=== PATIENT | male | born 1960 | race Caucasian/White ===

== ENCOUNTER 2017-04-08 14:26 | Observation (INO) | payer OTHER ==
[2017-04-08] MEDS ORDERED: SODIUM CHLORIDE 0.9% 1,000 ML IV ONE (15:44)
[2017-04-08 16:03] LABS: Basophils % (A) 0 %; Eosinophils # (A) 0.1 k/uL (0-0.7); Eosinophils % (A) 2 %; HGB 13.7 gm/dL (13.0-17.5); Lymphocytes # (A) 1.1 k/uL (1.0-4.8); Lymphocytes % (A) 14 %; MCH 29.5 pg (25.0-35.0); MCHC 32.8 g/dL (31.0-37.0); MCV 90.2 fL (80.0-100.0); Mean Platelet Volume 8.6; Monocytes # (A) 0.5 k/uL (0-1.0); Monocytes % (A) 6 %; Neutrophils # (A) 5.9 k/uL (1.3-7.7); Neutrophils % (A) 76 %; Platelet Count 228 k/uL (150-450); RBC 4.65 m/uL (4.30-5.90); RDW 12.4 % (11.5-15.5); WBC 7.8 k/uL (3.8-10.6)
--- NOTE | 2017-04-08 16:10 | XR ---
EXAMINATION TYPE: XR chest 2V DATE OF EXAM: 04/08/2017 COMPARISON: NONE HISTORY: Weakness TECHNIQUE: Frontal and lateral views of the chest are obtained. FINDINGS: There is no focal air space opacity, pleural effusion, or pneumothorax seen. The cardiac silhouette size is within normal limits. The osseous structures are intact. Moderate multilevel deg enerative changes of the thoracic spine are noted. IMPRESSION: No acute cardiopulmonary process.
[2017-04-08 16:12] LABS: INR 1.1 (<1.2); Partial Thromboplastin Time 28.5 sec (22.0-30.0); Prothrombin Time 10.4 sec (9.0-12.0)
[2017-04-08 16:16] LABS: ALT 18 U/L (21-72); AST 19 U/L (17-59); Albumin 4.3 g/dL (3.5-5.0); Alkaline Phosphatase 125 U/L (38-126); Anion Gap 13 mmol/L; Blood Urea Nitrogen 14 mg/dL (9-20); Calcium 9.5 mg/dL (8.4-10.2); Carbon Dioxide 25 mmol/L (22-30); Chloride 103 mmol/L (98-107); Glucose 97 mg/dL (74-99); Magnesium 2.5 mg/dL (1.6-2.3); Sodium 141 mmol/L (137-145); Total Bilirubin 0.6 mg/dL (0.2-1.3); Total Protein 7.7 g/dL (6.3-8.2)
--- NOTE | 2017-04-08 16:20 | ED ---
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 Family states that he has been worked up as an outpatient for heart problems. He had a pharmacological stress test about 4 days ago. He was fine after this however then yesterday became generally weak and was unable to ambulate on his own. They stated that they've have had to pick him up and he just drags his feet when he walks. There is no new focal weakness she states that he just feels generally fatigued. He states he has had lack of appetite and has not been eating or drinking as much over the last couple of days. No fevers or chills. No cough or shortness of breath. No abdominal pain. No nausea, vomiting, or diarrhea. He was supposed to see a neurologist, Dr. Galeana however due to his weakness was brought emergency department. The patient states that his weakness from his stroke is unchanged and he does not feel he is new focal neurologic deficits. No other acute complaints at this time. - Related Data Home Medications Medication Instructions Recorded Confirmed Apixaban [Eliquis] 5 mg PO BID 04/08/17 04/08/17 Aspirin [Adult Low Dose Aspirin EC] 81 mg PO DAILY 04/08/17 04/08/17 Atorvastatin [Lipitor] 20 mg PO HS 04/08/17 04/08/17 Carvedilol [Coreg] 3.125 mg PO BID 04/08/17 04/08/17 Hydrocortisone Cream 1 applic TOPICAL BID 04/08/17 04/08/17 [Hydrocortisone 2.5% Cream] Lisinopril [Prinivil] 5 mg PO DAILY 04/08/17 04/08/17 Allergies Allergy/AdvReac Type Severity Reaction Status Date / Time No Known Allergies Allergy Verified 04/08/17 15:47 Review of Systems ROS Statement: Those systems with pertinent positive or pertinent negative responses have been documented in the HPI. ROS Other: All systems not noted in ROS Statement are negative. Past Medical History Past Medical History: Atrial Fibrillation, CVA/TIA History of Any Multi-Drug Resistant Organisms: None Reported Additional Past Surgical History / Comment(s): left achilles tendon repair Past Psychological History: No Psychological Hx Reported Smoking Status: Former smoker Past Alcohol Use History: None Reported Past Drug Use History: None Reported General Exam - General Exam Comments Initial Comments: Constitutional: Awake alert Appears comfortable Head: Normocephalic atraumatic Eyes: no conjunctival injection No scleral icterus EOMI Neck: No JVD Supple Heart: Regular rate rhythm normal S1-S2 no murmurs Lungs: Clear to auscultation bilaterally No wheezing No rales Abdomen: Soft nondistended nontender Extremities: Non edematous DP pulses intact Radial pulses intact Neuro: A&Ox3, cranial nerves II through XII are grossly intact, speech is fluent , patient has slightly decreased strength in left upper and left lower extremity when compared to the right however both are able to be held up against gravity. No ataxia in the extremities Psych: Appropriate mood and affect Limitations: no limitations Course Vital Signs 04/08/17 04/08/17 04/08/17 14:31 15:52 17:00 Temperature 97.7 F Pulse Rate 81 80 71 Respiratory 18 18 16 Rate Blood Pressure 129/67 153/79 177/80 O2 Sat by Pulse 100 100 100 Oximetry EKG Findings - EKG Comments: EKG Findings:: EKG showing normal sinus rhythm with rate of 71. No abnormal ST segment changes or T-wave inversions. QTC is 491. Other intervals normal. No ectopy. Medical Decision Making - Medical Decision Making This is a 56-year-old male who presents emergency department for generalized fatigue and difficulty with ambulation. The patient had an extensive workup performed that was mostly unremarkable. Patient did appear clinically dehydrated and was given a liter of fluids. Urinalysis was negative. Chest x- ray and CT of the head were unchanged from previous. I did attempt to get the patient up and walk at bedside and he had significant weakness. He was able to stand up however was unable to ambulate on his own. This is way off of his baseline. Typically he is able to ambulate on his own and lives in assisted living and is able to go up and down stairs to his meals. This time I do not feel that the patient is safe to go back to his assisted living and may possibly sustained malnutrition if unable to get to the cafeteria to eat. He needs to stay for physical therapy and likely placement into a long-term facility for getting his strength back. Dr. Guzman accepts the admission. Patient and family were updated at bedside. All questions were answered. - Lab Data Result diagrams: 04/08/17 15:39 04/08/17 15:39 Lab Results 04/08/17 04/08/17 04/08/17 Range/Units 15:39 15:39 15:39 WBC 7.8 (3.8-10.6) k/uL RBC 4.65 (4.30-5.90) m/uL Hgb 13.7 (13.0-17.5) gm/dL Hct 42.0 (39.0-53.0) % MCV 90.2 (80.0-100.0) fL MCH 29.5 (25.0-35.0) pg MCHC 32.8 (31.0-37.0) g/dL RDW 12.4 (11.5-15.5) % Plt Count 228 (150-450) k/uL Neutrophils % 76 % Lymphocytes % 14 % Monocytes % 6 % Eosinophils % 2 % Basophils % 0 % Neutrophils # 5.9 (1.3-7.7) k/uL Lymphocytes # 1.1 (1.0-4.8) k/uL Monocytes # 0.5 (0-1.0) k/uL Eosinophils # 0.1 (0-0.7) k/uL Basophils # 0.0 (0-0.2) k/uL PT (9.0-12.0) sec INR (<1.2) APTT (22.0-30.0) sec Sodium 141 (137-145) mmol/L Potassium 5.0 (3.5-5.1) mmol/L Chloride 103 (98-107) mmol/L Carbon Dioxide 25 (22-30) mmol/L Anion Gap 13 mmol/L BUN 14 (9-20) mg/dL Creatinine 1.10 (0.66-1.25) mg/dL Est GFR (MDRD) Af Amer >60 (>60 ml/min/1.73 sqM) Est GFR (MDRD) Non-Af >60 (>60 ml/min/1.73 sqM) Glucose 97 (74-99) mg/dL Calcium 9.5 (8.4-10.2) mg/dL Magnesium 2.5 H (1.6-2.3) mg/dL Total Bilirubin 0.6 (0.2-1.3) mg/dL AST 19 (17-59) U/L ALT 18 L (21-72) U/L Alkaline Phosphatase 125 (38-126) U/L CK-MB (CK-2) 0.5 (0.0-2.4) ng/mL Troponin I <0.012 (0.000-0.034) ng/mL NT-Pro-B Natriuret Pep pg/mL Total Protein 7.7 (6.3-8.2) g/dL Albumin 4.3 (3.5-5.0) g/dL Urine Color Urine Appearance (Clear) Urine pH (5.0-8.0) Ur Specific [place] (1.001-1.035) Urine Protein (Negative) Urine Glucose (UA) (Negative) Urine Ketones (Negative) Urine Blood (Negative) Urine Nitrite (Negative) Urine Bilirubin (Negative) Urine Urobilinogen (<2.0) mg/dL Ur Leukocyte Esterase (Negative) 04/08/17 04/08/17 04/08/17 Range/Units 15:39 15:39 17:32 WBC (3.8-10.6) k/uL RBC (4.30-5.90) m/uL Hgb (13.0-17.5) gm/dL Hct (39.0-53.0) % MCV (80.0-100.0) fL MCH (25.0-35.0) pg MCHC (31.0-37.0) g/dL RDW (11.5-15.5) % Plt Count (150-450) k/uL Neutrophils % % Lymphocytes % % Monocytes % % Eosinophils % % Basophils % % Neutrophils # (1.3-7.7) k/uL Lymphocytes # (1.0-4.8) k/uL Monocytes # (0-1.0) k/uL Eosinophils # (0-0.7) k/uL Basophils # (0-0.2) k/uL PT 10.4 (9.0-12.0) sec INR 1.1 (<1.2) APTT 28.5 (22.0-30.0) sec Sodium (137-145) mmol/L Potassium (3.5-5.1) mmol/L Chloride (98-107) mmol/L Carbon Dioxide (22-30) mmol/L Anion Gap mmol/L BUN (9-20) mg/dL Creatinine (0.66-1.25) mg/dL Est GFR (MDRD) Af Amer (>60 ml/min/1.73 sqM) Est GFR (MDRD) Non-Af (>60 ml/min/1.73 sqM) Glucose (74-99) mg/dL Calcium (8.4-10.2) mg/dL Magnesium (1.6-2.3) mg/dL Total Bilirubin (0.2-1.3) mg/dL AST (17-59) U/L ALT (21-72) U/L Alkaline Phosphatase (38-126) U/L CK-MB (CK-2) (0.0-2.4) ng/mL Troponin I (0.000-0.034) ng/mL NT-Pro-B Natriuret Pep 186 pg/mL Total Protein (6.3-8.2) g/dL Albumin (3.5-5.0) g/dL Urine Color Yellow Urine Appearance Clear (Clear) Urine pH 5.0 (5.0-8.0) Ur Specific [place] 1.020 (1.001-1.035) Urine Protein Trace H (Negative) Urine Glucose (UA) Negative (Negative) Urine Ketones 1+ H (Negative) Urine Blood Negative (Negative) Urine Nitrite Negative (Negative) Urine Bilirubin Negative (Negative) Urine Urobilinogen <2.0 (<2.0) mg/dL Ur Leukocyte Esterase Negative (Negative) Disposition Clinical Impression: Ambulatory dysfunction, Dehydration Disposition: ADMITTED IP TO THIS HOSP Condition: Stable
[2017-04-08 16:42] LABS: Creatine Kinase MB 0.5 ng/mL (0.0-2.4); Troponin I <0.012 ng/mL (0.000-0.034)
--- NOTE | 2017-04-08 16:58 | CT ---
EXAMINATION TYPE: CT brain wo con DATE OF EXAM: 04/08/2017 COMPARISON: NONE HISTORY: Lethargic. Altered mental status. CT DLP: 1052.7 mGycm. Automated Exposure Control for Dose Reduction was Utilized. TECHNIQUE: CT scan of the head is performed without contrast FINDINGS: There is no acute intracranial hemorrhage or midline shift identified. There is diffuse v entricular and sulcal prominence consistent with diffuse age-related cerebral atrophy. There is low- attenuation in the periventricular white matter consistent with chronic small vessel ischemic change. The globes are intact. Near complete opacification of the left maxillary sinus, moderate mucosal th ickening of the ethmoid sinuses, and moderate mucosal thickening in the visualized portion of the rig ht maxillary sinus with scant mucosal thickening of the sphenoid sinuses are seen. Frontal sinuses an d mastoid air cells are well aerated. Old lacunar injury of the right caudate head and subcortical pe riventricular white matter of the right frontal lobe are noted. IMPRESSION: 1. No acute intracranial hemorrhage or midline shift. 2. Moderate paranasal sinus disease with near complete opacification of the left maxillary sinus. 3. Old right frontal/caudate head lacunar injuries and diffuse age-related cerebral atrophy and chron ic small vessel ischemic change.
[2017-04-08 17:36] LABS: Appearance,Urine Clear (Clear); Bilirubin,Urine Negative (Negative); Blood,Urine Negative (Negative); Color,Urine Yellow; Glucose,Urine (UA) Negative (Negative); Ketones,Urine 1+ (Negative); Leukocyte Esterase,Urine Negative (Negative); Nitrite,Urine Negative (Negative); Protein,Urine Trace (Negative); Urobilinogen,Urine <2.0 mg/dL (<2.0)
[2017-04-08] MEDS ORDERED: ACETAMINOPHEN TAB 325 MG TAB PO PRN (17:41)
[2017-04-08] MEDS ORDERED: NALOXONE 0.4 MG/ML 1 ML VIAL IV PRN (17:41)
[2017-04-08] MEDS: CARVEDILOL 3.125 MG TAB PO SCH (18:50)
[2017-04-08 19:47] VITALS: BMI 22.0
[2017-04-08] MEDS ORDERED: HYDROcodone/APAP 5-325MG 1 EACH TAB PO PRN (20:21)
[2017-04-08] MEDS ORDERED: ALPRAZolam 0.25 MG TAB PO PRN (20:21)
[2017-04-08] MEDS: ATORVASTATIN 20 MG TAB PO SCH (21:22)
[2017-04-08] MEDS: HYDROCORTISONE 1% CREAM 30 GM TUBE TOPICAL SCH (21:22)
[2017-04-08] MEDS: SODIUM CHLORIDE 0.9% 1,000 ML IV SCH (21:22)
[2017-04-08] MEDS: APIXABAN 5 MG TAB PO SCH (21:22)
--- NOTE | 2017-04-08 21:53 | HP ---
HISTORY AND PHYSICAL DATE OF SERVICE: 04/08/2017 CHIEF COMPLAINTS: Weakness and lethargy. HISTORY OF PRESENT ILLNESS: This 56-year-old gentleman with a past medical history of multiple medical problems, including atrial fibrillation, CVA, TIA, multiple episodes, being followed by Dr. Lucero and Dr. Nur in the outpatient setting, was previously admitted with multiple episodes of strokes, apparently. Currently the patient is complaining of weakness and tiredness. Patient was found to be dehydrated and the patient was admitted for further evaluation and treatment. The patient apparently is living in a home where he has to walk down the stairs to get meals, which the patient has apparently not been doing for the last couple of days. After coming to the hospital, the patient was given IV fluids and the patient is improving significantly. There is no history of headache, loss of consciousness, seizures. PAST MEDICAL HISTORY: 1. History of atrial fibrillation. 2. Multiple CVIs. MEDICATIONS PRIOR TO ADMISSION: 1. Prinivil 5 mg p.o. daily. 2. Hydrocortisone cream. 3. Coreg 3.125 mg p.o. b.i.d. 4. Lipitor 10 mg at bedtime. 5. Ecotrin 81 mg p.o. daily. 6. Eliquis 5 mg p.o. b.i.d. ALLERGIES: NONE. FAMILY HISTORY: History of CHF in the family and cirrhosis of the liver. SOCIAL HISTORY: Previous history of smoking. No current smoking or alcohol intake. REVIEW OF SYSTEMS: ENT: No diminished hearing. No diminished vision. CARDIOVASCULAR SYSTEM: No angina, palpitations. RESPIRATORY SYSTEM: No cough, hemoptysis. GI: As mentioned earlier. : No dysuria or retention. NERVOUS SYSTEM: No numbness, weakness. ALLERGY/IMMUNOLOGY: No asthma, hayfever. MUSCULOSKELETAL: As mentioned earlier. HEMATOLOGY/ONCOLOGY: No history of anemia. ENDOCRINE: No history of diabetes, hypothyroidism. CONSTITUTIONAL: As mentioned earlier. DERMATOLOGY: Negative. RHEUMATOLOGY: Negative. PSYCHIATRY: As mentioned earlier. PHYSICAL EXAMINATION: Patient is alert and oriented x3. Pulse 71, blood pressure 177/80, respiration 16, temperature 98.1, pulse ox 100% on 2 L. HEENT: Conjunctivae normal. Oral mucosa moist. NECK: No jugular venous distention. No carotid bruit. No lymph node enlargement. CARDIOVASCULAR SYSTEM: S1, S2 muffled. No S3. No S4. RESPIRATORY SYSTEM: Breath sounds diminished at the bases. Scattered rhonchi and crackles. ABDOMEN: Soft, nontender. No mass palpable. LEGS: No edema. No swelling. NERVOUS SYSTEM: Higher functions as mentioned earlier. Moves all 4 limbs. weakness on the left side. coordination, more on the left than the right. SKIN: No ulcer, rash, bleeding. LYMPHATICS: No lymph node palpable in neck, axillae or groin. LABS: CBC within normal limits. Magnesium 2.5. UA noted. ASSESSMENT: 1. Weakness and lethargy with dehydration with diminished oral intake. 2. Rule out transient ischemic attack. 3. History of previous multiple strokes. 4. History of atrial fibrillation. 5. On Xarelto. 6. History of cerebrovascular accident, transient ischemic attack. 7. History of left Achilles tendon repair. 8. Remote history of nicotine dependence. 9. FULL CODE. RECOMMENDATIONS AND DISCUSSION: In this 56-year-old gentleman who presented with multiple complex medical issues , we will monitor the patient closely, continue the current medications, continue symptomatic treatment. Otherwise, I recommend continuing with antiplatelet agents and Lipitor. I would also recommend DVT prophylaxis. Continue with IV fluids. Otherwise I would also recommend p.r.n. medication for hypertension and neurology and cardiology consultations. Guarded prognosis. Further recommendations to follow. Discussed at length with the family at the bedside, who understands and agrees. Prognosis guarded because of above-mentioned multiple complex medical issues. Neuro checks have also been instituted. Further recommendations to follow. MMODL / IJN: [id number] / [email or web address]
[2017-04-09] MEDS: SODIUM CHLORIDE 0.9% 1,000 ML IV SCH (10:34)
[2017-04-09] MEDS: APIXABAN 5 MG TAB PO SCH ×2 (11:35→20:45)
[2017-04-09] MEDS: PANTOPRAZOLE 40 MG TABLET PO SCH (11:35)
[2017-04-09] MEDS: LISINOPRIL 5 MG TAB PO SCH (11:35)
[2017-04-09] MEDS: ASPIRIN 81 MG PO SCH (11:35)
[2017-04-09] MEDS: HYDROCORTISONE 1% CREAM 30 GM TUBE TOPICAL SCH ×2 (11:36→20:44)
[2017-04-09] MEDS: CARVEDILOL 3.125 MG TAB PO SCH ×2 (11:36→17:57)
--- NOTE | 2017-04-09 13:00 | P.CRDCN ---
History of Present Illness Consult date: 04/09/17 History of present illness: Mr. Hamilton is a pleasant 56-year-old male past medical history significant for hypertension, atrial fibrillation on extermination inspector anti-coagulation with Eliquis, cardiomyopathy and history of previous TIAs in the past. He follows with Dr. Nur in the office. Apparently he was recently admitted to [facility] where he was diagnosed with a-fib and cardiomyopathy of unknown origin. Dr. Nur did a Lexiscan stress test that revealed ischemic cardiomyopathy secondary to extensive inferolateral wall OH with severed LV dysfunction. Per the patient he has never had a cardiac event in the past and denies history of coronary artery disease. He presented to the hospital yesterday with complaints of generalized weakness over the past few weeks. He lives in a half-way and his bedroom is upstairs. He noticed that he can barely make it up and down the stairs to meals without getting extremely fatigued and weak. He denies any symptoms of chest pain, sob, dizziness, palpitations, nausea, vomiting or diaphoresis. At the time of my exam he is sitting in bed in no acute distress. He still feels overall fatigue and weakness with no other symptoms. EKG on arrival reveals sinus mechanism with mild ST depression in inferior leads. Chest xray is negative for an acute cardiopulmonary process. Laboratory data reviewed, hemoglobin 13.7, platelets 228, potassium 5.0, magnesium 2.5, creatinine 1.1, cardiac enzymes negative 1 and proBNP 186. Current cardiac medications include lisinopril 5 mg daily, Coreg 3.125 mg twice a day, atorvastatin 20 mg daily, aspirin 81 mg daily and eliquis 5 mg twice a day. Telemetry tracings reveal no evidence of atrial fibrillation with bradycardia while sleeping. Echocardiogram performed in [facility] 01/2017 reveals decreased LV systolic function with EF 35-40%, mild aortic regurgitation and diastolic dysfunction. Review of Systems At the time of my exam: CONSTITUTIONAL: Denies fever. Denies chills. EYES: Denies blurred vision. Denies vision changes. Denies eye pain. EARS, NOSE, MOUTH & THROAT: Denies headache. Denies sore throat. Denies ear pain. CARDIOVASCULAR: Denies chest pain. Denies shortness of breath. Denies orthopnea. Denies PND. Denies palpitations. RESPIRATORY: Denies cough. GASTROINTESTINAL: Denies abdominal pain. Denies diarrhea. Denies constipation. Denies nausea. Denies vomiting. MUSCULOSKELETAL: Denies myalgias. INTEGUMENTARY: Denies pruitis. Denies rash. NEUROLOGIC: Denies numbness. Denies tingling. Complains of generalized weakness. PSYCHIATRIC: Denies anxiety. Denies depression. ENDOCRINE: Complains of overall fatigue. Denies weight change. Denies polydipsia. Denies polyurina. GENITOURINARY: Denies burning, hematuria or urgency with micturation. HEMATOLOGIC: Denies history of anemia. Denies bleeding. Past Medical History Past Medical History: Atrial Fibrillation, CVA/TIA History of Any Multi-Drug Resistant Organisms: None Reported Additional Past Surgical History / Comment(s): left achilles tendon repair Past Anesthesia/Blood Transfusion Reactions: No Reported Reaction Smoking Status: Former smoker - Past Family History Mother Family Medical History: Congestive Heart Failure (CHF) Father Additional Family Medical History / Comment(s): of sclorosis of the liver Medications and Allergies Home Medications Medication Instructions Recorded Confirmed Type Apixaban [Eliquis] 5 mg PO BID 04/08/17 04/08/17 History Aspirin [Adult Low Dose Aspirin EC] 81 mg PO DAILY 04/08/17 04/08/17 History Atorvastatin [Lipitor] 20 mg PO HS 04/08/17 04/08/17 History Carvedilol [Coreg] 3.125 mg PO BID 04/08/17 04/08/17 History Hydrocortisone Cream 1 applic TOPICAL BID 04/08/17 04/08/17 History [Hydrocortisone 2.5% Cream] Lisinopril [Prinivil] 5 mg PO DAILY 04/08/17 04/08/17 History Allergies Allergy/AdvReac Type Severity Reaction Status Date / Time No Known Allergies Allergy Verified 04/08/17 19:39 Physical Exam Vitals: Vital Signs Temp Pulse Pulse Resp BP BP Pulse Ox 04/09/17 07:57 98.0 F 69 18 152/69 98 04/09/17 04:00 98.0 F 72 16 138/65 99 04/08/17 23:57 16 04/08/17 23:35 99.1 F 72 16 157/65 96 04/08/17 20:00 98.0 F 80 16 180/81 99 04/08/17 18:43 98.1 F 74 16 165/77 100 04/08/17 17:00 71 16 177/80 100 04/08/17 15:52 80 18 153/79 100 04/08/17 14:31 97.7 F 81 18 129/67 100 Intake and Output 04/08/17 04/09/17 04/09/17 22:59 06:59 14:59 Other: # Voids 1 Weight 65.7 kg Blood pressure 152/69 heart rate 69 afebrile GENERAL: This is a 56-year-old female in no apparent distress at the time of my examination. HEENT: Head is atraumatic, normocephalic. Pupils are equal, round. Sclerae anicteric. Conjunctivae are clear. Mucous membranes of the mouth are moist. Neck is supple. There is no jugular venous distention. No carotid bruit is heard. LUNGS: Clear to auscultation no wheezes, rales or rhonchi. No chest wall tenderness is noted on palpation or with deep breathing. HEART: Regular rate and rhythm without murmurs, rubs or gallops. S1 and S2 heard. ABDOMEN: Soft, nontender. Bowel sounds are heard. No organomegaly noted. EXTREMITIES: No evidence of peripheral edema and no calf tenderness noted. VASCULAR: Radial and dorsalis pedis pulses palpated, no evidence of clubbing. NEUROLOGIC: Patient is awake, alert and oriented x3. Results 04/08/17 15:39 04/08/17 15:39 Cardiac Enzymes 04/08/17 04/08/17 Range/Units 15:39 15:39 AST 19 (17-59) U/L CK-MB (CK-2) 0.5 (0.0-2.4) ng/mL Troponin I <0.012 (0.000-0.034) ng/mL Coagulation 04/08/17 Range/Units 15:39 PT 10.4 (9.0-12.0) sec APTT 28.5 (22.0-30.0) sec CBC 04/08/17 Range/Units 15:39 WBC 7.8 (3.8-10.6) k/uL RBC 4.65 (4.30-5.90) m/uL Hgb 13.7 (13.0-17.5) gm/dL Hct 42.0 (39.0-53.0) % Plt Count 228 (150-450) k/uL Comprehensive Metabolic Panel 04/08/17 Range/Units 15:39 Sodium 141 (137-145) mmol/L Potassium 5.0 (3.5-5.1) mmol/L Chloride 103 (98-107) mmol/L Carbon Dioxide 25 (22-30) mmol/L BUN 14 (9-20) mg/dL Creatinine 1.10 (0.66-1.25) mg/dL Glucose 97 (74-99) mg/dL Calcium 9.5 (8.4-10.2) mg/dL AST 19 (17-59) U/L ALT 18 L (21-72) U/L Alkaline Phosphatase 125 (38-126) U/L Total Protein 7.7 (6.3-8.2) g/dL Albumin 4.3 (3.5-5.0) g/dL Current Medications Generic Name Dose Route Start Last Admin Trade Name Freq PRN Reason Stop Dose Admin Acetaminophen 650 mg 04/08/17 17:41 Tylenol Tab PO Q6HR PRN Mild Pain or Fever > 100.5 Hydrocodone Bitart/Acetaminophen 1 each 04/08/17 20:21 [place] 5-325 PO Q6HR PRN Pain Alprazolam 0.25 mg 04/08/17 20:21 Xanax PO TID PRN Anxiety Apixaban 5 mg 04/08/17 21:00 04/08/17 21:22 Eliquis PO 5 mg BID EMMA Administration Aspirin 81 mg 04/09/17 09:00 Aspirin PO DAILY [facility] Atorvastatin Calcium 20 mg 04/08/17 21:00 04/08/17 21:22 Lipitor PO 20 mg HS EMMA Administration Carvedilol 3.125 mg 04/08/17 18:00 04/08/17 18:50 Coreg PO 3.125 mg BID-W/MEALS EMMA Administration Hydrocortisone 1 applic 04/08/17 21:00 04/08/17 21:22 Hydrocortisone 1% Cream TOPICAL 1 applic BID [facility] Administration Sodium Chloride 1,000 mls @ 75 mls/hr 04/08/17 20:30 04/08/17 21:22 Saline 0.9% IV 75 mls/hr .[id number] EMMA Administration Lisinopril 5 mg 04/09/17 09:00 Zestril PO DAILY [facility] Naloxone HCl 0.2 mg 04/08/17 17:41 Narcan IV Q2M PRN Opioid Reversal Pantoprazole Sodium 40 mg 04/09/17 07:30 Protonix PO [id number] [facility]MA Intake and Output 04/08/17 04/09/17 04/09/17 22:59 06:59 14:59 Other: # Voids 1 Weight 65.7 kg 04/08/17 15:39 04/08/17 15:39 Assessment and Plan Assessment: ASSESSMENT 1. Generalized weakness and fatigue 2. Paroxysmal atrial fibrillation on extermination inspector anti-coagulation with Eliquis, currently maintaining sinus mechanism 3. Ischemic cardiomyopathy, no clinical manifestations of heart failure currently 4. Hypertension 5. Dyslipidemia PLAN Continue with carvedilol, lisinopril, atorvastatin, aspirin and eliquis as previously ordered. Echocardiogram reviewed from January as well as recent stress test. Continue with neurology work-up. He has a scheduled appointment with Dr. Nur 04/22 to discuss further cardiac evaluation. No acute intervention required during this admission. Thank you kindly for this consultation. Nurse Practitioner note has been reviewed, I agree with a documented findings and plan of care. Patient was seen and examined.
--- NOTE | 2017-04-09 14:03 | ECHOF ---
Referral Reason:fatigue MEASUREMENTS -------- HEIGHT: 172.7 cm WEIGHT: 65.3 kg BP: 152/69 RVIDd: 2.3 cm (< 3.3) IVSd: 1.1 cm (0.6 - 1.1) LVIDd: 4.8 cm (3.9 - 5.3) LVPWd: 0.9 cm (0.6 - 1.1) IVSs: 1.4 cm LVIDs: 3.9 cm LVPWs: 1.5 cm LA Diam: 3.8 cm (2.7 - 3.8) LAESV Index (A-L): 26.73 ml/m Ao Diam: 3.1 cm (2.0 - 3.7) AV Cusp: 2.2 cm (1.5 - 2.6) MV EXCURSION: 19.740 mm (> 18.000) MV EF SLOPE: 91 mm/s (70 - 150) EPSS: 1.2 cm MV E Paul: 0.87 m/s MV DecT: 172 ms MV A Paul: 0.73 m/s MV E/A Ratio: 1.20 AR PHT: 647 ms FINDINGS -------- Sinus rhythm. This was a technically good study. The left ventricular size is normal. Left ventricular wall thickness is normal. Overall left vent ricular systolic function is moderately impaired with, an EF between 35 - 40 %. Basal posterior LV wall motion is akinetic. Basal inferior LV wall motion is akinetic. Mid posterior LV wall motio n is hypokinetic. Mid inferior LV wall motion is hypokinetic. Apical inferior LV wall motion is hypokinetic. Apical septum LV wall motion is hypokinetic. The right ventricle is normal in size. Normal LA size by volume 22+/-6 ml/m2. The right atrium is normal in size. There is mild aortic valve sclerosis. There is mild aortic regurgitation. The mitral valve is normal. The tricuspid valve appears structurally normal. The pulmonic valve was not well visualized. There is no pulmonic regurgitation present. The aortic root size is normal. Normal inferior vena cava with normal inspiratory collapse consistent with estimated right atrial pre ssure of 5 mmHg. There is no pericardial effusion. CONCLUSIONS -------- 1. Sinus rhythm. 2. This was a technically good study. 3. The left ventricular size is normal. 4. Left ventricular wall thickness is normal. 5. Overall left ventricular systolic function is moderately impaired with, an EF between 35 - 40 %. 6. Basal posterior LV wall motion is akinetic. 7. Basal inferior LV wall motion is akinetic. 8. Mid posterior LV wall motion is hypokinetic. 9. Mid inferior LV wall motion is hypokinetic. 10. Apical inferior LV wall motion is hypokinetic. 11. Apical septum LV wall motion is hypokinetic. 12. Normal LA size by volume 22+/-6 ml/m2. 13. There is mild aortic valve sclerosis. 14. There is mild aortic regurgitation. 15. The mitral valve is normal. 16. The tricuspid valve appears structurally normal. 17. The pulmonic valve was not well visualized. 18. There is no pulmonic regurgitation present. 19. The aortic root size is normal. 20. Normal inferior vena cava with normal inspiratory collapse consistent with estimated right atrial pressure of 5 mmHg. 21. There is no pericardial effusion. FIELD RETURN REPAIRER: Danay Arellano RDCS
--- NOTE | 2017-04-09 17:04 | PN ---
PROGRESS NOTE DATE OF SERVICE: 04/09/2017 This 56-year-old gentleman admitted with weakness, lethargy and dehydration, also had cardiomyopathy with ejection fraction 35 to 40% with diffuse wall motion abnormalities on the new 2D echo. Cardiology is following the patient. Neurology evaluation pending. The patient is complaining of significant weakness and wobbly feeling. The patient also had history of paroxysmal atrial fibrillation. PT and OT also evaluating the patient. PAST MEDICAL HISTORY: Reviewed. REVIEW OF SYSTEMS: CARDIOVASCULAR: As mentioned. RESPIRATORY: As mentioned. GI: No nausea. : No dysuria. NERVOUS SYSTEM: No numbness or weakness. Current medications are reviewed. PHYSICAL EXAMINATION: Patient is alert, oriented x3. Pulse 71, blood pressure 130/64, respiration 18, temperature 97.4, pulse ox 98% on room air. HEENT: Conjunctivae normal. NECK: No jugular venous distention. CARDIOVASCULAR: S1, S2 muffled. RESPIRATORY: Breath sounds diminished in the bases. A few scattered rhonchi. No crackles. ABDOMEN: Soft, nontender. No mass palpable. LEGS: No edema, no swelling. NERVOUS SYSTEM: Higher functions as mentioned earlier, moves all 4 limbs, no focal motor deficits. LYMPHATICS: No lymphadenopathy in the neck, axillae, groin. SKIN: No ulcer, rash or bleeding. LABS: CBC within normal limits. CMP noted. UA noted. ASSESSMENT: 1. Generalized weakness and lethargy secondary to dehydration and diminished p.o. intake. 2. Possible transient ischemic attack. 3. Gait dysfunction. 4. Ischemic cardiomyopathy with congestive heart failure with chronic systolic dysfunction, ejection fraction 35-40% with multiple wall motion abnormalities. 5. History of paroxysmal atrial fibrillation. 6. History of multiple previous strokes. 7. On Xarelto. 8. History of cerebrovascular accident and transient ischemic attack. 9. History of left Achilles tendon repair. 10.Remote history of nicotine dependence. 11.FULL CODE. RECOMMENDATION AND DISCUSSION: In this 56-year-old gentleman who presented with multiple complex medical issues, will continue monitor the patient closely. Continue the current management and symptomatic treatment. Continue with current medications including antiplatelet agents and apixaban. Will also check orthostatic vitals. We will stop with IV fluids with concerns of congestive heart failure. Guarded prognosis. Further recommendations to follow. Discussed with staff at length. PT and OT evaluation, possible ECF rehab. The patient will require more than 2 nights of evaluation and treatment to elucidate the above-mentioned complex medical issues. We will continue to monitor and follow the patient closely with Neurology and Cardiology. Recommended for inpatient hospitalization. GLORIA / ABHISHEKN: [id number] /
--- NOTE | 2017-04-09 17:34 | P.CNNES ---
History of Present Illness Consult date: 04/09/17 History of Present Illness: The patient is a 56-year-old man with history of stroke which she suffered in June 2016.'s left him with some left hemiparesis. Also he has had some speech disturbance. He reports that the place where he stays currently at [place] [facility] he has a bedroom upstairs where he has to climb a flight of stairs and it was difficult for him in the last few days to come down [place] to or drink. He has been having some general weakness and difficulty walking. Is no new focal weakness. There is no vertigo or dizziness. Nu[place] any headache. He has a history of left hemiparesis and usually does not depend on a walker or a cane to walk but since Friday he's been having difficulty walking due to general weakness. Emergency room with these complaints and he was found to have dehydration. His complaints the emergency room was that he felt shaky. There is no history of seizures. Chest x-ray showed bilateral lower lobe infiltrates he was admitted to the hospital with pneumonia. Neurology requested to evaluate. Review of Systems Constitutional: Denies chills, Denies fever Cardiovascular: Reports as per HPI Respiratory: Denies cough Gastrointestinal: Denies abdominal pain, Denies diarrhea, Denies nausea, Denies vomiting Musculoskeletal: Reports as per HPI Integumentary: Denies pruritus, Denies rash Neurological: Reports as per HPI Psychiatric: Denies anxiety, Denies depression Past Medical History Past Medical History: Atrial Fibrillation, CVA/TIA History of Any Multi-Drug Resistant Organisms: None Reported Additional Past Surgical History / Comment(s): left achilles tendon repair Past Anesthesia/Blood Transfusion Reactions: No Reported Reaction Smoking Status: Former smoker - Past Family History Mother Family Medical History: Congestive Heart Failure (CHF) Father Additional Family Medical History / Comment(s): of sclorosis of the liver Medications and Allergies Home Medications Medication Instructions Recorded Confirmed Type Apixaban [Eliquis] 5 mg PO BID 04/08/17 04/08/17 History Aspirin [Adult Low Dose Aspirin EC] 81 mg PO DAILY 04/08/17 04/08/17 History Atorvastatin [Lipitor] 20 mg PO HS 04/08/17 04/08/17 History Carvedilol [Coreg] 3.125 mg PO BID 04/08/17 04/08/17 History Hydrocortisone Cream 1 applic TOPICAL BID 04/08/17 04/08/17 History [Hydrocortisone 2.5% Cream] Lisinopril [Prinivil] 5 mg PO DAILY 04/08/17 04/08/17 History Allergies Allergy/AdvReac Type Severity Reaction Status Date / Time No Known Allergies Allergy Verified 04/08/17 19:39 Physical Examination - Vital Signs Vital Signs: Vital Signs Temp Pulse Pulse Resp BP BP Pulse Ox 04/09/17 16:00 98.1 F 70 18 151/73 99 04/09/17 11:35 97.5 F L 71 18 135/64 98 04/09/17 07:57 98.0 F 69 18 152/69 98 04/09/17 04:00 98.0 F 72 16 138/65 99 04/08/17 23:57 16 04/08/17 23:35 99.1 F 72 16 157/65 96 04/08/17 20:00 98.0 F 80 16 180/81 99 04/08/17 18:43 98.1 F 74 16 165/77 100 Intake and Output 04/09/17 04/09/17 04/09/17 06:59 14:59 22:59 Intake Total 460 Balance 460 Intake: Oral 460 Other: Voiding Method Diaper Diaper Incontinent Incontinent # Voids 1 1 1 # Bowel Movements 1 1 - EENT EENT: PERRL, hearing intact, vision intact - Respiratory Respiratory: lungs clear - Cardiovascular Cardiovascular: regular rate, normal S1 - Integumentary Integumentary: normal - Neurologic Ental status he was awake alert and oriented he answered questions appropriately there is no a aphasia or dysarthria Cranial nerve examination: PERRL, EOMI, ptosis, face symmetric, tongue midline Speech examination: intact Detailed motor examination: other (Left hemiparesis) - Psychiatric Psychiatric: mood/affect appropriate Results - Laboratory Findings CBC and BMP: 04/08/17 15:39 04/08/17 15:39 Abnormal Lab Findings: Abnormal Labs 04/08/17 04/08/17 15:39 17:32 Magnesium 2.5 H ALT 18 L Urine Protein Trace H Urine Ketones 1+ H Assessment and Plan (1) Ambulatory dysfunction Current Visit: Yes Status: Acute SNOMED Code(s): 492682855 (2) Dehydration Current Visit: Yes Status: Acute Code(s): E86.0 - DEHYDRATION SNOMED Code( s): 69986650 Plan: The patient is a 56-year-old man with history of stroke and left hemiparesis. He has been having difficulty more recently over the last several days of feeling weak and not eating or drinking properly. He is also had a cough. He is admitted to the hospital with pneumonia. His neurologic examination reveals a left hemiparesis which is old. He had a CAT scan of the brain which showed an old infarct in the right frontal lobe. Recommend PT and OT. General disability is likely gotten worse due to dehydration and pneumonia
[2017-04-09] MEDS: ATORVASTATIN 20 MG TAB PO SCH (20:46)
[2017-04-10] MEDS: APIXABAN 5 MG TAB PO SCH ×2 (08:37→20:09)
[2017-04-10] MEDS: CARVEDILOL 3.125 MG TAB PO SCH ×2 (08:37→17:30)
[2017-04-10] MEDS: HYDROCORTISONE 1% CREAM 30 GM TUBE TOPICAL SCH ×2 (08:37→20:09)
[2017-04-10] MEDS: LISINOPRIL 5 MG TAB PO SCH (08:37)
[2017-04-10] MEDS: PANTOPRAZOLE 40 MG TABLET PO SCH (08:37)
[2017-04-10] MEDS: ASPIRIN 81 MG PO SCH (08:37)
[2017-04-10] MEDS ORDERED: LISINOPRIL 5 MG TAB PO ONE (09:00)
--- NOTE | 2017-04-10 10:22 | P.PN ---
Subjective Progress Note Date: 04/10/17 Mr. Hamilton is seen and examined today resting comfortably in bed. He denies any symptoms of chest pain, shortness of breath, dizziness, palpitations, nausea or vomiting. He continues to c/o generalized weakness, neurology has seen and evaluated him and determined his symptoms were secondary to dehydration and pneumonia. He is currently awaiting placement for inpatient rehab. Blood pressures have been elevated 150-180's systolic. Objective - Vital Signs Vital signs: Vital Signs Temp 98.3 F 04/10/17 07:30 Pulse 71 04/10/17 07:30 Resp 16 04/10/17 07:30 BP 142/75 04/10/17 07:30 Pulse Ox 99 04/10/17 07:30 Intake & Output 04/09/17 04/10/17 04/10/17 18:59 06:59 18:59 Intake Total 800 200 Balance 800 200 Weight 64.6 kg Intake: Oral 700 200 Other 100 Other: Voiding Method Diaper Diaper Incontinent Incontinent # Voids 1 1 # Bowel Movements 1 1 - Exam Blood pressure 142/75 heart rate 71 afebrile GENERAL: Well-appearing, well-nourished and in no acute distress. NECK: Supple without JVD or thyromegaly. LUNGS: Breath sounds clear to auscultation bilaterally. Respiration equal and unlabored. No wheezes, rales or rhonchi. HEART: Regular rate and rhythm without murmurs, rubs or gallops. S1 and S2 heard. EXTREMITIES: Normal range of motion, no edema. No clubbing or cyanosis. Peripheral pulses intact and strong. - Labs CBC & Chem 7: 04/08/17 15:39 04/08/17 15:39 Labs: Microbiology - Last 24 Hours (Table) 04/08/17 17:32 Urine Culture - Final Urine,Voided Assessment and Plan Assessment: ASSESSMENT 1. Generalized weakness and fatigue 2. Paroxysmal atrial fibrillation on snf anti-coagulation with Eliquis, currently maintaining sinus mechanism 3. Ischemic cardiomyopathy, no clinical manifestations of heart failure currently 4. Hypertension 5. Dyslipidemia PLAN Increase lisinopril to 10 mg daily. Continue with carvedilol, atorvastatin, aspirin and eliquis as previously ordered. Stable for transfer to inpatient rehab from cardiac perspective. Follow up with Dr. Nur. Nurse Practitioner note has been reviewed, I agree with a documented findings and plan of care. Patient was seen and examined.
--- NOTE | 2017-04-10 16:24 | PN ---
PROGRESS NOTE DATE OF SERVICE: 04/10/2017. INTERVAL HISTORY: This 56-year-old gentleman who was admitted with generalized weakness and lethargy secondary to dehydration also had a possible transient ischemic attack. The patient complaining of generalized weakness and the patient is closely monitored at this time. A recent 2D echo done by Cardiology showed ejection fraction about 35-40%. No chest pain. No palpitations. No fever. EXAM: Alert and oriented x3. Pulse 72, blood pressure 127/68, respiration 18, temperature 97.9, pulse ox 98% on room air. HEENT: Conjunctivae normal. NECK: No jugular venous distention. CARDIOVASCULAR: S1, S2. RESPIRATORY: Breath sounds diminished in the bases. Scattered rhonchi, no crackles. ABDOMEN: Soft, nontender. LEGS: No edema. NERVOUS SYSTEM: Diffusely weak. LABS: Magnesium 2.5. Other labs are noted. ASSESSMENT: 1. Generalized weakness and lethargy secondary to dehydration and diminished p.o. intake, present on admission. 2. Possible acute transient ischemic attack involving the right hemisphere causing left-sided weakness. 3. Gait dysfunction. 4. Ischemic cardiomyopathy with congestive heart failure with chronic systolic dysfunction, ejection fraction 35 to 40% with multiple wall motion abnormalities. 5. History of paroxysmal atrial fibrillation. 6. History of multiple previous strokes. 7. On Xarelto. 8. History of cerebrovascular accident, transient ischemic attack. 9. History of gait dysfunction. 10.History of left Achilles' tendon repair. 11.Remote history of nicotine dependence. 12.FULL CODE. RECOMMENDATIONS AND DISCUSSION: I recommend to continue current management and continue with antiplatelet agents, otherwise continue to monitor. PT, OT evaluation, possible ECF rehab. Guarded prognosis because of multiple complex medical issues. Closely follow with Cardiology. Further recommendations to follow. MMODL / IJN: [id number] /
[2017-04-10] MEDS: ATORVASTATIN 20 MG TAB PO SCH (20:09)
[2017-04-11 07:34] VITALS: RESP 16
[2017-04-11] MEDS: APIXABAN 5 MG TAB PO SCH (08:48)
[2017-04-11] MEDS: ASPIRIN 81 MG PO SCH (08:48)
[2017-04-11] MEDS: CARVEDILOL 3.125 MG TAB PO SCH (08:49)
[2017-04-11] MEDS: HYDROCORTISONE 1% CREAM 30 GM TUBE TOPICAL SCH (08:49)
[2017-04-11] MEDS: PANTOPRAZOLE 40 MG TABLET PO SCH (08:49)
[2017-04-11] MEDS ORDERED: LISINOPRIL 10 MG TAB PO SCH (09:00)
--- NOTE | 2017-04-11 10:27 | US ---
EXAMINATION TYPE: US carotid duplex BILAT DATE OF EXAM: 04/11/2017 COMPARISON: NONE CLINICAL HISTORY: LOC change, hx of CVAs. EXAM MEASUREMENTS: RIGHT: Peak Systolic Velocity (PSV) cm/sec ----- Right CCA: 65.5 ----- Right ICA: 79.1 ----- Right ECA: 108.2 ICA/CCA ratio: 1.2 RIGHT: End Diastole cm/sec ----- Right CCA: 18.2 ----- Right ICA: 24.3 ----- Right ECA: 15.6 LEFT: Peak Systolic Velocity (PSV) cm/sec ----- Left CCA: 53.1 ----- Left ICA: 117.9 ----- Left ECA: 83.6 ICA/CCA ratio: 2.2 LEFT: End Diastole cm/sec ----- Left CCA: 14.0 ----- Left ICA: 37.0 ----- Left ECA: 11.5 VERTEBRALS (direction of flow): Right Vertebral: Antegrade Left Vertebral: Antegrade Rhythm: Normal Mild to moderate atherosclerotic changes with no significant velocities on right, slight velocity babar vations on left. IMPRESSION: Mild to moderate atherosclerotic changes with findings suggestive of a 50-69% stenosis i nvolving the proximal right ICA. Correlation with CTA could BE obtained as clinically warranted. Criteria for Assigning % of Stenosis / Diameter reduction (Estimation based on the indirect measurements of the internal carotid artery velocities (ICA PSV). 1. Normal (no stenosis)=ICA PSV < 125 cm/s: ratio < 2.0: ICA EDV<40 cm/s. 2. Less than 50% stenosis=ICA PSV < 125 cm/s: ratio < 2.0: ICA EDV<40 cm/s. 3. 50 to 69% stenosis=ICA PSV of 125 to 230 cm/s: ration 2.0 ? 4.0: ICA EDV 40-100 cm/s. 4. Greater than 70% stenosis to near occlusion= ICA PSV > 230 cm/s: ratio > 4.0: ICA EDV > 100 cm/s. 5. Near occlusion= ICA PSV velocities may be low or undetectable: variable ratio and ICA EDV. 6. Total occlusion=unable to detect flow.
[2017-04-11 11:56] VITALS: BP 150/72; PULSE 78; TEMP 97.9
--- NOTE | 2017-04-11 15:01 | P.DS ---
Providers Date of admission: 04/10/17 11:00 Attending physician: Lucrecia Guzman Consults: 04/08/17 20:22 Consult Physician Routine Consulting Provider: Corinne Bond Consult Reason/Comments: afib Do you want consulting provider notified?: Yes Consult Physician Routine Consulting Provider: Prateek Galeana Consult Reason/Comments: tia? Do you want consulting provider notified?: Yes 04/11/17 11:10 Consult Physician Routine Consulting Provider: Luís Corado Consult Reason/Comments: carotid stenosis Do you want consulting provider notified?: Yes Primary care physician: [facility] Course: This 56-year-old gentleman with a past medical history multiple medical problems was admitted with generalized weakness and dehydration. Patient also had a features of acute TIA involving the right hemisphere causing left-sided weakness. Patient was treated symptomatically. Patient improved significantly. The weakness persisted. PTOT evaluate the patient. Patient also had a ischemic cardiomyopathy. F rehab is incised. Patient be discharged transferred to [facility] in a stable condition with guarded prognosis. Patient be going to [facility]. Currently on exam vitals stable. Cardio S1 and S2 normal. Respirator system. Prostration. No system diffusely weak left more than right. Total time taken 35 minutes. Final diagnosis 1. Generalized weakness and lethargy secondary to dehydration and diminished by mouth intake present on admission. 2. Possible acute TIA involving the right hemisphere causing left-sided weakness. 3. Gait dysfunction. 4. Ischemic cardio myopathy with a CHF with chronic systolic dysfunction ejection 35-40% with multiple wall motion abnormalities. 5. History of paroxysmal atrial fibrillation. 6. History multiple previous strokes. 7. On several 2. 8. History of CVA TIA. 9. History of gait dysfunction. Patient Condition at Discharge: Stable Plan - Discharge Summary Discharge Rx Participant: No New Discharge Prescriptions: New Acetaminophen Tab [Tylenol] 650 mg PO Q6HR PRN tab PRN Reason: Mild Pain Or Fever > 100.5 Continue Hydrocortisone Cream [Hydrocortisone 2.5% Cream] 1 applic TOPICAL BID Atorvastatin [Lipitor] 20 mg PO HS Lisinopril [Prinivil] 5 mg PO DAILY Carvedilol [Coreg] 3.125 mg PO BID Aspirin [Adult Low Dose Aspirin EC] 81 mg PO DAILY Apixaban [Eliquis] 5 mg PO BID Discharge Medication List Apixaban [Eliquis] 5 mg PO BID 04/08/17 [History] Aspirin [Adult Low Dose Aspirin EC] 81 mg PO DAILY 04/08/17 [History] Atorvastatin [Lipitor] 20 mg PO HS 04/08/17 [History] Carvedilol [Coreg] 3.125 mg PO BID 04/08/17 [History] Hydrocortisone Cream [Hydrocortisone 2.5% Cream] 1 applic TOPICAL BID 04/08/17 [ History] Lisinopril [Prinivil] 5 mg PO DAILY 04/08/17 [History] Acetaminophen Tab [Tylenol] 650 mg PO Q6HR PRN tab 04/11/17 [Rx] Follow up Appointment(s)/Referral(s): Luís Corado MD [STAFF PHYSICIAN] - As Needed (Please call to arrange appointment once patient is able to vist the physican's office.) Kameron Nur MD [STAFF PHYSICIAN] - 04/22/17 (Patient has an existeing appointment)
== END 2017-04-11 18:40 ==
LOC: EC 14:26 → 3OBS 17:41 → OBSVTOIN 04-10 11:00 → INTOOBSV 04-10 11:00 → UNDODISIN 04-11 18:40
PROVIDERS: ADMIT Hospitalist; ATTEND Hospitalist
DX: E86.0 Dehydration (principal); I11.0 Hypertensive heart disease with heart failure; I50.22 Chronic systolic (congestive) heart failure; I48.0 Paroxysmal atrial fibrillation; I35.1 Nonrheumatic aortic (valve) insufficiency; E78.5 Hyperlipidemia, unspecified; I69.354 Hemiplegia and hemiparesis following cerebral infarction affecting left non-dominant side; R26.2 Difficulty in walking, not elsewhere classified; I25.5 Ischemic cardiomyopathy; I25.2 Old myocardial infarction; R32 Unspecified urinary incontinence; Z79.01 Long term (current) use of anticoagulants; Z79.82 Long term (current) use of aspirin; Z79.899 Other long term (current) drug therapy; Z87.891 Personal history of nicotine dependence; Z82.49 Family history of ischemic heart disease and other diseases of the circulatory system; Z98.890 Other specified postprocedural states
CPT/HCPCS: 93005 ×2; 96361; 96360; 99285; 36415; 93306; 97530; 97162; 97166; 83880; 80053; 82553; 83735; 84484; 85025; 85610; 85730; 81003; 87086; 71046; 93880; 70450; G0378 ×4

== ENCOUNTER 2018-03-25 09:59 | Inpatient (IN) | payer OTHER ==
[2018-03-25] MEDS ORDERED: PIPERACILLIN-TAZOBACTAM 3.375 GM in SODIUM CHLORIDE 0.9% 100 ML IVPB STA (10:20)
[2018-03-25] MEDS ORDERED: VANCOMYCIN IV PER PHARMACY 1 EACH MISC MISCELLANE PRN (10:20)
--- NOTE | 2018-03-25 10:27 | ED ---
General Adult HPI - General Chief complaint: Skin/Abscess/Foreign Body Stated complaint: Abscess, Abd Pain Time Seen by Provider: 03/25/18 10:08 Source: patient, RN notes reviewed Mode of arrival: EMS Limitations: no limitations - History of Present Illness Initial comments: Patient is a pleasant 57-year-old male presenting to the emergency department with concern for abdominal abscess. Patient has had infection for approximately one week. Patient has been Bactrim as an outpatient. Patient complains of discomfort that increases with touch. No fevers. No history of similar symptoms previously. No other areas of concern. - Related Data Home Medications Medication Instructions Recorded Confirmed Aspirin [Adult Low Dose Aspirin EC] 81 mg PO DAILY@0900 04/08/17 03/25/18 Atorvastatin [Lipitor] 20 mg PO HS@209904/08/17 03/25/18 Carvedilol [Coreg] 3.125 mg PO BID@0900,2100 04/08/17 03/25/18 Lisinopril [Prinivil] 5 mg PO DAILY@0900 04/08/17 03/25/18 Enema 1 applic RECTAL HS 03/25/18 03/25/18 Ferrous Sulfate [Feosol] 325 mg PO DAILY@0900 03/25/18 03/25/18 Mirtazapine 7.5 mg PO HS@209903/25/18 03/25/18 Sennosides [Senna] 8.6 mg PO DAILY PRN 03/25/18 03/25/18 Sulfamethox-Tmp 800-160Mg [Bactrim 1 tab PO Q12HR 03/25/18 03/25/18 DS 800-160 mg] Tamsulosin [Flomax] 0.4 mg PO DAILY@0900 03/25/18 03/25/18 Previous Rx's Medication Instructions Recorded Acetaminophen Tab [Tylenol] 650 mg PO Q6HR PRN tab 04/11/17 Allergies Allergy/AdvReac Type Severity Reaction Status Date / Time No Known Allergies Allergy Verified 03/25/18 10:28 Review of Systems ROS Statement: Those systems with pertinent positive or pertinent negative responses have been documented in the HPI. ROS Other: All systems not noted in ROS Statement are negative. Constitutional: Denies: fever Eyes: Denies: eye pain ENT: Denies: ear pain Respiratory: Denies: cough Cardiovascular: Denies: chest pain Endocrine: Denies: fatigue Gastrointestinal: Denies: abdominal pain Genitourinary: Denies: dysuria Musculoskeletal: Denies: back pain Skin: Reports: as per HPI, rash Neurological: Denies: headache Past Medical History Past Medical History: Atrial Fibrillation, CVA/TIA History of Any Multi-Drug Resistant Organisms: None Reported Additional Past Surgical History / Comment(s): left achilles tendon repair Past Anesthesia/Blood Transfusion Reactions: No Reported Reaction Past Psychological History: No Psychological Hx Reported Smoking Status: Former smoker - Past Family History Mother Family Medical History: Congestive Heart Failure (CHF) Father Additional Family Medical History / Comment(s): of sclorosis of the liver General Exam Limitations: no limitations General appearance: alert, in no apparent distress Head exam: Present: atraumatic Eye exam: Present: normal appearance ENT exam: Present: normal oropharynx Respiratory exam: Present: normal lung sounds bilaterally Cardiovascular Exam: Present: regular rate, normal rhythm GI/Abdominal exam: Present: normal bowel sounds, other (Lower abdominal area of cellulitis with tenderness. Right lateral portion with some fluctuance that could represent abscess.). Absent: distended Neurological exam: Present: alert Psychiatric exam: Present: normal affect, normal mood Skin exam: Present: rash Course Vital Signs 03/25/18 03/25/18 10:01 11:39 Temperature 97.9 F Pulse Rate 93 92 Respiratory 18 18 Rate Blood Pressure 109/69 114/64 O2 Sat by Pulse 95 96 Oximetry - Reevaluation(s) Reevaluation #1: 03/25/18 12:01 Patient does meet sepsis criteria diagnosed at 1201. Blood culture and lactic acid and IV antibiotics have been ordered. EKG Findings - EKG Comments: EKG Findings:: Sinus rhythm and 91. PVC is present. AK 164. QRS 94. QT 398. QTC 489. Normal axis. Normal QRS. No acute ST change. Medical Decision Making - Medical Decision Making Patient reevaluated. Patient updated. Dr. Suarez has been paged for admission for Dr. Arellano. - Lab Data Result diagrams: 03/25/18 10:30 03/25/18 10:30 Lab Results 03/25/18 03/25/18 03/25/18 Range/Units 10:30 10:30 10:30 WBC 11.4 H (3.8-10.6) k/uL RBC 4.00 L (4.30-5.90) m/uL Hgb 9.5 L (13.0-17.5) gm/dL Hct 30.5 L (39.0-53.0) % MCV 76.3 L (80.0-100.0) fL MCH 23.8 L (25.0-35.0) pg MCHC 31.2 (31.0-37.0) g/dL RDW 15.1 (11.5-15.5) % Plt Count 424 (150-450) k/uL Neutrophils % 88 % Lymphocytes % 4 % Monocytes % 6 % Eosinophils % 1 % Basophils % 0 % Neutrophils # 10.0 H (1.3-7.7) k/uL Lymphocytes # 0.5 L (1.0-4.8) k/uL Monocytes # 0.6 (0-1.0) k/uL Eosinophils # 0.1 (0-0.7) k/uL Basophils # 0.0 (0-0.2) k/uL Hypochromasia Slight Microcytosis Slight PT (9.0-12.0) sec INR (<1.2) APTT (22.0-30.0) sec Sodium 133 L (137-145) mmol/L Potassium 5.5 H (3.5-5.1) mmol/L Chloride 104 (98-107) mmol/L Carbon Dioxide 17 L (22-30) mmol/L Anion Gap 12 mmol/L BUN 26 H (9-20) mg/dL Creatinine 1.32 H (0.66-1.25) mg/dL Est GFR (CKD-EPI)AfAm 68 (>60 ml/min/1.73 sqM) Est GFR (CKD-EPI)NonAf 59 (>60 ml/min/1.73 sqM) Glucose 121 H (74-99) mg/dL Plasma Lactic Acid Kb 1.4 (0.7-2.0) mmol/L Calcium 8.0 L (8.4-10.2) mg/dL Total Bilirubin 0.6 (0.2-1.3) mg/dL AST 33 (17-59) U/L ALT 42 (21-72) U/L Alkaline Phosphatase 126 (38-126) U/L Total Protein 6.7 (6.3-8.2) g/dL Albumin 3.1 L (3.5-5.0) g/dL 03/25/18 Range/Units 10:30 WBC (3.8-10.6) k/uL RBC (4.30-5.90) m/uL Hgb (13.0-17.5) gm/dL Hct (39.0-53.0) % MCV (80.0-100.0) fL MCH (25.0-35.0) pg MCHC (31.0-37.0) g/dL RDW (11.5-15.5) % Plt Count (150-450) k/uL Neutrophils % % Lymphocytes % % Monocytes % % Eosinophils % % Basophils % % Neutrophils # (1.3-7.7) k/uL Lymphocytes # (1.0-4.8) k/uL Monocytes # (0-1.0) k/uL Eosinophils # (0-0.7) k/uL Basophils # (0-0.2) k/uL Hypochromasia Microcytosis PT 23.5 H (9.0-12.0) sec INR 2.4 H (<1.2) APTT 39.2 H (22.0-30.0) sec Sodium (137-145) mmol/L Potassium (3.5-5.1) mmol/L Chloride (98-107) mmol/L Carbon Dioxide (22-30) mmol/L Anion Gap mmol/L BUN (9-20) mg/dL Creatinine (0.66-1.25) mg/dL Est GFR (CKD-EPI)AfAm (>60 ml/min/1.73 sqM) Est GFR (CKD-EPI)NonAf (>60 ml/min/1.73 sqM) Glucose (74-99) mg/dL Plasma Lactic Acid Kb (0.7-2.0) mmol/L Calcium (8.4-10.2) mg/dL Total Bilirubin (0.2-1.3) mg/dL AST (17-59) U/L ALT (21-72) U/L Alkaline Phosphatase (38-126) U/L Total Protein (6.3-8.2) g/dL Albumin (3.5-5.0) g/dL - Radiology Data Radiology results: report reviewed (Ultrasound of the abdomen does show area of abscess, upto 8 centimeter.), image reviewed (Abdominal x-ray shows ileus, cannot rule out obstruction) Critical Care Time Critical Care Time: Yes Total Critical Care Time: 31 Disposition Clinical Impression: Abdominal wall abscess Disposition: ADMITTED IP TO THIS HOSP Is patient prescribed a controlled substance at d/c from ED?: No Referrals: Skip Arellano MD [Primary Care Provider] - 1-2 days Decision Time: 12:02
[2018-03-25] MEDS ORDERED: SODIUM CHLORIDE 0.9% 500 ML 500 ML IV SCH (10:30)
[2018-03-25 10:46] LABS: Basophils % (A) 0 %; Eosinophils # (A) 0.1 k/uL (0-0.7); Eosinophils % (A) 1 %; HCT 30.5 % (39.0-53.0); HGB 9.5 gm/dL (13.0-17.5); Hypochromasia Slight; Lymphocytes # (A) 0.5 k/uL (1.0-4.8); Lymphocytes % (A) 4 %; MCH 23.8 pg (25.0-35.0); MCHC 31.2 g/dL (31.0-37.0); MCV 76.3 fL (80.0-100.0); Mean Platelet Volume 7.7; Microcytosis Slight; Monocytes # (A) 0.6 k/uL (0-1.0); Monocytes % (A) 6 %; Neutrophils % (A) 88 %; Platelet Count 424 k/uL (150-450); RDW 15.1 % (11.5-15.5); WBC 11.4 k/uL (3.8-10.6)
[2018-03-25 10:58] LABS: Albumin 3.1 g/dL (3.5-5.0); Total Bilirubin 0.6 mg/dL (0.2-1.3); Total Protein 6.7 g/dL (6.3-8.2)
[2018-03-25] MEDS ORDERED: VANCOMYCIN 1,500 MG in SODIUM CHLORIDE 0.9% 250 ML IVPB ONE (11:00)
[2018-03-25 11:11] LABS: INR 2.4 (<1.2)
[2018-03-25 11:12] LABS: Partial Thromboplastin Time 39.2 sec (22.0-30.0); Prothrombin Time 23.5 sec (9.0-12.0)
[2018-03-25 11:13] LABS: Potassium 5.5 mmol/L (3.5-5.1)
--- NOTE | 2018-03-25 11:36 | US ---
EXAMINATION TYPE: US abdomen limited DATE OF EXAM: 03/25/2018 COMPARISON: NONE CLINICAL HISTORY: infection, eval for abscess. Red, palpable lump in the RLQ. Patient diagnosed with an abscess, on antibiotics, not getting better In the area of the patient's palpable red lump, there is a heterogeneous area visualized measuring 8. 0 x 3.0 x 8.0 cm. There is no vascularity visualized within. Grayscale, color Doppler imaging performed. Exam is limited to the area of patient's symptomatology IMPRESSION: Findings compatible with abscess in the right lower quadrant at the site of patient's sy mptomatology
--- NOTE | 2018-03-25 11:43 | XR ---
Abdomen HISTORY: Right lower quadrant abscess Frontal view of the abdomen on 2 images No comparisons Bone mineralization is within normal limits. Lung bases are clear. No pneumoperitoneum. Gas-filled lo ops of small and large bowel are present throughout the abdomen. Vascular calcifications noted within the pelvis. IMPRESSION: Findings may represent ileus, correlate to exclude obstruction. Follow-up as indicated.
[2018-03-25] MEDS ORDERED: MORPHINE SULFATE 4 MG/ML SYRINGE IV PRN (12:02)
[2018-03-25] MEDS ORDERED: NALOXONE 0.4 MG/ML 1 ML VIAL IV PRN (12:02)
[2018-03-25] MEDS ORDERED: ACETAMINOPHEN TAB 325 MG TAB PO PRN (13:22)
[2018-03-25] MEDS ORDERED: SENNOSIDES 8.6 MG TAB PO PRN (13:22)
[2018-03-25] MEDS ORDERED: LISINOPRIL 5 MG TAB PO SCH (13:22)
[2018-03-25] MEDS: SODIUM CHLORIDE 0.9% 1,000 ML IV SCH (13:59)
[2018-03-25] MEDS: TAMSULOSIN 0.4 MG CAP.ER.24H PO SCH (14:15)
[2018-03-25] MEDS: CARVEDILOL 3.125 MG TAB PO SCH ×2 (14:15→18:27)
[2018-03-25] MEDS ORDERED: PHYTONADIONE 10 MG in SODIUM CHLORIDE 0.9% 50 ML IVPB STA (15:13)
--- NOTE | 2018-03-25 15:26 | P.GSCN ---
History of Present Illness Consult date: 03/25/18 Reason for Consult: Abdominal wall abscess History of present illness: The patient is a 57-year-old man who's had an infection on his abdominal wall for about a week. He was started on Bactrim but the areas getting progressively worse. Denies fevers. Denies previous abscesses. Denies any exposure to MRSA Review of Systems All systems: negative Past Medical History Past Medical History: Atrial Fibrillation, Heart Failure, CVA/TIA, Hyperlipidemia, Hypertension, Myocardial Infarction ([place]) Additional Past Medical History / Comment(s): CVAs, TIA, ischemic cardiomyopathy , gait dysfunction/wheelchair bound, incontinent of urine/stool, Last Myocardial Infarction Date:: 2016 History of Any Multi-Drug Resistant Organisms: None Reported Additional Past Surgical History / Comment(s): left achilles tendon repair, colonoscopy Past Anesthesia/Blood Transfusion Reactions: No Reported Reaction Smoking Status: Former smoker - Past Family History Mother Family Medical History: Congestive Heart Failure (CHF) Father Additional Family Medical History / Comment(s): Cirrhosis of the liver. Medications and Allergies Home Medications Medication Instructions Recorded Confirmed Type Aspirin [Adult Low Dose Aspirin EC] 81 mg PO DAILY@0900 04/08/17 03/25/18 History Atorvastatin [Lipitor] 20 mg PO HS@209904/08/17 03/25/18 History Carvedilol [Coreg] 3.125 mg PO BID@0900,209904/08/17 03/25/18 History Lisinopril [Prinivil] 5 mg PO DAILY@0900 04/08/17 03/25/18 History Acetaminophen Tab [Tylenol] 650 mg PO Q6HR PRN tab 04/11/17 03/25/18 Rx Enema 1 applic RECTAL HS 03/25/18 03/25/18 History Ferrous Sulfate [Feosol] 325 mg PO DAILY@0900 03/25/18 03/25/18 History Mirtazapine 7.5 mg PO HS@209903/25/18 03/25/18 History Sennosides [Senna] 8.6 mg PO DAILY PRN 03/25/18 03/25/18 History Sulfamethox-Tmp 800-160Mg [Bactrim 1 tab PO Q12HR 03/25/18 03/25/18 History DS 800-160 mg] Tamsulosin [Flomax] 0.4 mg PO DAILY@0900 03/25/18 03/25/18 History Warfarin Sodium [Coumadin] 2 mg PO SUSA 03/25/18 03/25/18 History Warfarin Sodium [Coumadin] 3 mg PO MOTUWETHFR 03/25/18 03/25/18 History Allergies Allergy/AdvReac Type Severity Reaction Status Date / Time No Known Allergies Allergy Verified 03/25/18 10:28 Surgical - Exam Osteopathic Statement: *. No significant issues noted on an osteopathic structural exam other than those noted in the History and Physical/Consult. Vital Signs Temp Pulse Resp BP Pulse Ox 97.9 F 93 18 109/69 95 03/25/18 10:01 03/25/18 10:01 03/25/18 10:01 03/25/18 10:01 03/25/18 10:01 - General well developed, well nourished, no distress - Eyes normal ocular movement - Respiratory normal respiratory effort - Abdomen Abdomen: soft, tender (Right lower quadrant with an area at least 15 x 25 cm of air edema, fluctuance, tenderness, induration. It does extend to the right groin) Results - Labs 03/25/18 10:30 03/25/18 10:30 Abnormal Lab Results - Last 24 Hours (Table) 03/25/18 03/25/18 03/25/18 Range/Units 10:30 10:30 10:30 WBC 11.4 H (3.8-10.6) k/uL RBC 4.00 L (4.30-5.90) m/uL Hgb 9.5 L (13.0-17.5) gm/dL Hct 30.5 L (39.0-53.0) % MCV 76.3 L (80.0-100.0) fL MCH 23.8 L (25.0-35.0) pg Neutrophils # 10.0 H (1.3-7.7) k/uL Lymphocytes # 0.5 L (1.0-4.8) k/uL PT 23.5 H (9.0-12.0) sec INR 2.4 H (<1.2) APTT 39.2 H (22.0-30.0) sec Sodium 133 L (137-145) mmol/L Potassium 5.5 H (3.5-5.1) mmol/L Carbon Dioxide 17 L (22-30) mmol/L BUN 26 H (9-20) mg/dL Creatinine 1.32 H (0.66-1.25) mg/dL Glucose 121 H (74-99) mg/dL Calcium 8.0 L (8.4-10.2) mg/dL Albumin 3.1 L (3.5-5.0) g/dL Diabetes panel 03/25/18 Range/Units 10:30 Sodium 133 L (137-145) mmol/L Potassium 5.5 H (3.5-5.1) mmol/L Chloride 104 (98-107) mmol/L Carbon Dioxide 17 L (22-30) mmol/L BUN 26 H (9-20) mg/dL Creatinine 1.32 H (0.66-1.25) mg/dL Glucose 121 H (74-99) mg/dL Calcium 8.0 L (8.4-10.2) mg/dL AST 33 (17-59) U/L ALT 42 (21-72) U/L Alkaline Phosphatase 126 (38-126) U/L Total Protein 6.7 (6.3-8.2) g/dL Albumin 3.1 L (3.5-5.0) g/dL Calcium panel 03/25/18 Range/Units 10:30 Calcium 8.0 L (8.4-10.2) mg/dL Albumin 3.1 L (3.5-5.0) g/dL Pituitary panel 03/25/18 Range/Units 10:30 Sodium 133 L (137-145) mmol/L Potassium 5.5 H (3.5-5.1) mmol/L Chloride 104 (98-107) mmol/L Carbon Dioxide 17 L (22-30) mmol/L BUN 26 H (9-20) mg/dL Creatinine 1.32 H (0.66-1.25) mg/dL Glucose 121 H (74-99) mg/dL Calcium 8.0 L (8.4-10.2) mg/dL Adrenal panel 03/25/18 Range/Units 10:30 Sodium 133 L (137-145) mmol/L Potassium 5.5 H (3.5-5.1) mmol/L Chloride 104 (98-107) mmol/L Carbon Dioxide 17 L (22-30) mmol/L BUN 26 H (9-20) mg/dL Creatinine 1.32 H (0.66-1.25) mg/dL Glucose 121 H (74-99) mg/dL Calcium 8.0 L (8.4-10.2) mg/dL Total Bilirubin 0.6 (0.2-1.3) mg/dL AST 33 (17-59) U/L ALT 42 (21-72) U/L Alkaline Phosphatase 126 (38-126) U/L Total Protein 6.7 (6.3-8.2) g/dL Albumin 3.1 L (3.5-5.0) g/dL - Imaging US - abdomen: report reviewed Assessment and Plan (1) Atrial fibrillation Current Visit: Yes Status: Acute Code(s): I48.91 - UNSPECIFIED ATRIAL FIBRILLATION SNOMED Code(s): 62232605 (2) History of CVA (cerebrovascular accident) Current Visit: Yes Status: Acute Code(s): Z86.73 - PRSNL HX OF TIA (TIA), AND CEREB INFRC W/O RESID DEFICITS SNOMED Code(s): 059052563 (3) Elevated INR Current Visit: Yes Status: Acute Code(s): R79.1 - ABNORMAL COAGULATION PROFILE SNOMED Code(s): 531695054 (4) Abdominal wall abscess Current Visit: Yes Status: Acute Code(s): L02.211 - CUTANEOUS ABSCESS OF ABDOMINAL WALL SNOMED Code(s): 92641561 Plan: This appears to be fairly significant abscess. We'll give him some vitamin K and then take him to the OR for incision and drainage. The procedures and complications were discussed. I will do This for him as soon as possible. Obtain deep cultures. Further recommendations to follow
[2018-03-25 15:39] LABS: Amorphous Sediment,Urine Rare /hpf; Appearance,Urine Clear (Clear); Bacteria,Urine Rare /hpf; Bilirubin,Urine Negative (Negative); Blood,Urine Small (Negative); Color,Urine Yellow; Glucose,Urine (UA) Negative (Negative); Ketones,Urine Negative (Negative); Leukocyte Esterase,Urine Trace (Negative); Mucus,Urine Occasional /hpf; Nitrite,Urine Negative (Negative); PH, Urine 5.5 (5.0-8.0); Protein,Urine 1+ (Negative); RBC,Urine 1 /hpf (0-5); Specific Gravity,Urine 1.022 (1.001-1.035); Squamous Epithelial Cell,Urine <1 /hpf (0-4); Urobilinogen,Urine <2.0 mg/dL (<2.0); WBC,Urine 2 /hpf (0-5)
[2018-03-25] MEDS ORDERED: IV FLUID CONTINUATION 1,000 ML IV ONE (16:10)
[2018-03-25] MEDS ORDERED: fentaNYL (PF) 50 MCG/ML 2 ML AMP ONE (16:50)
[2018-03-25] MEDS ORDERED: ROCURONIUM BROMIDE 10 MG/ML 10 ML VIAL IV ONE (16:50)
[2018-03-25] MEDS ORDERED: PROPOFOL 10 MG/ML 20 ML VIAL IV ONE (16:50)
[2018-03-25] MEDS ORDERED: NEOSTIGMINE 1 MG/ML 10 ML VIAL ONE (16:50)
[2018-03-25] MEDS ORDERED: MIDAZOLAM 2 MG/2 ML VIAL ONE (16:50)
[2018-03-25] MEDS ORDERED: LIDOCAINE 1% INJ 10MG/ML (20 ML MDV) ONE (16:50)
[2018-03-25] MEDS ORDERED: GLYCOPYRROLATE 0.2 MG/ML 2 ML VIAL ONE (16:50)
[2018-03-25] MEDS ORDERED: ePHEDrine SULFATE/0.9% NACL/PF 50 MG/5 ML SYRINGE IV ONE (16:50)
--- NOTE | 2018-03-25 16:54 | P.PN ---
Progress Note - Text Progress Note Date: 03/25/18 I spoke with patient and family in preop area. The procedure, risks and complications were discussed. Questions were encouraged and answered. NO CODE status will be suspended until postoperatively
[2018-03-25] MEDS ORDERED: BUPIVACAIN-EPI 0.25%-1:200,000 30 ML VIAL SQ ONE (17:26)
[2018-03-25] MEDS ORDERED: LACTATED RINGERS 1,000 ML IV ONE (17:33)
--- NOTE | 2018-03-25 17:37 | P.OP ---
Date of Procedure: 03/25/18 Preoperative Diagnosis: Abdominal wall abscess Postoperative Diagnosis: Abdominal wall abscess Procedure(s) Performed: Incision and drainage of abdominal wall abscess Anesthesia: CHANDANA Surgeon: Mellisa Herman Estimated Blood Loss (ml): 50 Pathology: other (Cultures) Condition: stable Disposition: PACU Indications for Procedure: The patient presented with an abdominal wall abscess Operative Findings: The patient's taken the OR where he is prepped and draped in the usual sterile manner. An incision was made over the abscess cavity with drainage of about 300 mL's of foul smelling purulent material. Cultures were obtained. The wound was then copiously irrigated and packed with 1 inch iodoform gauze. There was oozing but no active bleeding. He'll be monitored for bleeding and received fresh frozen plasma there is significant bruising. Dressing was applied. He tolerated the procedure without difficulty and was taken recovery room in satisfactory condition.
[2018-03-25] MEDS: PIPERACILLIN-TAZOBACTAM 3.375 GM in SODIUM CHLORIDE 0.9% 100 ML IVPB SCH (18:45)
[2018-03-25] MEDS: HYDROcodone/APAP 5-325MG 1 EACH TAB PO PRN (20:16)
[2018-03-25] MEDS: metroNIDAZOLE-NS PMX 500 MG in SALINE 1 100ML.BAG IVPB SCH (20:17)
[2018-03-25] MEDS: ATORVASTATIN 20 MG TAB PO SCH (21:35)
[2018-03-25] MEDS: MIRTAZAPINE 15 MG TAB PO SCH (21:35)
[2018-03-26] MEDS: PIPERACILLIN-TAZOBACTAM 3.375 GM in SODIUM CHLORIDE 0.9% 100 ML IVPB SCH ×3 (00:04→15:55)
[2018-03-26] MEDS: SODIUM CHLORIDE 0.9% 1,000 ML IV SCH ×4 (00:04→22:17)
--- NOTE | 2018-03-26 00:59 | HP ---
HISTORY AND PHYSICAL DATE OF ADMISSION: 03/25/2018 DATE OF SERVICE: 03/25/2018. PRESENTING COMPLAINT: Abdominal wall abscess. HISTORY OF PRESENTING COMPLAINT: This is a pleasant 57-year-old patient who follows with Dr. Arellano. The patient's chronic stable medical conditions include atrial fibrillation, stroke, hyperlipidemia, hypertension, ischemic cardiomyopathy, incontinent of stool and urine and cognitive impairment. The patient is able to stand and pivot to the wheelchair. Lives at [facility]. Patient's sister Mary is a durable power of contracts attorney. The patient presents through the ER with abdominal wall abscess that was has been worsening. Dr. Anna had been consulted and this has been going on for about a week, getting worse. It is rather tender. There has been no obvious fever and general surgery was consulted earlier today for the same. The patient is able to feed himself. He is able to answer simple questions. The patient also started on Bactrim and has not responded to the same. REVIEW OF SYSTEMS: CONSTITUTIONAL: None. HEENT: None. RESPIRATORY: None. CARDIOVASCULAR: None. GENITOURINARY none. GENITOURINARY: Incontinence. MUSCULOSKELETAL none. DERMATOLOGICAL: As above. LYMPHATICS: None. PSYCHIATRY: Slightly slow. NEUROLOGICAL: The patient needs help and needs pivots to the wheelchair. PAST MEDICAL HISTORY: Of atrial fibrillation, heart failure, stroke, hyperlipidemia, hypertension, myocardial infarction, ischemic cardiomyopathy, gait dysfunction, wheelchair bound, incontinent of urine and stool. PAST SURGICAL HISTORY: Left Achilles tendon repair and colonoscopy. PSYCH HISTORY: Depression. SOCIAL HISTORY: Lives at [facility]. Stands and pivots to the wheelchair. Sister Mary is the DPOA. The patient was a smoker until 2014. FAMILY HISTORY: Of cirrhosis with congestive heart failure. HOME MEDICATIONS: 1. Coumadin 3 mg on Friday, Friday, Friday, , Friday, 2 mg on Friday and Friday. 2. Flomax 0.4 mg p.o. daily. 3. Bactrim DS one tablet p.o. q.12. 4. Senna mirtazapine 7.5 p.o. at bedtime. 5. Prinivil 5 mg p.o. daily. 6. Iron 325 p.o. daily. 7. Enema 1 application rectal q.h.s. 8. Coreg 3.125 p.o. b.i.d. 9. Lipitor 20 mg q.h.s. 10.Aspirin 81 mg p.o. daily. 11.Tylenol 650 mg q.6h p.r.n. ALLERGIES: None. PHYSICAL EXAMINATION: VITAL SIGNS: Vital signs on presentation: temperature 97.9, pulse 93, respiratory 18, blood pressure 109/69, pulse ox 95% on room air. GENERAL APPEARANCE: Average build, lying in bed, comfortable. EYES: Pupils equal. Conjunctivae normal. HEENT: External appearance of nose and ears normal. Oral cavity normal. NECK: JVD not raised. Mass not palpable. RESPIRATORY: Effort normal. LUNGS are clear: CARDIOVASCULAR: 1st and 2nd sounds no edema. ABDOMEN: There is a large area of redness in the right lower quadrant, rather tender with the skin marking present across. Very tender. Liver and spleen not palpable. No guarding or rigidity. LYMPHATICS: No lymph nodes palpable in the neck and axilla. PSYCHIATRY: Patient is able to answer simple questions. NEUROLOGICAL: Pupils equal. No facial asymmetry. Moving all 4 limbs. INVESTIGATIONS: White count 11.4, hemoglobin 9.5, INR 2.4, potassium 5.5, BUN 26, creatinine 1.32. I do not have any baseline labs. The EKG personally reviewed by me shows normal sinus rhythm with PVC and abdominal wall ultrasound confirms an abscess. ASSESSMENT: 1. Acute right abdominal wall abscess etiology unclear, could have started out as a folliculitis. Needs I and D for which surgery is consulted. 2. Paroxysmal atrial fibrillation chronically on Coumadin. 3. Congestive heart failure, EF not known. 4. Hyperlipidemia. 5. Essential hypertension. 6. Chronic incontinent of urine and stool. 7. The patient has a DPOA who is sister Mary. 8. Microcytic anemia, cause unknown. 9. Hyperkalemia. 10.Renal failure at this point, unknown if it is acute or chronic. PLAN: Patient is started on IV Zosyn and vancomycin in the ER. Given the renal failure, we will change the vancomycin to daptomycin. ID was pending. Other home medications will be resumed. We will hold off patient's Prinivil for right now. Give patient IV fluids. Repeat renal function in the morning. Await cultures to come back and determine antibiotics from there. Follow with surgery. Copy to Dr. Arellano. GLORIA / ABHISHEKN: [id number] /
[2018-03-26] MEDS: metroNIDAZOLE-NS PMX 500 MG in SALINE 1 100ML.BAG IVPB SCH ×3 (03:47→21:24)
[2018-03-26] MEDS ORDERED: VANCOMYCIN 1,250 MG in SODIUM CHLORIDE 0.9% 250 ML IVPB SCH (04:00)
[2018-03-26] MEDS: ASPIRIN 81 MG PO SCH (08:21)
[2018-03-26] MEDS: TAMSULOSIN 0.4 MG CAP.ER.24H PO SCH (08:21)
[2018-03-26] MEDS: CARVEDILOL 3.125 MG TAB PO SCH ×2 (08:22→15:42)
[2018-03-26] MEDS: HYDROcodone/APAP 5-325MG 1 EACH TAB PO PRN ×2 (08:39→21:00)
[2018-03-26 09:38] LABS: Basophils % (A) 0 %; Eosinophils # (A) 0.1 k/uL (0-0.7); Eosinophils % (A) 2 %; HCT 23.6 % (39.0-53.0); Hypochromasia Marked; Lymphocytes # (A) 0.6 k/uL (1.0-4.8); Lymphocytes % (A) 12 %; MCH 24.2 pg (25.0-35.0); MCHC 30.9 g/dL (31.0-37.0); MCV 78.4 fL (80.0-100.0); Mean Platelet Volume 6.7; Monocytes # (A) 0.2 k/uL (0-1.0); Monocytes % (A) 5 %; Neutrophils % (A) 80 %; Platelet Count 286 k/uL (150-450); RBC 3.01 m/uL (4.30-5.90); RDW 15.2 % (11.5-15.5)
[2018-03-26 10:02] LABS: HGB 7.3 gm/dL (13.0-17.5)
[2018-03-26 10:08] LABS: Anion Gap 6 mmol/L; Blood Urea Nitrogen 11 mg/dL (9-20); Calcium 7.7 mg/dL (8.4-10.2); Carbon Dioxide 21 mmol/L (22-30); Chloride 107 mmol/L (98-107); Glucose 98 mg/dL (74-99); Potassium 4.6 mmol/L (3.5-5.1); Sodium 134 mmol/L (137-145)
[2018-03-26] MEDS: ATORVASTATIN 20 MG TAB PO SCH (22:03)
[2018-03-26] MEDS: MIRTAZAPINE 15 MG TAB PO SCH (22:03)
--- NOTE | 2018-03-26 23:03 | PN ---
PROGRESS NOTE DATE OF SERVICE: March 26, 2018. PRESENTING COMPLAINT: Abdominal abscess. INTERVAL HISTORY: This pleasant gentleman status post abdominal abscess, status post I and D. Some pain is present. Tolerating some diet. Lying in bed, comfortable. REVIEW OF SYSTEMS: Done for constitutional, cardiovascular, GI, pulmonary, dermatologic; relevant findings as above. CURRENT MEDICATIONS: Reviewed that include IV Zosyn. PHYSICAL EXAMINATION: VITAL SIGNS: Temperature 98.5, pulse 86, respiration 14, blood pressure 98/61, pulse ox 100 percent on room air. GENERAL APPEARANCE: Lying in bed, comfortable. EYES: Pupils equal. Conjunctivae normal. NECK: JVD not raised. Mass not palpable. RESPIRATORY: Effort normal. LUNGS are clear. CARDIOVASCULAR: 1st and 2nd sounds normal. No edema. ABDOMEN: Soft. Some tenderness over the dressing site. PSYCH: Awake, answering simple questions. INVESTIGATIONS: White count 5, hemoglobin 7.3, potassium 4.6, BUN 11, creatinine 0.97. Wound cultures growing gram-negative bacilli. ASSESSMENT: 1. Right abdominal wall abscess growing gram-negative bacilli, status post I and D. 2. Paroxysmal atrial fibrillation for which patient is chronically on Coumadin. 3. Chronic congestive heart failure, ejection fraction not known. 4. Hyperlipidemia. 5. Essential hypertension. 6. Chronic incontinence of urine and stool. 7. Patient has a DPA, sister Mary. 8. Microcytic anemia cause unknown. 9. Acute renal failure likely from acute tubular necrosis/from sepsis, now much improved. PLAN: The patient is growing gram-negative bacilli in 2 g stains. Await finalization of the same. They will define the antibiotic. Also follow with General surgery. Follow up with them. MMODL / IJN: [id number] /
[2018-03-27] MEDS: PIPERACILLIN-TAZOBACTAM 3.375 GM in SODIUM CHLORIDE 0.9% 100 ML IVPB SCH ×3 (00:40→16:03)
[2018-03-27] MEDS: SODIUM CHLORIDE 0.9% 1,000 ML IV SCH ×3 (04:22→23:46)
[2018-03-27] MEDS: metroNIDAZOLE-NS PMX 500 MG in SALINE 1 100ML.BAG IVPB SCH ×2 (04:22→11:42)
[2018-03-27] MEDS: HYDROcodone/APAP 5-325MG 1 EACH TAB PO PRN ×2 (06:11→19:49)
[2018-03-27] MEDS: CARVEDILOL 3.125 MG TAB PO SCH ×2 (07:41→16:03)
[2018-03-27] MEDS: ASPIRIN 81 MG PO SCH (08:24)
[2018-03-27] MEDS: TAMSULOSIN 0.4 MG CAP.ER.24H PO SCH (08:24)
[2018-03-27 08:57] LABS: Anion Gap 5 mmol/L; Blood Urea Nitrogen 6 mg/dL (9-20); Calcium 7.7 mg/dL (8.4-10.2); Carbon Dioxide 21 mmol/L (22-30); Chloride 109 mmol/L (98-107); Glucose 86 mg/dL (74-99); Potassium 4.1 mmol/L (3.5-5.1); Sodium 135 mmol/L (137-145)
[2018-03-27] MEDS ORDERED: MORPHINE ORAL SOLN 10 MG/5 ML CUP PO PRN (11:55)
--- NOTE | 2018-03-27 15:24 | P.PN ---
Subjective Progress Note Date: 03/27/18 Principal diagnosis: Status post incision and drainage of abscess The patient's postop day 2 incision and drainage of a foul-smelling abscess on the left thigh. He has no specific complaints. Objective - Vital Signs Vital signs: Vital Signs Temp 98.6 F 03/27/18 14:43 Pulse 89 03/27/18 14:43 Resp 20 03/27/18 14:43 BP 124/72 03/27/18 14:43 Pulse Ox 97 03/27/18 14:43 Intake & Output 03/26/18 03/27/18 03/27/18 18:59 06:59 18:59 Intake Total 800 920 Balance 800 920 Intake: IV 700 600 Piperacillin-Tazobactam 3 100 .375 gm In Sodium Chloride 0.9% 100 ml @ 25 mls/hr IVPB ONCE STA Rx# :[id number] Sodium Chloride 0.9% 1, 600 600 000 ml @ 125 mls/hr IV . Q8H [facility] Rx#:[id number] Intake, IV Titration 100 200 Amount Piperacillin-Tazobactam 3 100 .375 gm In Sodium Chloride 0.9% 100 ml @ 25 mls/hr IVPB Q8HR [facility]MA Rx# :[id number] metroNIDAZOLE-NS PMX 500 100 100 mg In Saline 1 100ml.bag @ 100 mls/hr IVPB Q8H [facility]MA Rx#:[id number] Oral 120 Other: Voiding Method Urinal Diaper Incontinent # Voids 1 2 - Constitutional General appearance: Present: cooperative, no acute distress - Integumentary Integumentary Comment(s): The dressing is taken off. The packing was removed. There is healthy- appearing tissue in the base. No purulent drainage is seen on the dressing. It appears to be mainly serous. Nursing is going to irrigate and repack the wound. - Labs CBC & Chem 7: 03/26/18 08:44 03/27/18 07:58 Labs: Abnormal Lab Results - Last 24 Hours (Table) 03/27/18 Range/Units 07:58 Sodium 135 L (137-145) mmol/L Chloride 109 H (98-107) mmol/L Carbon Dioxide 21 L (22-30) mmol/L BUN 6 L (9-20) mg/dL Calcium 7.7 L (8.4-10.2) mg/dL Microbiology - Last 24 Hours (Table) 03/25/18 10:30 Blood Culture - Preliminary Blood No Growth after 48 hours 03/25/18 15:30 Urine Culture - Final Urine,Voided 03/25/18 17:35 Gram Stain - Preliminary Abdomen Wound Culture - Preliminary Gram Neg Bacilli 03/25/18 17:35 Gram Stain - Preliminary Abdomen Wound Culture - Preliminary Gram Neg Bacilli Assessment and Plan (1) Atrial fibrillation Current Visit: Yes Status: Acute Code(s): I48.91 - UNSPECIFIED ATRIAL FIBRILLATION SNOMED Code(s): 51866958 (2) History of CVA (cerebrovascular accident) Current Visit: Yes Status: Acute Code(s): Z86.73 - PRSNL HX OF TIA (TIA), AND CEREB INFRC W/O RESID DEFICITS SNOMED Code(s): 323891398 (3) Elevated INR Current Visit: Yes Status: Acute Code(s): R79.1 - ABNORMAL COAGULATION PROFILE SNOMED Code(s): 310350235 (4) Abdominal wall abscess Current Visit: Yes Status: Acute Code(s): L02.211 - CUTANEOUS ABSCESS OF ABDOMINAL WALL SNOMED Code(s): 54417320 Plan: The wound looks good at this point. Await cultures. This is likely polymicrobial with anaerobes presumed present due to the odor intraoperatively. Wound is currently nonsurgical.
[2018-03-27] MEDS: metroNIDAZOLE 500 MG TAB PO SCH (20:02)
[2018-03-27] MEDS: MIRTAZAPINE 15 MG TAB PO SCH (20:02)
[2018-03-27] MEDS: ATORVASTATIN 20 MG TAB PO SCH (20:02)
--- NOTE | 2018-03-27 23:01 | PN ---
PROGRESS NOTE DATE OF SERVICE: 03/27/2018. PRESENTING COMPLAINT: Abdominal wall abscess. INTERVAL HISTORY: This patient presented with abdominal abscess status post I and D, doing better, minimal drainage, pain is controlled. Tolerating a diet. The patient's sister at the bedside with her . Cultures are pending. REVIEW OF SYSTEMS: Done for constitutional, cardiovascular, GI, pulmonary; relevant findings as above. CURRENT MEDICATIONS: Reviewed that include IV Zosyn and p.o. Flagyl. EXAMINATION: Afebrile, pulse 76, respirations 20, blood pressure 105/67, pulse ox 95% on room air. GENERAL APPEARANCE: Lying in bed, awake comfortable. EYES: Pupils equal. Conjunctivae normal. NECK: JVD not raised. Mass not palpable. Respiratory effort normal. LUNGS: Clear. CARDIOVASCULAR: 1st and 2nd heart sounds. No edema. ABDOMEN: Soft, nontender. Liver and spleen not palpable. Dressing at the I and D site. PSYCH: Answering simple questions. INVESTIGATIONS: Potassium 4.1. ASSESSMENT: 1. Right abdominal wall abscess growing gram-negative bacilli, status post incision and drainage. Per Dr. Herman, the wound is healing really well. 2. Paroxysmal atrial fibrillation for which patient is chronically on Coumadin. 3. Chronic congestive heart failure, EF not known. 4. Hyperlipidemia. 5. Essential hypertension. 6. Chronic incontinence of urine and stool. 7. Patient has a DPOA, sister Mary. 8. Microcytic anemia cause undetermined. 9. Acute renal failure likely from acute tubular necrosis from sepsis, now much improved. PLAN: The patient's bacteria is not finalized. Will continue with current medication and treatment plan. Will follow. MMODL / IJN: [id number] /
[2018-03-28] MEDS: PIPERACILLIN-TAZOBACTAM 3.375 GM in SODIUM CHLORIDE 0.9% 100 ML IVPB SCH ×2 (00:36→08:18)
[2018-03-28] MEDS: ONDANSETRON 4 MG/2 ML VIAL IVP PRN ×3 (01:12→22:22)
[2018-03-28] MEDS: metroNIDAZOLE 500 MG TAB PO SCH ×3 (04:51→22:12)
[2018-03-28] MEDS: SODIUM CHLORIDE 0.9% 1,000 ML IV SCH ×3 (04:52→22:22)
[2018-03-28] MEDS: ASPIRIN 81 MG PO SCH (08:18)
[2018-03-28] MEDS: TAMSULOSIN 0.4 MG CAP.ER.24H PO SCH (08:18)
[2018-03-28] MEDS: CARVEDILOL 3.125 MG TAB PO SCH ×2 (08:18→22:04)
--- NOTE | 2018-03-28 20:35 | PN ---
PROGRESS NOTE DATE OF SERVICE: March 28, 2018. PRESENTING COMPLAINT: Abdominal wall abscess. INTERVAL HISTORY: This patient presented with abdominal wall abscess status post I and D. Cultures are coming back. Pain is controlled. Dressing changes per Dr. Herman. Tolerating a diet. Otherwise feeling comfortable. REVIEW OF SYSTEMS: Done for constitutional, cardiovascular, GI, pulmonary and relevant findings as above. CURRENT MEDICATIONS: Reviewed that include IV Zosyn and p.o. Flagyl. PHYSICAL EXAMINATION: VITAL SIGNS: Temperature 97.9 pulse, respiration 18, blood pressure 120/76, pulse ox 98% on room air. GENERAL APPEARANCE: Lying in bed, comfortable. Awake. EYES: Pupils equal. Conjunctivae normal. NECK: JVD not raised. Mass not palpable. RESPIRATORY: Respiratory effort normal. LUNGS are clear. CARDIOVASCULAR: First and second sounds normal. No edema. ABDOMEN: Soft, nontender. Liver and spleen not palpable. PSYCHIATRY: Awake, answering simple questions. INVESTIGATIONS: Potassium 4.1, BUN 6, creatinine 0.76. Cultures are growing Proteus mirabilis and E coli. ASSESSMENT: 1. Abdominal wall abscess growing Proteus mirabilis and Escherichia coli, status post I and D with clinical improvement. Tissues healing well per Dr. Herman. 2. Paroxysmal atrial fibrillation for which patient is chronically on Coumadin. 3. Chronic congestive heart failure EF not known. 4. Hyperlipidemia. 5. Essential hypertension. 6. Chronic incontinence of urine and stool. 7. Patient has a DPOA, sister Mary. 8. Microcytic anemia cause unknown. 9. Acute renal failure likely from acute tubular necrosis from sepsis, now resolved. PLAN: The patient is doing better. We will change the patient over to IV Ancef. Other medication and treatment plan is to continue. Looking at the patient getting back to the ECF shortly. MMODL / IJN: [id number] /
[2018-03-28] MEDS: ATORVASTATIN 20 MG TAB PO SCH (22:12)
[2018-03-28] MEDS: MIRTAZAPINE 15 MG TAB PO SCH (22:12)
[2018-03-28] MEDS: WARFARIN 2 MG TAB PO SCH (22:21)
[2018-03-29] MEDS: PIPERACILLIN-TAZOBACTAM 3.375 GM in SODIUM CHLORIDE 0.9% 100 ML IVPB SCH (00:06)
[2018-03-29] MEDS: ceFAZolin IN SWFI 2 GM/20 ML SYRINGE IVP SCH ×3 (00:55→16:51)
[2018-03-29 02:04] LABS: Basophils % (A) 0 %; Eosinophils # (A) 0.1 k/uL (0-0.7); Eosinophils % (A) 1 %; HCT 34.4 % (39.0-53.0); HGB 10.1 gm/dL (13.0-17.5); Hypochromasia Marked; Lymphocytes # (A) 0.6 k/uL (1.0-4.8); Lymphocytes % (A) 6 %; MCH 23.5 pg (25.0-35.0); MCHC 29.4 g/dL (31.0-37.0); Mean Platelet Volume 6.9; Monocytes # (A) 0.4 k/uL (0-1.0); Monocytes % (A) 4 %; Neutrophils # (A) 8.5 k/uL (1.3-7.7); Neutrophils % (A) 88 %; RDW 14.8 % (11.5-15.5); WBC 9.7 k/uL (3.8-10.6)
[2018-03-29 02:15] LABS: Platelet Count 618 k/uL (150-450)
[2018-03-29] MEDS: metroNIDAZOLE 500 MG TAB PO SCH ×3 (05:14→21:09)
[2018-03-29] MEDS: SODIUM CHLORIDE 0.9% 1,000 ML IV SCH ×3 (05:14→21:08)
[2018-03-29] MEDS: TAMSULOSIN 0.4 MG CAP.ER.24H PO SCH (08:03)
[2018-03-29] MEDS: CARVEDILOL 3.125 MG TAB PO SCH ×2 (08:03→17:25)
[2018-03-29] MEDS: ASPIRIN 81 MG PO SCH (08:03)
[2018-03-29 08:15] LABS: Anion Gap 10 mmol/L; Blood Urea Nitrogen 9 mg/dL (9-20); Calcium 8.3 mg/dL (8.4-10.2); Carbon Dioxide 19 mmol/L (22-30); Chloride 109 mmol/L (98-107); Glucose 101 mg/dL (74-99); Potassium 4.8 mmol/L (3.5-5.1); Sodium 138 mmol/L (137-145)
[2018-03-29 08:44] LABS: Anion Gap 4 mmol/L; Blood Urea Nitrogen 6 mg/dL (9-20); Calcium 7.7 mg/dL (8.4-10.2); Carbon Dioxide 22 mmol/L (22-30); Chloride 114 mmol/L (98-107); Glucose 105 mg/dL (74-99); Sodium 140 mmol/L (137-145)
[2018-03-29 08:50] LABS: INR 1.9 (<1.2); Prothrombin Time 18.3 sec (9.0-12.0)
--- NOTE | 2018-03-29 12:27 | P.PN ---
Subjective Progress Note Date: 03/29/18 Principal diagnosis: Status post incision and drainage of abdominal wall abscess The patient is status post incision and drainage of abdominal wall abscess. Multiple organisms are growing. He is getting local wound care. Nurses called because he was distended and didn't take much breakfast today. He admits to some abdominal pain. He admits to being all over the abdomen. Objective - Vital Signs Vital signs: Vital Signs Temp 98.6 F 03/29/18 05:40 Pulse 91 03/29/18 05:40 Resp 20 03/29/18 08:00 BP 144/69 03/29/18 05:40 Pulse Ox 95 03/29/18 05:40 Intake & Output 03/28/18 03/29/18 03/29/18 18:59 06:59 18:59 Intake Total 620 Balance 620 Weight 70 kg Intake: Oral 620 Other: Voiding Method Diaper Diaper Diaper Incontinent Incontinent Incontinent # Voids 0 # Bowel Movements 1 - Constitutional General appearance: Present: cooperative, no acute distress (Flat affect) - Gastrointestinal General gastrointestinal: Present: distended, normal bowel sounds, tenderness ( Mild tenderness without rebound. No tenderness to percussion) Localized gastrointestinal: tender: RLQ (Incision and drainage site is open. The swelling and erythema), LLQ, surgical scar: RLQ - Labs CBC & Chem 7: 03/28/18 11:38 03/29/18 08:05 Labs: Abnormal Lab Results - Last 24 Hours (Table) 03/28/18 03/28/18 03/29/18 Range/Units 11:38 11:38 08:05 Hgb 10.1 L (13.0-17.5) gm/dL Hct 34.4 L (39.0-53.0) % MCH 23.5 L (25.0-35.0) pg MCHC 29.4 L (31.0-37.0) g/dL Plt Count 618 H D (150-450) k/uL Neutrophils # 8.5 H (1.3-7.7) k/uL Lymphocytes # 0.6 L (1.0-4.8) k/uL PT (9.0-12.0) sec INR (<1.2) Chloride 109 H 114 H (98-107) mmol/L Carbon Dioxide 19 L (22-30) mmol/L BUN 6 L (9-20) mg/dL Glucose 101 H 105 H (74-99) mg/dL Calcium 8.3 L 7.7 L (8.4-10.2) mg/dL 03/29/18 Range/Units 08:05 Hgb (13.0-17.5) gm/dL Hct (39.0-53.0) % MCH (25.0-35.0) pg MCHC (31.0-37.0) g/dL Plt Count (150-450) k/uL Neutrophils # (1.3-7.7) k/uL Lymphocytes # (1.0-4.8) k/uL PT 18.3 H (9.0-12.0) sec INR 1.9 H (<1.2) Chloride (98-107) mmol/L Carbon Dioxide (22-30) mmol/L BUN (9-20) mg/dL Glucose (74-99) mg/dL Calcium (8.4-10.2) mg/dL Microbiology - Last 24 Hours (Table) 03/25/18 17:35 Gram Stain - Final Abdomen Wound Culture - Final Proteus mirabilis Escherichia coli 03/25/18 10:30 Blood Culture - Preliminary Blood No Growth after 72 hours Assessment and Plan (1) Atrial fibrillation Current Visit: Yes Status: Acute Code(s): I48.91 - UNSPECIFIED ATRIAL FIBRILLATION SNOMED Code(s): 81185192 (2) History of CVA (cerebrovascular accident) Current Visit: Yes Status: Acute Code(s): Z86.73 - PRSNL HX OF TIA (TIA), AND CEREB INFRC W/O RESID DEFICITS SNOMED Code(s): 585553468 (3) Elevated INR Current Visit: Yes Status: Acute Code(s): R79.1 - ABNORMAL COAGULATION PROFILE SNOMED Code(s): 700763345 (4) Abdominal wall abscess Current Visit: Yes Status: Acute Code(s): L02.211 - CUTANEOUS ABSCESS OF ABDOMINAL WALL SNOMED Code(s): 08233297 Plan: Incision and drainage site is healing well. He does have a distended abdomen. We'll get an abdominal series on him. He's had multiple soft bowel movements, they're not watery at this point. If they were to become watery we would get a stool for C. diff.
--- NOTE | 2018-03-29 16:38 | XR ---
2 view abdomen HISTORY: Abdominal distention 2 views of the abdomen on 3 images correlated to prior abdomen 03/25/2018 Heart appears enlarged although this may be technical, there is patchy basilar density noted at the l angel bases. Air-filled loops of small and large bowel are present. No evident pneumoperitoneum. There is overlying artifact. IMPRESSION: There may be underlying ileus or enteritis. Follow-up as indicated. Possible cardiomegaly , basilar atelectasis.
[2018-03-29] MEDS: WARFARIN 2 MG TAB PO SCH (17:25)
[2018-03-29 20:36] LABS: Glucose,Whole Blood 143 mg/dL (75-99)
[2018-03-29] MEDS: MIRTAZAPINE 15 MG TAB PO SCH (21:09)
[2018-03-29] MEDS: LACTOBACILLUS ACIDOPH & BULGAR 1 EACH PACKET PO SCH (21:09)
[2018-03-29] MEDS: ATORVASTATIN 20 MG TAB PO SCH (21:09)
--- NOTE | 2018-03-29 23:43 | PN ---
PROGRESS NOTE DATE OF SERVICE: 03/29/2018 PRESENTING COMPLAINT: Abdominal distention. INTERVAL HISTORY: This patient presented with abdominal wall abscess, status post I and D, doing well, but today's abdomen was distended in the morning. Abdominal x-ray was ordered showing air-fluid levels both small and large bowel. The patient feels a bit tired. REVIEW OF SYSTEMS: Done for constitutional, cardiovascular, GI, pulmonary; relevant findings as above. CURRENT MEDICATIONS: Reviewed that include IV cefazolin, Flagyl. PHYSICAL EXAMINATION: VITAL SIGNS: Temperature 98, pulse 85, respirations 16, blood pressure 106/63, pulse ox 95% on room air. GENERAL APPEARANCE: Lying in bed, awake. EYES: Pupils are equal. Conjunctivae normal. NECK: JVD not raised. Mass not palpable. RESPIRATORY: Effort normal. LUNGS are clear. CARDIOVASCULAR: First and second sounds normal. No edema. ABDOMEN distended. Bowel sounds are hyperactive. Mild tenderness. Liver and spleen not palpable. PSYCHIATRY: Awake, answering simple questions. INVESTIGATIONS: Potassium BUN 6, creatinine 0.78. Abdominal x-ray reviewed by me shows distended both small and large bowel with some air-fluid levels. ASSESSMENT: 1. Acute ileus. 2. Abdominal abscesses growing Proteus mirabilis and Escherichia coli, status post I and D. 3. Paroxysmal atrial fibrillation for which patient is chronically on Coumadin. 4. Chronic congestive heart failure EF not known. 5. Hyperlipidemia. 6. Essential hypertension. 7. Chronic incontinence of urine and stool. 8. Patient has a DPOA, sister Mary. 9. Microcytic anemia cause unknown. 10.Acute renal failure likely from acute tubular necrosis from sepsis, now resolved. PLAN: Spoke to the nurse. She will speak to Dr. Herman to see when NG tube can be placed. The patient remains on IV Ancef. We will also DC patient's Flagyl. Follow. MMODL / IJN: [id number] /
[2018-03-30] MEDS: ceFAZolin IN SWFI 2 GM/20 ML SYRINGE IVP SCH ×3 (00:05→16:15)
[2018-03-30] MEDS: SODIUM CHLORIDE 0.9% 1,000 ML IV SCH ×2 (06:49→13:15)
[2018-03-30] MEDS: CARVEDILOL 3.125 MG TAB PO SCH ×2 (07:26→17:01)
[2018-03-30] MEDS: LACTOBACILLUS ACIDOPH & BULGAR 1 EACH PACKET PO SCH (07:26)
[2018-03-30] MEDS: TAMSULOSIN 0.4 MG CAP.ER.24H PO SCH (07:26)
[2018-03-30] MEDS: ASPIRIN 81 MG PO SCH (07:26)
[2018-03-30 09:27] LABS: INR 2.8 (<1.2)
[2018-03-30 09:28] LABS: Prothrombin Time 26.8 sec (9.0-12.0)
--- NOTE | 2018-03-30 10:35 | P.PN ---
Subjective Progress Note Date: 03/30/18 Principal diagnosis: Abdominal wall abscess, abdominal distention The patient had had quite a bit of abdominal distention yesterday and didn't eat well. He ate 50% of breakfast without complaints. Denies any pain. He was sleeping but awakened easily Objective - Vital Signs Vital signs: Vital Signs Temp 98.8 F 03/30/18 06:11 Pulse 86 03/30/18 06:11 Resp 18 03/30/18 08:15 BP 114/61 03/30/18 06:11 Pulse Ox 94 L 03/30/18 06:11 Intake & Output 03/29/18 03/30/18 03/30/18 18:59 06:59 18:59 Other: Voiding Method Diaper Diaper Incontinent Incontinent Incontinent # Voids 1 1 # Bowel Movements 1 - Constitutional General appearance: Present: cooperative, no acute distress - Gastrointestinal Gastrointestinal Comment(s): The abscess site in the right lower quadrant is much improved. No swelling. Good granulation tissue in the base. No erythema. General gastrointestinal: Present: distended (Softly distended, less distended than yesterday), normal bowel sounds - Labs CBC & Chem 7: 03/28/18 11:38 03/29/18 08:05 Labs: Abnormal Lab Results - Last 24 Hours (Table) 03/29/18 03/30/18 Range/Units 20:27 07:57 PT 26.8 H (9.0-12.0) sec INR 2.8 H (<1.2) POC Glucose (mg/dL) 143 H (75-99) mg/dL Microbiology - Last 24 Hours (Table) 03/25/18 10:30 Blood Culture - Preliminary Blood No Growth after 96 hours - Imaging and Cardiology Abdominal x-ray: report reviewed Assessment and Plan (1) Atrial fibrillation Current Visit: Yes Status: Acute Code(s): I48.91 - UNSPECIFIED ATRIAL FIBRILLATION SNOMED Code(s): 76927891 (2) History of CVA (cerebrovascular accident) Current Visit: Yes Status: Acute Code(s): Z86.73 - PRSNL HX OF TIA (TIA), AND CEREB INFRC W/O RESID DEFICITS SNOMED Code(s): 996507791 (3) Elevated INR Current Visit: Yes Status: Acute Code(s): R79.1 - ABNORMAL COAGULATION PROFILE SNOMED Code(s): 216282842 (4) Abdominal wall abscess Current Visit: Yes Status: Acute Code(s): L02.211 - CUTANEOUS ABSCESS OF ABDOMINAL WALL SNOMED Code(s): 35524046 (5) Ileus Current Visit: Yes Status: Acute Code(s): K56.7 - ILEUS, UNSPECIFIED SNOMED Code(s): 361834491 Plan: Continue local wound care. We'll give him some milk of magnesia to stimulate the bowels. I don't think there is anything acute going on in his abdomen. If he were to develop a fever greater than 100 or elevated white count consider a computed tomography scan of the abdomen. Currently nonsurgical.
[2018-03-30] MEDS ORDERED: MAGNESIUM HYDROXIDE 2,400 MG/10 ML CUP PO ONE (13:20)
[2018-03-30 14:15] VITALS: BP 127/69; PULSE 80; RESP 16; TEMP 98
--- NOTE | 2018-03-30 15:02 | DS ---
DISCHARGE SUMMARY DATE OF ADMISSION: March 25, 2018. DATE OF DISCHARGE: March 30, 2018. FINAL DIAGNOSES: 1. Acute abdominal wall abscess status post I and D, cultures growing Proteus mirabilis and E coli. 2. Paroxysmal atrial fibrillation for which patient is chronically on Coumadin. 3. Acute ileus, resolved. 4. Chronic congestive heart failure, ejection fraction not known. 5. Hyperlipidemia. 6. Essential hypertension. 7. Chronic incontinence of urine and stool. 8. Patient has a DPOA, sister Mary. 9. Acute renal failure, likely from acute tubular necrosis from sepsis, now resolved. 10.Acute abdominal abscess causing sepsis, POA. HOSPITAL COURSE: This patient presented with abdominal wall abscess with sepsis on presentation. I and D was carried out by Dr. Herman. Cultures are positive as above. The patient doing much better by the time of discharge. The patient had developed an ileus yesterday, received some laxative. Had good bowel movements 3 of them last night. This morning, patient's abdomen soft, nontender. Patient did tolerate some diet, looking well. Seen by Dr. Herman. EXAMINATION: Temp 98.8, pulse 82, respiratory 18, blood pressure 114/61, pulse ox 94 percent on room air. ABDOMEN: Soft, nontender. Bowel sounds are present. Dressing over the wound site. INVESTIGATIONS: White count 9.7. Potassium 4, INR 2.8. HOME GO MEDICATIONS: 1. Aspirin 81 mg daily. 2. Lipitor 20 mg q.h.s. 3. Coreg 3.125 p.o. b.i.d. 4. Prinivil 5 mg p.o. daily. 5. Tylenol 650 mg q.6h p.r.n. 6. Ferrous sulfate 325 mg p.o. daily p.r.n. 7. Senna 8.6 p.o. daily p.r.n. 8. Flomax 0.4 mg p.o. daily. 9. Keflex 100 mg p.o. q.6 40 tablets. 10.Mirtazapine 7.5 mg q.h.s. 11.Coumadin 2.5 mg p.o. daily. LABS: CBC, BMP, INR in 3 days. DISPOSITION: [facility]. Wound care to continue per Dr. Herman. FOLLOWUP: [facility] Follow up with Dr. Herman in [address] Arellano. MMODL / IJN: [id number] /
[2018-03-30] MEDS ORDERED: WARFARIN 3 MG TAB PO SCH (18:00)
[2018-03-30] MEDS ORDERED: WARFARIN 0.5 MG TAB PO ONE (18:00)
== END 2018-03-30 21:10 | DRG 853 ==
LOC: EC 09:59 → 4MS4W 12:02
PROVIDERS: ADMIT Hospitalist; ATTEND Hospitalist
PROC: 0W9F0ZX Drainage of Abdominal Wall, Open Approach, Diagnostic (ICD-10-PCS; principal; 2018-03-25 11:30)
DX: A41.51 Sepsis due to Escherichia coli [E. coli] (principal); N17.0 Acute kidney failure with tubular necrosis; L02.211 Cutaneous abscess of abdominal wall; K56.7 Ileus, unspecified; B96.4 Proteus (mirabilis) (morganii) as the cause of diseases classified elsewhere; D50.9 Iron deficiency anemia, unspecified; E78.5 Hyperlipidemia, unspecified; E87.5 Hyperkalemia; I11.0 Hypertensive heart disease with heart failure; I25.2 Old myocardial infarction; I25.5 Ischemic cardiomyopathy; I48.0 Paroxysmal atrial fibrillation; I50.9 Heart failure, unspecified; Z86.73 Personal history of transient ischemic attack (TIA), and cerebral infarction without residual deficits; R32 Unspecified urinary incontinence; R65.20 Severe sepsis without septic shock; R79.1 Abnormal coagulation profile; Z79.01 Long term (current) use of anticoagulants; Z79.82 Long term (current) use of aspirin; Z79.899 Other long term (current) drug therapy; Z82.49 Family history of ischemic heart disease and other diseases of the circulatory system; Z87.891 Personal history of nicotine dependence; Z99.3 Dependence on wheelchair; Z83.79 Family history of other diseases of the digestive system; R26.9 Unspecified abnormalities of gait and mobility; F32.9 Major depressive disorder, single episode, unspecified
CPT/HCPCS: 36415; 74018; 74019; 76705; 80048; 80053; 81001; 83605; 85025; 85610; 85730; 87040; 87070; 87075; 87077; 87086; 87186; 87205; 93005; 96365; 96366; 99291

== ENCOUNTER 2018-04-04 02:54 | Inpatient (IN) | payer OTHER ==
[2018-04-04] MEDS ORDERED: PANTOPRAZOLE 40 MG/10 ML VIAL IVP STA (03:19)
[2018-04-04 03:34] LABS: Anisocytosis Slight; Basophils # (A) 0.1 k/uL (0-0.2); Basophils % (A) 0 %; Eosinophils # (A) 0.1 k/uL (0-0.7); Eosinophils % (A) 0 %; HCT 42.2 % (39.0-53.0); HGB 12.5 gm/dL (13.0-17.5); Hypochromasia Marked; Lymphocytes # (A) 0.6 k/uL (1.0-4.8); Lymphocytes % (A) 3 %; MCH 23.9 pg (25.0-35.0); MCHC 29.7 g/dL (31.0-37.0); MCV 80.3 fL (80.0-100.0); Mean Platelet Volume 6.2; Monocytes # (A) 0.6 k/uL (0-1.0); Monocytes % (A) 3 %; Neutrophils # (A) 20.2 k/uL (1.3-7.7); Neutrophils % (A) 94 %; Platelet Count 692 k/uL (150-450); RBC 5.25 m/uL (4.30-5.90); RDW 18.3 % (11.5-15.5); WBC 21.6 k/uL (3.8-10.6)
[2018-04-04 03:46] LABS: Albumin 4.2 g/dL (3.5-5.0); Calcium 9.5 mg/dL (8.4-10.2); Total Bilirubin 0.6 mg/dL (0.2-1.3); Total Protein 8.4 g/dL (6.3-8.2)
[2018-04-04 03:49] LABS: Prothrombin Time 28.8 sec (9.0-12.0)
[2018-04-04 04:00] LABS: Creatine Kinase 38 U/L (55-170)
[2018-04-04 04:13] LABS: Creatine Kinase MB 1.5 ng/mL (0.0-2.4); Troponin I <0.012 ng/mL (0.000-0.034)
--- NOTE | 2018-04-04 04:46 | CT ---
EXAMINATION TYPE: CT abdomen pelvis wo con DATE OF EXAM: 04/04/2018 COMPARISON: None HISTORY: abd pain, vomitting CT DLP: 568.7 mGycm Automated exposure control for dose reduction was used. TECHNIQUE: Helical acquisition of images was performed from the lung bases through the pelvis. FINDINGS: There are bilateral pleural effusions. There is basilar pulmonary atelectasis. There is no pericardia l effusion. There is pericardial calcification on the posterior aspect of the heart. Stomach is large and mostly filled with fluid. Liver shows no focal defect. Gallbladder appears darlene l. Bile ducts are not dilated. Spleen appears normal. There is no pancreatic mass. There are multiple dilated loops of fluid and air-filled small bowel throughout the abdomen. Large diaz wel is mostly empty. The bladder distends smoothly. There is no free fluid in the pelvis. There is so me retained fecal material in the rectum. Small bowel is dilated up to 5 cm. There is no sign of free air. There are a few loops of distal ileum that are not dilated. I do not see a transition point. I see no mesenteric edema. The lumbar spine is intact. There is no compression fracture. Bony pelvis is intact. There is no ingu inal hernia. The kidneys have normal size and contour. There is no adrenal mass. There is no hydronephrosis. Urete rs are not dilated. IMPRESSION: THERE IS DILATION OF ALMOST ALL OF THE SMALL BOWEL CONSISTENT WITH A DISTAL SMALL BOWEL MECHANICAL OB STRUCTION. SMALL PLEURAL EFFUSIONS AND BASILAR ATELECTASIS.
[2018-04-04] MEDS ORDERED: SODIUM CHLORIDE 0.9% 2,000 ML IV ONE (05:06)
[2018-04-04] MEDS ORDERED: PIPERACILLIN-TAZOBACTAM 3.375 GM in SODIUM CHLORIDE 0.9% 100 ML IVPB STA (06:08)
[2018-04-04] MEDS ORDERED: NALOXONE 0.4 MG/ML 1 ML VIAL IV PRN (06:16)
[2018-04-04] MEDS ORDERED: ONDANSETRON 4 MG/2 ML VIAL IVP PRN (06:16)
[2018-04-04] MEDS ORDERED: ACETAMINOPHEN TAB 325 MG TAB PO PRN ×2 (06:16→11:52)
--- NOTE | 2018-04-04 06:46 | XR ---
EXAMINATION TYPE: XR chest 2V DATE OF EXAM: 04/04/2018 COMPARISON: Chest and abdominal pain with vomiting and dark stool. HISTORY: Chest x-ray April 08, 2017. TECHNIQUE: Frontal and lateral views of the chest are obtained. FINDINGS: There is diminished inspiration on current study with patchy medial basilar opacities. Th e cardiac silhouette size is enlarged on current study. No pleural effusion or pneumothorax is evid ent. The osseous structures are intact. IMPRESSION: Diminished inspiration with mild cardiomegaly now identified and patchy medial bibasilar acute infiltrates and/or atelectasis noted.
--- NOTE | 2018-04-04 07:23 | ED ---
General Adult HPI - General Chief complaint: GI Bleed Stated complaint: GI Bleed Time Seen by Provider: 04/04/18 03:10 Source: EMS Mode of arrival: EMS Limitations: no limitations - History of Present Illness Initial comments: This patient is a 57-year-old man who is transferred here from the [facility] the [facility]. The patient is sent here to be evaluated for multiple rounds of vomiting, as well as vomiting with they thought was coffee-ground emesis. This had developed over the course of last night. The patient also reportedly was having some abdominal distention. When I see the patient, he is complaining of vomiting. He denies abdominal pain. He does state that his abdomen is bloated. The patient's recent history is notable for having had incision and drainage of an abscess to the right lower abdominal wall performed on March [address] Hreman. The patient has not noted fever or chills. He has not noted any change in bowel movements. Patient denies chest pain, dyspnea and coughing. Onset/Timin -: days(s) Location: abdomen Quality: other (Loading) Consistency: constant Improves with: none Worsens with: none Associated Symptoms: nausea/vomiting Treatments Prior to Arrival: none - Related Data Home Medications Medication Instructions Recorded Confirmed Aspirin [Adult Low Dose Aspirin EC] 81 mg PO DAILY@89904/08/17 04/04/18 Atorvastatin [Lipitor] 20 mg PO HS@209904/08/17 04/04/18 Carvedilol [Coreg] 3.125 mg PO BID@09,209904/08/17 04/04/18 Lisinopril [Prinivil] 5 mg PO DAILY@89904/08/17 04/04/18 Enema 1 applic RECTAL HS@209903/25/18 04/04/18 Ferrous Sulfate [Iron (65 MG 325 mg PO DAILY@89903/25/18 04/04/18 Elemental)] Sennosides [Senna] 8.6 mg PO DAILY PRN 03/25/18 04/04/18 Tamsulosin [Flomax] 0.4 mg PO DAILY@89903/25/18 04/04/18 Warfarin [Coumadin] 2.5 mg PO DIRECTED 04/04/18 04/04/18 Previous Rx's Medication Instructions Recorded Acetaminophen Tab [Tylenol] 650 mg PO Q6HR PRN tab 04/11/17 Cephalexin [Keflex] 500 mg PO Q6HR #40 cap 03/30/18 Mirtazapine 7.5 mg PO HS@2100 #3 tablet 03/30/18 Allergies Allergy/AdvReac Type Severity Reaction Status Date / Time No Known Allergies Allergy Verified 04/04/18 08:06 Review of Systems ROS Statement: Those systems with pertinent positive or pertinent negative responses have been documented in the HPI. ROS Other: All systems not noted in ROS Statement are negative. Constitutional: Denies: fever, chills Respiratory: Denies: cough, dyspnea Cardiovascular: Denies: chest pain, palpitations, syncope Gastrointestinal: Reports: as per HPI, nausea, vomiting, hematemesis. Denies: abdominal pain, diarrhea, melena, hematochezia Genitourinary: Denies: dysuria, testicular pain Musculoskeletal: Denies: back pain Skin: Denies: rash Neurological: Denies: headache Past Medical History Past Medical History: Atrial Fibrillation, Heart Failure, CVA/TIA, Hyperlipidemia, Hypertension, Myocardial Infarction (DC) Additional Past Medical History / Comment(s): CVAs, TIA, ischemic cardiomyopathy , gait dysfunction/wheelchair bound, incontinent of urine/stool, Last Myocardial Infarction Date:: 2016 History of Any Multi-Drug Resistant Organisms: None Reported Additional Past Surgical History / Comment(s): left achilles tendon repair, colonoscopy Past Anesthesia/Blood Transfusion Reactions: No Reported Reaction Past Psychological History: Depression Smoking Status: Former smoker - Past Family History Mother Family Medical History: Congestive Heart Failure (CHF) Father Additional Family Medical History / Comment(s): Cirrhosis of the liver. General Exam Limitations: no limitations General appearance: alert, in no apparent distress Head exam: Present: atraumatic, normocephalic Eye exam: Present: normal appearance. Absent: scleral icterus, conjunctival injection ENT exam: Present: mucous membranes dry Neck exam: Present: normal inspection Respiratory exam: Present: normal lung sounds bilaterally. Absent: respiratory distress, wheezes, rales, rhonchi, stridor Cardiovascular Exam: Present: normal rhythm, tachycardia (Mild tachycardia, rate approximately 112 my exam), normal heart sounds. Absent: systolic murmur, diastolic murmur, rubs, gallop GI/Abdominal exam: Present: distended, other (The patient's recently drained abscess contains wet-to-dry packing. There is no drooling discharge. There is no surrounding erythema.). Absent: tenderness, guarding, rebound, rigid, mass, pulsatile mass, hernia Extremities exam: Present: normal inspection, normal capillary refill. Absent: pedal edema, calf tenderness Back exam: Present: normal inspection Neurological exam: Present: alert Skin exam: Present: warm, dry, intact, normal color. Absent: rash Course Vital Signs 04/04/18 04/04/18 04/04/18 02:55 04:51 06:35 Temperature 97.6 F Pulse Rate 110 H 105 H 98 Respiratory 16 16 Rate Blood Pressure 117/88 123/76 135/77 O2 Sat by Pulse 96 98 99 Oximetry 04/04/18 07:24 Temperature Pulse Rate 102 H Respiratory 16 Rate Blood Pressure 145/83 O2 Sat by Pulse 96 Oximetry Medical Decision Making - Medical Decision Making This patient's 57-year-old man presenting for vomiting. His workup does reveal what appears to be small bowel obstruction. Patient be admitted to the hospitalist group, and I did discuss the case with both the admitting physician and with the surgical training specialist. NG tube is placed. I patient is given fluid bolus and the lactic acid being rechecked. - Lab Data Result diagrams: 04/04/18 03:26 04/04/18 03:26 Lab Results 04/04/18 04/04/18 04/04/18 Range/Units 03:26 03:26 03:26 WBC 21.6 H (3.8-10.6) k/uL RBC 5.25 (4.30-5.90) m/uL Hgb 12.5 L (13.0-17.5) gm/dL Hct 42.2 (39.0-53.0) % MCV 80.3 (80.0-100.0) fL MCH 23.9 L (25.0-35.0) pg MCHC 29.7 L (31.0-37.0) g/dL RDW 18.3 H (11.5-15.5) % Plt Count 692 H (150-450) k/uL Neutrophils % 94 % Lymphocytes % 3 % Monocytes % 3 % Eosinophils % 0 % Basophils % 0 % Neutrophils # 20.2 H (1.3-7.7) k/uL Lymphocytes # 0.6 L (1.0-4.8) k/uL Monocytes # 0.6 (0-1.0) k/uL Eosinophils # 0.1 (0-0.7) k/uL Basophils # 0.1 (0-0.2) k/uL Hypochromasia Marked Anisocytosis Slight PT (9.0-12.0) sec INR (<1.2) APTT (22.0-30.0) sec Sodium 145 (137-145) mmol/L Potassium 5.0 (3.5-5.1) mmol/L Chloride 101 (98-107) mmol/L Carbon Dioxide 29 (22-30) mmol/L Anion Gap 15 mmol/L BUN 12 (9-20) mg/dL Creatinine 1.69 H (0.66-1.25) mg/dL Est GFR (CKD-EPI)AfAm 51 (>60 ml/min/1.73 sqM) Est GFR (CKD-EPI)NonAf 44 (>60 ml/min/1.73 sqM) Glucose 196 H (74-99) mg/dL Lactic Ac Sepsis Rflx Plasma Lactic Acid Kb (0.7-2.0) mmol/L Calcium 9.5 (8.4-10.2) mg/dL Total Bilirubin 0.6 (0.2-1.3) mg/dL AST 21 (17-59) U/L ALT 20 L (21-72) U/L Alkaline Phosphatase 121 (38-126) U/L Total Creatine Kinase 38 L (55-170) U/L CK-MB (CK-2) 1.5 (0.0-2.4) ng/mL CK-MB (CK-2) Rel Index 3.9 Troponin I <0.012 (0.000-0.034) ng/mL Total Protein 8.4 H (6.3-8.2) g/dL Albumin 4.2 (3.5-5.0) g/dL Blood Type Blood Type Confirm Blood Type Recheck Antibody Screen Spec Expiration Date 04/04/18 04/04/18 04/04/18 Range/Units 03:26 03:26 03:30 WBC (3.8-10.6) k/uL RBC (4.30-5.90) m/uL Hgb (13.0-17.5) gm/dL Hct (39.0-53.0) % MCV (80.0-100.0) fL MCH (25.0-35.0) pg MCHC (31.0-37.0) g/dL RDW (11.5-15.5) % Plt Count (150-450) k/uL Neutrophils % % Lymphocytes % % Monocytes % % Eosinophils % % Basophils % % Neutrophils # (1.3-7.7) k/uL Lymphocytes # (1.0-4.8) k/uL Monocytes # (0-1.0) k/uL Eosinophils # (0-0.7) k/uL Basophils # (0-0.2) k/uL Hypochromasia Anisocytosis PT 28.8 H (9.0-12.0) sec INR 3.0 H (<1.2) APTT 31.0 H (22.0-30.0) sec Sodium (137-145) mmol/L Potassium (3.5-5.1) mmol/L Chloride (98-107) mmol/L Carbon Dioxide (22-30) mmol/L Anion Gap mmol/L BUN (9-20) mg/dL Creatinine (0.66-1.25) mg/dL Est GFR (CKD-EPI)AfAm (>60 ml/min/1.73 sqM) Est GFR (CKD-EPI)NonAf (>60 ml/min/1.73 sqM) Glucose (74-99) mg/dL Lactic Ac Sepsis Rflx Plasma Lactic Acid Kb 4.7 H* (0.7-2.0) mmol/L Calcium (8.4-10.2) mg/dL Total Bilirubin (0.2-1.3) mg/dL AST (17-59) U/L ALT (21-72) U/L Alkaline Phosphatase (38-126) U/L Total Creatine Kinase (55-170) U/L CK-MB (CK-2) (0.0-2.4) ng/mL CK-MB (CK-2) Rel Index Troponin I (0.000-0.034) ng/mL Total Protein (6.3-8.2) g/dL Albumin (3.5-5.0) g/dL Blood Type O Negative Blood Type Confirm Blood Type Recheck CABO Indicated Antibody Screen NEGATIVE Spec Expiration Date 04/07/2018232504/04/18 04/04/18 Range/Units 04:00 04:23 WBC (3.8-10.6) k/uL RBC (4.30-5.90) m/uL Hgb (13.0-17.5) gm/dL Hct (39.0-53.0) % MCV (80.0-100.0) fL MCH (25.0-35.0) pg MCHC (31.0-37.0) g/dL RDW (11.5-15.5) % Plt Count (150-450) k/uL Neutrophils % % Lymphocytes % % Monocytes % % Eosinophils % % Basophils % % Neutrophils # (1.3-7.7) k/uL Lymphocytes # (1.0-4.8) k/uL Monocytes # (0-1.0) k/uL Eosinophils # (0-0.7) k/uL Basophils # (0-0.2) k/uL Hypochromasia Anisocytosis PT (9.0-12.0) sec INR (<1.2) APTT (22.0-30.0) sec Sodium (137-145) mmol/L Potassium (3.5-5.1) mmol/L Chloride (98-107) mmol/L Carbon Dioxide (22-30) mmol/L Anion Gap mmol/L BUN (9-20) mg/dL Creatinine (0.66-1.25) mg/dL Est GFR (CKD-EPI)AfAm (>60 ml/min/1.73 sqM) Est GFR (CKD-EPI)NonAf (>60 ml/min/1.73 sqM) Glucose (74-99) mg/dL Lactic Ac Sepsis Rflx Y Plasma Lactic Acid Kb (0.7-2.0) mmol/L Calcium (8.4-10.2) mg/dL Total Bilirubin (0.2-1.3) mg/dL AST (17-59) U/L ALT (21-72) U/L Alkaline Phosphatase (38-126) U/L Total Creatine Kinase (55-170) U/L CK-MB (CK-2) (0.0-2.4) ng/mL CK-MB (CK-2) Rel Index Troponin I (0.000-0.034) ng/mL Total Protein (6.3-8.2) g/dL Albumin (3.5-5.0) g/dL Blood Type Blood Type Confirm O Negative Blood Type Recheck Antibody Screen Spec Expiration Date Disposition Clinical Impression: Small bowel obstruction, Lactic acidosis Disposition: ADMITTED IP TO THIS HOSP Condition: Poor Is patient prescribed a controlled substance at d/c from ED?: No
--- NOTE | 2018-04-04 07:24 | XR ---
EXAMINATION TYPE: XR chest 1V portable DATE OF EXAM: 04/04/2018 COMPARISON: Chest x-ray earlier today. HISTORY: NG tube placement. TECHNIQUE: Single AP portable frontal upright view of the chest is obtained. FINDINGS: There is new nasogastric tube coursing below diaphragm. Low lung volumes are redemonstrated . Background chronic parenchymal change with left greater than right bibasilar medial opacities remai n present. No pleural effusion or pneumothorax is seen. The cardiac silhouette size is stable and en larged. The osseous structures are intact. IMPRESSION: New nasogastric tube satisfactory in position. Stable cardiomegaly and chronic parenchyma l change with left greater than right bibasilar medial acute atelectasis and/or infiltrates noted.
[2018-04-04] MEDS ORDERED: SENNOSIDES 8.6 MG TAB PO PRN (11:52)
[2018-04-04] MEDS ORDERED: CEPHALEXIN 500 MG CAP PO SCH (12:00)
--- NOTE | 2018-04-04 13:37 | P.GSCN ---
History of Present Illness Consult date: 04/04/18 History of present illness: Is a 57-year-old male lives in a detention secondary to multiple CVAs and multiple medical comorbidities. He was recently hospitalized for an abdominal wound and abscess which was drained. He had been sent back to the detention. He was brought back to the emergency room secondary to abdominal distention and nausea. He was found to have signs and symptoms consistent with ileus or small bowel obstruction on computed tomography scan. NG tube was placed and copious amounts of bilious green drainage was noted. Majority of this HPI was obtained secondary to chart review secondary to patient being essentially nonverbal. He can respond minimal commands. It is unknown when he had his last bowel movement he has not had one since being in the hospital. Past Medical History Past Medical History: Atrial Fibrillation, Heart Failure, CVA/TIA, Hyperlipidemia, Hypertension, Myocardial Infarction (VT) Additional Past Medical History / Comment(s): CVAs, TIA, ischemic cardiomyopathy , gait dysfunction/wheelchair bound, incontinent of urine/stool, Last Myocardial Infarction Date:: 2016 History of Any Multi-Drug Resistant Organisms: None Reported Additional Past Surgical History / Comment(s): left achilles tendon repair, colonoscopy Past Anesthesia/Blood Transfusion Reactions: No Reported Reaction Past Psychological History: Depression Smoking Status: Former smoker - Past Family History Mother Family Medical History: Congestive Heart Failure (CHF) Father Additional Family Medical History / Comment(s): Cirrhosis of the liver. Medications and Allergies Home Medications Medication Instructions Recorded Confirmed Type Aspirin [Adult Low Dose Aspirin EC] 81 mg PO DAILY@0900 04/08/17 04/04/18 History Atorvastatin [Lipitor] 20 mg PO HS@209904/08/17 04/04/18 History Carvedilol [Coreg] 3.125 mg PO BID@09,209904/08/17 04/04/18 History Lisinopril [Prinivil] 5 mg PO DAILY@89904/08/17 04/04/18 History Acetaminophen Tab [Tylenol] 650 mg PO Q6HR PRN tab 04/11/17 04/04/18 Rx Enema 1 applic RECTAL HS@209903/25/18 04/04/18 History Ferrous Sulfate [Iron (65 MG 325 mg PO DAILY@0900 03/25/18 04/04/18 History Elemental)] Sennosides [Senna] 8.6 mg PO DAILY PRN 03/25/18 04/04/18 History Tamsulosin [Flomax] 0.4 mg PO DAILY@0900 03/25/18 04/04/18 History Cephalexin [Keflex] 500 mg PO Q6HR #40 cap 03/30/18 04/04/18 Rx Mirtazapine 7.5 mg PO HS@2100 #3 tablet 03/30/18 04/04/18 Rx Warfarin [Coumadin] 2.5 mg PO DIRECTED 04/04/18 04/04/18 History Allergies Allergy/AdvReac Type Severity Reaction Status Date / Time No Known Allergies Allergy Verified 04/04/18 08:06 Surgical - Exam Osteopathic Statement: *. No significant issues noted on an osteopathic structural exam other than those noted in the History and Physical/Consult. Vital Signs Temp Pulse Resp BP Pulse Ox 97.6 F 110 H 16 117/88 96 04/04/18 02:55 04/04/18 02:55 04/04/18 02:55 04/04/18 02:55 04/04/18 02:55 - General no distress - Eyes PERRL - Neck trachea midline - Respiratory normal expansion, normal respiratory effort - Cardiovascular Rhythm: regular - Abdomen Soft distended minimal tenderness palpation right lower quadrant incision without erythema or purulent drainage packing in place Abdomen: soft - Psychiatric Impaired speech secondary to CVA Results - Labs 04/04/18 03:26 04/04/18 03:26 Abnormal Lab Results - Last 24 Hours (Table) 04/04/18 04/04/18 04/04/18 Range/Units 03:26 03:26 03:26 WBC 21.6 H (3.8-10.6) k/uL Hgb 12.5 L (13.0-17.5) gm/dL MCH 23.9 L (25.0-35.0) pg MCHC 29.7 L (31.0-37.0) g/dL RDW 18.3 H (11.5-15.5) % Plt Count 692 H (150-450) k/uL Neutrophils # 20.2 H (1.3-7.7) k/uL Lymphocytes # 0.6 L (1.0-4.8) k/uL PT (9.0-12.0) sec INR (<1.2) APTT (22.0-30.0) sec Creatinine 1.69 H (0.66-1.25) mg/dL Glucose 196 H (74-99) mg/dL Plasma Lactic Acid Kb (0.7-2.0) mmol/L ALT 20 L (21-72) U/L Total Creatine Kinase 38 L (55-170) U/L Total Protein 8.4 H (6.3-8.2) g/dL 04/04/18 04/04/18 Range/Units 03:26 03:30 WBC (3.8-10.6) k/uL Hgb (13.0-17.5) gm/dL MCH (25.0-35.0) pg MCHC (31.0-37.0) g/dL RDW (11.5-15.5) % Plt Count (150-450) k/uL Neutrophils # (1.3-7.7) k/uL Lymphocytes # (1.0-4.8) k/uL PT 28.8 H (9.0-12.0) sec INR 3.0 H (<1.2) APTT 31.0 H (22.0-30.0) sec Creatinine (0.66-1.25) mg/dL Glucose (74-99) mg/dL Plasma Lactic Acid Kb 4.7 H* (0.7-2.0) mmol/L ALT (21-72) U/L Total Creatine Kinase (55-170) U/L Total Protein (6.3-8.2) g/dL Diabetes panel 04/04/18 Range/Units 03:26 Sodium 145 (137-145) mmol/L Potassium 5.0 (3.5-5.1) mmol/L Chloride 101 (98-107) mmol/L Carbon Dioxide 29 (22-30) mmol/L BUN 12 (9-20) mg/dL Creatinine 1.69 H (0.66-1.25) mg/dL Glucose 196 H (74-99) mg/dL Calcium 9.5 (8.4-10.2) mg/dL AST 21 (17-59) U/L ALT 20 L (21-72) U/L Alkaline Phosphatase 121 (38-126) U/L Total Protein 8.4 H (6.3-8.2) g/dL Albumin 4.2 (3.5-5.0) g/dL Calcium panel 04/04/18 Range/Units 03:26 Calcium 9.5 (8.4-10.2) mg/dL Albumin 4.2 (3.5-5.0) g/dL Pituitary panel 04/04/18 Range/Units 03:26 Sodium 145 (137-145) mmol/L Potassium 5.0 (3.5-5.1) mmol/L Chloride 101 (98-107) mmol/L Carbon Dioxide 29 (22-30) mmol/L BUN 12 (9-20) mg/dL Creatinine 1.69 H (0.66-1.25) mg/dL Glucose 196 H (74-99) mg/dL Calcium 9.5 (8.4-10.2) mg/dL Adrenal panel 04/04/18 Range/Units 03:26 Sodium 145 (137-145) mmol/L Potassium 5.0 (3.5-5.1) mmol/L Chloride 101 (98-107) mmol/L Carbon Dioxide 29 (22-30) mmol/L BUN 12 (9-20) mg/dL Creatinine 1.69 H (0.66-1.25) mg/dL Glucose 196 H (74-99) mg/dL Calcium 9.5 (8.4-10.2) mg/dL Total Bilirubin 0.6 (0.2-1.3) mg/dL AST 21 (17-59) U/L ALT 20 L (21-72) U/L Alkaline Phosphatase 121 (38-126) U/L Total Protein 8.4 H (6.3-8.2) g/dL Albumin 4.2 (3.5-5.0) g/dL Assessment and Plan Assessment: Small bowel obstruction Plan: Patient did clear his lactic acid. He seems to improve since NG tube placement. I discussed with the family that surgical intervention was attempted to be avoided with conservative therapy NG tube decompression. Patient has a higher risk for surgery secondary to multiple medical comorbidities. We will continue to closely follow.
--- NOTE | 2018-04-04 14:52 | P.HPIM ---
History of Present Illness 57-year-old gentleman was sent in from residential because of nausea vomiting and possible coffee-ground emesis. Patient had a recent hospitalization where he had the abdominal wall abscess which was drained at that time the abscess cultures are positive for E. coli and another gram-negative bacilli for which patient was discharged on a cephalosporin. Patient doesn't have any increased drainage from the diet although patient is found to have symptoms consistent with ileus or partial small bowel obstruction and patient had a CAT scan which did show that because of which an NG tube was placed patient is significantly distended lower lobes significant drainage from the NG tube around the 300 mL in 2 hours. Patient will request fluids patient is tachycardic presently sinus tachycardia. Does have history of atrial fibrillation on anticoagulation with Coumadin, patient is high risk for stroke from atrial fibrillation patient already had 2 strokes bed bound and extremely poor functionality from his previous strokes. Include dopamine of cardiology whether patient need to be initiated and heparin as patient cannot receive anything by mouth. Although we will try and give oral Coreg. Patient was started on 1 25 mL of normal saline with close monitoring for pulmonary edema is patient's ejection fraction is 35- 40%. He shouldn't that he is presently on Zosyn which will continue but patient can go back on the cephalosporin which he was on and complete the course of antibiotic there is no increased drainage in the abdominal wall surgical site area. Patient does have significant speech abnormality and does some chronic generalized weakness no focal weakness. Review of Systems REVIEW OF SYSTEMS: CONSTITUTIONAL: No fever, no malaise, no fatigue. HEENT: No recent visual problems or hearing problems. Denied any sore throat. CARDIOVASCULAR: No chest pain, orthopnea, PND, no palpitations, no syncope. PULMONARY: No shortness of breath, no cough, no hemoptysis. GASTROINTESTINAL: Mentioned in HPI NEUROLOGICAL: No headaches, no weakness, no numbness. HEMATOLOGICAL: Denies any bleeding or petechiae. GENITOURINARY: Denies any burning micturition, frequency, or urgency. MUSCULOSKELETAL/RHEUMATOLOGICAL: Denies any joint pain, swelling, or any muscle pain. ENDOCRINE: Denies any polyuria or polydipsia. The rest of the 14-point review of systems is negative. Past Medical History Past Medical History: Atrial Fibrillation, Heart Failure, CVA/TIA, Hyperlipidemia, Hypertension, Myocardial Infarction ([place]) Additional Past Medical History / Comment(s): CVAs, TIA, ischemic cardiomyopathy , gait dysfunction/wheelchair bound, incontinent of urine/stool, Last Myocardial Infarction Date:: 2016 History of Any Multi-Drug Resistant Organisms: None Reported Additional Past Surgical History / Comment(s): left achilles tendon repair, colonoscopy Past Anesthesia/Blood Transfusion Reactions: No Reported Reaction Past Psychological History: Depression Smoking Status: Former smoker - Past Family History Mother Family Medical History: Congestive Heart Failure (CHF) Father Additional Family Medical History / Comment(s): Cirrhosis of the liver. Medications and Allergies Home Medications Medication Instructions Recorded Confirmed Type Aspirin [Adult Low Dose Aspirin EC] 81 mg PO DAILY@0900 04/08/17 04/04/18 History Atorvastatin [Lipitor] 20 mg PO HS@209904/08/17 04/04/18 History Carvedilol [Coreg] 3.125 mg PO BID@0900,209904/08/17 04/04/18 History Lisinopril [Prinivil] 5 mg PO DAILY@0900 04/08/17 04/04/18 History Acetaminophen Tab [Tylenol] 650 mg PO Q6HR PRN tab 04/11/17 04/04/18 Rx Enema 1 applic RECTAL HS@209903/25/18 04/04/18 History Ferrous Sulfate [Iron (65 MG 325 mg PO DAILY@0900 03/25/18 04/04/18 History Elemental)] Sennosides [Senna] 8.6 mg PO DAILY PRN 03/25/18 04/04/18 History Tamsulosin [Flomax] 0.4 mg PO DAILY@0900 03/25/18 04/04/18 History Cephalexin [Keflex] 500 mg PO Q6HR #40 cap 03/30/18 04/04/18 Rx Mirtazapine 7.5 mg PO HS@2100 #3 tablet 03/30/18 04/04/18 Rx Warfarin [Coumadin] 2.5 mg PO DIRECTED 04/04/18 04/04/18 History Allergies Allergy/AdvReac Type Severity Reaction Status Date / Time No Known Allergies Allergy Verified 04/04/18 08:06 Physical Exam Vitals: Vital Signs Temp Pulse Pulse Resp BP BP Pulse Ox 04/04/18 09:30 98.3 F 101 H 16 128/81 95 04/04/18 09:10 97.6 F 103 H 18 146/83 96 04/04/18 09:02 103 H 18 146/83 96 04/04/18 08:24 16 04/04/18 07:24 102 H 16 145/83 96 04/04/18 06:35 98 135/77 99 04/04/18 04:51 105 H 16 123/76 98 04/04/18 02:55 97.6 F 110 H 16 117/88 96 Intake and Output 04/03/18 04/04/18 04/04/18 22:59 06:59 14:59 Intake Total 2200 Balance 2200 Intake: Amount of Fluid Infused ( 2200 ml) Other: Voiding Method Diaper Weight 68.039 kg PHYSICAL EXAMINATION: GENERAL: The patient is alert and does have significant speech abnormality dysphagia chronic from his previous strokes, not in any acute distress. Well developed, well nourished. HEENT: Pupils are round and equally reacting to light. EOMI. No scleral icterus. No conjunctival pallor. Normocephalic, atraumatic. No pharyngeal erythema. No thyromegaly. CARDIOVASCULAR: S1 and S2 present. No murmurs, rubs, or gallops. PULMONARY: Chest is clear to auscultation, no wheezing or crackles. ABDOMEN: Soft, nontender, nondistended, normoactive bowel sounds. No palpable organomegaly. NG tube in place significant NG tube drainage bilious MUSCULOSKELETAL: No joint swelling or deformity. EXTREMITIES: No cyanosis, clubbing, or pedal edema. NEUROLOGICAL: Generalized weakness bed bound with some muscle atrophy SKIN: Patient does have some excoriations of the skin and does have significant psoriatic patches in the back Results CBC & Chem 7: 04/04/18 03:26 04/04/18 03:26 Labs: Abnormal Lab Results - Last 24 Hours (Table) 04/04/18 04/04/18 04/04/18 Range/Units 03:26 03:26 03:26 WBC 21.6 H (3.8-10.6) k/uL Hgb 12.5 L (13.0-17.5) gm/dL MCH 23.9 L (25.0-35.0) pg MCHC 29.7 L (31.0-37.0) g/dL RDW 18.3 H (11.5-15.5) % Plt Count 692 H (150-450) k/uL Neutrophils # 20.2 H (1.3-7.7) k/uL Lymphocytes # 0.6 L (1.0-4.8) k/uL PT (9.0-12.0) sec INR (<1.2) APTT (22.0-30.0) sec Creatinine 1.69 H (0.66-1.25) mg/dL Glucose 196 H (74-99) mg/dL Plasma Lactic Acid Kb (0.7-2.0) mmol/L ALT 20 L (21-72) U/L Total Creatine Kinase 38 L (55-170) U/L Total Protein 8.4 H (6.3-8.2) g/dL 04/04/18 04/04/18 Range/Units 03:26 03:30 WBC (3.8-10.6) k/uL Hgb (13.0-17.5) gm/dL MCH (25.0-35.0) pg MCHC (31.0-37.0) g/dL RDW (11.5-15.5) % Plt Count (150-450) k/uL Neutrophils # (1.3-7.7) k/uL Lymphocytes # (1.0-4.8) k/uL PT 28.8 H (9.0-12.0) sec INR 3.0 H (<1.2) APTT 31.0 H (22.0-30.0) sec Creatinine (0.66-1.25) mg/dL Glucose (74-99) mg/dL Plasma Lactic Acid Kb 4.7 H* (0.7-2.0) mmol/L ALT (21-72) U/L Total Creatine Kinase (55-170) U/L Total Protein (6.3-8.2) g/dL Thrombosis Risk Factor Assmnt - Choose All That Apply Any of the Below Risk Factors Present?: Yes Each Factor Represents 1 point: Age 41-60 years, Medical pt on bed rest, Sepsis (< 1month) Other Risk Factors: Yes Each Risk Factor Represents 2 Points: Patient confined to bed Each Risk Factor Represents 3 Points: History of DVT/PE Other congenital or acquired thrombophilia - If yes, enter type in comment: Yes Thrombosis Risk Factor Assessment Total Risk Factor Score: 8 Thrombosis Risk Factor Assessment Level: High Risk Assessment and Plan Plan: -Partial small bowel obstruction: Patient will remain an NG tube to avoid intravascular volume depletion patient was started on IV fluids at 1 25 mL/h but the need to closely watch for heart failure exacerbation. As patient's urine was only 35-40% -Atrial fibrillation with previous strokes patient heart rate is bit higher now although sinus rhythm will GERD and give him Coreg by mouth after clamping the NG tube for about half not to 45 minutes. We'll consult cardiology regarding recommendations for anticoagulation may need heparin IV C already had couple stroked with significant debility. Since present INR is 3 although he cannot receive Coumadin at this time. Congestive heart failure chronic systolic dysfunction without any acute exacerbation patient in fact is hypovolemic from NG tube drainage and patient was started on IV fluids hold off on diuretic therapy at this time -Leukocytosis reactive rather than secondary to infection -History of CVA couple times with residual weakness -Hyperlipidemia -Hypertension -Recent abdominal wall abscess drainage patient will be continued on Zosyn local wound care.
[2018-04-04] MEDS: SODIUM CHLORIDE 0.9% 1,000 ML IV SCH ×3 (16:30→23:13)
[2018-04-04] MEDS: ACETAMINOPHEN IV (For NPO) 1,000 MG in EMPTY BAG 1 BAG IVPB SCH ×3 (16:31→23:10)
[2018-04-04] MEDS: CARVEDILOL 6.25 MG TAB PO SCH (17:14)
--- NOTE | 2018-04-04 19:10 | CONS ---
CONSULTATION Mr. Hamilton is a 57-year-old male who was admitted to the hospital with nausea and vomiting and was diagnosed with a small-bowel obstruction. He recently had a hospitalization with abdominal wall abscess that was drained and had a positive blood culture. The patient has a known history of chronic persistent atrial fibrillation, has been anticoagulated. Had a prior history of stroke. The patient is not active. He is bed-bound. He has been followed by Dr. Nur in the past and has a known history of cardiomyopathy. He had an echocardiogram performed in April of 2017 and at that time showed ejection fraction 35% to 40% with segmental wall motion abnormality. According to the patient, he has no change in his breathing. He denies any chest pain. He denies any dizziness or palpitation. The cardiomyopathy has been documented in the past. The patient denies any peripheral edema. His coronary risk factors are positive for hypertension, hyperlipidemia. He is a nonsmoker. MEDICATION: Include Coumadin, Flomax, Prinivil 5 mg daily, Coreg 3.125 mg twice a day, Lipitor 20 mg daily, aspirin. REVIEW OF SYSTEMS: RESPIRATORY system: Has no recent wheezing or cough. No history of documented obstructive lung disease. He has nausea and vomiting and the abdominal wall abscess. system: No dysuria or hematuria. Nervous system has a prior history of stroke. PHYSICAL EXAMINATION: 57-year-old male, alert, appears older than stated age. NG tube in place. Blood pressure 133/80 with a heart rate in the 90s to low 100s. LUNGS: Clear. Heart irregularly irregular, S1, S2. No S3 with systolic murmur heard at the base. No diastolic murmur. No rub. ABDOMEN: Soft, dressing in place. Nontender. EXTREMITIES: No edema. LAB DATA: Lab data revealed white blood cell of 21.6, hemoglobin of 12.5. INR of 3.0. Creatinine 1.69. Lactic acid 4.7. Troponin less than 0.012. EKG revealed atrial fibrillation with nonspecific ST-T wave changes. Chest x-ray shows no clear evidence of infiltrate. He had an abdominal CT scan that revealed evidence of dilatation of the small bowel with distal small bowel mechanical obstruction. IMPRESSION: 1. Small-bowel obstruction. The patient has been evaluated by Dr. Thorne. Workup in progress. 2. Atrial fibrillation, persistent and chronic. The patient has been anticoagulated in the past. 3. Status post recent abdominal wall abscess drainage. 4. Prior cerebrovascular accident. 5. History of ischemic cardiomyopathy with no overt ischemic event at this time or symptoms of congestive heart failure. RECOMMENDATION: From the cardiac standpoint, the patient is off his anticoagulation at this time because he has an NG tube. If he continues to have small-bowel obstruction, his INR is below 2 then I would recommend to initiate treatment with Lovenox until he is able to take oral intake. In the meantime, I will increase the dose of his Coreg. His KWABENA inhibitor is on hold because of his renal function. We will follow his renal function closely and depending on that, further recommendation will be made. Thank you for this consult. We will follow with you. GLORIA / IJN: [id number] /
[2018-04-04] MEDS: ATORVASTATIN 20 MG TAB PO SCH (19:42)
[2018-04-04] MEDS ORDERED: FAMOTIDINE 20 MG/2 ML VIAL IV SCH (21:00)
[2018-04-04] MEDS ORDERED: CARVEDILOL 3.125 MG TAB PO SCH (21:00)
[2018-04-04] MEDS ORDERED: [UNRECOGNIZED DRUG - OTHER] RECTAL SCH (21:00)
[2018-04-05] MEDS: SODIUM CHLORIDE 0.9% 1,000 ML IV SCH ×3 (04:54→23:52)
[2018-04-05] MEDS: ACETAMINOPHEN IV (For NPO) 1,000 MG in EMPTY BAG 1 BAG IVPB SCH (04:55)
[2018-04-05 08:16] LABS: Calcium 8.2 mg/dL (8.4-10.2); Potassium 4.1 mmol/L (3.5-5.1)
[2018-04-05 08:18] LABS: Anisocytosis Slight; HCT 30.1 % (39.0-53.0); Hypochromasia Marked; MCH 24.7 pg (25.0-35.0); MCHC 30.6 g/dL (31.0-37.0); MCV 80.8 fL (80.0-100.0); Mean Platelet Volume 6.9; Platelet Count 403 k/uL (150-450); RBC 3.72 m/uL (4.30-5.90); RDW 18.5 % (11.5-15.5); WBC 15.4 k/uL (3.8-10.6)
[2018-04-05 08:19] LABS: HGB 9.2 gm/dL (13.0-17.5)
[2018-04-05] MEDS: TAMSULOSIN 0.4 MG CAP.ER.24H PO SCH (09:00)
[2018-04-05] MEDS: CARVEDILOL 6.25 MG TAB PO SCH ×2 (09:00→20:33)
[2018-04-05] MEDS: FAMOTIDINE 20 MG/2 ML VIAL IV SCH (09:00)
--- NOTE | 2018-04-05 11:24 | P.PN ---
Subjective 57-year-old admitted for spottiness bowel obstruction, patient had a bowel movement today does have good bowel sounds patient pulled his NG tube out he may not require it again. Patient can be started on clear liquid diet patient will be resumed on Coumadin. Repeat INR tomorrow. Leukocytosis improving. Cut on IV fluids to 75 mL per hour. Patient has a bibasilar crackles rhonchus breath sounds patient year is only 35%, pending chest x-ray to make sure patient does not have any pulmonary edema as I'm continuing IV fluids for 1 more day basis baseline creatinine is around 0.7 it was 1.6 yesterday now came down to 1.3. Constitutional: Denied any fatigue denied any fever. Cardio vascular: denied any chest pain, palpitations Gastrointestinal denied any nausea vomiting Pulmonary: Denied any shortness of breath cough Neurologic denied any new focal deficits All inpatient medications were reviewed and appropriate changes in these medications as dictated in the interval history and assessment and plan. Objective - Vital Signs Vital signs: Vital Signs Temp 98.9 F 04/05/18 07:14 Pulse 87 04/05/18 07:14 Resp 16 04/05/18 07:14 BP 133/76 04/05/18 07:14 Pulse Ox 95 04/05/18 07:14 Intake & Output 04/04/18 04/05/18 04/05/18 18:59 06:59 18:59 Intake Total 2650 1187.5 Output Total 850 580 Balance 1800 607.5 Intake: Amount of Fluid Infused ( 2200 ml) Intake, IV Titration 450 1187.5 Amount Sodium Chloride 0.9% 1, 450 1187.5 000 ml @ 125 mls/hr IV . Q8H [facility] Rx#:[id number] Output: Gastric Drainage 850 580 Other: Voiding Method Diaper Diaper Diaper # Voids 1 3 - Exam PHYSICAL EXAMINATION: GENERAL: The patient is alert and does have significant speech abnormality dysphagia chronic from his previous strokes, not in any acute distress. Well developed, well nourished. HEENT: Pupils are round and equally reacting to light. EOMI. No scleral icterus. No conjunctival pallor. Normocephalic, atraumatic. No pharyngeal erythema. No thyromegaly. CARDIOVASCULAR: S1 and S2 present. No murmurs, rubs, or gallops. PULMONARY: Chest is clear to auscultation, no wheezing or crackles. ABDOMEN: Soft, nontender, nondistended, normoactive bowel sounds. No palpable organomegaly. MUSCULOSKELETAL: No joint swelling or deformity. EXTREMITIES: No cyanosis, clubbing, or pedal edema. NEUROLOGICAL: Generalized weakness bed bound with some muscle atrophy SKIN: Patient does have some excoriations of the skin and does have significant psoriatic patches in the back - Labs CBC & Chem 7: 04/05/18 07:28 04/05/18 07:28 Labs: Abnormal Lab Results - Last 24 Hours (Table) 04/05/18 04/05/18 Range/Units 07:28 07:28 WBC 15.4 H (3.8-10.6) k/uL RBC 3.72 L (4.30-5.90) m/uL Hgb 9.2 L D (13.0-17.5) gm/dL Hct 30.1 L (39.0-53.0) % MCH 24.7 L (25.0-35.0) pg MCHC 30.6 L (31.0-37.0) g/dL RDW 18.5 H (11.5-15.5) % Chloride 110 H (98-107) mmol/L BUN 24 H (9-20) mg/dL Calcium 8.2 L (8.4-10.2) mg/dL Assessment and Plan Plan: -Partial small bowel obstruction: improved did have bowel movements IV fluids as mentioned above -Atrial fibrillation with previous strokes patient , patient is presently rate controlled, patient will be resumed on Coumadin repeat INR tomorrow Congestive heart failure chronic systolic dysfunction without any acute exacerbation patient in fact is hypovolemic from NG tube drainagepatient will be continued on IV fluids for 1 more day with a chest x-ray today -Bibasilar atelectasis -Leukocytosis reactive rather than secondary to infection -History of CVA couple times with residual weakness -Hyperlipidemia -Hypertension -Recent abdominal wall abscess drainage patient will be continued on Zosyn local wound care.patient can be resumed on cephalosporins on dischargethere is no evidence of worsening infection or recurrent abscess at this time
--- NOTE | 2018-04-05 13:13 | XR ---
EXAMINATION TYPE: XR abdomen 1V DATE OF EXAM: 04/05/2018 COMPARISON: 03/29/2018 HISTORY: Pain TECHNIQUE: Single supine KUB image of the abdomen is obtained FINDINGS: Multiple dilated loops of small bowel measuring up to 4.7 cm. Paucity of air within the colon. Suspec t distal small bowel obstruction. Follow-up advised. No convincing evidence for pneumoperitoneum. No unusual calcifications. The lung bases are clear. The osseous structures are intact. IMPRESSION: 1. Suspect distal small bowel obstruction. Correlate clinically.
--- NOTE | 2018-04-05 13:38 | PN ---
PROGRESS NOTE Mr. Hamilton is a 57-year-old male with a history of atrial fibrillation, who presented with small-bowel obstruction and had an NG tube. The NG tube has been removed. He is feeling well today. He has no further nausea and vomiting. His breathing has been stable. He has chronic persistent atrial fibrillation, prior history of stroke and history of cardiomyopathy. He continued on carvedilol 6.25 mg twice a day, Lipitor 20 mg daily, Protonix and Coumadin was reinitiated. PHYSICAL EXAMINATION: Blood pressure 133/70 with a heart rate in the 80s. LUNGS: Clear heart irregular regular S1, S2. No S3. No rub. ABDOMEN: Soft. No tenderness, no rebound. Positive bowel sounds. EXTREMITIES: No edema. LAB DATA: Revealed BUN and creatinine 24 and 1.23. Hemoglobin of 9.2. His lactic acid is 1.2. IMPRESSION: 1. Small-bowel obstruction, improved. 2. Atrial fibrillation persistent chronic. 3. History of stroke. 4. History of cardiomyopathy. RECOMMENDATION: From the cardiac standpoint, we will continue on the Coumadin. Continue the present therapy. We will see him on as needed basis. Please feel free to call us for any questions. MMODL / IJN: [id number] /
[2018-04-05] MEDS ORDERED: WARFARIN 2.5 MG TAB PO SCH (17:00)
[2018-04-05] MEDS: ATORVASTATIN 20 MG TAB PO SCH (20:41)
--- NOTE | 2018-04-05 21:00 | P.PN ---
Subjective Progress Note Date: 04/05/18 Patient pulled his NGT 6 times. No bowel function. Pain improved. No NV Objective - Vital Signs Vital signs: Vital Signs Temp 98.8 F 04/05/18 19:38 Pulse 99 04/05/18 19:38 Resp 18 04/05/18 19:38 BP 166/79 04/05/18 19:38 Pulse Ox 93 L 04/05/18 19:38 Intake & Output 04/05/18 04/05/18 04/06/18 06:59 18:59 06:59 Intake Total 1187.5 Output Total 580 Balance 607.5 Intake: Intake, IV Titration 1187.5 Amount Sodium Chloride 0.9% 1, 1187.5 000 ml @ 125 mls/hr IV . Q8H [facility] Rx#:[id number] Output: Gastric Drainage 580 Other: Voiding Method Diaper Diaper Diaper # Voids 3 2 - Constitutional General appearance: Present: cooperative - Respiratory Details: nonlabored - Gastrointestinal Gastrointestinal Comment(s): Soft, mild distention, nontender - Psychiatric Psychiatric: Present: A&O x's 3 - Labs CBC & Chem 7: 04/05/18 07:28 04/05/18 07:28 Labs: Abnormal Lab Results - Last 24 Hours (Table) 04/05/18 04/05/18 Range/Units 07:28 07:28 WBC 15.4 H (3.8-10.6) k/uL RBC 3.72 L (4.30-5.90) m/uL Hgb 9.2 L D (13.0-17.5) gm/dL Hct 30.1 L (39.0-53.0) % MCH 24.7 L (25.0-35.0) pg MCHC 30.6 L (31.0-37.0) g/dL RDW 18.5 H (11.5-15.5) % Chloride 110 H (98-107) mmol/L BUN 24 H (9-20) mg/dL Calcium 8.2 L (8.4-10.2) mg/dL Assessment and Plan Assessment: Small bowel obstruction Plan: Cont NGT for now, patient still has no bowel function and distended loops on xray. I discussed this with the patient. He stated he understood.
[2018-04-06 06:52] LABS: Anisocytosis Slight; Basophils % (A) 0 %; Eosinophils # (A) 0.1 k/uL (0-0.7); Eosinophils % (A) 1 %; HGB 8.7 gm/dL (13.0-17.5); Hypochromasia Marked; Lymphocytes # (A) 0.8 k/uL (1.0-4.8); Lymphocytes % (A) 7 %; MCH 24.6 pg (25.0-35.0); MCHC 29.9 g/dL (31.0-37.0); MCV 82.2 fL (80.0-100.0); Mean Platelet Volume 7.2; Monocytes # (A) 0.4 k/uL (0-1.0); Monocytes % (A) 4 %; Neutrophils # (A) 9.5 k/uL (1.3-7.7); Neutrophils % (A) 87 %; Platelet Count 353 k/uL (150-450); RBC 3.53 m/uL (4.30-5.90); RDW 18.1 % (11.5-15.5)
[2018-04-06 06:54] LABS: INR 3.3 (<1.2); Prothrombin Time 31.7 sec (9.0-12.0)
[2018-04-06] MEDS: TAMSULOSIN 0.4 MG CAP.ER.24H PO SCH (06:59)
[2018-04-06] MEDS: CARVEDILOL 6.25 MG TAB PO SCH ×2 (06:59→17:20)
[2018-04-06] MEDS: FAMOTIDINE 20 MG/2 ML VIAL IV SCH (07:00)
[2018-04-06 07:01] LABS: Chloride 114 mmol/L (98-107)
[2018-04-06] MEDS: SODIUM CHLORIDE 0.9% 1,000 ML IV SCH ×2 (07:02→17:23)
[2018-04-06 07:03] LABS: Anion Gap 7 mmol/L; Blood Urea Nitrogen 17 mg/dL (9-20); Calcium 8.2 mg/dL (8.4-10.2); Carbon Dioxide 23 mmol/L (22-30); Glucose 83 mg/dL (74-99); Magnesium 2.4 mg/dL (1.6-2.3); Potassium 4.3 mmol/L (3.5-5.1); Sodium 144 mmol/L (137-145)
[2018-04-06] MEDS ORDERED: HEPARIN SODIUM,PORCINE 5,000 UNIT/ML 1 ML VIAL IV PRN (13:52)
[2018-04-06] MEDS ORDERED: HEPARIN SOD,PORK IN 0.45% NACL 25,000 UNIT in 0.45% NACL 1 250ML.BAG IV SCH (14:00)
[2018-04-06 14:31] LABS: Appearance,Urine Clear (Clear); Bilirubin,Urine Negative (Negative); Blood,Urine Trace (Negative); Color,Urine Yellow; Glucose,Urine (UA) Negative (Negative); Ketones,Urine 1+ (Negative); Leukocyte Esterase,Urine Negative (Negative); Mucus,Urine Rare /hpf; Nitrite,Urine Negative (Negative); Protein,Urine 1+ (Negative); RBC,Urine 1 /hpf (0-5); Specific Gravity,Urine 1.021 (1.001-1.035); Urobilinogen,Urine <2.0 mg/dL (<2.0); WBC,Urine 1 /hpf (0-5)
[2018-04-06 14:41] LABS: Anisocytosis Slight; Basophils % (A) 0 %; Eosinophils # (A) 0.2 k/uL (0-0.7); Eosinophils % (A) 2 %; HCT 28.8 % (39.0-53.0); HGB 8.3 gm/dL (13.0-17.5); Hypochromasia Marked; Lymphocytes # (A) 0.7 k/uL (1.0-4.8); Lymphocytes % (A) 8 %; MCH 23.7 pg (25.0-35.0); MCHC 28.8 g/dL (31.0-37.0); MCV 82.3 fL (80.0-100.0); Mean Platelet Volume 7.7; Monocytes # (A) 0.4 k/uL (0-1.0); Monocytes % (A) 5 %; Neutrophils # (A) 6.9 k/uL (1.3-7.7); Neutrophils % (A) 83 %; Platelet Count 302 k/uL (150-450); RDW 18.4 % (11.5-15.5); WBC 8.4 k/uL (3.8-10.6)
[2018-04-06 14:59] LABS: INR 3.2 (<1.2); Partial Thromboplastin Time 42.7 sec (22.0-30.0); Prothrombin Time 31.2 sec (9.0-12.0)
--- NOTE | 2018-04-06 16:35 | P.PN ---
Subjective Progress Note Date: 04/06/18 Patient pulled his NGT again. He has been refusing for it to go back in. No significant bowel function. Objective - Vital Signs Vital signs: Vital Signs Temp 97.9 F 04/06/18 14:40 Pulse 74 04/06/18 14:40 Resp 16 04/06/18 07:00 BP 161/81 04/06/18 14:40 Pulse Ox 96 04/06/18 14:40 Intake & Output 04/05/18 04/06/18 04/06/18 18:59 06:59 18:59 Intake Total 1187.5 Output Total 150 Balance 1037.5 Weight 68.039 kg Intake: Intake, IV Titration 1187.5 Amount Sodium Chloride 0.9% 1, 1187.5 000 ml @ 125 mls/hr IV . Q8H [facility] Rx#:[id number] Output: Gastric Drainage 150 Other: Voiding Method Diaper Diaper Diaper # Voids 2 3 - Constitutional General appearance: Present: cooperative - Gastrointestinal Gastrointestinal Comment(s): Soft, Distended, nontender - Labs CBC & Chem 7: 04/06/18 14:29 04/06/18 06:10 Labs: Abnormal Lab Results - Last 24 Hours (Table) 04/06/18 04/06/18 04/06/18 Range/Units 06:10 06:10 06:10 WBC 11.0 H (3.8-10.6) k/uL RBC 3.53 L (4.30-5.90) m/uL Hgb 8.7 L (13.0-17.5) gm/dL Hct 29.0 L (39.0-53.0) % MCH 24.6 L (25.0-35.0) pg MCHC 29.9 L (31.0-37.0) g/dL RDW 18.1 H (11.5-15.5) % Neutrophils # 9.5 H (1.3-7.7) k/uL Lymphocytes # 0.8 L (1.0-4.8) k/uL PT 31.7 H (9.0-12.0) sec INR 3.3 H (<1.2) APTT (22.0-30.0) sec Chloride 114 H (98-107) mmol/L Calcium 8.2 L (8.4-10.2) mg/dL Magnesium 2.4 H (1.6-2.3) mg/dL Urine Protein (Negative) Urine Ketones (Negative) Urine Blood (Negative) Urine Mucus (None) /hpf 04/06/18 04/06/18 04/06/18 Range/Units 13:50 14:29 14:29 WBC (3.8-10.6) k/uL RBC 3.50 L (4.30-5.90) m/uL Hgb 8.3 L (13.0-17.5) gm/dL Hct 28.8 L (39.0-53.0) % MCH 23.7 L (25.0-35.0) pg MCHC 28.8 L (31.0-37.0) g/dL RDW 18.4 H (11.5-15.5) % Neutrophils # (1.3-7.7) k/uL Lymphocytes # 0.7 L (1.0-4.8) k/uL PT 31.2 H (9.0-12.0) sec INR 3.2 H (<1.2) APTT 42.7 H (22.0-30.0) sec Chloride (98-107) mmol/L Calcium (8.4-10.2) mg/dL Magnesium (1.6-2.3) mg/dL Urine Protein 1+ H (Negative) Urine Ketones 1+ H (Negative) Urine Blood Trace H (Negative) Urine Mucus Rare H (None) /hpf Assessment and Plan Assessment: Small bowel obstruction Plan: I had a long discussion with the patient and the patients family who were in the room. The patient is being non compliant. NGT is required and I expressed how important this is to attempt to avoid surgery in this patient since he is high risk due to his medical co-morbidities. The patient tells me that he will try NGT again and he will not pull it out.
[2018-04-06] MEDS ORDERED: WARFARIN 0.5 MG TAB PO ONE (18:00)
[2018-04-06] MEDS: ATORVASTATIN 20 MG TAB PO SCH (20:45)
[2018-04-06] MEDS ORDERED: LORazepam 2 MG/ML INJ IV STA (22:47)
--- NOTE | 2018-04-07 02:14 | XR ---
EXAM: XR Chest, 1 View CLINICAL HISTORY: ITS.REASON XR Reason: NG tube placement TECHNIQUE: Frontal view of the chest. COMPARISON: 04/04/18 chest x-ray IMPRESSION: NG tube side port terminates near the GE junction. Recommend advancing 5- 10 more centimeters.
[2018-04-07] MEDS: SODIUM CHLORIDE 0.9% 1,000 ML IV SCH ×3 (03:17→17:14)
--- NOTE | 2018-04-07 07:01 | PN ---
PROGRESS NOTE DATE OF SERVICE: 04/06/2018 PRESENTING COMPLAINT: Small bowel obstruction. INTERVAL HISTORY: This patient was recently in the hospital for abdominal wall abscess, status post I and D, admitted with small-bowel obstruction. The patient has pulled out his NG tube a few times. Tube was put in earlier today. I spoke to the nurse explaining to him how to tie up the tube with her support around the head to hopefully try to secure it more. The patient otherwise appears to be sitting up comfortable. REVIEW OF SYSTEMS: Done for constitutional, cardiovascular, GI, pulmonary; relevant findings as above. CURRENT MEDICATIONS: Current medications are reviewed that include IV fluids. PHYSICAL EXAMINATION: On examination, temperature 97.9, pulse 74, respirations 14, blood pressure 161/81, pulse ox 96% on room. GENERAL APPEARANCE: Sitting up, awake. EYES: Pupils equal. Conjunctivae normal. HENT: NG tube in place. RESPIRATORY: Effort normal. Lungs are clear. CARDIOVASCULAR: First and second sounds normal. No edema. ABDOMEN: Distended. Bowel sounds hyperactive. Minimal tenderness. Liver and spleen not palpable. PSYCHIATRY: The patient is able to answer simple questions. INVESTIGATIONS: White count 8.4, hemoglobin 8.3. INR 3.2. Abdominal x-ray film personally reviewed by me shows small bowel to be dilated. ASSESSMENT: 1. Acute small-bowel obstruction. The patient has pulled out the NG tube a few times. 2. Status post abdominal abscess growing Proteus mirabilis and Escherichia coli from last admission, status post I and D. 3. Paroxysmal atrial fibrillation for which patient is chronically on Coumadin. 4. Chronic congestive heart failure, ejection fraction not known. 5. Hyperlipidemia. 6. Essential hypertension. 7. Chronically incontinent of urine and stool. 8. Patient has a DPO, a sister, Mary. 9. Acute small-bowel obstruction, slow to respond. PLAN: Spoke to Dr. Thorne over the phone. Did instruct the nurse how to support the NG tube better. Keep a close eye on patient's pro time. Follow labs closely. Really want to avoid a surgical process if possible. Did have Dr. Thorne see if he needs to go for surgery then have to speak to patient's sister about the same. Clinically slow to respond. MMODL / IJN: [id number] /
[2018-04-07 07:55] LABS: INR 3.2 (<1.2); Prothrombin Time 30.3 sec (9.0-12.0)
[2018-04-07] MEDS: FAMOTIDINE 20 MG/2 ML VIAL IV SCH (08:18)
[2018-04-07] MEDS: CARVEDILOL 6.25 MG TAB PO SCH ×2 (08:18→17:16)
[2018-04-07] MEDS: TAMSULOSIN 0.4 MG CAP.ER.24H PO SCH (08:18)
[2018-04-07 08:19] LABS: Anisocytosis Slight; Basophils % (A) 1 %; Eosinophils # (A) 0.2 k/uL (0-0.7); Eosinophils % (A) 3 %; HCT 27.8 % (39.0-53.0); HGB 8.1 gm/dL (13.0-17.5); Hypochromasia Marked; Lymphocytes # (A) 0.7 k/uL (1.0-4.8); Lymphocytes % (A) 9 %; MCH 24.2 pg (25.0-35.0); MCHC 29.2 g/dL (31.0-37.0); Mean Platelet Volume 8.4; Monocytes # (A) 0.6 k/uL (0-1.0); Monocytes % (A) 7 %; Neutrophils # (A) 6.6 k/uL (1.3-7.7); Neutrophils % (A) 79 %; Platelet Count 306 k/uL (150-450); RBC 3.35 m/uL (4.30-5.90); RDW 17.6 % (11.5-15.5); WBC 8.3 k/uL (3.8-10.6)
[2018-04-07 08:54] LABS: Poikilocytosis (M) Present
--- NOTE | 2018-04-07 14:23 | P.PN ---
Subjective Progress Note Date: 04/07/18 Patient pulled his NGT again last night. No significant bowel function. NGT was replaced Objective - Vital Signs Vital signs: Vital Signs Temp 98.4 F 04/07/18 07:00 Pulse 81 04/07/18 07:00 Resp 17 04/07/18 08:10 BP 163/73 04/07/18 07:00 Pulse Ox 95 04/07/18 07:00 Intake & Output 04/06/18 04/07/18 04/07/18 18:59 06:59 18:59 Intake Total 1250 Balance 1250 Weight 68.039 kg Intake: Intake, IV Titration 1250 Amount Sodium Chloride 0.9% 1, 1250 000 ml @ 125 mls/hr IV . Q8H [facility] Rx#:[id number] Other: Voiding Method Diaper Diaper Diaper Incontinent Incontinent # Voids 2 - Constitutional General appearance: Present: cooperative - Cardiovascular Rhythm: regular - Gastrointestinal Gastrointestinal Comment(s): Soft, distended, nontender - Psychiatric Psychiatric: Present: A&O x's 3 - Labs CBC & Chem 7: 04/07/18 06:35 04/06/18 06:10 Labs: Abnormal Lab Results - Last 24 Hours (Table) 04/06/18 04/06/18 04/06/18 Range/Units 13:50 14:29 14:29 RBC 3.50 L (4.30-5.90) m/uL Hgb 8.3 L (13.0-17.5) gm/dL Hct 28.8 L (39.0-53.0) % MCH 23.7 L (25.0-35.0) pg MCHC 28.8 L (31.0-37.0) g/dL RDW 18.4 H (11.5-15.5) % Lymphocytes # 0.7 L (1.0-4.8) k/uL PT 31.2 H (9.0-12.0) sec INR 3.2 H (<1.2) APTT 42.7 H (22.0-30.0) sec Urine Protein 1+ H (Negative) Urine Ketones 1+ H (Negative) Urine Blood Trace H (Negative) Urine Mucus Rare H (None) /hpf 02/04/19 02/05/19 02/05/19 Range/Units 20:11 06:35 07:00 RBC 3.35 L (4.30-5.90) m/uL Hgb 8.1 L (13.0-17.5) gm/dL Hct 27.8 L (39.0-53.0) % MCH 24.2 L (25.0-35.0) pg MCHC 29.2 L (31.0-37.0) g/dL RDW 17.6 H (11.5-15.5) % Lymphocytes # 0.7 L (1.0-4.8) k/uL PT 30.3 H (9.0-12.0) sec INR 3.2 H (<1.2) APTT 44.7 H (22.0-30.0) sec Urine Protein (Negative) Urine Ketones (Negative) Urine Blood (Negative) Urine Mucus (None) /hpf Assessment and Plan Assessment: Small bowel obstruction Plan: Plan is to attempt NGT decompression to avoid surgery. This plan was discussed with Dr. Suarez who is agreeable and we discussed patient might benefit from sitter or restraints as he gets confused and pulls out his tube. Will continue to follow closely
[2018-04-07] MEDS: ATORVASTATIN 20 MG TAB PO SCH (20:18)
[2018-04-07] MEDS: FAMOTIDINE 20 MG TAB PO SCH (20:18)
[2018-04-07] MEDS ORDERED: cloNIDine 0.1 MG/24HR PATCH TRANSDERM SCH (21:45)
--- NOTE | 2018-04-07 23:04 | PN ---
PROGRESS NOTE DATE OF SERVICE: 04/07/2018 PRESENTING COMPLAINT: Distended abdomen. INTERVAL HISTORY: This patient yet again pulled his NG tube out yesterday. It was replaced. This morning, the patient's sister at the bedside. I did explain to her I spoke to the nurse, Hemal, did educate him yet again how to tie the tube back to help some prevention of tube being pulled out. I also spoke to Dr. Thorne this morning hoping that if the obstruction does not get better in 24-48 hours, may have to send the patient to surgery. We will also get a sitter in place to see the patient's tube is not pulled out. The patient's sister understands the same. REVIEW OF SYSTEMS: Was attempted for constitutional, cardiovascular, GI, pulmonary. No nausea, vomiting. CURRENT MEDICATIONS: Reviewed that include IV fluids. PHYSICAL EXAMINATION: VITAL SIGNS: Temperature 98.7, pulse 58, respiratory rate 16, blood pressure 137/73, pulse ox 97% on room air. GENERAL APPEARANCE: Sitting up, awake. EYES: Pupils equal. Conjunctivae normal. HEENT: NG tube in place. RESPIRATORY: Effort normal. LUNGS are clear. CARDIOVASCULAR: First and second sounds, no edema. ABDOMEN: Distended, soft. Bowel sounds are hyperactive. Liver and spleen not palpable. PSYCHIATRY: The patient is answering simple questions. INVESTIGATIONS: White count 8.3, hemoglobin 8.1, INR 3.2. ASSESSMENT: 1. Acute small-bowel obstruction. NG tube in place, slow to respond. 2. Status post recent abdominal wall abscess with Proteus mirabilis and Escherichia coli, status post I and D. 3. Paroxysmal atrial fibrillation patient chronically on Coumadin. 4. Chronic congestive heart failure EF not known. 5. Hyperlipidemia. 6. Essential hypertension. 7. Chronically incontinent of urine and stool. 8. The patient's sister Mary is the DPOA. PLAN: Total time spent today was about 50 minutes with over 35 minutes of discussion. Blood pressure is tending to run on the high side. We will start a Catapres patch. Follow closely. Repeat abdominal x-ray in the morning. MMODL / IJN: [id number] /
[2018-04-08] MEDS: SODIUM CHLORIDE 0.9% 1,000 ML IV SCH ×4 (01:06→17:10)
[2018-04-08 06:51] LABS: Anisocytosis Slight; Basophils % (A) 0 %; Eosinophils # (A) 0.2 k/uL (0-0.7); Eosinophils % (A) 3 %; HCT 29.7 % (39.0-53.0); HGB 8.8 gm/dL (13.0-17.5); Hypochromasia Marked; Lymphocytes # (A) 0.7 k/uL (1.0-4.8); Lymphocytes % (A) 11 %; MCH 24.2 pg (25.0-35.0); MCHC 29.6 g/dL (31.0-37.0); Mean Platelet Volume 7.4; Monocytes # (A) 0.3 k/uL (0-1.0); Monocytes % (A) 5 %; Neutrophils # (A) 4.9 k/uL (1.3-7.7); Neutrophils % (A) 78 %; Platelet Count 320 k/uL (150-450); RBC 3.62 m/uL (4.30-5.90); RDW 17.5 % (11.5-15.5); WBC 6.3 k/uL (3.8-10.6)
[2018-04-08] MEDS: FAMOTIDINE 20 MG TAB PO SCH ×2 (09:01→21:34)
[2018-04-08] MEDS: TAMSULOSIN 0.4 MG CAP.ER.24H PO SCH (09:01)
--- NOTE | 2018-04-08 11:36 | XR ---
Abdomen HISTORY: Small bowel obstruction Frontal view of the abdomen on 2 images Correlated to prior exam 04/05/[address] 04/04/2017 There is been placement of an NG tube the distal tip overlying the stomach. Patchy basilar density is present at the lung bases. Dilated gas-filled loops of bowel are again present. No evident pneumoper itoneum. IMPRESSION: Interval gastric tube placement. Correlate to exclude basilar pneumonia, there is small b owel obstruction.
[2018-04-08 11:54] LABS: Prothrombin Time 38.7 sec (9.0-12.0)
--- NOTE | 2018-04-08 12:32 | P.PN ---
Subjective Progress Note Date: 04/08/[address], no bowel function. Patient is still distended not comlpaining of any pain Objective - Vital Signs Vital signs: Vital Signs Temp 98.2 F 04/08/18 07:30 Pulse 92 04/08/18 07:30 Resp 16 04/08/18 07:30 BP 173/83 04/08/18 07:30 Pulse Ox 98 04/08/18 07:30 Intake & Output 04/07/18 04/08/18 04/08/18 18:59 06:59 18:59 Intake Total 1500 Output Total 300 Balance 1200 Weight 68.039 kg Intake: Intake, IV Titration 1500 Amount Sodium Chloride 0.9% 1, 1500 000 ml @ 125 mls/hr IV . Q8H [facility] Rx#:[id number] Output: Gastric Drainage 300 Other: Voiding Method Diaper Diaper Diaper Incontinent Incontinent Incontinent # Voids 1 3 - Constitutional General appearance: Present: cooperative - Respiratory Details: nonlabored - Cardiovascular Rhythm: regular - Gastrointestinal Gastrointestinal Comment(s): S/NT/distended - Psychiatric Psychiatric: Present: A&O x's 3 - Labs CBC & Chem 7: 04/08/18 06:27 04/06/18 06:10 Labs: Abnormal Lab Results - Last 24 Hours (Table) 04/08/18 04/08/18 Range/Units 06:27 11:01 RBC 3.62 L (4.30-5.90) m/uL Hgb 8.8 L (13.0-17.5) gm/dL Hct 29.7 L (39.0-53.0) % MCH 24.2 L (25.0-35.0) pg MCHC 29.6 L (31.0-37.0) g/dL RDW 17.5 H (11.5-15.5) % Lymphocytes # 0.7 L (1.0-4.8) k/uL PT 38.7 H (9.0-12.0) sec INR 4.0 H (<1.2) Assessment and Plan Assessment: Small bowel obstruction Plan: Conservative therapy has been attempted, I recommend NGT for 24 more hours, if patient does not open up by tomorrow I will plan on exploratory laparotomy with lysis of sdhesions with possible bowel resection. This will be discussed with DPOA.
[2018-04-08] MEDS ORDERED: PHYTONADIONE 5 MG in SODIUM CHLORIDE 0.9% 50 ML IVPB STA (18:48)
--- NOTE | 2018-04-08 21:26 | PN ---
PROGRESS NOTE DATE OF SERVICE: 04/08/2018. PRESENTING COMPLAINT: Distended abdomen. INTERVAL HISTORY: This is a patient admitted with small bowel obstruction, had pulled out NG tube a few times, is now well-secured. Not putting much out of through the NG tube. Abdomen is still distended. The patient remains n.p.o. REVIEW OF SYSTEMS: Attempted for constitutional, cardiovascular, GI, pulmonary. No nausea, vomiting. CURRENT MEDICATIONS: Reviewed that include IV fluids and a Catapres patch. PHYSICAL EXAMINATION: VITAL SIGNS: Temperature 96.7, pulse 92, respiratory 20, blood pressure 160/80, pulse ox 96% on room air. GENERAL APPEARANCE: Lying in bed, awake. EYES: Pupils are equal. Conjunctivae normal. HEENT: NG tube in place. RESPIRATORY: Effort normal. LUNGS: Clear. CARDIOVASCULAR: First and second sounds normal. No edema. ABDOMEN: Distended. Bowel sounds hyperactive. Liver and spleen not palpable. PSYCHIATRY: Patient does answer simple questions. NEUROLOGICAL: Moving all 4 limbs. INVESTIGATIONS: White count 6.3, hemoglobin 8.8, INR 4. Abdominal x-ray personally reviewed by me shows distended small bowel. ASSESSMENT: 1. Acute small-bowel obstruction. NG tube in place with no improvement with some worsening. 2. Status post recent abdominal wall abscess with Proteus mirabilis and Escherichia coli, status post I and D. 3. Paroxysmal atrial fibrillation chronically on Coumadin. 4. Chronic congestive heart failure, EF not known. 5. Hyperlipidemia. 6. Essential hypertension. 7. Chronic incontinent of urine and stool. 8. Patient's sister Mary is DPOA. PLAN: Discussed with Dr. Thorne this morning. If we agree that if the patient does not improve in the next 24 hours then the patient should go to the OR. The patient's INR is 4. I have ordered this evening vitamin K 5 mg IV piggyback with telemetry monitoring. The patient was started on a Catapres patch last night. The patient's family is not present. Unfortunately, given the patient's poor progress, the patient will probably end up going to surgery tomorrow. MMODL / IJN: [id number] /
[2018-04-08] MEDS: ATORVASTATIN 20 MG TAB PO SCH (21:34)
[2018-04-09] MEDS: SODIUM CHLORIDE 0.9% 1,000 ML IV SCH ×2 (08:11→22:45)
[2018-04-09] MEDS: TAMSULOSIN 0.4 MG CAP.ER.24H PO SCH (08:23)
[2018-04-09] MEDS: FAMOTIDINE 20 MG TAB PO SCH ×2 (08:23→22:46)
[2018-04-09 08:32] LABS: INR 1.1 (<1.2); Prothrombin Time 11.7 sec (9.0-12.0)
[2018-04-09 08:35] LABS: Anisocytosis Slight; Basophils % (A) 0 %; Eosinophils # (A) 0.2 k/uL (0-0.7); Eosinophils % (A) 2 %; HCT 32.7 % (39.0-53.0); HGB 9.5 gm/dL (13.0-17.5); Hypochromasia Marked; Lymphocytes # (A) 0.7 k/uL (1.0-4.8); Lymphocytes % (A) 7 %; MCH 24.1 pg (25.0-35.0); MCHC 28.9 g/dL (31.0-37.0); MCV 83.4 fL (80.0-100.0); Mean Platelet Volume 8.6; Monocytes # (A) 0.5 k/uL (0-1.0); Monocytes % (A) 5 %; Neutrophils # (A) 7.4 k/uL (1.3-7.7); Neutrophils % (A) 83 %; Platelet Count 346 k/uL (150-450); RBC 3.92 m/uL (4.30-5.90); RDW 17.6 % (11.5-15.5); WBC 8.9 k/uL (3.8-10.6)
[2018-04-09] MEDS ORDERED: IV FLUID CONTINUATION 1,000 ML IV ONE (12:42)
[2018-04-09] MEDS ORDERED: metroNIDAZOLE-NS PMX 500 MG in SALINE 1 100ML.BAG IVPB STA (14:29)
[2018-04-09] MEDS ORDERED: HEPARIN SODIUM,PORCINE 5,000 UNIT/ML 1 ML VIAL SQ ONE (14:31)
[2018-04-09] MEDS ORDERED: fentaNYL (PF) 50 MCG/ML 2 ML AMP ONE (15:58)
[2018-04-09] MEDS ORDERED: PHENYLEPHRINE-0.9% NACL SYG 1 MG/10 ML SYRINGE ONE (15:58)
[2018-04-09] MEDS ORDERED: GLYCOPYRROLATE 0.2 MG/ML 2 ML VIAL ONE (15:58)
[2018-04-09] MEDS ORDERED: NEOSTIGMINE 1 MG/ML 10 ML VIAL ONE (15:58)
[2018-04-09] MEDS ORDERED: HYDROmorphone (PF) 1 MG/ML ONE (15:58)
[2018-04-09] MEDS ORDERED: PROPOFOL 10 MG/ML 20 ML VIAL IV ONE (15:58)
[2018-04-09] MEDS ORDERED: ROCURONIUM BROMIDE 10 MG/ML 10 ML VIAL IV ONE (15:58)
[2018-04-09] MEDS ORDERED: LIDOCAINE 1% INJ 10MG/ML (20 ML MDV) ONE (15:58)
[2018-04-09] MEDS ORDERED: LACTATED RINGERS 1,000 ML IV ONE ×4 (16:02→20:07)
[2018-04-09] MEDS ORDERED: SODIUM CHLORIDE 0.9% 50 ML with ceFAZolin 2,000 MG IV ONE ×2 (16:16)
[2018-04-09 19:55] LABS: Glucose,Whole Blood 80 mg/dL (75-99)
--- NOTE | 2018-04-09 19:58 | P.OP ---
Date of Procedure: 04/09/18 Preoperative Diagnosis: Small bowel obstruction Postoperative Diagnosis: 1. Appendiceal sigmoid fistula 2. Ileocecal perforation 3. Intra-abdominal abscess Anesthesia: CHANDANA Surgeon: Shemar Thorne Estimated Blood Loss (ml): 75 IV fluids (ml): 2,500 Urine output (ml): 150 Condition: stable Disposition: floor Indications for Procedure: This 57-year-old male who presented 2 weeks after having abdominal pain and a small bowel obstruction right lower quadrant abdominal wall abscess which was draining. He returned to the hospital with symptoms of small bowel obstruction. Conservative therapy was attempted with NG tube decompression. He did not progress and he began having worsening distention and abdominal pain. He was consented for expiratory laparotomy lysis of adhesions and possible bowel resection. The risks benefits and alternatives and clearance of bleeding infection damage surrounding tissue need for further operation need for ostomy and need for bowel resection were all discussed the patient he stated he understood agreed and consented his family and the peel-away agreed and consented Description of Procedure: Patient was brought into the operative suite remained in the supine position on general endotracheal anesthesia per Department of anesthesia prepped and draped in usual sterile fashion timeout performed correct patient correct procedure correct site was verified. A lower midline incision was made and carried down to the fascia which was incised and opened in the usual fashion. Upon entering the abdomen there was over 1 L of ascites suctioned. This was straw-colored. There was markedly distended small bowel noted and the terminal ileum was noted to be densely adhesed to the right lower quadrant there was also noted a perforation in the ileocecal area. Along the terminal ileum. Approximately 1 foot from this there was a loop of terminal ileum that was stuck to the cecum and fistulized. It was also noted that there was a loop of redundant sigmoid colon which apparently had fistulized to what appeared to be the remnant of the appendix. All of this was taken down the adhesions were all taken down. There was noted to be a opening in the sigmoid colon where the fistula between the sigmoid and the appendix was. There was also an enterotomy at the ileocecal site of adhesion. Decision was made to perform ileocecectomy with end ileostomy. A 60 mm CLARA stapler was used to staple across the terminal ileum just proximal to the site of the fistula. A LigaSure device was used to take down the mesentery and a 60 mm CLARA stapler was then used to staple across the descending colon approximately 6 cm from the cecum. After the white line of Toldt was dissected free and the specimen was removed. Following this Attention was turned to the sigmoid colon. There was a nonviable segment of sigmoid colon noted. Decision was made to resect sigmoid colon and bring up mucus fistula. The healthy proximal portion of the colon was stapled across with a 60 mm Endo CLARA stapler the white line was taken down and the sigmoid colon was freed up down to the rectum. Using a LigaSure device the mesentery was taken at that base of the sigmoid colon. This was taken down distally past the nonviable colon and an Endo CLARA 60 mm purple load stapler multiple firings was used to staple across the rectosigmoid junction and the specimen was removed. Following this a area superior to the right lower quadrant wound and lateral to the umbilicus was selected and a circular incision was made carried down through the fascia which was incised and 2 fingerbreadths were passed through. The terminal ileum was brought through this for the future ileostomy. A similar incision was made on the left side for the mucous fistula. The small bowel was run in its entirety and the colon was inspected no other abnormalities were noted the abdomen was copiously irrigated and suctioned the fascia was closed with 1 looped PDS sutures meeting in the middle. Followed by skin marion. Dressing was applied and following this the wound was protected and the ileostomy is matured with 3-0 Vicryl brooking stitches followed by 3-0 Vicryl simple interrupted stitches. The mucous fistula was then matured using 3 -0 Vicryl sutures. Ostomy appliances were placed patient artery procedure well no apparent complications
[2018-04-09] MEDS: ATORVASTATIN 20 MG TAB PO SCH (22:46)
[2018-04-10] MEDS: metroNIDAZOLE-NS PMX 500 MG in SALINE 1 100ML.BAG IVPB SCH ×3 (00:13→19:06)
[2018-04-10] MEDS: LACTATED RINGERS 1,000 ML IV SCH ×4 (00:18→20:27)
[2018-04-10] MEDS: SODIUM CHLORIDE 0.9% 1,000 ML IV SCH ×3 (05:53→20:23)
[2018-04-10] MEDS: MORPHINE SULFATE 4 MG/ML SYRINGE IV PRN (05:55)
[2018-04-10] MEDS: TAMSULOSIN 0.4 MG CAP.ER.24H PO SCH (06:50)
[2018-04-10] MEDS: FAMOTIDINE 20 MG TAB PO SCH ×2 (06:50→20:23)
[2018-04-10 07:31] LABS: Anisocytosis Slight; Basophils % (A) 0 %; Eosinophils % (A) 0 %; HCT 30.7 % (39.0-53.0); HGB 8.7 gm/dL (13.0-17.5); Hypochromasia Marked; Lymphocytes # (A) 0.4 k/uL (1.0-4.8); Lymphocytes % (A) 4 %; MCH 23.7 pg (25.0-35.0); MCHC 28.5 g/dL (31.0-37.0); MCV 83.1 fL (80.0-100.0); Mean Platelet Volume 8.6; Monocytes # (A) 0.7 k/uL (0-1.0); Monocytes % (A) 6 %; Neutrophils # (A) 9.8 k/uL (1.3-7.7); Neutrophils % (A) 89 %; Platelet Count 366 k/uL (150-450); RBC 3.69 m/uL (4.30-5.90); RDW 18.1 % (11.5-15.5); WBC 11.1 k/uL (3.8-10.6)
[2018-04-10 12:05] LABS: Ionized Calcium 4.9 mg/dL (4.5-5.3)
[2018-04-10 12:15] LABS: ALT 18 U/L (21-72); AST 16 U/L (17-59); Alkaline Phosphatase 50 U/L (38-126); Anion Gap 10 mmol/L; Blood Urea Nitrogen 8 mg/dL (9-20); Calcium 7.9 mg/dL (8.4-10.2); Carbon Dioxide 16 mmol/L (22-30); Chloride 110 mmol/L (98-107); Glucose 88 mg/dL (74-99); Magnesium 1.6 mg/dL (1.6-2.3); Potassium 4.4 mmol/L (3.5-5.1); Sodium 136 mmol/L (137-145); Total Bilirubin 0.5 mg/dL (0.2-1.3); Total Protein 4.4 g/dL (6.3-8.2); Triglycerides 45 mg/dL (<150)
[2018-04-10] MEDS ORDERED: MVI, ADULT NO.4 WITH VIT K 10 ML, TRACE (CONC-1ML/DOSE) 1 ML in AMINO ACID 4.25%-D10W+L... IV SCH ×3 (14:00)
--- NOTE | 2018-04-10 15:04 | P.PN ---
Subjective Progress Note Date: 04/10/18 Patient is doing well, no complaints post op. He is feeling better he says. He is not having significant output from ostomy yet. Objective - Vital Signs Vital signs: Vital Signs Temp 98.2 F 04/10/18 14:51 Pulse 102 H 04/10/18 14:51 Resp 16 04/10/18 14:51 BP 125/74 04/10/18 14:51 Pulse Ox 98 04/10/18 14:51 Intake & Output 04/09/18 04/10/18 04/10/18 18:59 06:59 18:59 Intake Total 2250 750 Output Total 225 220 Balance 2024 530 Weight 68.039 kg Intake: IV 2250 750 Output: Urine 150 220 Estimated Blood Loss 75 Other: Voiding Method Diaper Indwelling Catheter Indwelling Catheter Incontinent # Voids 1 - Constitutional General appearance: Present: cooperative - Respiratory Details: nonlabored - Cardiovascular Rhythm: regular - Gastrointestinal Gastrointestinal Comment(s): Soft/mild distention/Expected TTP no RRG. ileostomy pink and patent with sweat in bag. Mucus fistula patent - Psychiatric Psychiatric: Present: A&O x's 3 - Labs CBC & Chem 7: 04/10/18 06:54 04/10/18 06:54 Labs: Abnormal Lab Results - Last 24 Hours (Table) 04/10/18 04/10/18 Range/Units 06:54 06:54 WBC 11.1 H (3.8-10.6) k/uL RBC 3.69 L (4.30-5.90) m/uL Hgb 8.7 L (13.0-17.5) gm/dL Hct 30.7 L (39.0-53.0) % MCH 23.7 L (25.0-35.0) pg MCHC 28.5 L (31.0-37.0) g/dL RDW 18.1 H (11.5-15.5) % Neutrophils # 9.8 H (1.3-7.7) k/uL Lymphocytes # 0.4 L (1.0-4.8) k/uL Sodium 136 L (137-145) mmol/L Chloride 110 H (98-107) mmol/L Carbon Dioxide 16 L (22-30) mmol/L BUN 8 L (9-20) mg/dL Calcium 7.9 L (8.4-10.2) mg/dL AST 16 L (17-59) U/L ALT 18 L (21-72) U/L Total Protein 4.4 L (6.3-8.2) g/dL Albumin 2.0 L (3.5-5.0) g/dL Assessment and Plan Assessment: POD#1 Ex Lap with ileocectomy, segmental sigmoid colon resection, end ileostomy creation and mucus fistula creation. Plan: Cont NGT NPO until we see significant output from ileostomy. Agree with TPN. WCON to see patient. Mucus fistula with dressing and paper tape, do not cover with airtight tape/tagaderm. If more output comes from mucus fistula, ostomy appliance can be placed. ABX per ID. Ok to start anticoagulation from surgical standpoint. RLQ wound packing to be changed daily per nursing/wound care
[2018-04-10] MEDS ORDERED: LACTATED RINGERS 1,000 ML IV SCH (15:15)
[2018-04-10] MEDS: FAT EMULSION 20% 250 ML in EMPTY BAG 1 BAG IV SCH (15:33)
[2018-04-10] MEDS: AMPICILLIN-SULBACTAM 3 GM in SODIUM CHLORIDE 0.9% 100 ML IVPB SCH ×2 (18:58→20:26)
[2018-04-10] MEDS: INSULIN ASPART (NovoLOG) 100 UNIT/ML VIAL SQ SCH (20:18)
[2018-04-10] MEDS: ATORVASTATIN 20 MG TAB PO SCH (20:23)
[2018-04-10 21:18] LABS: Hemoglobin A1C 5.3 % (4.0-6.0)
--- NOTE | 2018-04-10 21:28 | XR ---
EXAMINATION: XR chest 1V portable DATE AND TIME: 04/10/2018 9:12 PM CLINICAL INDICATION: PHH; coarse lung sounds TECHNIQUE: Departmental protocol COMPARISON: 04/07/2018 FINDINGS: NG tube present, port superimposed over the gastric cardia. There is moderate silhouetting of the pulmonary vasculature by a fine reticular pattern of increased density consistent with a interstitial phase pulmonary edema, presumably cardiogenic etiology due to the mild/moderate enlargement of the cardiac silhouette. The overall lung inflation pattern similar t o the prior study, with the exception of mildly increased airlessness in the retrocardiac left lower lobe. The pleural spaces are negative. The skeletal structures and soft tissues are negative for acute findings. IMPRESSION: 1. No definite interval change when compared the prior study. 2. Interstitial phase cardiogenic pulmonary edema pattern.
[2018-04-10] MEDS: MAGNESIUM SULFATE-D5W PMX 1 GM in DEXTROSE/WATER 1 100ML.BAG IVPB SCH ×4 (22:06→23:51)
[2018-04-10] MEDS ORDERED: FUROSEMIDE 10 MG/ML 4 ML VIAL IV STA (22:29)
--- NOTE | 2018-04-10 23:31 | PN ---
PROGRESS NOTE DATE OF SERVICE: 04/10/2018 PRESENTING COMPLAINT: Abdominal surgery. INTERVAL HISTORY: Patient admitted with small-bowel obstruction. Taken to the OR yesterday. The patient was found to have a appendicular sigmoid fistula, intraabdominal abscess. The ileostomy was done. NG tube is in place. TPN and lipids were started earlier. The family at the bedside. REVIEW OF SYSTEMS: Attempted for constitutional, cardiovascular, GI, pulmonary; relevant findings as above. CURRENT MEDICATIONS: Reviewed that include IV Unasyn, lactated Ringer's, IV Flagyl and TPN. PHYSICAL EXAMINATION: VITAL SIGNS: Temperature 98.2, pulse 102, respirations 16, blood pressure 120/74, pulse ox 98% on 2 L. GENERAL APPEARANCE: Lying in bed, awake. EYES: Pupils equal. Conjunctivae normal. HEENT: External appearance of nose and ears normal. Oral cavity dry with NG tube in place. RESPIRATORY: Effort normal. LUNGS: Slightly decreased breath sounds. CARDIOVASCULAR: First and second sounds normal. ABDOMEN: Tender. Ileostomy bag in place. Bowel sounds are sluggish. Liver and spleen not palpable. PSYCHIATRY: Awake, answering simple questions. INVESTIGATIONS: White count 11.1, hemoglobin 8.7, potassium 4.4, albumin 2. ASSESSMENT: 1. Acute abdomen with appendicular sigmoid fistula, intraabdominal abscess with resulting ileostomy. 2. Paroxysmal atrial fibrillation, chronically on Coumadin. 3. Chronic congestive heart failure, ejection fraction not known. 4. Hyperlipidemia. 5. Essential hypertension. 6. Chronic incontinence of urine and stool. 7. Patient's sister Mary is DPOA. 8. Intraabdominal abscess. 9. Metabolic acidosis. 10.Hypoalbuminemia as an acute phase reactant. PLAN: Care was discussed earlier with Dr. Thorne and also Dr. Núñez. Continue current treatment plan. Care was discussed with the family at the bedside. Follow. MMODL / IJN: [id number] /
[2018-04-11 00:02] LABS: Glucose,Whole Blood 194 mg/dL (75-99)
[2018-04-11] MEDS: MORPHINE SULFATE 4 MG/ML SYRINGE IV PRN ×3 (00:05→16:20)
[2018-04-11] MEDS: INSULIN ASPART (NovoLOG) 100 UNIT/ML VIAL SQ SCH ×5 (00:06→23:27)
[2018-04-11] MEDS: metroNIDAZOLE-NS PMX 500 MG in SALINE 1 100ML.BAG IVPB SCH ×4 (01:11→23:27)
[2018-04-11] MEDS: AMPICILLIN-SULBACTAM 3 GM in SODIUM CHLORIDE 0.9% 100 ML IVPB SCH ×4 (03:37→20:49)
[2018-04-11] MEDS: 1: MVI, ADULT NO.4 WITH VIT K 10 ML, TRACE (CONC-1ML/DOSE) 1 ML in AMINO ACID 4.25%-D10W IV SCH ×6 (04:52→04:59)
[2018-04-11 05:47] LABS: Glucose,Whole Blood 160 mg/dL (75-99)
[2018-04-11] MEDS: SODIUM CHLORIDE 0.9% 1,000 ML IV SCH ×3 (05:52→20:50)
[2018-04-11] MEDS: FAMOTIDINE 20 MG TAB PO SCH ×2 (08:01→20:49)
[2018-04-11] MEDS: TAMSULOSIN 0.4 MG CAP.ER.24H PO SCH (08:02)
[2018-04-11 08:42] LABS: Anion Gap 3 mmol/L; Blood Urea Nitrogen 11 mg/dL (9-20); Calcium 7.2 mg/dL (8.4-10.2); Carbon Dioxide 30 mmol/L (22-30); Chloride 104 mmol/L (98-107); Glucose 135 mg/dL (74-99); Magnesium 2.1 mg/dL (1.6-2.3); Phosphorus 2.4 mg/dL (2.5-4.5); Potassium 3.2 mmol/L (3.5-5.1); Sodium 137 mmol/L (137-145)
[2018-04-11 08:46] LABS: Anisocytosis Slight; Basophils % (A) 0 %; Eosinophils # (A) 0.2 k/uL (0-0.7); Eosinophils % (A) 3 %; HCT 22.2 % (39.0-53.0); Hypochromasia Moderate; Lymphocytes # (A) 0.5 k/uL (1.0-4.8); Lymphocytes % (A) 8 %; MCH 24.5 pg (25.0-35.0); MCHC 30.9 g/dL (31.0-37.0); MCV 79.3 fL (80.0-100.0); Mean Platelet Volume 7.3; Microcytosis Slight; Monocytes # (A) 0.2 k/uL (0-1.0); Monocytes % (A) 3 %; Neutrophils # (A) 5.6 k/uL (1.3-7.7); Neutrophils % (A) 85 %; Platelet Count 256 k/uL (150-450); RDW 18.3 % (11.5-15.5); WBC 6.6 k/uL (3.8-10.6)
[2018-04-11 08:50] LABS: HGB 6.9 gm/dL (13.0-17.5)
--- NOTE | 2018-04-11 09:20 | CONS ---
CONSULTATION DATE OF SERVICE: 04/10/2018. REASON FOR CONSULTATION: Abdominal infection. HISTORY OF PRESENT ILLNESS: The patient is a 57-year-old male with past medical history of multiple CVAs and comorbidities. Patient recently admitted at this facility from March 25 to March 30 with the patient did have acute abdominal wall abscess status post drainage by Dr. Herman. Cultures positive for Proteus mirabilis and E coli. Patient subsequently stabilized and was discharged back to the group home on Keflex. Patient has been brought back to the [facility] ER within 4 days with concern for abdominal pain. Some nausea but no vomiting. The patient has been evaluated by the ER physician. On admission, the patient did have a CT abdomen and pelvis which was suggestive of small bowel obstruction with small bowel mechanical obstruction. Small bilateral pleural effusion. The patient was initially treated medically. Subsequently has been taken to the OR yesterday where the patient was noticed to have intraabdominal abscess from perforation and the sigmoid fistula. The patient is status post drainage of the abscess. Unfortunately, no cultures were done. The patient is status post drainage of the abscess. Unfortunately, no cultures were done. The patient is status post ileocecectomy and ileostomy. Post surgery, the patient has been on a surgical floor getting rehabilitation. The patient has been treated with Rocephin and Flagyl. Infectious Disease was consulted for further recommendation of antibiotic therapy. Most of the information has been obtained from thorough review of the chart and talking to the family as the patient is not a very good historian. REVIEW OF SYSTEMS: Could not be reliably obtained. The positive points have been mentioned in the HPI. PAST MEDICAL HISTORY: Atrial fibrillation, heart failure, CVA, TIA, hypertension, hyperlipidemia, PR, and abdominal abscess. PAST SURGICAL HISTORY: Drainage of abdominal abscess and left Achilles tendon repair, colonoscopy. SOCIAL HISTORY: Remote history of smoking. No drinking or drug use. FAMILY HISTORY: Mother with history of congestive heart failure. Father history of cirrhosis of the liver. ALLERGIES: No known drug allergies. MEDICATIONS: Medications include the patient is currently on Rocephin 1 g daily, Flagyl, Lipitor, Catapres, Pepcid, TPN, Flagyl, Narcan, Zofran, Flomax. PHYSICAL EXAMINATION: Blood pressure is 141/79 with a pulse of 111, temperature 98.6. He is 96% on room air. General description is a middle-aged male lying in bed in no distress. No tachypnea or accessory muscles for respiration use. HEENT: Shows pallor. No scleral icterus. Oral mucosa membranes are dry. No pharyngeal erythema or thrush. Neck: Trachea central. No thyromegaly. Lungs unlabored breathing. Clear to auscultation anteriorly. No wheeze or crackles. Heart S1, S2. Regular rate and rhythm. ABDOMEN: Soft, mildly distended. No guarding. No rigidity. Extremities: No edema of the feet. Skin examination: No rash or mass palpable. Neurological: The patient is awake, alert, oriented x2. Mood and affect normal. LABS: Hemoglobin 8.7, white count 11.1. BUN of 8, creatinine 0.73. The patient on admission no culture has been done. Last visit culture positive for Proteus mirabilis and E coli. Those were sensitive pathogen. DIAGNOSTIC IMPRESSION AND PLAN: Patient with secondary peritonitis from the acute appendicitis and sigmoid fistula formation status post ileocecectomy and an ileostomy. The patient did have recent abdominal wall abscess and those cultures positive for could be the same pathogen. Unfortunately no culture done on this admission, which should have been obtained. PLAN: 1. We will discontinue the Rocephin. 2. Start the patient on Unasyn 3 g every 6 hours. 3. We will monitor his clinical course closely and adjust antibiotic further if needed. 4. Family was present at bedside. Their questions were answered. MMEAGLEL / ABHISHEKN: [id number] /
[2018-04-11] MEDS ORDERED: POTASSIUM CHLORIDE 40 MEQ in WATER FOR INJECTION 1 100ML.BAG IVPB STA (09:55)
--- NOTE | 2018-04-11 10:04 | P.PN ---
Subjective Progress Note Date: 04/11/18 Patient seen and examined at bedside. Resting comfortably. Nasogastric tube in place. Hastings catheter in place. Objective - Vital Signs Vital signs: Vital Signs Temp 98.3 F 04/11/18 07:00 Pulse 93 04/11/18 07:00 Resp 16 04/11/18 07:00 BP 133/74 04/11/18 07:00 Pulse Ox 97 04/11/18 07:00 Intake & Output 04/10/18 04/11/18 04/11/18 18:59 06:59 18:59 Intake Total 1706.5 Output Total 50 2675 Balance -50 -968.5 Weight 68.039 kg Intake: Intake, IV Titration 1706.5 Amount Ampicillin-Sulbactam 3 gm 100 In Sodium Chloride 0.9% 100 ml @ 200 mls/hr IVPB Q6H [facility] Rx#:[id number] Fat Emulsion 20% 250 ml 246 In Empty Bag 1 bag @ 21 mls/hr IV DAILY@1800 [facility] Rx#:[id number] Lactated Ringers 1,000 ml 527.5 @ 125 mls/hr IV .Q8H [facility] Rx#:[id number] Mvi, Adult No.4 with Vit 650 K 10 ml Trace (Conc-1Ml/ Dose) 1 ml In Amino Acid 4.25%-D10w+Lytes*E* 1,000 ml @ 50 mls/hr IV . [id number] [facility] Rx#:[id number] Mvi, Adult No.4 with Vit 83 K 10 ml Trace (Conc-1Ml/ Dose) 1 ml In Amino Acid 4.25%-D10w+Lytes*E* 1,000 ml @ 83 mls/hr IV .BY DURATION [facility] Rx#: [id number] metroNIDAZOLE-NS PMX 500 100 mg In Saline 1 100ml.bag @ 100 mls/hr IVPB Q8HR [facility] Rx#:[id number] Output: Gastric Drainage 500 Urine 50 2075 Stool 0 Oral Regurgitation 100 Other: Voiding Method Indwelling Catheter Indwelling Catheter Indwelling Catheter - EENT EENT Comment(s): Nasogastric tube in place. - Respiratory Details: No difficulty with respiration - Gastrointestinal Gastrointestinal Comment(s): Soft, appropriate tenderness, mild distention, no rebound, no guarding, ileostomy pink and patent, incision site is clean, dry and intact - Labs CBC & Chem 7: 04/11/18 07:29 04/11/18 07:29 Labs: Abnormal Lab Results - Last 24 Hours (Table) 04/10/18 04/10/18 04/11/18 Range/Units 06:54 23:56 05:45 RBC (4.30-5.90) m/uL Hgb (13.0-17.5) gm/dL Hct (39.0-53.0) % MCV (80.0-100.0) fL MCH (25.0-35.0) pg MCHC (31.0-37.0) g/dL RDW (11.5-15.5) % Lymphocytes # (1.0-4.8) k/uL Sodium 136 L (137-145) mmol/L Potassium (3.5-5.1) mmol/L Chloride 110 H (98-107) mmol/L Carbon Dioxide 16 L (22-30) mmol/L BUN 8 L (9-20) mg/dL Glucose (74-99) mg/dL POC Glucose (mg/dL) 194 H 160 H (75-99) mg/dL Calcium 7.9 L (8.4-10.2) mg/dL Phosphorus (2.5-4.5) mg/dL AST 16 L (17-59) U/L ALT 18 L (21-72) U/L Total Protein 4.4 L (6.3-8.2) g/dL Albumin 2.0 L (3.5-5.0) g/dL 04/11/18 04/11/18 Range/Units 07:29 07:29 RBC 2.80 L (4.30-5.90) m/uL Hgb 6.9 L* D (13.0-17.5) gm/dL Hct 22.2 L (39.0-53.0) % MCV 79.3 L (80.0-100.0) fL MCH 24.5 L (25.0-35.0) pg MCHC 30.9 L (31.0-37.0) g/dL RDW 18.3 H (11.5-15.5) % Lymphocytes # 0.5 L (1.0-4.8) k/uL Sodium (137-145) mmol/L Potassium 3.2 L (3.5-5.1) mmol/L Chloride (98-107) mmol/L Carbon Dioxide (22-30) mmol/L BUN (9-20) mg/dL Glucose 135 H (74-99) mg/dL POC Glucose (mg/dL) (75-99) mg/dL Calcium 7.2 L (8.4-10.2) mg/dL Phosphorus 2.4 L (2.5-4.5) mg/dL AST (17-59) U/L ALT (21-72) U/L Total Protein (6.3-8.2) g/dL Albumin (3.5-5.0) g/dL Assessment and Plan Plan: Postoperative day #2 Ex Lap with ileocectomy, segmental sigmoid colon resection , end ileostomy creation and mucus fistula creation. - Hemoglobin noted to be at 6.9 this morning. The patient did receive PPN, IV fluids and bolus yesterday. We will recheck hemoglobin and 6 hours prior to decision on transfusion. - Potassium noted to be a 3.2, we'll replace - Continue PPN - Appreciate infectious disease recommendations - Hold anticoagulation with the fact that the patient has had a drop in hemoglobin this morning - Nasogastric tube with continued bilious output, continue tube - Continue to monitor electrolytes and laboratory values
[2018-04-11 11:45] LABS: Glucose,Whole Blood 145 mg/dL (75-99)
[2018-04-11] MEDS: POTASSIUM CHLORIDE 20 MEQ in WATER FOR INJECTION 1 100ML.BAG IVPB SCH ×2 (12:25→14:59)
[2018-04-11 15:09] LABS: Anisocytosis Slight; HCT 23.2 % (39.0-53.0); HGB 7.3 gm/dL (13.0-17.5); Hypochromasia Moderate; MCHC 31.5 g/dL (31.0-37.0); MCV 79.4 fL (80.0-100.0); Mean Platelet Volume 7.5; Microcytosis Slight; Platelet Count 287 k/uL (150-450); RBC 2.92 m/uL (4.30-5.90); RDW 18.1 % (11.5-15.5); WBC 8.6 k/uL (3.8-10.6)
[2018-04-11] MEDS: HEPARIN SODIUM,PORCINE 5,000 UNIT/ML 1 ML VIAL SQ SCH ×2 (16:23→23:27)
[2018-04-11] MEDS: 1: MVI, ADULT NO.4 WITH VIT K 10 ML, TRACE (CONC-1ML/DOSE) 1 ML, POTASSIUM CHLORIDE 20 M IV SCH ×4 (17:31)
[2018-04-11 17:48] LABS: Glucose,Whole Blood 113 mg/dL (75-99)
[2018-04-11] MEDS: FAT EMULSION 20% 250 ML in EMPTY BAG 1 BAG IV SCH (18:00)
[2018-04-11] MEDS: ATORVASTATIN 20 MG TAB PO SCH (20:49)
[2018-04-11 23:02] LABS: Glucose,Whole Blood 144 mg/dL (75-99)
--- NOTE | 2018-04-11 23:02 | PN ---
PROGRESS NOTE DATE OF SERVICE: 04/11/2018. PRESENTING COMPLAINT: Abdominal surgery. INTERVAL HISTORY: Patient is status post small bowel obstruction surgery. NG tube has got bilious output. Has ileostomy bag with some serous drainage. NG tube remains in place. Also getting TPN and lipids. The patient's niece and are at the bedside. REVIEW OF SYSTEMS: Patient is able to answer some simple questions. CURRENT MEDICATIONS: Reviewed, that include TPN, lipids, IV Unasyn, IV Flagyl. PHYSICAL EXAMINATION: Temperature 98.7, pulse 103, respirations 18, blood pressure 120/74, pulse ox 98% on room air. GENERAL APPEARANCE: Propped up in bed awake. EYES: Pupils equal. Conjunctivae normal. External appearance of nose is normal. Oral cavity dry with NG tube in place. Respiratory effort normal. LUNGS: Decreased breath sounds. CARDIOVASCULAR: 1st and 2nd heart sounds. No edema. ABDOMEN: Tender. Bowel sounds are sluggish. Ileostomy bag in place. PSYCHIATRY: Awake, answering simple questions. INVESTIGATIONS: White count 8.6, hemoglobin 6.9. ASSESSMENT: 1. Acute abdomen with appendicular midpoint fistula, intraabdominal abscess, removal of the cecum resulting in ileostomy. 2. Paroxysmal atrial fibrillation chronically on Coumadin. 3. Chronic congestive heart failure, EF not known. 4. Hyperlipidemia. 5. Essential hypertension. 6. Chronic incontinence of urine and stool. 7. The patient's sister, Mary, is DPOA. 8. Intraabdominal abscess. 9. Metabolic acidosis. 10.Hypoalbuminemia as an acute phase reactant. PLAN: Patient is slow to respond. Continue with IV antibiotics including Unasyn, Flagyl, TPN, lipids. IV fluids were cut back as patient did get a bit of fluid overload yesterday. Also given 1 dose of Lasix. Also given a unit of blood today as he did drop his hemoglobin. Will follow. MMODL / IJN: [id number] /
--- NOTE | 2018-04-11 23:38 | PN ---
PROGRESS NOTE DATE OF SERVICE: 04/11/2018. REASON FOR FOLLOWUP: Secondary peritonitis. INTERVAL HISTORY: The patient is currently afebrile. He has been breathing comfortably. Denies any chest pain or cough. Abdominal pain has improved. Still has the NG in. No output in his ileostomy. PHYSICAL EXAMINATION: Blood pressure is 120/74 with a pulse of 103. Temperature 98.7. He is 98% on room air. General description is a middle-aged male lying in bed in no distress. Respiratory system: Unlabored breathing. Clear to auscultation anteriorly. Heart S1, S2. Regular rate and rhythm. ABDOMEN: Soft. The right lower abdominal wound currently with no slough tissue, surrounding redness. EXTREMITIES: No edema of the feet. LABS: Hemoglobin 7.3, white count 8.6. DIAGNOSTIC IMPRESSION AND PLAN: Patient with secondary peritonitis in this patient who is status post exploratory laparotomy with ileocecectomy, sigmoid colon resection, ileostomy and mucous fistula . The patient at this time to continue with Unasyn and Flagyl. The patient with right lower abdominal wound with recent drainage of an abscess that will be treated with Aquacel dressing. Family present at bedside. Questions answered. MMODL / IJN: [id number] /
[2018-04-12] MEDS: AMPICILLIN-SULBACTAM 3 GM in SODIUM CHLORIDE 0.9% 100 ML IVPB SCH ×4 (02:29→20:50)
[2018-04-12] MEDS: 1: MVI, ADULT NO.4 WITH VIT K 10 ML, TRACE (CONC-1ML/DOSE) 1 ML, POTASSIUM CHLORIDE 20 M IV SCH ×8 (03:02→15:31)
[2018-04-12 05:40] LABS: Glucose,Whole Blood 145 mg/dL (75-99)
[2018-04-12] MEDS: INSULIN ASPART (NovoLOG) 100 UNIT/ML VIAL SQ SCH ×4 (05:44→23:44)
[2018-04-12 07:17] LABS: Anisocytosis Slight; Basophils % (A) 0 %; Eosinophils # (A) 0.3 k/uL (0-0.7); Eosinophils % (A) 4 %; HCT 24.3 % (39.0-53.0); HGB 7.4 gm/dL (13.0-17.5); Hypochromasia Marked; Lymphocytes # (A) 0.6 k/uL (1.0-4.8); Lymphocytes % (A) 7 %; MCH 24.4 pg (25.0-35.0); MCHC 30.3 g/dL (31.0-37.0); MCV 80.6 fL (80.0-100.0); Monocytes # (A) 0.2 k/uL (0-1.0); Monocytes % (A) 3 %; Neutrophils # (A) 6.7 k/uL (1.3-7.7); Neutrophils % (A) 85 %; Platelet Count 293 k/uL (150-450); RBC 3.01 m/uL (4.30-5.90); RDW 18.1 % (11.5-15.5); WBC 7.8 k/uL (3.8-10.6)
[2018-04-12 07:36] LABS: Anion Gap 5 mmol/L; Blood Urea Nitrogen 12 mg/dL (9-20); Calcium 7.5 mg/dL (8.4-10.2); Carbon Dioxide 26 mmol/L (22-30); Chloride 105 mmol/L (98-107); Glucose 131 mg/dL (74-99); Magnesium 2.1 mg/dL (1.6-2.3); Phosphorus 2.8 mg/dL (2.5-4.5); Sodium 136 mmol/L (137-145)
[2018-04-12] MEDS: SODIUM CHLORIDE 0.9% 1,000 ML IV SCH ×2 (07:36→15:16)
[2018-04-12] MEDS: HEPARIN SODIUM,PORCINE 5,000 UNIT/ML 1 ML VIAL SQ SCH ×2 (08:37→17:43)
--- NOTE | 2018-04-12 09:17 | P.PN ---
Subjective Progress Note Date: 04/12/18 Patient seen and examined at bedside. He is currently sitting in a chair. He states he is not having any abdominal pain. Ostomy is having some minimal output at this time. NG tube in place with continued output. Urinary catheter in place. Objective - Vital Signs Vital signs: Vital Signs Temp 98.7 F 04/12/18 08:42 Pulse 107 H 04/12/18 08:42 Resp 18 04/12/18 08:42 BP 136/83 04/12/18 08:42 Pulse Ox 96 04/12/18 08:42 Intake & Output 04/11/18 04/12/18 04/12/18 18:59 06:59 18:59 Intake Total 944 1575.5 Output Total 640 1450 Balance 304 125.5 Intake: Intake, IV Titration 944 1575.5 Amount Amino Acid 4.25%-D10w+ 664 Lytes*E* 1,000 ml @ 83 mls/hr IV .BY DURATION [facility] Rx#:[id number] Ampicillin-Sulbactam 3 gm 100 200 In Sodium Chloride 0.9% 100 ml @ 200 mls/hr IVPB Q6H [facility] Rx#:[id number] Fat Emulsion 20% 250 ml 84 In Empty Bag 1 bag @ 21 mls/hr IV DAILY@1800 [facility] Rx#:[id number] Lactated Ringers 1,000 ml 80 120 @ 125 mls/hr IV .Q8H [facility] Rx#:[id number] Mvi, Adult No.4 with Vit 871.5 K 10 ml Trace (Conc-1Ml/ Dose) 1 ml Potassium Chloride 20 meq In Amino Acid 4.25%-D10w+Lytes*E* 1,000 ml @ 83 mls/hr IV . BY DURATION [facility] Rx#: [id number] Potassium Chloride 20 meq 200 In Water For Injection 1 100ml.bag @ 50 mls/hr IVPB Q2H [facility] Rx#: [id number] metroNIDAZOLE-NS PMX 500 100 100 mg In Saline 1 100ml.bag @ 100 mls/hr IVPB Q8HR [facility] Rx#:[id number] Output: Gastric Drainage 200 300 Urine 400 1150 Uretheral (Hastings) 400 Stool 40 Other: Voiding Method Indwelling Catheter Indwelling Catheter - Constitutional General appearance: Present: no acute distress - Respiratory Details: No difficulty with respiration - Gastrointestinal Gastrointestinal Comment(s): Soft, mild distention, nontender, no rebound, no guarding, ileostomy pink and patent with mild output, midline incision clean dry and intact with marion in place, mucous fistula in place - Musculoskeletal Musculoskeletal: Present: generalized weakness - Labs CBC & Chem 7: 04/12/18 06:18 04/12/18 06:18 Labs: Abnormal Lab Results - Last 24 Hours (Table) 04/11/18 04/11/18 04/11/18 Range/Units 11:43 14:50 17:46 RBC 2.92 L (4.30-5.90) m/uL Hgb 7.3 L (13.0-17.5) gm/dL Hct 23.2 L (39.0-53.0) % MCV 79.4 L (80.0-100.0) fL MCH (25.0-35.0) pg MCHC (31.0-37.0) g/dL RDW 18.1 H (11.5-15.5) % Lymphocytes # (1.0-4.8) k/uL Sodium (137-145) mmol/L Creatinine (0.66-1.25) mg/dL Glucose (74-99) mg/dL POC Glucose (mg/dL) 145 H 113 H (75-99) mg/dL Calcium (8.4-10.2) mg/dL 04/11/18 04/12/18 04/12/18 Range/Units 23:00 05:37 06:18 RBC 3.01 L (4.30-5.90) m/uL Hgb 7.4 L (13.0-17.5) gm/dL Hct 24.3 L (39.0-53.0) % MCV (80.0-100.0) fL MCH 24.4 L (25.0-35.0) pg MCHC 30.3 L (31.0-37.0) g/dL RDW 18.1 H (11.5-15.5) % Lymphocytes # 0.6 L (1.0-4.8) k/uL Sodium (137-145) mmol/L Creatinine (0.66-1.25) mg/dL Glucose (74-99) mg/dL POC Glucose (mg/dL) 144 H 145 H (75-99) mg/dL Calcium (8.4-10.2) mg/dL 04/12/18 Range/Units 06:18 RBC (4.30-5.90) m/uL Hgb (13.0-17.5) gm/dL Hct (39.0-53.0) % MCV (80.0-100.0) fL MCH (25.0-35.0) pg MCHC (31.0-37.0) g/dL RDW (11.5-15.5) % Lymphocytes # (1.0-4.8) k/uL Sodium 136 L (137-145) mmol/L Creatinine 0.54 L (0.66-1.25) mg/dL Glucose 131 H (74-99) mg/dL POC Glucose (mg/dL) (75-99) mg/dL Calcium 7.5 L (8.4-10.2) mg/dL Assessment and Plan Plan: Postoperative day #3 Ex Lap with ileocectomy, segmental sigmoid colon resection , end ileostomy creation and mucus fistula creation. - Hemoglobin in the mid sevens and stable since last draw. Continue to follow hemoglobin - Electrolytes improved today - Continue PPN, there is some minimal ileostomy output however there still continues to be a moderate amount of nasogastric tube drainage. We will continue the patient nothing by mouth with nasogastric tube in place with PPN for nutrition - Appreciate infectious disease recommendations - Okay to restart anticoagulation
[2018-04-12] MEDS: metroNIDAZOLE-NS PMX 500 MG in SALINE 1 100ML.BAG IVPB SCH ×3 (10:50→23:45)
[2018-04-12] MEDS: FAMOTIDINE 20 MG TAB PO SCH ×2 (10:50→20:08)
[2018-04-12] MEDS: TAMSULOSIN 0.4 MG CAP.ER.24H PO SCH (10:51)
[2018-04-12 12:52] LABS: Glucose,Whole Blood 137 mg/dL (75-99)
[2018-04-12 17:39] LABS: Glucose,Whole Blood 124 mg/dL (75-99)
[2018-04-12] MEDS: FAT EMULSION 20% 250 ML in EMPTY BAG 1 BAG IV SCH (17:43)
[2018-04-12] MEDS: ATORVASTATIN 20 MG TAB PO SCH (20:08)
[2018-04-12] MEDS: ENOXAPARIN 100 MG/ML SYRINGE SQ SCH (20:50)
--- NOTE | 2018-04-12 21:33 | PN ---
PROGRESS NOTE DATE OF SERVICE: April 12, 2018. PRESENTING COMPLAINT: Abdominal surgery. INTERVAL HISTORY: Patient is status post small bowel obstruction followed by surgery. NG tube was putting out good amount of bilious output this morning. Later this afternoon, patient had a good output from the ileostomy bag. Some pain is present. Also getting TPN lipids. The patient has a sitter at the bedside. REVIEW OF SYSTEMS: Patient is able answer simple questions. Current medications are reviewed and include IV Unasyn, IV Flagyl, TPN and lipids. PHYSICAL EXAMINATION: VITAL SIGNS: Temperature 98, pulse 97, respiratory rate 17, blood pressure 134/74, pulse ox 100 percent on room air. GENERAL APPEARANCE: Sitting on bed, awake. EYES: Pupils equal. Conjunctivae normal. HEENT: External appearance of nose and ears normal. Oral cavity dry. NG tube in place. RESPIRATORY: Effort normal. LUNGS: Decreased breath sounds. CARDIOVASCULAR: 1st and 2nd sounds no edema. ABDOMEN: Mild tenderness. Ileostomy black with dark stool. Bowel sounds are present. PSYCHIATRY: Awake, answering questions. INVESTIGATIONS: White count 7.8, hemoglobin 7.4, potassium 4, BUN 12, creatinine 0.54. ASSESSMENT: 1. Acute abdomen with small-bowel obstruction followed by appendiceal sigmoid fistula, ileocecal perforation, intraabdominal abscess, followed by sigmoid colon removal, terminal ileum and cecum removed and ileostomy created. 2. Paroxysmal atrial fibrillation chronically on Coumadin. 3. Chronic congestive heart failure EF not known. 4. Hyperlipidemia. 5. Essential hypertension. 6. Chronic incontinence of urine and stool. 7. Patient's sister Mary is DPOA. 8. Intraabdominal abscess. 9. Metabolic acidosis. 10.Hypoalbuminemia as an acute phase reactant. PLAN: Continue current medication and treatment plan including IV antibiotics, Flagyl. Hopefully patient's NG tube can be clamped tomorrow. Surgery has given okay to proceed with starting Coumadin. At this point, we will start the patient on Lovenox 100 mg subcu daily and when the patient's NG-tube is discontinued, we will then start the patient on Coumadin. MMODL / IJN: [id number] /
[2018-04-12 23:33] LABS: Glucose,Whole Blood 137 mg/dL (75-99)
--- NOTE | 2018-04-13 01:00 | PN ---
PROGRESS NOTE DATE OF SERVICE: 04/12/2018. REASON FOR FOLLOW UP: Secondary peritonitis. INTERVAL HISTORY: The patient is currently afebrile. He has been breathing comfortably. The patient denies any chest pain or cough. Abdominal pain currently improved. No nausea, vomiting and no output in his colostomy bag. PHYSICAL EXAMINATION: Blood pressure is 134/74 with a pulse of 75, temp of 97, temperature of. He is 100% on room air. General description is a middle-aged male lying in bed in no distress. Respiratory system: Unlabored breathing clear to auscultation anteriorly. Heart S1, S2. Regular. Abdomen subtended extremities: No edema of the feet. LABS: Hemoglobin 7.4, white count 7.3, BUN of 12, creatinine 0.54. DIAGNOSTIC IMPRESSION AND PLAN: Patient with extensive abdominal surgery in this patient who did have panniculit abscess with . The patient is status post ileopost. The patient is currently covered with Unasyn. Continue followup waiting for resumption of his ordered for transition to oral. His white count is normal. Right lower abdominal wound. Local wound care with Aquacel Silver packing. Continue supportive care. MMODL / IJN: [id number] /
[2018-04-13] MEDS: 1: MVI, ADULT NO.4 WITH VIT K 10 ML, TRACE (CONC-1ML/DOSE) 1 ML, POTASSIUM CHLORIDE 20 M IV SCH ×8 (01:37→12:41)
[2018-04-13] MEDS: AMPICILLIN-SULBACTAM 3 GM in SODIUM CHLORIDE 0.9% 100 ML IVPB SCH ×4 (04:14→21:08)
[2018-04-13 05:42] LABS: Glucose,Whole Blood 137 mg/dL (75-99)
[2018-04-13] MEDS: INSULIN ASPART (NovoLOG) 100 UNIT/ML VIAL SQ SCH ×3 (05:52→19:14)
[2018-04-13 07:23] LABS: Anion Gap 3 mmol/L; Blood Urea Nitrogen 12 mg/dL (9-20); Calcium 7.5 mg/dL (8.4-10.2); Carbon Dioxide 27 mmol/L (22-30); Chloride 105 mmol/L (98-107); Glucose 119 mg/dL (74-99); Magnesium 2.1 mg/dL (1.6-2.3); Phosphorus 3.2 mg/dL (2.5-4.5); Potassium 4.3 mmol/L (3.5-5.1); Sodium 135 mmol/L (137-145)
[2018-04-13] MEDS: TAMSULOSIN 0.4 MG CAP.ER.24H PO SCH (08:15)
[2018-04-13] MEDS: metroNIDAZOLE-NS PMX 500 MG in SALINE 1 100ML.BAG IVPB SCH ×2 (08:39→18:31)
[2018-04-13] MEDS: FAMOTIDINE 20 MG/2 ML VIAL IV SCH ×2 (08:42→21:08)
[2018-04-13 11:30] VITALS: BMI 23.8
[2018-04-13 12:00] LABS: Glucose,Whole Blood 118 mg/dL (75-99)
[2018-04-13] MEDS: ENOXAPARIN 100 MG/ML SYRINGE SQ SCH (15:50)
--- NOTE | 2018-04-13 16:46 | IR ---
EXAMINATION TYPE: IR cvc insert >=5 years DATE OF EXAM: 04/13/2018 COMPARISON: NONE CLINICAL HISTORY: Infection Needs long-term intravenous access for antibiotics. PROCEDURE: After informed consent, the skin overlying the right basilic vein was localized with ultrasound and n oted to be compressible and patent. An ultrasound image was obtained and submitted on the patient's chart. The overlying skin was prepped and draped and Lidocaine was used for local anesthesia. A ski n gregorio was made with a scalpel. Access was gained to the vein under ultrasound guidance with a 21 ga uge needle and a 0.018 inch wire was advanced. Access site was dilated with Peel-Away sheath and cat heter tailored to the appropriate length and advanced such that the distal tip is at the cavoatrial j unction. Spot image was obtained verifying placement. Catheter was fixed to the skin with suture an d a sterile dressing was placed following hemostasis. Catheter was aspirated and flushed with saline . Patient was discharged in stable condition without complication. Maximal barrier technique is util ized. Ultrasound image is documented on the chart. Ultrasound used with sterile technique. Fluoro time and fluoroscopic images submitted to document procedure: 0.6 minutes fluoroscopy time, 22 intraoperative C-arm images document the procedure IMPRESSION: STATUS POST ULTRASOUND AND FLUOROSCOPIC GUIDED PICC LINE PLACEMENT, READY FOR USE. THIS PROCEDURE WAS PERFORMED BY THE UNDERSIGNED.
--- NOTE | 2018-04-13 16:55 | PN ---
PROGRESS NOTE DATE OF SERVICE: April 13, 2018. PRESENTING COMPLAINT: Abdominal surgery. INTERVAL HISTORY: Patient is status post small bowel obstruction followed by extensive bowel surgery. NG tube is putting out what appears to be bilious coffee-ground output. Also there is output ileostomy bag of the same nature. NG tube remains in place. Patient getting TPN lipids. The patient had a short run of arrhythmia. Otherwise, patient is sitting up comfortable. Family at the bedside. REVIEW OF SYSTEMS: Review of systems was attempted for constitutional, cardiovascular, GI, pulmonary; relevant findings as above. CURRENT MEDICATIONS: Reviewed that include IV Unasyn, Catapres patch, TPN, lipids, IV Flagyl. PHYSICAL EXAMINATION: VITAL SIGNS: Temperature 98.5, pulse 100, respiratory 18, blood pressure 122/76, pulse ox 98% on room air. GENERAL APPEARANCE: Sitting up tired-appearing, awake. EYES: Pupils are equal. Conjunctivae normal. HEENT: External appearance of nose and ears normal. Oral cavity dry. NG tube in place. RESPIRATORY: Effort normal. LUNGS: Decreased breath sounds. CARDIOVASCULAR: First and second sounds normal. No edema. ABDOMEN: Mild tenderness. Ileostomy bag with dark stools. Bowel sounds are present. PSYCHIATRY: Awake, answering simple questions. INVESTIGATIONS: Potassium 4.3, BUN 12, creatinine 0.55, magnesium 2.1. ASSESSMENT: 1. Acute abdomen with small-bowel obstruction followed by sigmoid colon removal, terminal ileum and cecal removal and ileostomy was created. The patient had underlying appendiceal, sigmoid fistula, ileocecal perforation, intraabdominal abscess. 2. Paroxysmal atrial fibrillation chronically on Coumadin. 3. Chronic congestive heart failure, EF not known. 4. Hyperlipidemia. 5. Essential hypertension. 6. Chronic incontinence of urine and stool. 7. Patient sister Mary is DPOA. 8. Intraabdominal abscess. 9. Metabolic acidosis. 10.Hypoalbuminemia as an acute phase reactant. 11.Arrhythmia, we will need to look at the strips. PLAN: Continue current medication and treatment plan. Care was discussed with the sister. The patient is on Lovenox as Coumadin has been held for right now. Cardiology is being consulted. Follow. MMODL / IJN: [id number] /
--- NOTE | 2018-04-13 17:14 | P.PN ---
Subjective Progress Note Date: 04/13/18 Patient is doing well, no complaints He is having gas and stool in ileostomy Objective - Vital Signs Vital signs: Vital Signs Temp 98.5 F 04/13/18 07:55 Pulse 100 04/13/18 07:55 Resp 18 04/13/18 07:55 BP 122/76 04/13/18 07:55 Pulse Ox 98 04/13/18 07:55 Intake & Output 04/12/18 04/13/18 04/13/18 18:59 06:59 18:59 Intake Total 1885 1410 Output Total 1820 2450 2800 Balance 65 -1040 -2800 Weight 69 kg Intake: Intake, IV Titration 188 1410 Amount Ampicillin-Sulbactam 3 gm 100 400 In Sodium Chloride 0.9% 100 ml @ 200 mls/hr IVPB Q6H [facility] Rx#:[id number] Mvi, Adult No.4 with Vit 1685 K 10 ml Trace (Conc-1Ml/ Dose) 1 ml Potassium Chloride 20 meq In Amino Acid 4.25%-D10w+Lytes*E* 1,000 ml @ 83 mls/hr IV . BY DURATION [facility] Rx#: [id number] Potassium Chloride 20 meq 1010 In Amino Acid 4.25%-D10w +Lytes*E* 1,000 ml @ 83 mls/hr IV .BY DURATION [facility] Rx#:[id number] metroNIDAZOLE-NS PMX 500 100 mg In Saline 1 100ml.bag @ 100 mls/hr IVPB Q8HR [facility] Rx#:[id number] Output: Gastric Drainage 120 500 700 Urine 605 849 0371 Uretheral (Hastings) 1700 Stool 1000 600 400 Other 700 Other: Voiding Method Indwelling Catheter - Respiratory Details: nonlabored - Gastrointestinal Gastrointestinal Comment(s): S/NT/ND, incisions CDI, ileostomy pink and patent with gas and stool in bag, mucus fistula patent - Labs CBC & Chem 7: 04/12/18 06:18 04/13/18 06:20 Labs: Abnormal Lab Results - Last 24 Hours (Table) 04/12/18 04/12/18 04/13/18 Range/Units 17:38 23:22 05:41 Sodium (137-145) mmol/L Creatinine (0.66-1.25) mg/dL Glucose (74-99) mg/dL POC Glucose (mg/dL) 124 H 137 H 137 H (75-99) mg/dL Calcium (8.4-10.2) mg/dL 04/13/18 04/13/18 Range/Units 06:20 11:59 Sodium 135 L (137-145) mmol/L Creatinine 0.55 L (0.66-1.25) mg/dL Glucose 119 H (74-99) mg/dL POC Glucose (mg/dL) 118 H (75-99) mg/dL Calcium 7.5 L (8.4-10.2) mg/dL Assessment and Plan Assessment: POD#4 Ex Lap with ileocectomy, segmental sigmoid colon resection, end ileostomy creation and mucus fistula creation. Plan: NGT DCed, patient may have sips of clears and ice chips. Continue TPN until tolerating more.ABX per ID
[2018-04-13] MEDS: FAT EMULSION 20% 250 ML in EMPTY BAG 1 BAG IV SCH (18:33)
[2018-04-13 19:05] LABS: Glucose,Whole Blood 122 mg/dL (75-99)
[2018-04-13] MEDS: ATORVASTATIN 20 MG TAB PO SCH (21:08)
[2018-04-13 23:51] LABS: Glucose,Whole Blood 107 mg/dL (75-99)
[2018-04-14] MEDS: INSULIN ASPART (NovoLOG) 100 UNIT/ML VIAL SQ SCH ×4 (00:12→17:14)
[2018-04-14] MEDS: metroNIDAZOLE-NS PMX 500 MG in SALINE 1 100ML.BAG IVPB SCH ×3 (00:16→17:46)
[2018-04-14] MEDS: 1: MVI, ADULT NO.4 WITH VIT K 10 ML, TRACE (CONC-1ML/DOSE) 1 ML, POTASSIUM CHLORIDE 20 M IV SCH ×4 (01:17)
[2018-04-14] MEDS: AMPICILLIN-SULBACTAM 3 GM in SODIUM CHLORIDE 0.9% 100 ML IVPB SCH ×4 (03:55→20:06)
[2018-04-14 05:51] LABS: Glucose,Whole Blood 128 mg/dL (75-99)
--- NOTE | 2018-04-14 07:06 | PN ---
PROGRESS NOTE DATE OF SERVICE: 04/13/2018 REASON FOR FOLLOWUP: Secondary peritonitis. INTERVAL HISTORY: The patient is currently afebrile. He has been breathing comfortably. Continue to have the NG and suctioning; however, denies having any abdominal pain. PHYSICAL EXAMINATION: Blood pressure is 112/77 with a pulse of 80, temperature 98.7, he is 98% on room air. General description is a middle-aged male, lying in bed in no distress. RESPIRATORY SYSTEM: Unlabored breathing, clear to auscultation anteriorly. HEART: S1, S2. Regular rate and rhythm. ABDOMEN: Soft, no tenderness. LABS: Hemoglobin is 12 with a white count of 0.55. DIAGNOSTIC IMPRESSION AND PLAN: Patient with secondary peritonitis in this patient who did have extensive surgery requiring ileocecectomy and ileostomy. Patient is covered with the Unasyn to continue for now, waiting for his condition to stabilize. Family present at bedside. Their questions were answered. MMODL / ABHISHEKN: [id number] /
[2018-04-14 08:24] LABS: Anisocytosis Slight; Basophils % (A) 0 %; Eosinophils # (A) 0.3 k/uL (0-0.7); Eosinophils % (A) 4 %; HCT 22.1 % (39.0-53.0); Hypochromasia Marked; Lymphocytes # (A) 0.8 k/uL (1.0-4.8); Lymphocytes % (A) 10 %; MCH 24.6 pg (25.0-35.0); MCHC 30.5 g/dL (31.0-37.0); MCV 80.5 fL (80.0-100.0); Mean Platelet Volume 8.2; Monocytes # (A) 0.5 k/uL (0-1.0); Monocytes % (A) 7 %; Neutrophils # (A) 6.2 k/uL (1.3-7.7); Neutrophils % (A) 78 %; Platelet Count 316 k/uL (150-450); RBC 2.75 m/uL (4.30-5.90); RDW 17.8 % (11.5-15.5); WBC 7.9 k/uL (3.8-10.6)
[2018-04-14 08:26] LABS: Anion Gap 6 mmol/L; Blood Urea Nitrogen 12 mg/dL (9-20); Calcium 7.7 mg/dL (8.4-10.2); Carbon Dioxide 23 mmol/L (22-30); Chloride 107 mmol/L (98-107); Glucose 112 mg/dL (74-99); Magnesium 2.1 mg/dL (1.6-2.3); Phosphorus 3.6 mg/dL (2.5-4.5); Potassium 4.7 mmol/L (3.5-5.1); Sodium 136 mmol/L (137-145)
[2018-04-14 08:33] LABS: HGB 6.8 gm/dL (13.0-17.5)
[2018-04-14] MEDS: ENOXAPARIN 100 MG/ML SYRINGE SQ SCH (08:43)
[2018-04-14] MEDS: TAMSULOSIN 0.4 MG CAP.ER.24H PO SCH (08:43)
[2018-04-14] MEDS: FAMOTIDINE 20 MG/2 ML VIAL IV SCH ×2 (08:43→20:06)
--- NOTE | 2018-04-14 09:30 | P.PN ---
Subjective Progress Note Date: 04/14/18 Patient is doing well, no complaints He is having gas and stool in ileostomy, tolerating NGT being out Objective - Vital Signs Vital signs: Vital Signs Temp 99.1 F 04/14/18 07:00 Pulse 97 04/14/18 07:00 Resp 16 04/14/18 07:00 BP 114/68 04/14/18 07:00 Pulse Ox 100 04/14/18 07:00 Intake & Output 04/13/18 04/14/18 04/14/18 18:59 06:59 18:59 Intake Total 1021 1768 Output Total 2800 2450 Balance -1779 Weight 69 kg Intake: Intake, IV Titration 1021 1768 Amount Amino Acid 4.25%-D10w+ 664 Lytes*E* 1,000 ml @ 83 mls/hr IV .BY DURATION [facility] Rx#:[id number] Ampicillin-Sulbactam 3 gm 100 In Sodium Chloride 0.9% 100 ml @ 200 mls/hr IVPB Q6H [facility] Rx#:[id number] Fat Emulsion 20% 250 ml 240 In Empty Bag 1 bag @ 21 mls/hr IV DAILY@1800 [facility] Rx#:[id number] Mvi, Adult No.4 with Vit 1021 664 K 10 ml Trace (Conc-1Ml/ Dose) 1 ml Potassium Chloride 20 meq In Amino Acid 4.25%-D10w+Lytes*E* 1,000 ml @ 83 mls/hr IV . BY DURATION [facility] Rx#: [id number] metroNIDAZOLE-NS PMX 500 100 mg In Saline 1 100ml.bag @ 100 mls/hr IVPB Q8HR [facility] Rx#:[id number] Output: Gastric Drainage 700 Urine 1700 2100 Uretheral ([place]) 1700 Stool 400 350 Other: Voiding Method Indwelling Catheter Indwelling Catheter - Constitutional General appearance: Present: cooperative - Respiratory Details: nonlabored - Gastrointestinal Gastrointestinal Comment(s): S/NT/ND ileostomy pink and patent with stool in bag, mucus fistula patent. Incision CDI - Psychiatric Psychiatric: Present: A&O x's 3 - Labs CBC & Chem 7: 04/14/18 06:31 04/14/18 06:31 Labs: Abnormal Lab Results - Last 24 Hours (Table) 04/13/18 04/13/18 04/13/18 Range/Units 11:59 19:03 23:49 RBC (4.30-5.90) m/uL Hgb (13.0-17.5) gm/dL Hct (39.0-53.0) % MCH (25.0-35.0) pg MCHC (31.0-37.0) g/dL RDW (11.5-15.5) % Lymphocytes # (1.0-4.8) k/uL Sodium (137-145) mmol/L Creatinine (0.66-1.25) mg/dL Glucose (74-99) mg/dL POC Glucose (mg/dL) 118 H 122 H 107 H (75-99) mg/dL Calcium (8.4-10.2) mg/dL 04/14/18 04/14/18 04/14/18 Range/Units 05:50 06:31 06:31 RBC 2.75 L (4.30-5.90) m/uL Hgb 6.8 L* (13.0-17.5) gm/dL Hct 22.1 L (39.0-53.0) % MCH 24.6 L (25.0-35.0) pg MCHC 30.5 L (31.0-37.0) g/dL RDW 17.8 H (11.5-15.5) % Lymphocytes # 0.8 L (1.0-4.8) k/uL Sodium 136 L (137-145) mmol/L Creatinine 0.60 L (0.66-1.25) mg/dL Glucose 112 H (74-99) mg/dL POC Glucose (mg/dL) 128 H (75-99) mg/dL Calcium 7.7 L (8.4-10.2) mg/dL Assessment and Plan Assessment: POD#5 Ex Lap with ileocectomy, segmental sigmoid colon resection, end ileostomy creation and mucus fistula creation. Plan: patient may have clears. Continue TPN until tolerating more.ABX per ID. HGB 6.8 this AM. Patient is asymptomatic at this time. No signs of active bleeding. Continue to monitor HgB. Transfuse PRN
[2018-04-14] MEDS: 1: MVI, ADULT NO.4 WITH VIT K 10 ML, TRACE (CONC-1ML/DOSE) 1 ML, POTASSIUM CHLORIDE 10 M IV SCH ×8 (11:44→23:04)
[2018-04-14 12:11] LABS: Glucose,Whole Blood 202 mg/dL (75-99)
--- NOTE | 2018-04-14 13:58 | P.PN ---
Subjective This is a pleasant 57-year-old male past medical history significant for chronic persistent atrial fibrillation, CVA, ischemic cardiomyopathy in the past with EF 35-40%, hyperetnsion, dyslipidemia and is wheelchair/bed bound since his CVA. He follows in the office with Dr. Nur. He is admitted to the hospital with small bowel obstruction 04/04/2018 and has since undergone colectomy with colostomy creation per Dr. Thorne. He has been seen in consultation by Dr. Cottrell earlier in the admission due to NG tube in place and inability to be on coumadin. He was initiated on SQ lovenox since admission and continues to be maintained on that at this time. He is being attempted on clear liquids today. We have been asked to see him again during this admission for an episode of SVT. Telemetry tracings reviewed and reveals he has converted to sinus mechanism. There was a short burst of atrial tachycardia noted at 0948 that lasted for less than 6 seconds. As well as a run of non-sustained ventricular tachycardia 12 beats last inght at 2048. He denies any feeling of palpitations. He also denies chest pain, shortness of breath, dizziness, syncope or diaphoresis. Blood pressure 114/68 heart rate 97 afebrile maintaining oxygen saturation on room air. Laboratory data reviewed, WBC 7.9, hemoglobin 6.8, platelets 316, sodium 136, potassium 4.7, magnesium 2.1 and creatinine 0.6. Currently maintained on clonidine 0.1 mg transdermal every 7 days. GENERAL: Well-appearing, well-nourished and in no acute distress. NECK: Supple without JVD or thyromegaly. LUNGS: Breath sounds clear to auscultation bilaterally. Respiration equal and unlabored. No wheezes, rales or rhonchi. HEART: Regular rate and rhythm with systolic ejection murmur at the base, no rubs or gallops. S1 and S2 heard. EXTREMITIES: Normal range of motion, no edema. No clubbing or cyanosis. Peripheral pulses intact. ASSESSMENT Small bowel obstruction s/p ileocectomy, sigmoid resection and ileostomy creation. Started on clear liquid diet today Anemia, hgb 6.8 today down from 12.5 on admission. Paroxysmal atrial fibrillation, currently maintaining sinus mechanism with an episode of atrial tachycardia Non-sustained ventricular tachycardia History of ischemic cardiomyopathy with abnormal lexiscan stress test on maximum medical therapy. Currently euvolemic Hypertension Dyslipidemia PLAN Obtain 2D echocardiogram and doppler study to assess cardiac structure and function. Check TSH. If ok with surgery resume his carvedilol 3.125 mg BID and discontinue catapres patch. Will resume his lisinopril tomorrow. Further recommendations to follow. Nurse Practitioner note has been reviewed, I agree with a documented findings and plan of care. Patient was seen and examined. Objective - Vital Signs Vital signs: Vital Signs Temp 99.1 F 04/14/18 07:00 Pulse 97 04/14/18 08:00 Resp 16 04/14/18 08:00 BP 114/68 04/14/18 07:00 Pulse Ox 100 04/14/18 07:00 Intake & Output 04/13/18 04/14/18 04/14/18 18:59 06:59 18:59 Intake Total 1021 1768 Output Total 2800 2450 Balance -1779 -682 Weight 69 kg Intake: Intake, IV Titration 1021 1768 Amount Amino Acid 4.25%-D10w+ 664 Lytes*E* 1,000 ml @ 83 mls/hr IV .BY DURATION EMMA Rx#:[id number] Ampicillin-Sulbactam 3 gm 100 In Sodium Chloride 0.9% 100 ml @ 200 mls/hr IVPB Q6H EMMA Rx#:[id number] Fat Emulsion 20% 250 ml 240 In Empty Bag 1 bag @ 21 mls/hr IV DAILY@1800 EMMA Rx#:[id number] Mvi, Adult No.4 with Vit 1021 664 K 10 ml Trace (Conc-1Ml/ Dose) 1 ml Potassium Chloride 20 meq In Amino Acid 4.25%-D10w+Lytes*E* 1,000 ml @ 83 mls/hr IV . BY DURATION EMMA Rx#: [id number] metroNIDAZOLE-NS PMX 500 100 mg In Saline 1 100ml.bag @ 100 mls/hr IVPB Q8HR EMMA Rx#:[id number] Output: Gastric Drainage 700 Urine 1700 2100 Uretheral ([place]) 1700 Stool 400 350 Other: Voiding Method Indwelling Catheter Indwelling Catheter Indwelling Catheter - Labs CBC & Chem 7: 04/14/18 06:31 04/14/18 06:31 Labs: Abnormal Lab Results - Last 24 Hours (Table) 04/13/18 04/13/18 04/14/18 Range/Units 19:03 23:49 05:50 RBC (4.30-5.90) m/uL Hgb (13.0-17.5) gm/dL Hct (39.0-53.0) % MCH (25.0-35.0) pg MCHC (31.0-37.0) g/dL RDW (11.5-15.5) % Lymphocytes # (1.0-4.8) k/uL Sodium (137-145) mmol/L Creatinine (0.66-1.25) mg/dL Glucose (74-99) mg/dL POC Glucose (mg/dL) 122 H 107 H 128 H (75-99) mg/dL Calcium (8.4-10.2) mg/dL Crossmatch 04/14/18 04/14/18 04/14/18 Range/Units 06:31 06:31 10:51 RBC 2.75 L (4.30-5.90) m/uL Hgb 6.8 L* (13.0-17.5) gm/dL Hct 22.1 L (39.0-53.0) % MCH 24.6 L (25.0-35.0) pg MCHC 30.5 L (31.0-37.0) g/dL RDW 17.8 H (11.5-15.5) % Lymphocytes # 0.8 L (1.0-4.8) k/uL Sodium 136 L (137-145) mmol/L Creatinine 0.60 L (0.66-1.25) mg/dL Glucose 112 H (74-99) mg/dL POC Glucose (mg/dL) (75-99) mg/dL Calcium 7.7 L (8.4-10.2) mg/dL Crossmatch See Detail 04/14/18 Range/Units 12:10 RBC (4.30-5.90) m/uL Hgb (13.0-17.5) gm/dL Hct (39.0-53.0) % MCH (25.0-35.0) pg MCHC (31.0-37.0) g/dL RDW (11.5-15.5) % Lymphocytes # (1.0-4.8) k/uL Sodium (137-145) mmol/L Creatinine (0.66-1.25) mg/dL Glucose (74-99) mg/dL POC Glucose (mg/dL) 202 H (75-99) mg/dL Calcium (8.4-10.2) mg/dL Crossmatch
[2018-04-14 14:37] LABS: Glucose,Whole Blood 64 mg/dL (75-99)
[2018-04-14 14:58] LABS: Glucose,Whole Blood 61 mg/dL (75-99)
--- NOTE | 2018-04-14 15:12 | XR ---
EXAMINATION TYPE: XR chest 1V portable DATE OF EXAM: 04/14/2018 COMPARISON: Prior chest x-ray 04/10/2017 HISTORY: Cough TECHNIQUE: Single frontal view of the chest is obtained. FINDINGS: Retrocardiac density persists. Right-sided PICC line is in place in the interval and the t ip is at the cavoatrial junction. No evident pneumothorax or pleural effusion. Heart size is stable. IMPRESSION: Correlate for left lower lobe pneumonia. Follow-up recommended.
[2018-04-14 15:29] LABS: Glucose,Whole Blood 71 mg/dL (75-99)
[2018-04-14 16:58] LABS: Glucose,Whole Blood 77 mg/dL (75-99)
--- NOTE | 2018-04-14 17:37 | ECHOF ---
Referral Reason:a-fib, cardiomyopathy VT MEASUREMENTS -------- HEIGHT: 170.2 cm WEIGHT: 71.2 kg BP: IVSd: 1.1 cm (0.6 - 1.1) LVIDd: 4.2 cm (3.9 - 5.3) LVPWd: 1.3 cm (0.6 - 1.1) IVSs: 1.3 cm LVIDs: 3.4 cm LVPWs: 1.1 cm LA Diam: 3.4 cm (2.7 - 3.8) Ao Diam: 2.7 cm (2.0 - 3.7) AV Cusp: 1.4 cm (1.5 - 2.6) LA Diam: 3.5 cm (2.7 - 3.8) MV EXCURSION: 21.171 mm (> 18.000) MV EF SLOPE: 131 mm/s (70 - 150) EPSS: 0.7 cm MV E Paul: 0.69 m/s MV DecT: 248 ms MV A Paul: 0.70 m/s MV E/A Ratio: 0.99 AR PHT: 347 ms RAP: 5.00 mmHg RVSP: 28.32 mmHg FINDINGS -------- Sinus rhythm. This was a technically adequate study. The left ventricular size is normal. There is borderline concentric left ventricular hypertrophy. Overall left ventricular systolic function is mild-moderately impaired with, an EF between 40 - 45 % . Posterior hypokinesis Inferior Hypokinesis The right ventricle is normal in size. The left atrial size is normal. The right atrial size is normal. There is mild aortic regurgitation. Mild mitral annular calcification present. Mild mitral regurgitation is present. Mild tricuspid regurgitation present. There is no evidence of pulmonary hypertension. The right v entricular systolic pressure, as measured by Doppler, is 28.32mmHg. There is no pulmonic regurgitation present. The aortic root size is normal. There is no pericardial effusion. CONCLUSIONS -------- 1. The left ventricular size is normal. 2. There is borderline concentric left ventricular hypertrophy. 3. Overall left ventricular systolic function is mild-moderately impaired with, an EF between 40 - 45 %. 4. Posterior hypokinesis 5. Inferior Hypokinesis 6. The right ventricle is normal in size. 7. The left atrial size is normal. 8. The right atrial size is normal. 9. There is mild aortic regurgitation. 10. Mild mitral annular calcification present. 11. Mild mitral regurgitation is present. 12. Mild tricuspid regurgitation present. 13. There is no evidence of pulmonary hypertension. 14. The right ventricular systolic pressure, as measured by Doppler, is 28.32mmHg. 15. There is no pulmonic regurgitation present. 16. The aortic root size is normal. 17. There is no pericardial effusion. WATCH ENGINE OPERATOR: Soheila Guerrero RDCS
[2018-04-14] MEDS: FAT EMULSION 20% 250 ML in EMPTY BAG 1 BAG IV SCH (17:46)
[2018-04-14] MEDS: CARVEDILOL 3.125 MG TAB PO SCH (17:46)
[2018-04-14] MEDS: ATORVASTATIN 20 MG TAB PO SCH (20:06)
--- NOTE | 2018-04-14 23:47 | P.PN ---
Subjective Progress Note Date: 04/14/18 Principal diagnosis: Small bowel obstruction This is a pleasant 57-year-old male past medical history significant for chronic persistent atrial fibrillation, CVA, ischemic cardiomyopathy in the past with EF 35-40%, hyperetnsion, dyslipidemia and is wheelchair/bed bound since his CVA. He is admitted to the hospital with small bowel obstruction 2018 and has since undergone colectomy with colostomy creation per Dr. Thorne. 04/14/2018 Patient is currently awake and alert and feels very weak. NG tube has been removed. Patient was started on clear liquids. Continued on TPN. Patient was seen by cardiology due to nonsustained V. tach. No fever no chills. Patient does complain of cough without much sputum production. No nausea vomiting. Colostomy back containing stool and is also gas. Currently being continued on antibiotic support Unasyn. No other acute overnight issues. Current medications reviewed. Objective - Vital Signs Vital signs: Vital Signs Temp 98.5 F 04/14/18 13:46 Pulse 91 04/14/18 13:56 Resp 16 04/14/18 13:46 BP 109/68 04/14/18 13:56 Pulse Ox 100 04/14/18 13:56 Intake & Output 04/13/18 04/14/18 04/14/18 18:59 06:59 18:59 Intake Total 1021 1768 0 Output Total 2800 2450 1800 Balance -1779 -2 -1800 Weight 69 kg Intake: Intake, IV Titration 1021 1768 Amount Amino Acid 4.25%-D10w+ 664 Lytes*E* 1,000 ml @ 83 mls/hr IV .BY DURATION EMMA Rx#:[id number] Ampicillin-Sulbactam 3 gm 100 In Sodium Chloride 0.9% 100 ml @ 200 mls/hr IVPB Q6H EMMA Rx#:[id number] Fat Emulsion 20% 250 ml 240 In Empty Bag 1 bag @ 21 mls/hr IV DAILY@1800 EMMA Rx#:[id number] Mvi, Adult No.4 with Vit 1021 664 K 10 ml Trace (Conc-1Ml/ Dose) 1 ml Potassium Chloride 20 meq In Amino Acid 4.25%-D10w+Lytes*E* 1,000 ml @ 83 mls/hr IV . BY DURATION EMMA Rx#: [id number] metroNIDAZOLE-NS PMX 500 100 mg In Saline 1 100ml.bag @ 100 mls/hr IVPB Q8HR EMMA Rx#:[id number] Blood Product 0 Rc Pheresis 2 As3 Unit 0 [id number] Output: Gastric Drainage 700 Urine 1700 2100 1800 Uretheral ([place]) 1700 Stool 400 350 Other: Voiding Method Indwelling Catheter Indwelling Catheter Indwelling Catheter - Exam PHYSICAL EXAMINATION: Patient is lying in the bed comfortably, no acute distress, awake alert and oriented. Patient generally weak.. HEENT: Normocephalic. Neck is supple. Pupils reactive. Nostrils clear. Oral cavity is moist. Ears reveal no drainage. Neck reveals no JVD, carotid bruits, or thyromegaly. CHEST EXAMINATION: Trachea is central. Symmetrical expansion. Lung so clear to auscultation and percussion. CARDIAC: Normal S1, S2 with no gallops. No murmurs ABDOMEN: Soft. Bowel sounds is in. Colostomy bag contains stool and gas with distention.. No organomegaly. No abdominal bruits. Extremities: reveal no edema. No clubbing or cyanosis Neurologically awake, alert, oriented x3 with well-coordinated movements. No focal deficits noted Skin: No rash or skin lesions. Psychiatric: Coperative. Nonsuicidal Musculoskeletal: No joint swelling or deformity. Normal range of motion. - Labs CBC & Chem 7: 04/14/18 06:31 04/14/18 06:31 Labs: Abnormal Lab Results - Last 24 Hours (Table) 04/13/18 04/13/18 04/14/18 Range/Units 19:03 23:49 05:50 RBC (4.30-5.90) m/uL Hgb (13.0-17.5) gm/dL Hct (39.0-53.0) % MCH (25.0-35.0) pg MCHC (31.0-37.0) g/dL RDW (11.5-15.5) % Lymphocytes # (1.0-4.8) k/uL Sodium (137-145) mmol/L Creatinine (0.66-1.25) mg/dL Glucose (74-99) mg/dL POC Glucose (mg/dL) 122 H 107 H 128 H (75-99) mg/dL Calcium (8.4-10.2) mg/dL Crossmatch 04/14/18 04/14/18 04/14/18 Range/Units 06:31 06:31 10:51 RBC 2.75 L (4.30-5.90) m/uL Hgb 6.8 L* (13.0-17.5) gm/dL Hct 22.1 L (39.0-53.0) % MCH 24.6 L (25.0-35.0) pg MCHC 30.5 L (31.0-37.0) g/dL RDW 17.8 H (11.5-15.5) % Lymphocytes # 0.8 L (1.0-4.8) k/uL Sodium 136 L (137-145) mmol/L Creatinine 0.60 L (0.66-1.25) mg/dL Glucose 112 H (74-99) mg/dL POC Glucose (mg/dL) (75-99) mg/dL Calcium 7.7 L (8.4-10.2) mg/dL Crossmatch See Detail 04/14/18 Range/Units 12:10 RBC (4.30-5.90) m/uL Hgb (13.0-17.5) gm/dL Hct (39.0-53.0) % MCH (25.0-35.0) pg MCHC (31.0-37.0) g/dL RDW (11.5-15.5) % Lymphocytes # (1.0-4.8) k/uL Sodium (137-145) mmol/L Creatinine (0.66-1.25) mg/dL Glucose (74-99) mg/dL POC Glucose (mg/dL) 202 H (75-99) mg/dL Calcium (8.4-10.2) mg/dL Crossmatch Assessment and Plan Assessment: Acute abdominal with small bowel obstruction followed by sigmoid colon removal, terminal ileum and cecal removal and ileostomy was created. 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 Paroxysmal atrial fibrillation. On anticoagulation with Coumadin Chronic CHF with systolic dysfunction ejection fraction 35-40% Nonsustained ventricular tachycardia Hypertension Hyperlipidemia Chronic incontinence of urine and stool History of CVA currently wheelchair-bound Metabolic acidosis Hypoalbuminemia Plan: Patient will be continued on antibiotics. Repeat chest x-ray due to cough. Patient is undergoing 1 unit of PRBC transfusion. Hemoglobin 6.8. Cardiology and ID is following. Otherwise we'll continue the current management and further recommendations based on the clinical course. Prognosis is guarded. Time with Patient: Greater than 30
[2018-04-15 00:15] LABS: Glucose,Whole Blood 107 mg/dL (75-99)
[2018-04-15] MEDS: INSULIN ASPART (NovoLOG) 100 UNIT/ML VIAL SQ SCH ×4 (00:18→18:53)
[2018-04-15] MEDS: metroNIDAZOLE-NS PMX 500 MG in SALINE 1 100ML.BAG IVPB SCH ×3 (00:25→16:48)
[2018-04-15] MEDS: AMPICILLIN-SULBACTAM 3 GM in SODIUM CHLORIDE 0.9% 100 ML IVPB SCH ×4 (02:55→21:02)
--- NOTE | 2018-04-15 05:48 | PN ---
PROGRESS NOTE DATE OF SERVICE: 04/14/2018 REASON FOR FOLLOWUP: Secondary peritonitis. INTERVAL HISTORY: The patient is afebrile. The patient's IV has been discontinued. The patient has been breathing comfortably. Denies having any nausea, vomiting, chest pain, shortness of breath or cough. No abdominal pain. PHYSICAL EXAMINATION: On examination, blood pressure 121/73 with a pulse of 103, temperature 98.3. He is 99% on room air. General description is a middle-aged male lying in bed in no distress. HEENT examination shows pallor, no scleral icterus. Oral mucous membrane is dry. LUNGS: Unlabored breathing, clear to auscultation anteriorly. HEART: S1, S2. Regular rate and rhythm. ABDOMEN: Soft, no tenderness. LABS: His white count normal, however, hemoglobin was down to 6.9. DIAGNOSTIC IMPRESSION AND PLAN: Patient who is status post exploratory laparotomy with , ileocecetomy and ileostomy due to formation. Patient is currently on Unasyn to continue. For now white count is normal. Continue with supportive care. MMODL / IJN: [id number] /
[2018-04-15 05:54] LABS: Glucose,Whole Blood 123 mg/dL (75-99)
[2018-04-15 07:05] LABS: Anion Gap 6 mmol/L; Blood Urea Nitrogen 12 mg/dL (9-20); Calcium 7.9 mg/dL (8.4-10.2); Carbon Dioxide 23 mmol/L (22-30); Chloride 106 mmol/L (98-107); Glucose 113 mg/dL (74-99); Magnesium 2.2 mg/dL (1.6-2.3); Phosphorus 4.1 mg/dL (2.5-4.5); Potassium 4.7 mmol/L (3.5-5.1); Sodium 135 mmol/L (137-145)
[2018-04-15] MEDS: CARVEDILOL 3.125 MG TAB PO SCH ×2 (07:38→17:41)
[2018-04-15] MEDS: ENOXAPARIN 100 MG/ML SYRINGE SQ SCH (07:38)
[2018-04-15] MEDS: FAMOTIDINE 20 MG/2 ML VIAL IV SCH ×2 (07:38→21:02)
[2018-04-15] MEDS: TAMSULOSIN 0.4 MG CAP.ER.24H PO SCH (07:38)
[2018-04-15 10:22] LABS: Anisocytosis Slight; Basophils % (A) 0 %; Eosinophils # (A) 0.3 k/uL (0-0.7); Eosinophils % (A) 4 %; HCT 23.9 % (39.0-53.0); HGB 7.2 gm/dL (13.0-17.5); Hypochromasia Marked; Lymphocytes # (A) 0.6 k/uL (1.0-4.8); Lymphocytes % (A) 8 %; MCH 24.7 pg (25.0-35.0); MCHC 30.2 g/dL (31.0-37.0); MCV 81.8 fL (80.0-100.0); Monocytes # (A) 0.5 k/uL (0-1.0); Monocytes % (A) 7 %; Neutrophils # (A) 6.7 k/uL (1.3-7.7); Neutrophils % (A) 81 %; Platelet Count 360 k/uL (150-450); RBC 2.93 m/uL (4.30-5.90); RDW 18.3 % (11.5-15.5); WBC 8.2 k/uL (3.8-10.6)
[2018-04-15 11:21] LABS: Glucose,Whole Blood 122 mg/dL (75-99)
--- NOTE | 2018-04-15 11:30 | P.PN ---
Subjective This is a pleasant 57-year-old male past medical history significant for chronic persistent atrial fibrillation, CVA, ischemic cardiomyopathy in the past with EF 35-40%, hyperetnsion, dyslipidemia and is wheelchair/bed bound since his CVA. He follows in the office with Dr. Nur. He is admitted to the hospital with small bowel obstruction 04/04/2018 and has since undergone colectomy with colostomy creation per Dr. Thorne. He has been seen in consultation by Dr. Cottrell earlier in the admission due to NG tube in place and inability to be on coumadin. We were asked to see him again due to short burst of atrial tachycardia yesterday morning. At that time he was still NPO. He was re-initiated on clear liquids yesterday and we resumed his coreg. He continues to be on clear liquids and seems to be tolerating without incident. He continues to be on SQ lovenox for thromboembolic protection. Blood pressure 144/ 66 heart rate 88. Laboratory data reviewed, WBC 8.2, hemoglobin 7.2, platelets 360, sodium 135, potassium 4.7, creatinine 0.7, TSH 4.58. Echocardiogram obtained reveals moderately impaired left ventricular systolic function with ejection fraction 40-45%, posterior hypokinesia, inferior hypokinesia, mild MR and mild TR noted. No change from previous. Telemetry tracings reviewed and no further tachycardia noted. He denies chest pain, shortness of breath, dizziness or palpitations. GENERAL: Well-appearing, well-nourished and in no acute distress. Flat affect. NECK: Supple without JVD or thyromegaly. LUNGS: Breath sounds clear to auscultation bilaterally. Respiration equal and unlabored. No wheezes, rales or rhonchi. HEART: Regular rate and rhythm with systolic ejection murmur at the base, no rubs or gallops. S1 and S2 heard. EXTREMITIES: Normal range of motion, no edema. No clubbing or cyanosis. Peripheral pulses intact. ASSESSMENT Small bowel obstruction s/p ileocectomy, sigmoid resection and ileostomy creation. Started on clear liquid diet today Anemia, hgb 6.8 today down from 12.5 on admission. Paroxysmal atrial fibrillation, currently maintaining sinus mechanism with an episode of atrial tachycardia Non-sustained ventricular tachycardia History of ischemic cardiomyopathy with abnormal lexiscan stress test on maximum medical therapy. Currently euvolemic Hypertension Dyslipidemia PLAN Resume lisinopril 5 mg daily. Recommend resuming of coumadin and aspirin when appropriate per surgery. We will continue to follow as needed, please feel free to call with further questions or concerns. Follow up upon discharge with Dr. Nur. Nurse Practitioner note has been reviewed, I agree with a documented findings and plan of care. Patient was seen and examined. Objective - Vital Signs Vital signs: Vital Signs Temp 98.6 F 04/15/18 07:00 Pulse 88 04/15/18 07:00 Resp 16 04/15/18 00:00 BP 144/66 04/15/18 07:00 Pulse Ox 100 04/15/18 07:00 Intake & Output 04/14/18 04/15/18 04/15/18 18:59 06:59 18:59 Intake Total 310 1100 Output Total 2150 1850 Balance -1840 -750 Intake: Intake, IV Titration 1100 Amount Amino Acid 4.25%-D10w+ 1000 Lytes*E* 1,000 ml @ 83 mls/hr IV .BY DURATION EMMA Rx#:[id number] metroNIDAZOLE-NS PMX 500 100 mg In Saline 1 100ml.bag @ 100 mls/hr IVPB Q8HR EMMA Rx#:[id number] Blood Product 310 Rc Pheresis 2 As3 Unit 310 [id number] Output: Urine 1800 1850 Stool 350 Other: Voiding Method Indwelling Catheter Indwelling Catheter - Labs CBC & Chem 7: 04/15/18 05:53 04/15/18 05:53 Labs: Abnormal Lab Results - Last 24 Hours (Table) 04/14/18 04/14/18 04/14/18 Range/Units 10:51 12:10 14:36 RBC (4.30-5.90) m/uL Hgb (13.0-17.5) gm/dL Hct (39.0-53.0) % MCH (25.0-35.0) pg MCHC (31.0-37.0) g/dL RDW (11.5-15.5) % Lymphocytes # (1.0-4.8) k/uL Sodium (137-145) mmol/L Glucose (74-99) mg/dL POC Glucose (mg/dL) 202 H 64 L (75-99) mg/dL Calcium (8.4-10.2) mg/dL Crossmatch See Detail 04/14/18 04/14/18 04/15/18 Range/Units 14:57 15:29 00:04 RBC (4.30-5.90) m/uL Hgb (13.0-17.5) gm/dL Hct (39.0-53.0) % MCH (25.0-35.0) pg MCHC (31.0-37.0) g/dL RDW (11.5-15.5) % Lymphocytes # (1.0-4.8) k/uL Sodium (137-145) mmol/L Glucose (74-99) mg/dL POC Glucose (mg/dL) 61 L 71 L 107 H (75-99) mg/dL Calcium (8.4-10.2) mg/dL Crossmatch 04/15/18 04/15/18 04/15/18 Range/Units 05:42 05:53 05:53 RBC 2.93 L (4.30-5.90) m/uL Hgb 7.2 L (13.0-17.5) gm/dL Hct 23.9 L (39.0-53.0) % MCH 24.7 L (25.0-35.0) pg MCHC 30.2 L (31.0-37.0) g/dL RDW 18.3 H (11.5-15.5) % Lymphocytes # 0.6 L (1.0-4.8) k/uL Sodium 135 L (137-145) mmol/L Glucose 113 H (74-99) mg/dL POC Glucose (mg/dL) 123 H (75-99) mg/dL Calcium 7.9 L (8.4-10.2) mg/dL Crossmatch
[2018-04-15] MEDS: 1: MVI, ADULT NO.4 WITH VIT K 10 ML, TRACE (CONC-1ML/DOSE) 1 ML, POTASSIUM CHLORIDE 10 M IV SCH ×4 (12:42)
[2018-04-15 18:19] LABS: Glucose,Whole Blood 137 mg/dL (75-99)
--- NOTE | 2018-04-15 18:22 | P.PN ---
Subjective Progress Note Date: 04/15/18 Patient is doing well, no complaints He is having gas and stool in ileostomy, tolerating clears Objective - Vital Signs Vital signs: Vital Signs Temp 97.9 F 04/15/18 15:00 Pulse 93 04/15/18 15:00 Resp 16 04/15/18 15:00 BP 126/64 04/15/18 15:00 Pulse Ox 100 04/15/18 07:00 Intake & Output 04/14/18 04/15/18 04/15/18 18:59 06:59 18:59 Intake Total 310 1100 824 Output Total 2150 1850 1200 Balance -1840 -750 -376 Intake: IV 764 Amino Acid 4.25%-D10w+ 664 Lytes*E* 1,000 ml @ 83 mls/hr IV .BY DURATION EMMA Rx#:[id number] metroNIDAZOLE-NS PMX 500 100 mg In Saline 1 100ml.bag @ 100 mls/hr IVPB Q8HR EMMA Rx#:[id number] Intake, IV Titration 1100 Amount Amino Acid 4.25%-D10w+ 1000 Lytes*E* 1,000 ml @ 83 mls/hr IV .BY DURATION EMMA Rx#:[id number] metroNIDAZOLE-NS PMX 500 100 mg In Saline 1 100ml.bag @ 100 mls/hr IVPB Q8HR EMMA Rx#:[id number] Oral 60 Blood Product 310 Rc Pheresis 2 As3 Unit 310 [id number] Output: Gastric Drainage 100 Urine 1800 1850 1100 Stool 350 Other: Voiding Method Indwelling Catheter Indwelling Catheter Indwelling Catheter - Respiratory Details: nonlabored - Gastrointestinal Gastrointestinal Comment(s): s/nt/nd incisions CDI ostomy patent with stool in bag, mucus fistula patent - Labs CBC & Chem 7: 04/15/18 05:53 04/15/18 05:53 Labs: Abnormal Lab Results - Last 24 Hours (Table) 04/15/18 04/15/18 04/15/18 Range/Units 00:04 05:42 05:53 RBC (4.30-5.90) m/uL Hgb (13.0-17.5) gm/dL Hct (39.0-53.0) % MCH (25.0-35.0) pg MCHC (31.0-37.0) g/dL RDW (11.5-15.5) % Lymphocytes # (1.0-4.8) k/uL Sodium 135 L (137-145) mmol/L Glucose 113 H (74-99) mg/dL POC Glucose (mg/dL) 107 H 123 H (75-99) mg/dL Calcium 7.9 L (8.4-10.2) mg/dL 04/15/18 04/15/18 04/15/18 Range/Units 05:53 11:20 18:18 RBC 2.93 L (4.30-5.90) m/uL Hgb 7.2 L (13.0-17.5) gm/dL Hct 23.9 L (39.0-53.0) % MCH 24.7 L (25.0-35.0) pg MCHC 30.2 L (31.0-37.0) g/dL RDW 18.3 H (11.5-15.5) % Lymphocytes # 0.6 L (1.0-4.8) k/uL Sodium (137-145) mmol/L Glucose (74-99) mg/dL POC Glucose (mg/dL) 122 H 137 H (75-99) mg/dL Calcium (8.4-10.2) mg/dL Assessment and Plan Assessment: POD#6 Ex Lap with ileocectomy, segmental sigmoid colon resection, end ileostomy creation and mucus fistula creation. Plan: Advance diet to soft, recommend half rate TPN tomorrow, TPN may be contributing to reduced appetite. .ABX per ID. Monitor HGB. Once HGB stable and patient is tolerating diet he will be surgically stable to DC
[2018-04-15] MEDS: FAT EMULSION 20% 250 ML in EMPTY BAG 1 BAG IV SCH (19:51)
[2018-04-15] MEDS: ATORVASTATIN 20 MG TAB PO SCH (21:03)
[2018-04-15] MEDS ORDERED: 1: MVI, ADULT NO.4 WITH VIT K 10 ML, TRACE (CONC-1ML/DOSE) 1 ML, POTASSIUM CHLORIDE 10 M IV SCH ×5 (23:00)
[2018-04-16 00:27] LABS: Glucose,Whole Blood 114 mg/dL (75-99)
[2018-04-16] MEDS: INSULIN ASPART (NovoLOG) 100 UNIT/ML VIAL SQ SCH ×3 (00:28→12:15)
[2018-04-16] MEDS: metroNIDAZOLE-NS PMX 500 MG in SALINE 1 100ML.BAG IVPB SCH ×4 (00:31→22:41)
[2018-04-16] MEDS: AMPICILLIN-SULBACTAM 3 GM in SODIUM CHLORIDE 0.9% 100 ML IVPB SCH ×3 (03:27→14:35)
[2018-04-16 05:27] LABS: Glucose,Whole Blood 107 mg/dL (75-99)
--- NOTE | 2018-04-16 05:58 | PN ---
PROGRESS NOTE DATE OF SERVICE: 04/15/2018 REASON FOR FOLLOWUP: Secondary peritonitis. INTERVAL HISTORY: The patient is afebrile. He has been breathing comfortably. Denies having any chest pain or any cough. No abdominal pain or vomiting. PHYSICAL EXAMINATION: On examination, blood pressure is 126/74 with a pulse of 73, temperature 96.7. General description is a middle-aged male lying in bed in no distress. RESPIRATORY SYSTEM: Unlabored breathing, clear to auscultation anteriorly. HEART: S1, S2. Regular rate and rhythm. ABDOMEN: Soft, no tenderness. LABS: Hemoglobin 7.2, white count 8.2 with a BUN of 12, creatinine 0.70. DIAGNOSTIC IMPRESSION AND PLAN: Patient with secondary peritonitis in this patient who is status post ileocecectomy and diverting ileostomy. The patient's white count is currently normal. Unasyn and Flagyl to continue transition to oral antibiotics on discharge. Continue supportive care. MMODL / IJN: [id number] /
[2018-04-16 08:02] LABS: Anion Gap 8 mmol/L; Blood Urea Nitrogen 9 mg/dL (9-20); Carbon Dioxide 22 mmol/L (22-30); Chloride 107 mmol/L (98-107); Glucose 106 mg/dL (74-99); Magnesium 2.2 mg/dL (1.6-2.3); Phosphorus 3.9 mg/dL (2.5-4.5); Potassium 4.4 mmol/L (3.5-5.1); Sodium 137 mmol/L (137-145)
[2018-04-16] MEDS: CARVEDILOL 3.125 MG TAB PO SCH ×2 (08:59→16:11)
[2018-04-16] MEDS: TAMSULOSIN 0.4 MG CAP.ER.24H PO SCH (08:59)
[2018-04-16] MEDS: LISINOPRIL 5 MG TAB PO SCH (08:59)
[2018-04-16] MEDS: FAMOTIDINE 20 MG/2 ML VIAL IV SCH ×2 (09:00→22:42)
[2018-04-16] MEDS: ENOXAPARIN 100 MG/ML SYRINGE SQ SCH (09:00)
[2018-04-16 10:53] LABS: Anisocytosis Slight; Basophils % (A) 0 %; Eosinophils # (A) 0.2 k/uL (0-0.7); Eosinophils % (A) 4 %; HCT 25.5 % (39.0-53.0); HGB 8.1 gm/dL (13.0-17.5); Hypochromasia Marked; Lymphocytes # (A) 0.6 k/uL (1.0-4.8); Lymphocytes % (A) 10 %; MCH 26.1 pg (25.0-35.0); MCHC 31.6 g/dL (31.0-37.0); MCV 82.4 fL (80.0-100.0); Mean Platelet Volume 8.8; Monocytes # (A) 0.5 k/uL (0-1.0); Monocytes % (A) 8 %; Neutrophils # (A) 4.7 k/uL (1.3-7.7); Neutrophils % (A) 76 %; Platelet Count 361 k/uL (150-450); RBC 3.09 m/uL (4.30-5.90); RDW 18.6 % (11.5-15.5); WBC 6.1 k/uL (3.8-10.6)
--- NOTE | 2018-04-16 14:11 | P.PN ---
Subjective Progress Note Date: 04/16/18 Patient is doing well, no complaints He is having gas and stool in ileostomy, tolerating diet Objective - Vital Signs Vital signs: Vital Signs Temp 98.7 F 04/16/18 06:53 Pulse 81 04/16/18 07:00 Resp 14 04/16/18 06:53 BP 123/75 04/16/18 06:53 Pulse Ox 99 04/16/18 06:53 Intake & Output 04/15/18 04/16/18 04/16/18 18:59 06:59 18:59 Intake Total 1310.933 400 398 Output Total 1200 1675 200 Balance 110.933 -1275 198 Intake: IV 764 100 Amino Acid 4.25%-D10w+ 664 Lytes*E* 1,000 ml @ 83 mls/hr IV .BY DURATION [facility] Rx#:[id number] metroNIDAZOLE-NS PMX 500 100 100 mg In Saline 1 100ml.bag @ 100 mls/hr IVPB Q8HR [facility] Rx#:[id number] Intake, IV Titration 486.933 300 200 Amount Amino Acid 4.25%-D10w+ 486.933 Lytes*E* 1,000 ml @ 83 mls/hr IV .BY DURATION [facility] Rx#:[id number] Ampicillin-Sulbactam 3 gm 300 100 In Sodium Chloride 0.9% 100 ml @ 200 mls/hr IVPB Q6H [facility] Rx#:[id number] metroNIDAZOLE-NS PMX 500 100 mg In Saline 1 100ml.bag @ 100 mls/hr IVPB Q8HR [facility] Rx#:[id number] Oral 60 198 Output: Gastric Drainage 100 Drainage 225 Left Abdomen 225 Urine 1100 1450 Stool 200 Other: Voiding Method Indwelling Catheter Indwelling Catheter Indwelling Catheter # Voids 1 - Constitutional General appearance: Present: cooperative - Respiratory Details: Nonlabored - Gastrointestinal Gastrointestinal Comment(s): S/NT/ND Ileostomy pink patent with stool in bag Mucus fistula patent - Psychiatric Psychiatric: Present: A&O x's 3 - Labs CBC & Chem 7: 04/16/18 06:38 04/16/18 06:38 Labs: Abnormal Lab Results - Last 24 Hours (Table) 04/15/18 04/16/18 04/16/18 Range/Units 18:18 00:26 05:26 RBC (4.30-5.90) m/uL Hgb (13.0-17.5) gm/dL Hct (39.0-53.0) % RDW (11.5-15.5) % Lymphocytes # (1.0-4.8) k/uL Creatinine (0.66-1.25) mg/dL Glucose (74-99) mg/dL POC Glucose (mg/dL) 137 H 114 H 107 H (75-99) mg/dL Calcium (8.4-10.2) mg/dL 04/16/18 04/16/18 Range/Units 06:38 06:38 RBC 3.09 L (4.30-5.90) m/uL Hgb 8.1 L (13.0-17.5) gm/dL Hct 25.5 L (39.0-53.0) % RDW 18.6 H (11.5-15.5) % Lymphocytes # 0.6 L (1.0-4.8) k/uL Creatinine 0.63 L (0.66-1.25) mg/dL Glucose 106 H (74-99) mg/dL POC Glucose (mg/dL) (75-99) mg/dL Calcium 8.0 L (8.4-10.2) mg/dL Assessment and Plan Assessment: S/P Ex Lap with ileocectomy, segmental sigmoid colon resection, end ileostomy creation and mucus fistula creation. Plan: Patient is tolerating diet, eating more. TPN can be discontinued when this bag runs out. Patient is stable from surgical standpoint for discharge back to [facility] with follow up in my clinic in 1-2 weeks. He should have daily dressing and packing changes for RLQ wound. Ostomy care, and non adherent dressing to mucus fistula in LLQ changed PRN and daily.
[2018-04-16 21:02] VITALS: RESP 16
[2018-04-16] MEDS: ATORVASTATIN 20 MG TAB PO SCH (23:04)
[2018-04-17] MEDS: AMPICILLIN-SULBACTAM 3 GM in SODIUM CHLORIDE 0.9% 100 ML IVPB SCH ×4 (00:21→18:13)
--- NOTE | 2018-04-17 01:16 | P.PN ---
Subjective Progress Note Date: 04/15/18 Principal diagnosis: Small bowel obstruction This is a pleasant 57-year-old male past medical history significant for chronic persistent atrial fibrillation, CVA, ischemic cardiomyopathy in the past with EF 35-40%, hyperetnsion, dyslipidemia and is wheelchair/bed bound since his CVA. He is admitted to the hospital with small bowel obstruction 2018 and has since undergone colectomy with colostomy creation per Dr. Thorne. 04/14/2018 Patient is currently awake and alert and feels very weak. NG tube has been removed. Patient was started on clear liquids. Continued on TPN. Patient was seen by cardiology due to nonsustained V. tach. No fever no chills. Patient does complain of cough without much sputum production. No nausea vomiting. Colostomy back containing stool and is also gas. Currently being continued on antibiotic support Unasyn. No other acute overnight issues. 04/15/2018 Patient is more awake and alert and oriented. Started tolerating diet. Otherwise hemoglobin level is 7.2 today. Cardiology and General surgery is following. Heart rate is controlled. PT OT will be consulted and encourage ambulation and incentive spirometry. No other acute overnight issues. Current medications reviewed. Objective - Vital Signs Vital signs: Vital Signs Temp 96.7 F L 04/15/18 19:07 Pulse 73 04/15/18 19:07 Resp 16 04/15/18 19:07 BP 126/74 04/15/18 19:07 Pulse Ox 100 04/15/18 07:00 Intake & Output 04/15/18 04/15/18 04/16/18 06:59 18:59 06:59 Intake Total 1100 1310.933 200 Output Total 1850 1200 725 Balance -750 110.933 -525 Intake: IV 764 Amino Acid 4.25%-D10w+ 664 Lytes*E* 1,000 ml @ 83 mls/hr IV .BY DURATION [facility] Rx#:[id number] metroNIDAZOLE-NS PMX 500 100 mg In Saline 1 100ml.bag @ 100 mls/hr IVPB Q8HR [facility] Rx#:[id number] Intake, IV Titration 1100 486.933 200 Amount Amino Acid 4.25%-D10w+ 1000 486.933 Lytes*E* 1,000 ml @ 83 mls/hr IV .BY DURATION [facility] Rx#:[id number] Ampicillin-Sulbactam 3 gm 200 In Sodium Chloride 0.9% 100 ml @ 200 mls/hr IVPB Q6H [facility] Rx#:[id number] metroNIDAZOLE-NS PMX 500 100 mg In Saline 1 100ml.bag @ 100 mls/hr IVPB Q8HR [facility] Rx#:[id number] Oral 60 Output: Gastric Drainage 100 Drainage 225 Left Abdomen 225 Urine 1850 1100 500 Other: Voiding Method Indwelling Catheter Indwelling Catheter Indwelling Catheter - Exam PHYSICAL EXAMINATION: Patient is lying in the bed comfortably, no acute distress, awake alert and oriented. Patient generally weak.. HEENT: Normocephalic. Neck is supple. Pupils reactive. Nostrils clear. Oral cavity is moist. Ears reveal no drainage. Neck reveals no JVD, carotid bruits, or thyromegaly. CHEST EXAMINATION: Trachea is central. Symmetrical expansion. Lung so clear to auscultation and percussion. CARDIAC: Normal S1, S2 with no gallops. No murmurs ABDOMEN: Soft. Bowel sounds is in. Colostomy bag contains stool and gas with distention.. No organomegaly. No abdominal bruits. Extremities: reveal no edema. No clubbing or cyanosis Neurologically awake, alert, oriented x3 with well-coordinated movements. No focal deficits noted Skin: No rash or skin lesions. Psychiatric: Coperative. Nonsuicidal Musculoskeletal: No joint swelling or deformity. Normal range of motion. - Labs CBC & Chem 7: 04/16/18 06:38 04/16/18 06:38 Labs: Abnormal Lab Results - Last 24 Hours (Table) 04/15/18 04/15/18 04/15/18 Range/Units 00:04 05:42 05:53 RBC (4.30-5.90) m/uL Hgb (13.0-17.5) gm/dL Hct (39.0-53.0) % MCH (25.0-35.0) pg MCHC (31.0-37.0) g/dL RDW (11.5-15.5) % Lymphocytes # (1.0-4.8) k/uL Sodium 135 L (137-145) mmol/L Glucose 113 H (74-99) mg/dL POC Glucose (mg/dL) 107 H 123 H (75-99) mg/dL Calcium 7.9 L (8.4-10.2) mg/dL 04/15/18 04/15/18 04/15/18 Range/Units 05:53 11:20 18:18 RBC 2.93 L (4.30-5.90) m/uL Hgb 7.2 L (13.0-17.5) gm/dL Hct 23.9 L (39.0-53.0) % MCH 24.7 L (25.0-35.0) pg MCHC 30.2 L (31.0-37.0) g/dL RDW 18.3 H (11.5-15.5) % Lymphocytes # 0.6 L (1.0-4.8) k/uL Sodium (137-145) mmol/L Glucose (74-99) mg/dL POC Glucose (mg/dL) 122 H 137 H (75-99) mg/dL Calcium (8.4-10.2) mg/dL Assessment and Plan Assessment: Acute abdominal with small bowel obstruction followed by sigmoid colon removal, terminal ileum and cecal removal and ileostomy was created. 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 Paroxysmal atrial fibrillation. On anticoagulation with Lovenox subcu Chronic CHF with systolic dysfunction ejection fraction 35-40% Nonsustained ventricular tachycardia and atrial tachycardia Acute blood loss anemia likely from surgery. Hemoglobin is stable now. Possible pneumonia Hypertension Hyperlipidemia Chronic incontinence of urine and stool History of CVA currently wheelchair-bound Metabolic acidosis Hypoalbuminemia Plan: Patient will be continued on antibiotics. Hemoglobin 7.2 today. Encourage oral intake and PTOT. Incentive spirometry.. Cardiology and ID is following. Otherwise we'll continue the current management and further recommendations based on the clinical course. Prognosis is guarded. Time with Patient: Greater than 30
--- NOTE | 2018-04-17 01:19 | P.PN ---
Subjective Progress Note Date: 04/16/18 Principal diagnosis: Small bowel obstruction This is a pleasant 57-year-old male past medical history significant for chronic persistent atrial fibrillation, CVA, ischemic cardiomyopathy in the past with EF 35-40%, hyperetnsion, dyslipidemia and is wheelchair/bed bound since his CVA. He is admitted to the hospital with small bowel obstruction 2018 and has since undergone colectomy with colostomy creation per Dr. Thorne. 04/14/2018 Patient is currently awake and alert and feels very weak. NG tube has been removed. Patient was started on clear liquids. Continued on TPN. Patient was seen by cardiology due to nonsustained V. tach. No fever no chills. Patient does complain of cough without much sputum production. No nausea vomiting. Colostomy back containing stool and is also gas. Currently being continued on antibiotic support Unasyn. No other acute overnight issues. 04/15/2018 Patient is more awake and alert and oriented. Started tolerating diet. Otherwise hemoglobin level is 7.2 today. Cardiology and General surgery is following. Heart rate is controlled. PT OT will be consulted and encourage ambulation and incentive spirometry. No other acute overnight issues. 04/16/2018 Patient is awake and oriented. Tolerating oral diet and stool noted in the colostomy back. Hemoglobin is stable with level VIII.2 today. No nausea vomiting. TPN was discontinued. Patient is being continued on anticoagulation with Lovenox subcu currently. Patient will be restarted on Coumadin once cleared by general surgery. PTOT will be continued and possible transfer to [facility] tomorrow. Current medications reviewed. Objective - Vital Signs Vital signs: Vital Signs Temp 98.6 F 04/16/18 19:46 Pulse 82 04/16/18 19:46 Resp 16 04/16/18 19:46 BP 114/71 04/16/18 19:46 Pulse Ox 99 04/16/18 19:46 Intake & Output 04/16/18 04/16/18 04/17/18 06:59 18:59 06:59 Intake Total 400 535 Output Total 1675 1000 Balance -0992 -760 Intake: IV 100 metroNIDAZOLE-NS PMX 500 100 mg In Saline 1 100ml.bag @ 100 mls/hr IVPB Q8HR [facility] Rx#:[id number] Intake, IV Titration 300 200 Amount Ampicillin-Sulbactam 3 gm 300 100 In Sodium Chloride 0.9% 100 ml @ 200 mls/hr IVPB Q6H [facility] Rx#:[id number] metroNIDAZOLE-NS PMX 500 100 mg In Saline 1 100ml.bag @ 100 mls/hr IVPB Q8HR [facility] Rx#:[id number] Oral 335 Output: Drainage 225 Left Abdomen 225 Urine 1450 600 Stool 400 Other: Voiding Method Indwelling Catheter Indwelling Catheter # Voids 1 - Exam PHYSICAL EXAMINATION: Patient is lying in the bed comfortably, no acute distress, awake alert and oriented. Patient generally weak.. HEENT: Normocephalic. Neck is supple. Pupils reactive. Nostrils clear. Oral cavity is moist. Ears reveal no drainage. Neck reveals no JVD, carotid bruits, or thyromegaly. CHEST EXAMINATION: Trachea is central. Symmetrical expansion. Lung so clear to auscultation and percussion. CARDIAC: Normal S1, S2 with no gallops. No murmurs ABDOMEN: Soft. Bowel sounds is in. Colostomy bag contains stool and gas with distention.. No organomegaly. No abdominal bruits. Extremities: reveal no edema. No clubbing or cyanosis Neurologically awake, alert, oriented x3 with well-coordinated movements. No focal deficits noted Skin: No rash or skin lesions. Psychiatric: Coperative. Nonsuicidal Musculoskeletal: No joint swelling or deformity. Normal range of motion. - Labs CBC & Chem 7: 04/16/18 06:38 04/16/18 06:38 Labs: Abnormal Lab Results - Last 24 Hours (Table) 04/16/18 04/16/18 04/16/18 Range/Units 00:26 05:26 06:38 RBC (4.30-5.90) m/uL Hgb (13.0-17.5) gm/dL Hct (39.0-53.0) % RDW (11.5-15.5) % Lymphocytes # (1.0-4.8) k/uL Creatinine 0.63 L (0.66-1.25) mg/dL Glucose 106 H (74-99) mg/dL POC Glucose (mg/dL) 114 H 107 H (75-99) mg/dL Calcium 8.0 L (8.4-10.2) mg/dL 04/16/18 Range/Units 06:38 RBC 3.09 L (4.30-5.90) m/uL Hgb 8.1 L (13.0-17.5) gm/dL Hct 25.5 L (39.0-53.0) % RDW 18.6 H (11.5-15.5) % Lymphocytes # 0.6 L (1.0-4.8) k/uL Creatinine (0.66-1.25) mg/dL Glucose (74-99) mg/dL POC Glucose (mg/dL) (75-99) mg/dL Calcium (8.4-10.2) mg/dL Assessment and Plan Assessment: Acute abdominal with small bowel obstruction followed by sigmoid colon removal, terminal ileum and cecal removal and ileostomy was created. 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 Paroxysmal atrial fibrillation. On anticoagulation with Lovenox subcu Chronic CHF with systolic dysfunction ejection fraction 35-40% Nonsustained ventricular tachycardia and atrial tachycardia Acute blood loss anemia likely from surgery. Hemoglobin is stable now. Possible pneumonia Hypertension Hyperlipidemia Chronic incontinence of urine and stool History of CVA currently wheelchair-bound Metabolic acidosis Hypoalbuminemia Plan: Patient will be continued on antibiotics. Hemoglobin 7.2 today. Encourage oral intake and PTOT. Incentive spirometry.. Cardiology and ID is following. Otherwise we'll continue the current management and further recommendations based on the clinical course. Prognosis is guarded. Time with Patient: Greater than 30
--- NOTE | 2018-04-17 05:20 | PN ---
PROGRESS NOTE DATE OF SERVICE: 04/16/2018 REASON FOR FOLLOWUP: Secondary peritonitis. INTERVAL HISTORY: The patient is currently afebrile. He is breathing comfortably. Denies having any chest pain or any cough. No worsening abdominal pain. PHYSICAL EXAMINATION: On examination, blood pressure 114/71 with a pulse of 82, temperature 98.6. He is 99% on room air. General description is a middle-aged male lying in bed in no distress. RESPIRATORY SYSTEM: Unlabored breathing, clear to auscultation anteriorly. HEART: S1, S2. Regular rate and rhythm. ABDOMEN: Soft, no tenderness. LABS: Hemoglobin 8.1, white count 6.1 BUN of 9 creatinine 0.63. DIAGNOSTIC IMPRESSION AND PLAN: Patient with secondary peritonitis from perforation status post surgery. The patient currently covered with Unasyn that will be continued and transitioned to oral Augmentin on discharge. Continue supportive care. MMODL / IJN: [id number] /
[2018-04-17 07:57] LABS: Albumin 2.4 g/dL (3.5-5.0); Anion Gap 5 mmol/L; Blood Urea Nitrogen 10 mg/dL (9-20); Carbon Dioxide 25 mmol/L (22-30); Chloride 107 mmol/L (98-107); Glucose 80 mg/dL (74-99); Magnesium 2.2 mg/dL (1.6-2.3); Phosphorus 3.8 mg/dL (2.5-4.5); Potassium 4.8 mmol/L (3.5-5.1); Sodium 137 mmol/L (137-145)
[2018-04-17] MEDS: FAMOTIDINE 20 MG/2 ML VIAL IV SCH (08:46)
[2018-04-17] MEDS: CARVEDILOL 3.125 MG TAB PO SCH ×2 (08:46→18:07)
[2018-04-17] MEDS: TAMSULOSIN 0.4 MG CAP.ER.24H PO SCH (08:46)
[2018-04-17] MEDS: LISINOPRIL 5 MG TAB PO SCH (08:46)
[2018-04-17] MEDS: ENOXAPARIN 100 MG/ML SYRINGE SQ SCH (08:46)
--- NOTE | 2018-04-17 11:43 | P.PN ---
Subjective Progress Note Date: 04/17/18 Patient is doing well, no complaints He is having gas and stool in ileostomy, tolerating diet Objective - Vital Signs Vital signs: Vital Signs Temp 98.1 F 04/17/18 07:39 Pulse 86 04/17/18 07:39 Resp 16 04/17/18 00:00 BP 108/67 04/17/18 07:39 Pulse Ox 100 04/17/18 07:39 Intake & Output 04/16/18 04/17/18 04/17/18 18:59 06:59 18:59 Intake Total 535 Output Total 1000 700 Balance -465 -700 Intake: Intake, IV Titration 200 Amount Ampicillin-Sulbactam 3 gm 100 In Sodium Chloride 0.9% 100 ml @ 200 mls/hr IVPB Q6H [facility] Rx#:[id number] metroNIDAZOLE-NS PMX 500 100 mg In Saline 1 100ml.bag @ 100 mls/hr IVPB Q8HR [facility] Rx#:[id number] Oral 335 Output: Urine 600 500 Stool 400 200 Other: Voiding Method Indwelling Catheter Indwelling Catheter # Voids 1 - Constitutional General appearance: Present: cooperative - Respiratory Details: nonlabored - Gastrointestinal Gastrointestinal Comment(s): S/NT/ND Ileostomy pink and patent with stool and gas in bag Mucus fistula patent - Psychiatric Psychiatric: Present: A&O x's 3 - Labs CBC & Chem 7: 04/16/18 06:38 04/17/18 06:40 Labs: Abnormal Lab Results - Last 24 Hours (Table) 04/17/18 Range/Units 06:40 Calcium 8.0 L (8.4-10.2) mg/dL Albumin 2.4 L (3.5-5.0) g/dL Assessment and Plan Assessment: S/P Ex Lap with ileocectomy, segmental sigmoid colon resection, end ileostomy creation and mucus fistula creation. Plan: Patient is tolerating diet, eating more. TPN can be discontinued when this bag runs out. Patient is stable from surgical standpoint for discharge back to [facility] with follow up in my clinic in 1-2 weeks. He should have daily dressing and packing changes for RLQ wound. Ostomy care, and non adherent dressing to mucus fistula in LLQ changed PRN and daily.
[2018-04-17 15:03] VITALS: BP 107/63; PULSE 85; TEMP 98.6
--- NOTE | 2018-04-17 15:42 | PN ---
PROGRESS NOTE DATE OF SERVICE: 04/17/2018. REASON FOR FOLLOWUP: Secondary peritonitis. INTERVAL HISTORY: The patient is afebrile, has been breathing comfortably. Has been tolerating his diet. No nausea, no vomiting. No abdominal pain. PHYSICAL EXAMINATION: Blood pressure 107/63 with a pulse of 85, temperature 98.6. He is 99% on room air. General description is a middle-aged male lying in bed in no distress. Respiratory system: Unlabored breathing. Clear to auscultation anteriorly. Heart S1, S2. Regular rate and rhythm. ABDOMEN: Soft, no tenderness. LABS: Hemoglobin 8.1, white count 6.1, BUN of 10, creatinine 0.82. DIAGNOSTIC IMPRESSION AND PLAN: Patient with the patient did have a perforated bowel, status post recent and ileostomy. The patient is afebrile. White count normal. Finish therapy with oral Augmentin 875 b.i.d. for about a week with close outpatient followup. Continue supportive care. MMODL / IJN: [id number] /
--- NOTE | 2018-04-17 16:45 | P.DS ---
Providers Date of admission: 04/04/18 06:19 Expected date of discharge: 04/17/18 Attending physician: Eron Suarez Consults: 04/04/18 11:59 Consult Physician Routine Consulting Provider: Michael Gonzalez Consult Reason/Comments: SBO Do you want consulting provider notified?: Yes 04/04/18 12:01 Consult Physician Routine Consulting Provider: Dorothy Cottrell Consult Reason/Comments: anticoagulation Do you want consulting provider notified?: Yes 04/09/18 19:58 Consult Physician Routine Consulting Provider: Justin Núñez Consult Reason/Comments: Antibiotic therapy after surgery Do you want consulting provider notified?: Yes 04/13/18 14:17 Consult Physician Routine Consulting Provider: [facility] Consult Reason/Comments: svt Do you want consulting provider notified?: Yes Primary care physician: Skip Arellano Hospital Course: Discharge diagnosis Acute abdominal with small bowel obstruction followed by sigmoid colon removal, terminal ileum and cecal removal and ileostomy was created. 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 Paroxysmal atrial fibrillation. On anticoagulation with Coumadin. On Lovenox bridge. Chronic CHF with systolic dysfunction ejection fraction 35-40% Nonsustained ventricular tachycardia and atrial tachycardia. Acute blood loss anemia likely from surgery. Hemoglobin is stable now. Possible pneumonia Hypertension Hyperlipidemia Chronic incontinence of urine and stool History of CVA currently wheelchair-bound Metabolic acidosis Hypoalbuminemia Hospital course This is a pleasant 57-year-old male past medical history significant for chronic persistent atrial fibrillation, CVA, ischemic cardiomyopathy in the past with EF 35-40%, hyperetnsion, dyslipidemia and is wheelchair/bed bound since his CVA. He is admitted to the hospital with small bowel obstruction 2018 and has since undergone colectomy with colostomy creation per Dr. Thorne. 04/14/2018 Patient is currently awake and alert and feels very weak. NG tube has been removed. Patient was started on clear liquids. Continued on TPN. Patient was seen by cardiology due to nonsustained V. tach. No fever no chills. Patient does complain of cough without much sputum production. No nausea vomiting. Colostomy back containing stool and is also gas. Currently being continued on antibiotic support Unasyn. No other acute overnight issues. 04/15/2018 Patient is more awake and alert and oriented. Started tolerating diet. Otherwise hemoglobin level is 7.2 today. Cardiology and General surgery is following. Heart rate is controlled. PT OT will be consulted and encourage ambulation and incentive spirometry. No other acute overnight issues. 04/16/2018 Patient is awake and oriented. Tolerating oral diet and stool noted in the colostomy back. Hemoglobin is stable with level VIII.2 today. No nausea vomiting. TPN was discontinued. Patient is being continued on anticoagulation with Lovenox subcu currently. Patient will be restarted on Coumadin once cleared by general surgery. PTOT will be continued and possible transfer to [facility] tomorrow. 04/17/2018 Patient is hemodynamically stable. Colostomy bag is functioning well. Tolerating oral diet. Hemoglobin is fairly stable. Will be started on warfarin with Lovenox bridge for paroxysmal atrial fibrillation. Otherwise patient is being continued on PT OT and transfer back to residential. Patient is status post surgery. continued on antibiotics in the form of Unasyn and Flagyl in the hospital. Changed to Augmentin for weeks as per ID recommendations.. Hemoglobin is fairly stable. Encourage oral intake and PTOT. Incentive spirometry.. Cardiology and ID has seen the patient. Patient is currently tolerating oral diet. Patient did have stool in the colostomy bag. Patient will be continued on PT OT and can be transferred to rehabilitation. PHYSICAL EXAMINATION: Patient is lying in the bed comfortably, no acute distress, awake alert and oriented. Patient generally weak.. HEENT: Normocephalic. Neck is supple. Pupils reactive. Nostrils clear. Oral cavity is moist. Ears reveal no drainage. Neck reveals no JVD, carotid bruits, or thyromegaly. CHEST EXAMINATION: Trachea is central. Symmetrical expansion. Lung so clear to auscultation and percussion. CARDIAC: Normal S1, S2 with no gallops. No murmurs ABDOMEN: Soft. Bowel sounds is in. Colostomy bag contains stool and no distention.. No organomegaly. No abdominal bruits. Extremities: reveal no edema. No clubbing or cyanosis Neurologically awake, alert, oriented x3 with well-coordinated movements. No focal deficits noted Skin: No rash or skin lesions. Psychiatric: Coperative. Nonsuicidal Musculoskeletal: No joint swelling or deformity. Normal range of motion. Vital Signs 04/17/18 14:30 Temperature 98.6 F Pulse Rate [ 85 Pulse Oximetery ] Blood Pressure 107/63 [Left Arm] O2 Sat by Pulse 99 Oximetry Time taken greater than 35 minutes which includes more than 50% for counseling and coordination of care. Patient Condition at Discharge: Poor Plan - Discharge Summary Discharge Rx Participant: No New Discharge Prescriptions: New Amoxicillin/Potassium Clav [Augmentin 875-125 Tablet] 1 tab PO Q12HR 7 Days # 14 tab Enoxaparin [Lovenox] 100 mg SQ DAILY 7 Days #7 syringe Continue Atorvastatin [Lipitor] 20 mg PO HS@2100 Lisinopril [Prinivil] 5 mg PO DAILY@0900 Carvedilol [Coreg] 3.125 mg PO BID@0900,2100 Aspirin [Adult Low Dose Aspirin EC] 81 mg PO DAILY@0900 Acetaminophen Tab [Tylenol] 650 mg PO Q6HR PRN tab PRN Reason: Mild Pain Or Fever > 100.5 Ferrous Sulfate [Iron (65 MG Elemental)] 325 mg PO DAILY@0900 Sennosides [Senna] 8.6 mg PO DAILY PRN PRN Reason: Constipation Tamsulosin [Flomax] 0.4 mg PO DAILY@0900 Mirtazapine 7.5 mg PO HS@2100 #3 tablet Changed Warfarin [Coumadin] 2.5 mg PO DAILY #30 Discontinued Enema 1 applic RECTAL HS@2100 Cephalexin [Keflex] 500 mg PO Q6HR #40 cap Discharge Medication List Aspirin [Adult Low Dose Aspirin EC] 81 mg PO DAILY@0900 04/08/17 [History] Atorvastatin [Lipitor] 20 mg PO HS@2100 04/08/17 [History] Carvedilol [Coreg] 3.125 mg PO BID@0900,2100 04/08/17 [History] Lisinopril [Prinivil] 5 mg PO DAILY@0900 04/08/17 [History] Acetaminophen Tab [Tylenol] 650 mg PO Q6HR PRN tab 04/11/17 [Rx] Ferrous Sulfate [Iron (65 MG Elemental)] 325 mg PO DAILY@0900 03/25/18 [History] Sennosides [Senna] 8.6 mg PO DAILY PRN 03/25/18 [History] Tamsulosin [Flomax] 0.4 mg PO DAILY@0903/25/18 [History] Mirtazapine 7.5 mg PO HS@2100 #3 tablet 03/30/18 [Rx] Amoxicillin/Potassium Clav [Augmentin 875-125 Tablet] 1 tab PO Q12HR 7 Days #14 tab 04/17/18 [Rx] Enoxaparin [Lovenox] 100 mg SQ DAILY 7 Days #7 syringe 04/17/18 [Rx] Warfarin [Coumadin] 2.5 mg PO DAILY #30 04/17/18 [Rx] Follow up Appointment(s)/Referral(s): Shemar Thorne DO [Doctor of Osteopathic Medicine] - 04/27/18 1:30 pm Skip Arellano MD [Primary Care Provider] - 1-2 days Kameron Nur MD [STAFF PHYSICIAN] - 05/01/18 1:45 pm Patient Instructions/Handouts: Ileostomy Care (GEN) Activity/Diet/Wound Care/Special Instructions: [facility] Recommendations for transition to [facility]: Last Appliance Change: 04.16.2018 Mr Hamilton will have the following ileostomy products for ECF care on discharge Convatec flange #[id number] (three form the hospital) Convatec Pouches with filter #[id number] (three from the hospital) No sting prep pads (12) from the hospital Osotmy powder (one) Fistula care to left abdominal quadrant dry, nonadherant dressing and change as needed Change ostomy pouching system every 3-5 days Empty ostomy pouching system when 1/2 to 1/3 full Pack LLQ wound with iodform gauze daily and cover with dry dressing Low fiber diet Tiffany out in office at follow up with Dr Thorne Discharge Disposition: TRANSFER TO SNF/ECF
[2018-04-17 17:17] LABS: Prothrombin Time 10.6 sec (9.0-12.0)
[2018-04-17 18:47] LABS: Prothrombin Time 10.7 sec (9.0-12.0)
[2018-04-17] MEDS ORDERED: FAMOTIDINE 20 MG TAB PO SCH (21:00)
== END 2018-04-17 19:20 | DRG 329 ==
LOC: EC 02:54 → 4SSUR 06:19
PROVIDERS: ADMIT Hospitalist; ATTEND Hospitalist
PROC: 0DTN0ZZ Resection of Sigmoid Colon, Open Approach (ICD-10-PCS; principal; 2018-04-09 12:00)
PROC: 0DBH0ZZ Excision of Cecum, Open Approach (ICD-10-PCS; principal; 2018-04-09 12:00)
PROC: 0DBB0ZZ Excision of Ileum, Open Approach (ICD-10-PCS; principal; 2018-04-09 12:00)
PROC: 0D1B0Z4 Bypass Ileum to Cutaneous, Open Approach (ICD-10-PCS; principal; 2018-04-09 12:00)
PROC: 02HV33Z Insertion of Infusion Device into Superior Vena Cava, Percutaneous Approach (ICD-10-PCS; 2018-04-13)
DX: K56.609 Unspecified intestinal obstruction, unspecified as to partial versus complete obstruction (principal); K63.1 Perforation of intestine (nontraumatic); K65.1 Peritoneal abscess; J18.9 Pneumonia, unspecified organism; K63.2 Fistula of intestine; D62 Acute posthemorrhagic anemia; E87.2 Acidosis; I47.1 Supraventricular tachycardia; I47.2 Ventricular tachycardia; I48.1 Persistent atrial fibrillation; I50.22 Chronic systolic (congestive) heart failure; E78.5 Hyperlipidemia, unspecified; E88.09 Other disorders of plasma-protein metabolism, not elsewhere classified; F32.9 Major depressive disorder, single episode, unspecified; I11.0 Hypertensive heart disease with heart failure; I25.2 Old myocardial infarction; I25.5 Ischemic cardiomyopathy; I48.0 Paroxysmal atrial fibrillation; I48.2 Chronic atrial fibrillation; K21.9 Gastro-esophageal reflux disease without esophagitis; R32 Unspecified urinary incontinence; R15.9 Full incontinence of feces; Z74.01 Bed confinement status; Z79.01 Long term (current) use of anticoagulants; Z79.82 Long term (current) use of aspirin; Z79.899 Other long term (current) drug therapy; Z82.49 Family history of ischemic heart disease and other diseases of the circulatory system; Z86.73 Personal history of transient ischemic attack (TIA), and cerebral infarction without residual deficits; Z87.891 Personal history of nicotine dependence; Z99.3 Dependence on wheelchair; B96.4 Proteus (mirabilis) (morganii) as the cause of diseases classified elsewhere; B96.20 Unspecified Escherichia coli [E. coli] as the cause of diseases classified elsewhere
CPT/HCPCS: 36415; 36573; 71045; 71046; 74018; 74176; 80048; 80053; 81001; 82040; 82330; 82550; 82553; 83036; 83605; 83735; 84100; 84443; 84478; 84484; 85025; 85027; 85610; 85730; 86850; 86900; 86901; 86920; 88307; 93005; 93306; 96361; 96365; 96366; 96374; 96375; 99285

== ENCOUNTER 2018-04-23 13:15 | Inpatient (IN) | payer OTHER ==
[2018-04-23] MEDS ORDERED: SODIUM CHLORIDE 0.9% 500 ML 500 ML IV STA (13:52)
[2018-04-23 14:18] LABS: Albumin 4.2 g/dL (3.5-5.0); Calcium 9.1 mg/dL (8.4-10.2); Magnesium 2.6 mg/dL (1.6-2.3); Total Bilirubin 1.2 mg/dL (0.2-1.3); Total Protein 8.3 g/dL (6.3-8.2)
[2018-04-23 14:19] LABS: INR 1.7 (<1.2); Prothrombin Time 16.7 sec (9.0-12.0)
[2018-04-23 14:20] LABS: Partial Thromboplastin Time 34.9 sec (22.0-30.0)
[2018-04-23 14:21] LABS: Anisocytosis Slight; Basophils # (A) 0.1 k/uL (0-0.2); Basophils % (A) 1 %; Eosinophils # (A) 0.1 k/uL (0-0.7); Eosinophils % (A) 1 %; HCT 35.7 % (39.0-53.0); HGB 10.9 gm/dL (13.0-17.5); Hypochromasia Moderate; Lymphocytes # (A) 0.9 k/uL (1.0-4.8); Lymphocytes % (A) 9 %; MCH 25.7 pg (25.0-35.0); MCHC 30.4 g/dL (31.0-37.0); MCV 84.4 fL (80.0-100.0); Mean Platelet Volume 8.7; Monocytes # (A) 0.6 k/uL (0-1.0); Monocytes % (A) 5 %; Neutrophils # (A) 8.9 k/uL (1.3-7.7); Neutrophils % (A) 83 %; Platelet Count 632 k/uL (150-450); RBC 4.23 m/uL (4.30-5.90); RDW 19.7 % (11.5-15.5); WBC 10.7 k/uL (3.8-10.6)
[2018-04-23 14:22] LABS: Lactic Acid, Venous 2.5 mmol/L (0.7-2.0)
--- NOTE | 2018-04-23 14:29 | XR ---
EXAMINATION TYPE: XR chest 2V DATE OF EXAM: 04/23/2018 COMPARISON: 04/14/2018 HISTORY: 57-year-old male with weakness TECHNIQUE: AP and lateral views FINDINGS: Heart normal size. Aorta and coronary vasculature within normal limits. No consolidation or pleural e ffusion. IMPRESSION: No acute cardiopulmonary process.
[2018-04-23 14:35] LABS: Potassium 6.4 mmol/L (3.5-5.1)
[2018-04-23 14:36] LABS: Phosphorus 10.3 mg/dL (2.5-4.5)
[2018-04-23 14:39] LABS: Ionized Calcium 4.6 mg/dL (4.5-5.3)
--- NOTE | 2018-04-23 14:41 | ED ---
General Adult HPI - General Chief complaint: Weakness Stated complaint: altered Time Seen by Provider: 04/23/18 13:30 Source: patient Mode of arrival: EMS Limitations: no limitations - History of Present Illness Initial comments: Dictation was produced using [employer] dictation software. please excuse any grammatical, word or spelling errors. Chief Complaint: Patient is a 57-year-old male with multiple comorbidities sent in from [facility] for generalized weakness and low blood pressure. History of Present Illness: It is a 57-year-old male transferred via EMS from [facility] for generalized weakness and low blood pressure. Carotid chart review patient recently had ileostomy done. Patient is a poor historian at this time however he does not have any complaints. Patient is a selective code which is established that patient is to hospitalization however no aggressive interventions requested. Coronary EMS patient had low blood pressure. EMS was also called for generalized weakness. The ROS documented in this emergency department record has been reviewed and confirmed by me. Those systems with pertinent positive or negative responses have been documented in the HPI. All other systems are other negative and/or noncontributory. PHYSICAL EXAM: General Impression: Alert and oriented x3, not in acute distress HEENT: Normocephalic atraumatic, extra-ocular movements intact, pupils equal and reactive to light bilaterally, mucous membranes moist. Cardiovascular: Heart regular rate and rhythm, S1&S2 audible, no murmurs, rubs or gallops Chest: Lungs clear to auscultation bilaterally, no rhonchi, no wheeze, no rales Abdomen: Bowel sounds present, abdomen soft, non-tender, non-distended, no organomegaly, ileostomy in place with well-appearing stoma Musculoskeletal: Pulses present and equal in all extremities, no peripheral edema Motor: no focal deficits noted Neurological: CN II-XII grossly intact, no focal motor or sensory deficits noted Skin: Intact with no visualized rashes Psych: Normal affect and mood ED course: 57-year-old male presents from nursing for generalized weakness vital signs upon arrival shows blood pressure 93/55, rest of vital signs within acceptable limits. Patient has no significant complaints at this time however he is not best historian. Family arrived later and reports that patient was sent in for generalized weakness. Laboratory evaluation obtained. A lucid dose to 10.7 likely secondary to stress. Rest of CBC is unremarkable. Coag panel shows some signs of coagulopathy. Potassium 6.4. Creatinine 7.69 BUN of 63. Lactic acidosis of 2.5, glucose 132. Rest of labs grossly unremarkable. Patient has no complaints at this time. Abdomen is soft. No significant tenderness. Patient is no code at this time however family is okay with medications at hospitalization. Patient be admitted to cardiac telemetry for acute kidney injury. Nephrology consultation. Patient given hyperkalemia cocktail. No EKG changes to suggest hyperkalemia at this time. Patient be admitted for serial potassium, intravenous fluids. EKG interpretation: Ventricular rate 107, sinus tachycardia,. 140, care is 84, QTC 475. No NC prolongation, no QTC prolongation, no ST or T-wave changes noted. . Overall, this EKG is unremarkable - Related Data Home Medications Medication Instructions Recorded Confirmed Aspirin [Adult Low Dose Aspirin EC] 81 mg PO DAILY 04/08/17 04/23/18 Atorvastatin [Lipitor] 20 mg PO HS 04/08/17 04/23/18 Carvedilol [Coreg] 3.125 mg PO BID 04/08/17 04/23/18 Lisinopril [Prinivil] 5 mg PO DAILY 04/08/17 04/23/18 Ferrous Sulfate [Iron (65 MG 325 mg PO DAILY 03/25/18 04/23/18 Elemental)] Sennosides [Senna] 8.6 mg PO DAILY PRN 03/25/18 04/23/18 Tamsulosin [Flomax] 0.4 mg PO DAILY 03/25/18 04/23/18 Clotrimazole Cream [Lotrimin Cream] 1 applic TOPICAL TID 04/23/18 04/23/18 Enoxaparin [Lovenox] 100 mg SQ HS 04/23/18 04/23/18 Warfarin [Coumadin] 2 mg PO SUSA 04/23/18 04/23/18 Warfarin [Coumadin] 3 mg PO [id number] 04/23/18 04/23/18 Previous Rx's Medication Instructions Recorded Acetaminophen Tab [Tylenol] 650 mg PO Q6HR PRN tab 04/11/17 Amoxicillin/Potassium Clav 1 tab PO Q12HR 7 Days #14 tab 04/17/18 [Augmentin 875-125 Tablet] Allergies Allergy/AdvReac Type Severity Reaction Status Date / Time No Known Allergies Allergy Verified 04/23/18 14:50 Review of Systems ROS Statement: Those systems with pertinent positive or pertinent negative responses have been documented in the HPI. ROS Other: All systems not noted in ROS Statement are negative. Past Medical History Past Medical History: Atrial Fibrillation, Heart Failure, CVA/TIA, Hyperlipidemia, Hypertension, Myocardial Infarction (NM) Additional Past Medical History / Comment(s): CVAs, TIA, ischemic cardiomyopathy , gait dysfunction/wheelchair bound, incontinent of urine/stool, Last Myocardial Infarction Date:: 2016 History of Any Multi-Drug Resistant Organisms: None Reported Additional Past Surgical History / Comment(s): left achilles tendon repair, colonoscopy Past Anesthesia/Blood Transfusion Reactions: No Reported Reaction Past Psychological History: Depression Smoking Status: Former smoker Past Alcohol Use History: None Reported Past Drug Use History: None Reported - Past Family History Mother Family Medical History: Congestive Heart Failure (CHF) Father Additional Family Medical History / Comment(s): Cirrhosis of the liver. General Exam Limitations: no limitations Course Vital Signs 04/23/18 04/23/18 04/23/18 13:19 13:21 14:00 Temperature 97.9 F Pulse Rate 110 H 100 Respiratory 14 18 Rate Blood Pressure 92/50 88/26 93/55 O2 Sat by Pulse 95 96 Oximetry 04/23/18 04/23/18 04/23/18 15:00 15:34 15:47 Temperature Pulse Rate 97 98 104 H Respiratory 15 Rate Blood Pressure 98/52 O2 Sat by Pulse 96 Oximetry 04/23/18 16:04 Temperature Pulse Rate 111 H Respiratory 24 Rate Blood Pressure 99/48 O2 Sat by Pulse 95 Oximetry Procedures - [place] Protocol (Time Out) Nurse: Gely Pugh Medical Decision Making - Lab Data Result diagrams: 04/23/18 13:48 04/23/18 13:48 Lab Results 04/23/18 04/23/18 04/23/18 Range/Units 13:48 13:48 13:48 WBC 10.7 H (3.8-10.6) k/uL RBC 4.23 L (4.30-5.90) m/uL Hgb 10.9 L (13.0-17.5) gm/dL Hct 35.7 L (39.0-53.0) % MCV 84.4 (80.0-100.0) fL MCH 25.7 (25.0-35.0) pg MCHC 30.4 L (31.0-37.0) g/dL RDW 19.7 H (11.5-15.5) % Plt Count 632 H (150-450) k/uL Neutrophils % 83 % Lymphocytes % 9 % Monocytes % 5 % Eosinophils % 1 % Basophils % 1 % Neutrophils # 8.9 H (1.3-7.7) k/uL Lymphocytes # 0.9 L (1.0-4.8) k/uL Monocytes # 0.6 (0-1.0) k/uL Eosinophils # 0.1 (0-0.7) k/uL Basophils # 0.1 (0-0.2) k/uL Hypochromasia Moderate Anisocytosis Slight PT (9.0-12.0) sec INR (<1.2) APTT (22.0-30.0) sec Sodium 138 (137-145) mmol/L Potassium 6.4 H* (3.5-5.1) mmol/L Chloride 99 (98-107) mmol/L Carbon Dioxide 21 L (22-30) mmol/L Anion Gap 18 mmol/L BUN 63 H (9-20) mg/dL Creatinine 7.69 H* (0.66-1.25) mg/dL Est GFR (CKD-EPI)AfAm 8 (>60 ml/min/1.73 sqM) Est GFR (CKD-EPI)NonAf 7 (>60 ml/min/1.73 sqM) Glucose 132 H (74-99) mg/dL Plasma Lactic Acid Kb (0.7-2.0) mmol/L Calcium 9.1 (8.4-10.2) mg/dL Ionized Calcium Finn 4.6 (4.5-5.3) mg/dL Phosphorus 10.3 H* (2.5-4.5) mg/dL Magnesium 2.6 H (1.6-2.3) mg/dL Total Bilirubin 1.2 (0.2-1.3) mg/dL AST 37 (17-59) U/L ALT 56 (21-72) U/L Alkaline Phosphatase 124 (38-126) U/L Ammonia (<30) umol/L Total Creatine Kinase 43 L (55-170) U/L CK-MB (CK-2) 1.1 (0.0-2.4) ng/mL CK-MB (CK-2) Rel Index 2.6 Troponin I 0.021 (0.000-0.034) ng/mL NT-Pro-B Natriuret Pep pg/mL Total Protein 8.3 H (6.3-8.2) g/dL Albumin 4.2 (3.5-5.0) g/dL TSH 4.940 H (0.465-4.680) mIU/L 04/23/18 04/23/18 04/23/18 Range/Units 13:48 13:48 13:48 WBC (3.8-10.6) k/uL RBC (4.30-5.90) m/uL Hgb (13.0-17.5) gm/dL Hct (39.0-53.0) % MCV (80.0-100.0) fL MCH (25.0-35.0) pg MCHC (31.0-37.0) g/dL RDW (11.5-15.5) % Plt Count (150-450) k/uL Neutrophils % % Lymphocytes % % Monocytes % % Eosinophils % % Basophils % % Neutrophils # (1.3-7.7) k/uL Lymphocytes # (1.0-4.8) k/uL Monocytes # (0-1.0) k/uL Eosinophils # (0-0.7) k/uL Basophils # (0-0.2) k/uL Hypochromasia Anisocytosis PT 16.7 H (9.0-12.0) sec INR 1.7 H (<1.2) APTT 34.9 H (22.0-30.0) sec Sodium (137-145) mmol/L Potassium (3.5-5.1) mmol/L Chloride (98-107) mmol/L Carbon Dioxide (22-30) mmol/L Anion Gap mmol/L BUN (9-20) mg/dL Creatinine (0.66-1.25) mg/dL Est GFR (CKD-EPI)AfAm (>60 ml/min/1.73 sqM) Est GFR (CKD-EPI)NonAf (>60 ml/min/1.73 sqM) Glucose (74-99) mg/dL Plasma Lactic Acid Kb 2.5 H* (0.7-2.0) mmol/L Calcium (8.4-10.2) mg/dL Ionized Calcium Finn (4.5-5.3) mg/dL Phosphorus (2.5-4.5) mg/dL Magnesium (1.6-2.3) mg/dL Total Bilirubin (0.2-1.3) mg/dL AST (17-59) U/L ALT (21-72) U/L Alkaline Phosphatase (38-126) U/L Ammonia 10 (<30) umol/L Total Creatine Kinase (55-170) U/L CK-MB (CK-2) (0.0-2.4) ng/mL CK-MB (CK-2) Rel Index Troponin I (0.000-0.034) ng/mL NT-Pro-B Natriuret Pep 519 pg/mL Total Protein (6.3-8.2) g/dL Albumin (3.5-5.0) g/dL TSH (0.465-4.680) mIU/L Disposition Clinical Impression: Acute renal failure Disposition: ADMITTED IP TO THIS HOSP Condition: Critical Referrals: Skip Arellano MD [Primary Care Provider] - 1-2 days Decision Time: 16:46
[2018-04-23 14:42] LABS: Creatine Kinase MB 1.1 ng/mL (0.0-2.4); Troponin I 0.021 ng/mL (0.000-0.034)
[2018-04-23] MEDS ORDERED: INSULIN REGULAR 100 UNIT/ML VIAL IV ONE (15:17)
[2018-04-23] MEDS ORDERED: ALBUTEROL NEB (CONC) 2.5 MG/0.5 ML INHALATION ONE (15:17)
[2018-04-23] MEDS ORDERED: SODIUM BICARB 8.4% 50 ML SYR (1 MEQ/ML) IV ONE (15:17)
[2018-04-23] MEDS ORDERED: DEXTROSE 5% IN WATER 1,000 ML with SODIUM BICARB (1 MEQ/ML) 150 ML IV ONE (15:17)
[2018-04-23] MEDS ORDERED: DEXTROSE 50%-WATER 50 ML SYRINGE IVP ONE (15:17)
[2018-04-23] MEDS ORDERED: ACETAMINOPHEN TAB 325 MG TAB PO PRN (16:39)
[2018-04-23] MEDS ORDERED: NALOXONE 0.4 MG/ML 1 ML VIAL IV PRN (16:39)
[2018-04-23] MEDS ORDERED: WARFARIN 2 MG TAB PO ONE (21:15)
[2018-04-23] MEDS: SODIUM CHLORIDE 0.9% 1,000 ML IV SCH ×3 (22:15→23:35)
[2018-04-23 22:22] LABS: Amorphous Sediment,Urine Occasional /hpf; Appearance,Urine Turbid (Clear); Bilirubin,Urine Negative (Negative); Blood,Urine Moderate (Negative); Color,Urine Light Red; Glucose,Urine (UA) 1+ (Negative); Hyaline Casts,Urine 4 /lpf (0-2); Ketones,Urine Trace (Negative); Leukocyte Esterase,Urine Trace (Negative); Nitrite,Urine Negative (Negative); PH, Urine 5.5 (5.0-8.0); Protein,Urine 2+ (Negative); RBC,Urine 6 /hpf (0-5); Specific Gravity,Urine 1.022 (1.001-1.035); WBC,Urine 2 /hpf (0-5)
[2018-04-23] MEDS: CARVEDILOL 3.125 MG TAB PO SCH (22:30)
[2018-04-23] MEDS: CLOTRIMAZOLE 1% CREAM 15 GM TUBE TOPICAL SCH (22:42)
[2018-04-23] MEDS: LINEZOLID 600 MG in DEXTROSE/WATER 1 300ML.BAG IVPB SCH (22:42)
--- NOTE | 2018-04-23 23:32 | P.HPIM ---
History of Present Illness this is a pleasant 57 yo M History of CVA currently wheelchair-bound, HTN, HLP, ventricular tachycardia, s/p ileostomy after bowel obstruction, chronic incontinence of urine and stool. sent in from shelter for generalized weakness and low blood pressure. pt is poor historian and could not provide much history , he was can answer with one or two words, he follow commands appropriately but he looks tired and tachypneic and he had difficultly finishing his sentence. pt was pointing to his bladder when asked what he is complaining of , he has ileostomy bag filled with dark green liquid stool . pt looks dehydrated. however he denies pain , however he has excoriated skin on the buttocks, on both sides, on presentation he has acute renal failure with acute renal failure , creatinine 7.6, baseline 0.6 to 0.7 , pt is high risk for infection , horn culture was sent. on presentation he was tachycardic, and hypotensive, he got one liter of fluid in ED, his lactic acide initially 2.5 went up to 4.0. his potassium 6.4 went down to 4.9. EKG: sinus tachycardia, CXR: no acute process as per radiology . Review of Systems N/A Past Medical History Past Medical History: Atrial Fibrillation, Heart Failure, CVA/TIA, Hyperlipidemia, Hypertension, Myocardial Infarction ([place]) Additional Past Medical History / Comment(s): CVAs, TIA, ischemic cardiomyopathy , gait dysfunction/wheelchair bound, incontinent of urine/stool, Last Myocardial Infarction Date:: 2016 History of Any Multi-Drug Resistant Organisms: None Reported Additional Past Surgical History / Comment(s): left achilles tendon repair, colonoscopy Past Anesthesia/Blood Transfusion Reactions: No Reported Reaction Smoking Status: Former smoker - Past Family History Mother Family Medical History: Congestive Heart Failure (CHF) Father Additional Family Medical History / Comment(s): Cirrhosis of the liver. Medications and Allergies Home Medications Medication Instructions Recorded Confirmed Type RX: Aspirin [Adult Low Dose 81 mg PO DAILY 04/08/17 04/23/18 History Aspirin EC] RX: Atorvastatin [Lipitor] 20 mg PO HS 04/08/17 04/23/18 History RX: Carvedilol [Coreg] 3.125 mg PO BID 04/08/17 04/23/18 History RX: Lisinopril [Prinivil] 5 mg PO DAILY 04/08/17 04/23/18 History RX: Acetaminophen Tab [Tylenol] 650 mg PO Q6HR PRN tab 04/11/17 04/23/18 Rx RX: Ferrous Sulfate [Iron (65 MG 325 mg PO DAILY 03/25/18 04/23/18 History Elemental)] RX: Sennosides [Senna] 8.6 mg PO DAILY PRN 03/25/18 04/23/18 History RX: Tamsulosin [Flomax] 0.4 mg PO DAILY 03/25/18 04/23/18 History Amoxicillin/Potassium Clav 1 tab PO Q12HR 7 Days #14 tab 04/17/18 04/23/18 Rx [Augmentin 875-125 Tablet] Clotrimazole Cream [Lotrimin Cream] 1 applic TOPICAL TID 04/23/18 04/23/18 History RX: Enoxaparin [Lovenox] 100 mg SQ HS 04/23/18 04/23/18 History Warfarin [Coumadin] 2 mg PO SUSA 04/23/18 04/23/18 History Warfarin [Coumadin] 3 mg PO MOTUWETHFR 04/23/18 04/23/18 History Allergies Allergy/AdvReac Type Severity Reaction Status Date / Time No Known Allergies Allergy Verified 04/23/18 14:50 Physical Exam Vitals: Vital Signs Temp Pulse Pulse Resp BP BP Pulse Ox 04/23/18 20:00 97 18 04/23/18 17:45 96.8 F L 112 H 18 88/40 91 L 04/23/18 17:00 97.9 F 105 H 20 100/50 95 04/23/18 16:04 111 H 24 99/48 95 04/23/18 16:00 109 H 18 99/48 96 04/23/18 15:47 104 H 04/23/18 15:34 98 04/23/18 15:00 97 15 98/52 96 04/23/18 14:00 100 18 93/55 96 04/23/18 13:21 88/26 04/23/18 13:19 97.9 F 110 H 14 92/50 95 Intake and Output 04/23/18 04/23/18 04/24/18 14:59 22:59 06:59 Intake Total 100 Output Total 180 Balance -80 Intake: Intake, IV Titration 100 Amount Dextrose 5% in Water 1, 100 000 ml @ 100 mls/hr IV . [id number] ONE with Sodium Bicarb (1 Meq/ml) 150 ml Rx#:[id number] Output: Stool 180 Other: Weight 63.503 kg -GENERAL: The patient is weak and lethargic , he is awake and follow command appropriately, dehydrated HEENT: Pupils are round and equally reacting to light. EOMI. No scleral icterus. No conjunctival pallor. Normocephalic, atraumatic. No pharyngeal erythema. No thyromegaly. CARDIOVASCULAR: S1 and S2 present. No murmurs, rubs, or gallops. PULMONARY: Chest is clear to auscultation, no wheezing or crackles. -ABDOMEN: Soft, nontender, nondistended, normoactive bowel sounds. No palpable organomegaly. lower abd ileostomy tube MUSCULOSKELETAL: No joint swelling or deformity. EXTREMITIES: No cyanosis, clubbing, or pedal edema. NEUROLOGICAL: Gross neurological examination did not reveal any focal deficits. SKIN: No rashes. Results CBC & Chem 7: 04/23/18 13:48 04/23/18 17:35 Labs: Abnormal Lab Results - Last 24 Hours (Table) 04/23/18 04/23/18 04/23/18 Range/Units 13:48 13:48 13:48 WBC 10.7 H (3.8-10.6) k/uL RBC 4.23 L (4.30-5.90) m/uL Hgb 10.9 L (13.0-17.5) gm/dL Hct 35.7 L (39.0-53.0) % MCHC 30.4 L (31.0-37.0) g/dL RDW 19.7 H (11.5-15.5) % Plt Count 632 H (150-450) k/uL Neutrophils # 8.9 H (1.3-7.7) k/uL Lymphocytes # 0.9 L (1.0-4.8) k/uL PT (9.0-12.0) sec INR (<1.2) APTT (22.0-30.0) sec Potassium 6.4 H* (3.5-5.1) mmol/L Carbon Dioxide 21 L (22-30) mmol/L BUN 63 H (9-20) mg/dL Creatinine 7.69 H* (0.66-1.25) mg/dL Glucose 132 H (74-99) mg/dL Plasma Lactic Acid Kb (0.7-2.0) mmol/L Phosphorus 10.3 H* (2.5-4.5) mg/dL Magnesium 2.6 H (1.6-2.3) mg/dL Total Creatine Kinase 43 L (55-170) U/L Total Protein 8.3 H (6.3-8.2) g/dL TSH 4.940 H (0.465-4.680) mIU/L Urine Protein (Negative) Urine Glucose (UA) (Negative) Urine Ketones (Negative) Urine Blood (Negative) Ur Leukocyte Esterase (Negative) Urine RBC (0-5) /hpf Amorphous Sediment (None) /hpf Hyaline Casts (0-2) /lpf 04/23/18 04/23/18 04/23/18 Range/Units 13:48 13:48 17:35 WBC (3.8-10.6) k/uL RBC (4.30-5.90) m/uL Hgb (13.0-17.5) gm/dL Hct (39.0-53.0) % MCHC (31.0-37.0) g/dL RDW (11.5-15.5) % Plt Count (150-450) k/uL Neutrophils # (1.3-7.7) k/uL Lymphocytes # (1.0-4.8) k/uL PT 16.7 H (9.0-12.0) sec INR 1.7 H (<1.2) APTT 34.9 H (22.0-30.0) sec Potassium (3.5-5.1) mmol/L Carbon Dioxide (22-30) mmol/L BUN (9-20) mg/dL Creatinine (0.66-1.25) mg/dL Glucose (74-99) mg/dL Plasma Lactic Acid Kb 2.5 H* 4.0 H* (0.7-2.0) mmol/L Phosphorus (2.5-4.5) mg/dL Magnesium (1.6-2.3) mg/dL Total Creatine Kinase (55-170) U/L Total Protein (6.3-8.2) g/dL TSH (0.465-4.680) mIU/L Urine Protein (Negative) Urine Glucose (UA) (Negative) Urine Ketones (Negative) Urine Blood (Negative) Ur Leukocyte Esterase (Negative) Urine RBC (0-5) /hpf Amorphous Sediment (None) /hpf Hyaline Casts (0-2) /lpf 04/23/18 Range/Units 21:56 WBC (3.8-10.6) k/uL RBC (4.30-5.90) m/uL Hgb (13.0-17.5) gm/dL Hct (39.0-53.0) % MCHC (31.0-37.0) g/dL RDW (11.5-15.5) % Plt Count (150-450) k/uL Neutrophils # (1.3-7.7) k/uL Lymphocytes # (1.0-4.8) k/uL PT (9.0-12.0) sec INR (<1.2) APTT (22.0-30.0) sec Potassium (3.5-5.1) mmol/L Carbon Dioxide (22-30) mmol/L BUN (9-20) mg/dL Creatinine (0.66-1.25) mg/dL Glucose (74-99) mg/dL Plasma Lactic Acid Kb (0.7-2.0) mmol/L Phosphorus (2.5-4.5) mg/dL Magnesium (1.6-2.3) mg/dL Total Creatine Kinase (55-170) U/L Total Protein (6.3-8.2) g/dL TSH (0.465-4.680) mIU/L Urine Protein 2+ H (Negative) Urine Glucose (UA) 1+ H (Negative) Urine Ketones Trace H (Negative) Urine Blood Moderate H (Negative) Ur Leukocyte Esterase Trace H (Negative) Urine RBC 6 H (0-5) /hpf Amorphous Sediment Occasional H (None) /hpf Hyaline Casts 4 H (0-2) /lpf Thrombosis Risk Factor Assmnt - Choose All That Apply Any of the Below Risk Factors Present?: Yes Other congenital or acquired thrombophilia - If yes, enter type in comment: Yes Each Risk Factor Represents 5 Points: Major surgery lasting over 3 hours Thrombosis Risk Factor Assessment Total Risk Factor Score: 5 Thrombosis Risk Factor Assessment Level: High Risk Assessment and Plan Assessment: acute renal failure possible infection and sepsis loose stool , rule out c diff infection hypotension , and hypovolemia dehydration excoriation of the skin with possible cellulitis of the buttocks h/o small bowel obstruction followed by sigmoid colon , terminal ileum and cecal removal s/p ileostomy Paroxysmal atrial fibrillation. On anticoagulation with Coumadin. On Lovenox bridge. h/o Chronic CHF with systolic dysfunction ejection fraction 35-40% h/o Nonsustained ventricular tachycardia and atrial tachycardia. Hypertension Hyperlipidemia Chronic incontinence of urine and stool History of CVA currently wheelchair-bound Metabolic acidosis Hypoalbuminemia pt had DNR order. Plan: this is a 57 yo M who presents with sever dehydration , hypotension , renal failure and possible sepsis, pt was started on iv fluid , bolus is provided, horn -culure , start on emperic antibiotic to cover gram negative and gram positive bacteria, we will call ID consult to adjust antibiotic tomorrow. Labs and medication were reviewed.. Continue same treatment. Continue with symptomatic treatment. Resume home medication. Monitor lytes and vitals. DVT and GI prophylaxis. Further recommendations of the clinical course of the patient DVT prophylaxis: on warfarin GI Prophylaxis: Pepcid Prognosis is guarded
[2018-04-24] MEDS ORDERED: PIPERACILLIN-TAZOBACTAM 3.375 GM in SODIUM CHLORIDE 0.9% 100 ML IVPB SCH ×2
[2018-04-24] MEDS: PIPERACILLIN-TAZOBACTAM 3.375 GM in SODIUM CHLORIDE 0.9% 100 ML IVPB SCH ×2 (01:42→16:46)
[2018-04-24] MEDS: SODIUM CHLORIDE 0.9% 1,000 ML IV SCH ×3 (03:38→21:02)
[2018-04-24] MEDS ORDERED: FAMOTIDINE 20 MG/2 ML VIAL IV SCH (09:00)
[2018-04-24 11:03] LABS: INR 2.8 (<1.2); Prothrombin Time 26.9 sec (9.0-12.0)
[2018-04-24 11:12] LABS: Albumin 2.8 g/dL (3.5-5.0); Calcium 8.1 mg/dL (8.4-10.2); Potassium 4.9 mmol/L (3.5-5.1); Total Bilirubin 0.6 mg/dL (0.2-1.3)
[2018-04-24] MEDS: PANTOPRAZOLE 40 MG/10 ML VIAL IV SCH (11:40)
[2018-04-24] MEDS: LINEZOLID 600 MG in DEXTROSE/WATER 1 300ML.BAG IVPB SCH ×2 (11:40→20:56)
[2018-04-24] MEDS: FERROUS SULFATE 325 MG TAB PO SCH (11:40)
[2018-04-24] MEDS: TAMSULOSIN 0.4 MG CAP.ER.24H PO SCH (11:40)
[2018-04-24] MEDS: ASPIRIN 81 MG PO SCH (11:40)
[2018-04-24] MEDS: CARVEDILOL 3.125 MG TAB PO SCH ×2 (11:41→16:47)
[2018-04-24] MEDS: CLOTRIMAZOLE 1% CREAM 15 GM TUBE TOPICAL SCH ×3 (11:58→21:47)
--- NOTE | 2018-04-24 16:40 | P.GSCN ---
History of Present Illness Consult date: 04/24/18 History of present illness: This is a 57-year-old gentleman is very well known to my service recently underwent expiratory laparotomy with ileocecectomy and sigmoid resection with end ileostomy and mucous fistula formation. He was doing well and had been transferred back to [facility] when he was noted to be hypotensive and severely dehydrated. I could not find the exact records of how much output the last had been having daily [facility] however the patient states that they were emptying the bag multiple times during the day. Over the last 24 hours in the hospital is had 1500 mL out that is recorded. Past Medical History Past Medical History: Atrial Fibrillation, Heart Failure, CVA/TIA, Hyperlipidemia, Hypertension, Myocardial Infarction ([place]) Additional Past Medical History / Comment(s): CVAs, TIA, ischemic cardiomyopathy , gait dysfunction/wheelchair bound, incontinent of urine/stool, Last Myocardial Infarction Date:: 2016 History of Any Multi-Drug Resistant Organisms: None Reported Additional Past Surgical History / Comment(s): left achilles tendon repair, colonoscopy Past Anesthesia/Blood Transfusion Reactions: No Reported Reaction Smoking Status: Former smoker - Past Family History Mother Family Medical History: Congestive Heart Failure (CHF) Father Additional Family Medical History / Comment(s): Cirrhosis of the liver. Medications and Allergies Home Medications Medication Instructions Recorded Confirmed Type Aspirin [Adult Low Dose Aspirin EC] 81 mg PO DAILY 04/08/17 04/23/18 History Atorvastatin [Lipitor] 20 mg PO HS 04/08/17 04/23/18 History Carvedilol [Coreg] 3.125 mg PO BID 04/08/17 04/23/18 History Lisinopril [Prinivil] 5 mg PO DAILY 04/08/17 04/23/18 History Acetaminophen Tab [Tylenol] 650 mg PO Q6HR PRN tab 04/11/17 04/23/18 Rx Ferrous Sulfate [Iron (65 MG 325 mg PO DAILY 03/25/18 04/23/18 History Elemental)] Sennosides [Senna] 8.6 mg PO DAILY PRN 03/25/18 04/23/18 History Tamsulosin [Flomax] 0.4 mg PO DAILY 03/25/18 04/23/18 History Amoxicillin/Potassium Clav 1 tab PO Q12HR 7 Days #14 tab 04/17/18 04/23/18 Rx [Augmentin 875-125 Tablet] Clotrimazole Cream [Lotrimin Cream] 1 applic TOPICAL TID 04/23/18 04/23/18 History Enoxaparin [Lovenox] 100 mg SQ HS 04/23/18 04/23/18 History Warfarin [Coumadin] 2 mg PO SUSA 04/23/18 04/23/18 History Warfarin [Coumadin] 3 mg PO MOTUWETHFR 04/23/18 04/23/18 History Allergies Allergy/AdvReac Type Severity Reaction Status Date / Time No Known Allergies Allergy Verified 04/23/18 14:50 Surgical - Exam Osteopathic Statement: *. No significant issues noted on an osteopathic structural exam other than those noted in the History and Physical/Consult. Vital Signs Temp Pulse Resp BP Pulse Ox 97.9 F 110 H 14 92/50 95 04/23/18 13:19 04/23/18 13:19 04/23/18 13:19 04/23/18 13:19 04/23/18 13:19 - General well developed, well nourished, no distress - Eyes PERRL - Respiratory normal expansion, normal respiratory effort - Abdomen Ostomy and mucous fistula both pink and patent there is liquid stool and bile in the ileostomy Abdomen: soft, non tender - Neurologic normal coordination, normal sensation - Psychiatric oriented to time, oriented to person, oriented to place Results - Labs 04/23/18 13:48 04/24/18 10:38 Abnormal Lab Results - Last 24 Hours (Table) 04/23/18 04/23/18 04/24/18 Range/Units 17:35 21:56 10:28 PT 26.9 H (9.0-12.0) sec INR 2.8 H (<1.2) APTT 32.0 H (22.0-30.0) sec BUN (9-20) mg/dL Creatinine (0.66-1.25) mg/dL Plasma Lactic Acid Kb 4.0 H* (0.7-2.0) mmol/L Calcium (8.4-10.2) mg/dL Total Protein (6.3-8.2) g/dL Albumin (3.5-5.0) g/dL Urine Protein 2+ H (Negative) Urine Glucose (UA) 1+ H (Negative) Urine Ketones Trace H (Negative) Urine Blood Moderate H (Negative) Ur Leukocyte Esterase Trace H (Negative) Urine RBC 6 H (0-5) /hpf Amorphous Sediment Occasional H (None) /hpf Hyaline Casts 4 H (0-2) /lpf 04/24/18 Range/Units 10:38 PT (9.0-12.0) sec INR (<1.2) APTT (22.0-30.0) sec BUN 50 H (9-20) mg/dL Creatinine 3.64 H (0.66-1.25) mg/dL Plasma Lactic Acid Kb (0.7-2.0) mmol/L Calcium 8.1 L (8.4-10.2) mg/dL Total Protein 6.0 L (6.3-8.2) g/dL Albumin 2.8 L (3.5-5.0) g/dL Urine Protein (Negative) Urine Glucose (UA) (Negative) Urine Ketones (Negative) Urine Blood (Negative) Ur Leukocyte Esterase (Negative) Urine RBC (0-5) /hpf Amorphous Sediment (None) /hpf Hyaline Casts (0-2) /lpf Microbiology - Last 24 Hours (Table) 04/23/18 13:48 Blood Culture - Preliminary Blood No Growth after 24 hours 04/23/18 21:57 Gram Stain - Preliminary Buttock Wound Culture - Preliminary 04/23/18 21:56 Urine Culture - Preliminary Urine,Catheterized Diabetes panel 04/23/18 04/24/18 Range/Units 17:35 10:38 Sodium 137 (137-145) mmol/L Potassium 4.9 4.9 (3.5-5.1) mmol/L Chloride 104 (98-107) mmol/L Carbon Dioxide 25 (22-30) mmol/L BUN 50 H (9-20) mg/dL Creatinine 3.64 H (0.66-1.25) mg/dL Glucose 83 (74-99) mg/dL Calcium 8.1 L (8.4-10.2) mg/dL AST 27 (17-59) U/L ALT 44 (21-72) U/L Alkaline Phosphatase 84 (38-126) U/L Total Protein 6.0 L (6.3-8.2) g/dL Albumin 2.8 L (3.5-5.0) g/dL Calcium panel 04/24/18 Range/Units 10:38 Calcium 8.1 L (8.4-10.2) mg/dL Albumin 2.8 L (3.5-5.0) g/dL Pituitary panel 04/23/18 04/24/18 Range/Units 17:35 10:38 Sodium 137 (137-145) mmol/L Potassium 4.9 4.9 (3.5-5.1) mmol/L Chloride 104 (98-107) mmol/L Carbon Dioxide 25 (22-30) mmol/L BUN 50 H (9-20) mg/dL Creatinine 3.64 H (0.66-1.25) mg/dL Glucose 83 (74-99) mg/dL Calcium 8.1 L (8.4-10.2) mg/dL Adrenal panel 04/23/18 04/24/18 Range/Units 17:35 10:38 Sodium 137 (137-145) mmol/L Potassium 4.9 4.9 (3.5-5.1) mmol/L Chloride 104 (98-107) mmol/L Carbon Dioxide 25 (22-30) mmol/L BUN 50 H (9-20) mg/dL Creatinine 3.64 H (0.66-1.25) mg/dL Glucose 83 (74-99) mg/dL Calcium 8.1 L (8.4-10.2) mg/dL Total Bilirubin 0.6 (0.2-1.3) mg/dL AST 27 (17-59) U/L ALT 44 (21-72) U/L Alkaline Phosphatase 84 (38-126) U/L Total Protein 6.0 L (6.3-8.2) g/dL Albumin 2.8 L (3.5-5.0) g/dL Assessment and Plan Assessment: High output ileostomy, LYNDON Plan: I suspected the patient was having high output ileostomy at [facility] and this is what caused his dehydration and a LYNDON. Loperamide 4 mg 4 times a day can be started and titrated down. Goal is less than 1500 mL output daily. Continue with strict I's and O's, IV fluids, and supportive care. No plans for acute surgical intervention
--- NOTE | 2018-04-24 17:49 | P.PN ---
Subjective Progress Note Date: 04/24/18 57 yo M History of CVA currently wheelchair-bound, HTN, HLP, ventricular tachycardia, s/p ileostomy after bowel obstruction, chronic incontinence of urine and stool. sent in from [facility] for generalized weakness and low blood pressure. pt is poor historian and could not provide much history , he was can answer with one or two words, he follow commands appropriately but he looks tired and tachypneic and he had difficultly finishing his sentence. pt was pointing to his bladder when asked what he is complaining of , he has ileostomy bag filled with dark green liquid stool . pt looks dehydrated. however he denies pain , however he has excoriated skin on the buttocks, on both sides, on presentation he has acute renal failure with acute renal failure , creatinine 7.6, baseline 0.6 to 0.7 , pt is high risk for infection , horn culture was sent. on presentation he was tachycardic, and hypotensive, he got one liter of fluid in ED, his lactic acide initially 2.5 went up to 4.0. his potassium 6.4 went down to 4.9. EKG: sinus tachycardia, CXR: no acute process as per radiology . Objective - Vital Signs Vital signs: Vital Signs Temp 97.5 F L 04/24/18 08:00 Pulse 80 04/24/18 08:00 Resp 18 04/24/18 08:00 BP 93/54 04/24/18 08:00 Pulse Ox 100 04/24/18 08:00 Intake & Output 04/23/18 04/24/18 04/24/18 18:59 06:59 18:59 Intake Total 100 Output Total 1460 250 Balance 100 -1460 -250 Weight 63.503 kg 63.2 kg Intake: Intake, IV Titration 100 Amount Dextrose 5% in Water 1, 100 000 ml @ 100 mls/hr IV . [id number] ONE with Sodium Bicarb (1 Meq/ml) 150 ml Rx#:[id number] Output: Urine 400 Post Void Residual 200 Stool 860 250 Other: # Voids 1 - Exam The patient is weak and lethargic , he is awake and follow command appropriately , dehydrated HEENT: Pupils are round and equally reacting to light. EOMI. No scleral icterus. No conjunctival pallor. Normocephalic, atraumatic. No pharyngeal erythema. No thyromegaly. CARDIOVASCULAR: S1 and S2 present. No murmurs, rubs, or gallops. PULMONARY: Chest is clear to auscultation, no wheezing or crackles. -ABDOMEN: Soft, nontender, nondistended, normoactive bowel sounds. No palpable organomegaly. lower abd ileostomy tube MUSCULOSKELETAL: No joint swelling or deformity. EXTREMITIES: No cyanosis, clubbing, or pedal edema. NEUROLOGICAL: Gross neurological examination did not reveal any focal deficits. SKIN: No rashes. - Labs CBC & Chem 7: 04/23/18 13:48 04/24/18 10:38 Labs: Abnormal Lab Results - Last 24 Hours (Table) 04/23/18 04/23/18 04/23/18 Range/Units 13:48 13:48 13:48 WBC 10.7 H (3.8-10.6) k/uL RBC 4.23 L (4.30-5.90) m/uL Hgb 10.9 L (13.0-17.5) gm/dL Hct 35.7 L (39.0-53.0) % MCHC 30.4 L (31.0-37.0) g/dL RDW 19.7 H (11.5-15.5) % Plt Count 632 H (150-450) k/uL Neutrophils # 8.9 H (1.3-7.7) k/uL Lymphocytes # 0.9 L (1.0-4.8) k/uL PT (9.0-12.0) sec INR (<1.2) APTT (22.0-30.0) sec Potassium 6.4 H* (3.5-5.1) mmol/L Carbon Dioxide 21 L (22-30) mmol/L BUN 63 H (9-20) mg/dL Creatinine 7.69 H* (0.66-1.25) mg/dL Glucose 132 H (74-99) mg/dL Plasma Lactic Acid Kb (0.7-2.0) mmol/L Calcium (8.4-10.2) mg/dL Phosphorus 10.3 H* (2.5-4.5) mg/dL Magnesium 2.6 H (1.6-2.3) mg/dL Total Creatine Kinase 43 L (55-170) U/L Total Protein 8.3 H (6.3-8.2) g/dL Albumin (3.5-5.0) g/dL TSH 4.940 H (0.465-4.680) mIU/L Urine Protein (Negative) Urine Glucose (UA) (Negative) Urine Ketones (Negative) Urine Blood (Negative) Ur Leukocyte Esterase (Negative) Urine RBC (0-5) /hpf Amorphous Sediment (None) /hpf Hyaline Casts (0-2) /lpf 04/23/18 04/23/18 04/23/18 Range/Units 13:48 13:48 17:35 WBC (3.8-10.6) k/uL RBC (4.30-5.90) m/uL Hgb (13.0-17.5) gm/dL Hct (39.0-53.0) % MCHC (31.0-37.0) g/dL RDW (11.5-15.5) % Plt Count (150-450) k/uL Neutrophils # (1.3-7.7) k/uL Lymphocytes # (1.0-4.8) k/uL PT 16.7 H (9.0-12.0) sec INR 1.7 H (<1.2) APTT 34.9 H (22.0-30.0) sec Potassium (3.5-5.1) mmol/L Carbon Dioxide (22-30) mmol/L BUN (9-20) mg/dL Creatinine (0.66-1.25) mg/dL Glucose (74-99) mg/dL Plasma Lactic Acid Kb 2.5 H* 4.0 H* (0.7-2.0) mmol/L Calcium (8.4-10.2) mg/dL Phosphorus (2.5-4.5) mg/dL Magnesium (1.6-2.3) mg/dL Total Creatine Kinase (55-170) U/L Total Protein (6.3-8.2) g/dL Albumin (3.5-5.0) g/dL TSH (0.465-4.680) mIU/L Urine Protein (Negative) Urine Glucose (UA) (Negative) Urine Ketones (Negative) Urine Blood (Negative) Ur Leukocyte Esterase (Negative) Urine RBC (0-5) /hpf Amorphous Sediment (None) /hpf Hyaline Casts (0-2) /lpf 04/23/18 04/24/18 04/24/18 Range/Units 21:56 10:28 10:38 WBC (3.8-10.6) k/uL RBC (4.30-5.90) m/uL Hgb (13.0-17.5) gm/dL Hct (39.0-53.0) % MCHC (31.0-37.0) g/dL RDW (11.5-15.5) % Plt Count (150-450) k/uL Neutrophils # (1.3-7.7) k/uL Lymphocytes # (1.0-4.8) k/uL PT 26.9 H (9.0-12.0) sec INR 2.8 H (<1.2) APTT 32.0 H (22.0-30.0) sec Potassium (3.5-5.1) mmol/L Carbon Dioxide (22-30) mmol/L BUN 50 H (9-20) mg/dL Creatinine 3.64 H (0.66-1.25) mg/dL Glucose (74-99) mg/dL Plasma Lactic Acid Kb (0.7-2.0) mmol/L Calcium 8.1 L (8.4-10.2) mg/dL Phosphorus (2.5-4.5) mg/dL Magnesium (1.6-2.3) mg/dL Total Creatine Kinase (55-170) U/L Total Protein 6.0 L (6.3-8.2) g/dL Albumin 2.8 L (3.5-5.0) g/dL TSH (0.465-4.680) mIU/L Urine Protein 2+ H (Negative) Urine Glucose (UA) 1+ H (Negative) Urine Ketones Trace H (Negative) Urine Blood Moderate H (Negative) Ur Leukocyte Esterase Trace H (Negative) Urine RBC 6 H (0-5) /hpf Amorphous Sediment Occasional H (None) /hpf Hyaline Casts 4 H (0-2) /lpf Microbiology - Last 24 Hours (Table) 04/23/18 21:57 Gram Stain - Preliminary Buttock Wound Culture - Preliminary 04/23/18 21:56 Urine Culture - Preliminary Urine,Catheterized Assessment and Plan Assessment: 1. Acute renal failure - IV fluids normal saline at 100 mL an hour; monitor strict TARA's, daily weights , renal function and electrolytes - Avoid nephrotoxins and hypotension 2. Sepsis; possibly multifactorial; cellulitis of the buttocks area versus C. diff - Continue antibiotic treatment until culture results are available - ID consult in place and recommendations are pending 3. Cellulitis of the buttocks region; continue with IV Zosyn and Zyvox - Patient has been pancultured and results are pending 4. Dehydration; IV fluid resuscitation 5. Hypertension; currently hypotensive secondary to sepsis - Patient remains on Coreg 3.125 by mouth twice a day 6. Hyperlipidemia; Lipitor 20 mg daily at bedtime 7. Metabolic acidosis; secondary to sepsis versus renal failure; continue with IV fluid resuscitation and continue to monitor renal function and electrolytes 8. DVT prophylaxis; systemic anticoagulation with Coumadin CODE STATUS; DO NOT RESUSCITATE Time with Patient: Greater than 30
[2018-04-24] MEDS: LOPERAMIDE 2 MG CAP PO SCH ×2 (17:52→21:47)
[2018-04-24] MEDS: WARFARIN 3 MG TAB PO SCH (19:12)
[2018-04-24] MEDS: ATORVASTATIN 20 MG TAB PO SCH (20:31)
[2018-04-24] MEDS ORDERED: SODIUM CHLORIDE 0.9% 500 ML 500 ML IV ONE (20:34)
[2018-04-25] MEDS: CARVEDILOL 3.125 MG TAB PO SCH ×2 (06:25→16:10)
--- NOTE | 2018-04-25 07:53 | CONS ---
CONSULTATION DATE OF SERVICE: 04/24/2018. REASON FOR CONSULTATION: Lactic acidosis, sepsis and antibiotic recommendation. HISTORY OF PRESENT ILLNESS: The patient is a 57-year-old male who recently did underwent exploratory laparotomy with the ileocystectomy, sigmoid resection and ileostomy and mucous fistula formation. The patient was treated with IV Unasyn and on discharge to finish a short course of oral Augmentin. The patient now being sent back to the ER with concern for hypertension and weakness. The patient's family present at the bedside and did mention the patient not been eating or drinking anything. On arrival to the ER, the patient was hypertensive with a systolic down to 88/40 and however no fever was recorded or did have slight tachycardia. His white count has been normal. The patient noticed to have significant output but now specifically the patient denies having any abdominal pain or any nausea or vomiting. The patient denies having any chest pain or shortness of breath or cough. The patient has been admitted to the hospital. He was noticed to have significantly elevated BUN and creatinine. White count was normal. The patient was started on Zyvox and Zosyn. Infectious Disease was consulted for further recommendation regarding antibiotic therapy. REVIEW OF SYSTEMS: Positive points have been mentioned in HPI. Rest of the systems have been negative. PAST MEDICAL HISTORY: Atrial fibrillation, heart failure, CVA, TIA, hypertension, hyperlipidemia, AR, abdominal abscess and possible drainage of abdominal abscess, and tendon repair, colonoscopy, recent laparotomy with ileal cecectomy, sigmoid resection, mucous fistula formation and diverting ileostomy. SOCIAL HISTORY: Remote history of smoking. No drinking or drug use. Currently a resident of a shelter. FAMILY HISTORY: Mother with history of congestive heart failure. Father with history of liver cirrhosis. ALLERGIES: No known drug allergies. MEDICATION: The patient is on Coumadin, Flomax, Zosyn, Zyvox, Narcan, Imodium, iron sulfate, Lotrimin lotion, Coreg, Lipitor, aspirin and Tylenol. PHYSICAL EXAMINATION: Blood pressure is 85/47 with a pulse of 82. Temperature 97.9. He is 100% on room air. General description is a middle-aged male lying in bed in no distress. No tachypnea or accessory muscles of respiration use. HEENT: Shows slight pallor. No scleral icterus. Oral mucosal membranes are dry. No pharyngeal erythema or thrush. NECK: Trachea central. No thyromegaly. LUNGS: Unlabored breathing. Clear to auscultation anteriorly. No wheezing or crackles. Heart S1, S2. Regular rate and rhythm. ABDOMEN: Soft, no tenderness. No guarding or rigidity. Extremities: No edema of the feet. Skin examination: No rash or mass palpable. Neurological: Patient is awake and alert, oriented x2. Mood and affect normal. LABS: Hemoglobin is 10, white count 10.1, BUN of 50, creatinine 3.64. Admission creatinine was 7.69, lactic acid was elevated 4, now is down to 1.5. Stool for C difficile is negative. Urine is now positive. Chest x-ray reported no new infiltrate. DIAGNOSTIC IMPRESSION AND PLAN: Patient admitted to the hospital with hypertension, source is likely because of significant dehydration. This patient did have a high output ileostomy and his oral intake remains to be very poor. Clinically doubt any infectious etiology as currently with no clear focus of infection. The patient not running any fever. His white count is normal. Chest x-ray report negative. Urine was negative and his abdomen was soft on clinical examination. PLAN: 1. Discontinue the Zosyn and Zyvox as clinically doubt any evidence of bacterial infection and further antibiotic exposures can lead to worsening of his diarrhea. 2. Aggressive IV fluids and the patient has been started on Imodium with response to the same. 3. We will monitor the patient closely off antibiotic therapy. Thank you for this consultation. We will follow this patient along with you. The family was present at bedside. Their questions were answered. MMODL / IJN: [id number] /
--- NOTE | 2018-04-25 08:44 | P.NPCON ---
History of Present Illness - Reason for Consult Consult date: 04/25/18 acute renal failure - Chief Complaint Acute renal failure - History of Present Illness This is a 57-year-old male seen in consultation because of acute kidney injury. He was recently admitted on 04/04/2018 with small bowel obstruction and on 08/2018 underwent exploratory laparotomy with bowel obstruction, had perforation and underwent expiratory laparotomy with ileocecectomy and sigmoid resection with end ileostomy and mucous fistula formation. He also had an abscess with a appendiceal sigmoid fistula and an intra- abdominal abscess. He was discharged and came back with severe acute kidney injury with a creatinine of 7.69 as of 04/23/2018, 2 days ago. Creatinine is improved 3.64 as of yesterday.. The etiology of this is deemed to be from volume depletion, and low blood pressure, in the 80s systolic. His previous creatinines have been within normal range, last creatinine prior to this admission dated 04/17/2018 and 0.82. Further on admission his potassium was high, 6.4 with a mild degree of gap acidosis bicarb being 21 and gap being 18 lactic acid was 2.5. Phosphorus is high at 10.3. Urinalysis showed 2 + protein, 6 RBCs and 2 WBCs. His creatinine is improved to 3.6, his urine output is 2200 last 24 hours. He is on IV fluids 100 mL per hour of normal saline. He is awake alert but somewhat disoriented. Is known with ASHD, ejection fraction of 35% atrial fibrillation and is a [facility] resident. The cause of his mental status changes unclear Past Medical History Past Medical History: Atrial Fibrillation, Heart Failure, CVA/TIA, Hyperlipidemia, Hypertension, Myocardial Infarction (CO) Additional Past Medical History / Comment(s): CVAs, TIA, ischemic cardiomyopathy , gait dysfunction/wheelchair bound, incontinent of urine/stool, Last Myocardial Infarction Date:: 2016 History of Any Multi-Drug Resistant Organisms: None Reported Additional Past Surgical History / Comment(s): left achilles tendon repair, colonoscopy Past Anesthesia/Blood Transfusion Reactions: No Reported Reaction Smoking Status: Former smoker - Past Family History Mother Family Medical History: Congestive Heart Failure (CHF) Father Additional Family Medical History / Comment(s): Cirrhosis of the liver. Medications and Allergies Home Medications Medication Instructions Recorded Confirmed Type Aspirin [Adult Low Dose Aspirin EC] 81 mg PO DAILY 04/08/17 04/23/18 History Atorvastatin [Lipitor] 20 mg PO HS 04/08/17 04/23/18 History Carvedilol [Coreg] 3.125 mg PO BID 04/08/17 04/23/18 History Lisinopril [Prinivil] 5 mg PO DAILY 04/08/17 04/23/18 History Acetaminophen Tab [Tylenol] 650 mg PO Q6HR PRN tab 04/11/17 04/23/18 Rx Ferrous Sulfate [Iron (65 MG 325 mg PO DAILY 03/25/18 04/23/18 History Elemental)] Sennosides [Senna] 8.6 mg PO DAILY PRN 03/25/18 04/23/18 History Tamsulosin [Flomax] 0.4 mg PO DAILY 03/25/18 04/23/18 History Amoxicillin/Potassium Clav 1 tab PO Q12HR 7 Days #14 tab 04/17/18 04/23/18 Rx [Augmentin 875-125 Tablet] Clotrimazole Cream [Lotrimin Cream] 1 applic TOPICAL TID 04/23/18 04/23/18 History Enoxaparin [Lovenox] 100 mg SQ HS 04/23/18 04/23/18 History Warfarin [Coumadin] 2 mg PO SUSA 04/23/18 04/23/18 History Warfarin [Coumadin] 3 mg PO MOTUWETHFR 04/23/18 04/23/18 History Allergies Allergy/AdvReac Type Severity Reaction Status Date / Time No Known Allergies Allergy Verified 04/23/18 14:50 Physical Exam Vitals: Vital Signs Temp Pulse Resp BP Pulse Ox 04/25/18 04:00 97.5 F L 78 18 102/57 98 04/25/18 00:00 78 18 86/53 100 04/24/18 20:20 100 04/24/18 20:00 97.7 F 78 18 82/48 96 04/24/18 16:00 97.9 F 82 17 85/47 100 04/24/18 12:00 97.8 F 82 18 97/62 98 Intake and Output 04/24/18 04/25/18 04/25/18 22:59 06:59 14:59 Intake Total 500 Output Total 550 200 Balance -50 -200 Intake: Oral 500 Output: Stool 550 200 Other: Voiding Method Diaper Diaper Incontinent Incontinent # Voids 1 Weight 57 kg Examination awake alert but disoriented Cooperative Mode anxious HEENT exam no JVP neck is supple no facial asymmetry Lungs are clear to auscultation fair air entry bilaterally Heart sounds are unremarkable for any murmur rub gallop in atrial fibrillation Abdomen is soft nontender is large amount of drainage in his ileostomy bag which is dark brown Extremity exam was no edema Neurologically awake alert but disoriented moves all his extremities. Results - Lab Results Most recent lab results Calcium 8.1 mg/dL (8.4-10.2) L 04/24/18 10:38 Phosphorus 10.3 mg/dL (2.5-4.5) H* 04/23/18 13:48 Magnesium 2.6 mg/dL (1.6-2.3) H 04/23/18 13:48 04/23/18 13:48 04/24/18 10:38 Assessment and Plan Assessment: Impression 1. Acute kidney injury severe ATN secondary to hypotension from volume depletion and low blood pressure. Improved with IV hydration 2. Hyperkalemia secondary to acute kidney injury resolved. 3. Mild degree of gap acidosis secondary to acute kidney injury and mild lactic acidemia improved 4. Mental status changes probably chronic. Computed tomography scan shows left maxillary sinus opacification and chronic small vessel ischemic changes and old right frontal caudate head lacunar injuries 5. Hyperphosphatemia secondary to acute kidney injury although slightly higher than expected given he has large amount of GI drainage Recommendation 1. Continue IV fluid 100 mL normal saline per hour. 2. Redo phosphorus. 3. Watch labs.
[2018-04-25] MEDS: LOPERAMIDE 2 MG CAP PO SCH ×4 (09:32→20:45)
[2018-04-25] MEDS: PANTOPRAZOLE 40 MG/10 ML VIAL IV SCH (09:32)
[2018-04-25] MEDS: CLOTRIMAZOLE 1% CREAM 15 GM TUBE TOPICAL SCH ×3 (09:33→23:45)
[2018-04-25] MEDS: FERROUS SULFATE 325 MG TAB PO SCH (09:33)
[2018-04-25] MEDS: TAMSULOSIN 0.4 MG CAP.ER.24H PO SCH (09:33)
[2018-04-25] MEDS: ASPIRIN 81 MG PO SCH (09:33)
[2018-04-25 11:27] LABS: Calcium 7.9 mg/dL (8.4-10.2); Potassium 4.8 mmol/L (3.5-5.1)
[2018-04-25 11:37] LABS: Anisocytosis Slight; Basophils % (A) 1 %; Eosinophils # (A) 0.2 k/uL (0-0.7); Eosinophils % (A) 6 %; HCT 26.3 % (39.0-53.0); Hypochromasia Marked; Lymphocytes # (A) 0.7 k/uL (1.0-4.8); Lymphocytes % (A) 18 %; MCHC 30.8 g/dL (31.0-37.0); MCV 87.8 fL (80.0-100.0); Mean Platelet Volume 8.9; Monocytes # (A) 0.2 k/uL (0-1.0); Monocytes % (A) 5 %; Neutrophils # (A) 2.6 k/uL (1.3-7.7); Neutrophils % (A) 69 %; Platelet Count 266 k/uL (150-450); RBC 2.99 m/uL (4.30-5.90); RDW 19.1 % (11.5-15.5); WBC 3.8 k/uL (3.8-10.6)
[2018-04-25 11:43] LABS: HGB 8.1 gm/dL (13.0-17.5)
--- NOTE | 2018-04-25 13:56 | P.PN ---
Progress Note - Text Progress Note Date: 04/25/18 The patient was started on lomotil yesterday. Still having high ileostomy output. Will add metamucil to bulk up the bowel movement. Monitor ileostomy output
[2018-04-25] MEDS: SODIUM CHLORIDE 0.9% 1,000 ML IV SCH ×2 (16:01→20:45)
--- NOTE | 2018-04-25 16:05 | P.PN ---
Subjective Progress Note Date: 04/25/18 57 yo M History of CVA currently wheelchair-bound, HTN, HLP, ventricular tachycardia, s/p ileostomy after bowel obstruction, chronic incontinence of urine and stool. sent in from alf for generalized weakness and low blood pressure. pt is poor historian and could not provide much history , he was can answer with one or two words, he follow commands appropriately but he looks tired and tachypneic and he had difficultly finishing his sentence. pt was pointing to his bladder when asked what he is complaining of , he has ileostomy bag filled with dark green liquid stool . pt looks dehydrated. however he denies pain , however he has excoriated skin on the buttocks, on both sides, on presentation he has acute renal failure with acute renal failure , creatinine 7.6, baseline 0.6 to 0.7 , pt is high risk for infection , horn culture was sent. on presentation he was tachycardic, and hypotensive, he got one liter of fluid in ED, his lactic acide initially 2.5 went up to 4.0. his potassium 6.4 went down to 4.9. EKG: sinus tachycardia, CXR: no acute process as per radiology . 04/25/2018 Patient is seen and evaluated in the room at bedside for follow-up; patient's more awake and alert today Hemodynamically improved IV antibiotics discontinued by ID service; hypotension deemed secondary to dehydration secondary to high output ileostomy; patient is started on Metamucil to decrease output; surgery service is following Objective - Vital Signs Vital signs: Vital Signs Temp 97.5 F L 04/25/18 04:00 Pulse 100 04/25/18 08:00 Resp 16 04/25/18 08:00 BP 147/90 04/25/18 08:00 Pulse Ox 93 L 04/25/18 08:00 Intake & Output 04/24/18 04/25/18 04/25/18 18:59 06:59 18:59 Intake Total 625 Output Total 1650 550 Balance -1025 -550 Weight 63.2 kg 57 kg Intake: Oral 625 Output: Stool 1650 550 Other: Voiding Method Diaper Incontinent # Voids 1 1 - Exam The patient is weak and lethargic , he is awake and follow command appropriately , dehydrated HEENT: Pupils are round and equally reacting to light. EOMI. No scleral icterus. No conjunctival pallor. Normocephalic, atraumatic. No pharyngeal erythema. No thyromegaly. CARDIOVASCULAR: S1 and S2 present. No murmurs, rubs, or gallops. PULMONARY: Chest is clear to auscultation, no wheezing or crackles. -ABDOMEN: Soft, nontender, nondistended, normoactive bowel sounds. No palpable organomegaly. lower abd ileostomy tube MUSCULOSKELETAL: No joint swelling or deformity. EXTREMITIES: No cyanosis, clubbing, or pedal edema. NEUROLOGICAL: Gross neurological examination did not reveal any focal deficits. SKIN: No rashes. - Labs CBC & Chem 7: 04/25/18 10:47 04/25/18 10:47 Labs: Abnormal Lab Results - Last 24 Hours (Table) 04/24/18 04/24/18 Range/Units 10:28 10:38 PT 26.9 H (9.0-12.0) sec INR 2.8 H (<1.2) APTT 32.0 H (22.0-30.0) sec BUN 50 H (9-20) mg/dL Creatinine 3.64 H (0.66-1.25) mg/dL Calcium 8.1 L (8.4-10.2) mg/dL Total Protein 6.0 L (6.3-8.2) g/dL Albumin 2.8 L (3.5-5.0) g/dL Microbiology - Last 24 Hours (Table) 04/23/18 21:56 Urine Culture - Final Urine,Catheterized 04/23/18 13:48 Blood Culture - Preliminary Blood No Growth after 24 hours 04/23/18 21:57 Gram Stain - Preliminary Buttock Wound Culture - Preliminary Assessment and Plan Assessment: 1. Acute renal failure - IV fluids normal saline at 100 mL an hour; monitor strict TARA's, daily weights , renal function and electrolytes - Avoid nephrotoxins and hypotension 2. Sepsis; possibly multifactorial; cellulitis of the buttocks area versus C. diff - Continue antibiotic treatment until culture results are available - ID consult in place and recommendations are pending 3. Cellulitis of the buttocks region; continue with IV Zosyn and Zyvox - Patient has been pancultured and results are pending 4. Dehydration; IV fluid resuscitation 5. Hypertension; currently hypotensive secondary to sepsis - Patient remains on Coreg 3.125 by mouth twice a day 6. Hyperlipidemia; Lipitor 20 mg daily at bedtime 7. Metabolic acidosis; secondary to sepsis versus renal failure; continue with IV fluid resuscitation and continue to monitor renal function and electrolytes 8. DVT prophylaxis; systemic anticoagulation with Coumadin CODE STATUS; DO NOT RESUSCITATE
[2018-04-25] MEDS: PSYLLIUM HUSK 100% 6 GM PACKET PO SCH ×2 (16:09→22:26)
[2018-04-25] MEDS: WARFARIN 2 MG TAB PO SCH (16:10)
[2018-04-25] MEDS: ATORVASTATIN 20 MG TAB PO SCH (20:45)
[2018-04-26] MEDS: SODIUM CHLORIDE 0.9% 1,000 ML IV SCH ×2 (02:56→18:54)
--- NOTE | 2018-04-26 05:23 | PN ---
PROGRESS NOTE DATE OF SERVICE: 04/25/2018. REASON FOR FOLLOW UP: Lactic acidosis and a question of infection. INTERVAL HISTORY: The patient is currently afebrile. The patient is more awake, alert. He is breathing comfortably. Denies any chest pain or any cough. No abdominal pain or any worsening diarrhea. PHYSICAL EXAMINATION: Blood pressure 102/55 with a pulse of 78, temperature 97.5. He is 98% on room air. General description is a middle aged male lying in bed in no distress. Respiratory system: Unlabored breathing. Clear to auscultation anteriorly. Heart S1, S2. Regular rate and rhythm. ABDOMEN: Soft. No tenderness. LABS: Hemoglobin 8.1, white count of 3.8. BUN of 23, creatinine 1.41. Blood culture has been negative. He did have some buttock cultures with gram-negative bacilli. DIAGNOSTIC IMPRESSION AND PLAN: Patient admitted to the hospital with hypertension in this patient who did have evidence of lactic acidosis, more likely due to severe dehydration, ileostomy. Clinical suspicion is low for underlying infection. The patient is currently closely off antibiotic therapy. We will reevaluate his wound from which the cultures obtained from the mucous fistula and more likely representing natalya rather than source of infection. We will monitor the patient closely off antibiotic therapy. Continue supportive care. MMODL / IJN: [id number] /
[2018-04-26 06:33] LABS: Anisocytosis Slight; Basophils % (A) 0 %; Eosinophils # (A) 0.3 k/uL (0-0.7); Eosinophils % (A) 7 %; HCT 26.2 % (39.0-53.0); HGB 8.3 gm/dL (13.0-17.5); Hypochromasia Marked; Lymphocytes % (A) 23 %; MCH 26.5 pg (25.0-35.0); MCHC 31.7 g/dL (31.0-37.0); MCV 83.4 fL (80.0-100.0); Mean Platelet Volume 7.9; Monocytes # (A) 0.3 k/uL (0-1.0); Monocytes % (A) 6 %; Neutrophils # (A) 2.7 k/uL (1.3-7.7); Neutrophils % (A) 62 %; Platelet Count 271 k/uL (150-450); RBC 3.14 m/uL (4.30-5.90); RDW 18.4 % (11.5-15.5); WBC 4.3 k/uL (3.8-10.6)
[2018-04-26] MEDS: CARVEDILOL 3.125 MG TAB PO SCH ×2 (06:37→18:54)
[2018-04-26 06:52] LABS: Anion Gap 5 mmol/L; Blood Urea Nitrogen 13 mg/dL (9-20); Calcium 8.1 mg/dL (8.4-10.2); Carbon Dioxide 21 mmol/L (22-30); Chloride 110 mmol/L (98-107); Glucose 72 mg/dL (74-99); Potassium 4.5 mmol/L (3.5-5.1); Sodium 136 mmol/L (137-145)
[2018-04-26] MEDS: LOPERAMIDE 2 MG CAP PO SCH ×4 (08:06→23:08)
[2018-04-26] MEDS: PANTOPRAZOLE 40 MG/10 ML VIAL IV SCH (08:07)
[2018-04-26] MEDS: ASPIRIN 81 MG PO SCH (08:07)
[2018-04-26] MEDS: PSYLLIUM HUSK 100% 6 GM PACKET PO SCH ×2 (08:07→23:08)
[2018-04-26] MEDS: TAMSULOSIN 0.4 MG CAP.ER.24H PO SCH (08:07)
--- NOTE | 2018-04-26 08:47 | P.PN ---
Subjective Progress Note Date: 04/26/18 Principal diagnosis: This is a 57-year-old male seen in consultation because of acute kidney injury. He was recently admitted on 04/04/2018 with small bowel obstruction and on 08/2018 underwent exploratory laparotomy with bowel obstruction, had perforation , He also had an abscess with a appendiceal sigmoid fistula and an intra- abdominal abscess. and underwent expiratory laparotomy with ileocecectomy and sigmoid resection with end ileostomy and mucous fistula formation. He was discharged and came back with severe acute kidney injury with a creatinine of 7.69 as of 04/23/2018, 2 days ago. Acute kidney is deemed to be from volume depletion from excessive ileostomy and drainage, and low blood pressure, in the 80s systolic. His previous creatinines have been within normal range, last creatinine prior to this admission dated 04/17/2018 and 0.82. Further on admission his potassium was high, 6.4 with a mild degree of gap acidosis bicarb being 21 and gap being 18 lactic acid was 2.5. Phosphorus is high at 10.3. Urinalysis showed 2 + protein, 6 RBCs and 2 WBCs. He is awake alert and states he has no pain in the abdomen. No fever chills no nausea vomiting. He had mental status changes upon admission that has resolved Is known with ASHD, ejection fraction of 35% atrial fibrillation and is a [facility] resident. Objective - Vital Signs Vital signs: Vital Signs Temp 96.5 F L 04/26/18 07:51 Pulse 63 04/26/18 07:51 Resp 18 04/26/18 07:51 BP 136/63 04/26/18 07:51 Pulse Ox 97 04/26/18 07:51 Intake & Output 04/25/18 04/26/18 04/26/18 18:59 06:59 18:59 Intake Total 120 Output Total 551 901 Balance -431 -901 Weight 58.1 kg Intake: Oral 120 Output: Urine 1 1 Stool 550 900 Other: Voiding Method Diaper Diaper Diaper Incontinent Incontinent Incontinent # Voids 2 Exam she is awake alert oriented but looks tired and weak and somewhat. HEENT exam no JVP neck is supple no facial asymmetry Lungs are clear to auscultation good air entry bilaterally. Heart sounds are unremarkable for any murmur rub gallop Abdomen is soft with is midline ileostomy bag. Extremity exam was no edema Neurologically awake alert oriented but generalized profound weakness - Labs CBC & Chem 7: 04/26/18 05:46 04/26/18 05:46 Labs: Abnormal Lab Results - Last 24 Hours (Table) 04/25/18 04/25/18 04/26/18 Range/Units 10:47 10:47 05:46 RBC 2.99 L 3.14 L (4.30-5.90) m/uL Hgb 8.1 L D 8.3 L (13.0-17.5) gm/dL Hct 26.3 L 26.2 L (39.0-53.0) % MCHC 30.8 L (31.0-37.0) g/dL RDW 19.1 H 18.4 H (11.5-15.5) % Lymphocytes # 0.7 L (1.0-4.8) k/uL Sodium (137-145) mmol/L Chloride 110 H (98-107) mmol/L Carbon Dioxide (22-30) mmol/L BUN 23 H (9-20) mg/dL Creatinine 1.41 H (0.66-1.25) mg/dL Glucose (74-99) mg/dL Calcium 7.9 L (8.4-10.2) mg/dL 04/26/18 Range/Units 05:46 RBC (4.30-5.90) m/uL Hgb (13.0-17.5) gm/dL Hct (39.0-53.0) % MCHC (31.0-37.0) g/dL RDW (11.5-15.5) % Lymphocytes # (1.0-4.8) k/uL Sodium 136 L (137-145) mmol/L Chloride 110 H (98-107) mmol/L Carbon Dioxide 21 L (22-30) mmol/L BUN (9-20) mg/dL Creatinine (0.66-1.25) mg/dL Glucose 72 L (74-99) mg/dL Calcium 8.1 L (8.4-10.2) mg/dL Microbiology - Last 24 Hours (Table) 04/23/18 21:57 Gram Stain - Preliminary Buttock Wound Culture - Preliminary Gram Neg Bacilli Gram Neg Bacilli#2 04/23/18 13:48 Blood Culture - Preliminary Blood No Growth after 48 hours Assessment and Plan Assessment: Impression 1. Acute kidney injury severe ATN secondary to hypotension from volume depletion from GI losses from ileostomy and and low blood pressure. Improved with IV hydration. Creatinine is down to 0.91 2. Hyperkalemia secondary to acute kidney injury resolved. 3. Mild degree of gap acidosis secondary to acute kidney injury and mild lactic acidemia improved, currently bicarb is 21 down a bit 4. Mental status changes probably chronic. Computed tomography scan shows left maxillary sinus opacification and chronic small vessel ischemic changes and old right frontal caudate head lacunar injuries. Currently as of this morning on 220 14,019 seems to be awake alert oriented 5. Hyperphosphatemia secondary to acute kidney injury although slightly higher than expected given he has large amount of GI drainage Recommendation 1. Continue IV fluid 100 mL normal saline per hour, untill PO intake is adequate . 2. Redo phosphorus. 3. Watch labs.
[2018-04-26] MEDS: FERROUS SULFATE 325 MG TAB PO SCH (12:26)
[2018-04-26] MEDS: CLOTRIMAZOLE 1% CREAM 15 GM TUBE TOPICAL SCH ×2 (18:53→18:54)
[2018-04-26] MEDS: WARFARIN 2 MG TAB PO SCH (19:03)
[2018-04-26] MEDS: ATORVASTATIN 20 MG TAB PO SCH (23:08)
[2018-04-27] MEDS: SODIUM CHLORIDE 0.9% 1,000 ML IV SCH ×2 (03:48→10:41)
[2018-04-27] MEDS: CLOTRIMAZOLE 1% CREAM 15 GM TUBE TOPICAL SCH ×4 (05:30→20:08)
--- NOTE | 2018-04-27 06:10 | PN ---
PROGRESS NOTE DATE OF SERVICE: 04/26/2018 REASON FOR FOLLOWUP: Lactic acidosis and question of infection. INTERVAL HISTORY: The patient is currently afebrile. The patient is breathing comfortably. Denies having any chest pain or any cough. No abdominal pain. PHYSICAL EXAMINATION: On examination, blood pressure is 118/58 with a pulse of 72, temperature 97.8. He is 96% on room air. General description is a middle-aged male lying in bed in no distress. RESPIRATORY SYSTEM: Unlabored breathing, clear to auscultation anteriorly. HEART: S1, S2. Regular rate and rhythm. ABDOMEN: Soft, no tenderness. EXTREMITIES: No edema of the feet. LABS: Hemoglobin 8.3, white count 4.3, BUN of 13, creatinine 0.91. wound with Proteus and E coli. DIAGNOSTIC IMPRESSION AND PLAN: Patient admitted to the hospital with lactic acidosis more likely secondary to dehydration. Clinically doubt any evidence of infection. The patient did well on IV fluid and currently managed off antibiotic therapy. We will continue to monitor the patient closely. Continue supportive care. MMODL / IJN: [id number] /
[2018-04-27] MEDS: PANTOPRAZOLE 40 MG/10 ML VIAL IV SCH (08:23)
[2018-04-27] MEDS: PSYLLIUM HUSK 100% 6 GM PACKET PO SCH ×2 (08:23→20:08)
[2018-04-27] MEDS: LOPERAMIDE 2 MG CAP PO SCH ×4 (08:23→20:09)
[2018-04-27] MEDS: CARVEDILOL 3.125 MG TAB PO SCH ×2 (08:24→18:03)
[2018-04-27] MEDS: ASPIRIN 81 MG PO SCH (08:24)
[2018-04-27] MEDS: TAMSULOSIN 0.4 MG CAP.ER.24H PO SCH (08:24)
--- NOTE | 2018-04-27 08:35 | P.PN ---
Subjective Patient is seen in follow-up for acute kidney injury which has resolved. He is maintained on normal saline running at 100 mL an hour. Oral intake is fair. Denies vomiting or diarrhea. Vital signs are stable. General: The patient appeared well nourished and normally developed. HEENT: Head exam is unremarkable. Neck is without jugular venous distension. LUNGS: Lungs are clear to auscultation and percussion. Breath sounds decreased. HEART: Rate and Rhythm are regular. First and second heart sounds normal. No murmurs, rubs or gallops. ABDOMEN: Abdominal exam reveals normal bowel sounds. Non-tender and non- distended. No evidence of peritonitis. EXTREMITITES: No clubbing, cyanosis, or edema. Objective - Vital Signs Vital signs: Vital Signs Temp 98.7 F 04/27/18 07:12 Pulse 77 04/27/18 07:12 Resp 16 04/27/18 07:12 BP 124/73 04/27/18 07:12 Pulse Ox 99 04/27/18 07:12 Intake & Output 04/26/18 04/27/18 04/27/18 18:59 06:59 18:59 Intake Total 120 Output Total 250 1 Balance -130 -1 Intake: Oral 120 Output: Urine 1 Stool 250 Other: Voiding Method Diaper Diaper Incontinent Incontinent # Voids 2 1 # Bowel Movements 1 - Labs CBC & Chem 7: 04/26/18 05:46 04/26/18 05:46 Labs: Abnormal Lab Results - Last 24 Hours (Table) 04/26/18 Range/Units 05:46 Phosphorus 2.4 L (2.5-4.5) mg/dL Microbiology - Last 24 Hours (Table) 04/23/18 21:57 Gram Stain - Final Buttock Wound Culture - Final Proteus mirabilis Escherichia coli 04/23/18 13:48 Blood Culture - Preliminary Blood No Growth after 72 hours Assessment and Plan Plan: Assessment: 1. Acute kidney injury mostly prerenal improved with IV hydration. GFR back to baseline. 2. Mild hyperchloremic metabolic acidosis secondary to IV fluids. 3. Small bowel obstruction status post exploratory laparotomy with ileocecectomy and sigmoid resection last month. 4. Anemia. Rule out iron deficiency. 5. Systolic CHF with ejection fraction of 40-45%. Compensated. Plan: Maintain normal saline at 100 mL an hour. Check iron studies. Add oral sodium bicarbonate. Repeat electrolytes in the morning. Recheck phosphorus level.
--- NOTE | 2018-04-27 08:52 | P.PN ---
Subjective Progress Note Date: 04/26/18 Principal diagnosis: Altered mental status Acute renal injury/dehydration 57 yo M History of CVA currently wheelchair-bound, HTN, HLP, ventricular tachycardia, s/p ileostomy after bowel obstruction, chronic incontinence of urine and stool. sent in from halfway for generalized weakness and low blood pressure. pt is poor historian and could not provide much history , he was can answer with one or two words, he follow commands appropriately but he looks tired and tachypneic and he had difficultly finishing his sentence. pt was pointing to his bladder when asked what he is complaining of , he has ileostomy bag filled with dark green liquid stool . pt looks dehydrated. however he denies pain , however he has excoriated skin on the buttocks, on both sides, on presentation he has acute renal failure with acute renal failure , creatinine 7.6, baseline 0.6 to 0.7 , pt is high risk for infection , horn culture was sent. on presentation he was tachycardic, and hypotensive, he got one liter of fluid in ED, his lactic acide initially 2.5 went up to 4.0. his potassium 6.4 went down to 4.9. EKG: sinus tachycardia, CXR: no acute process as per radiology . 04/25/2018 Patient is seen and evaluated in the room at bedside for follow-up; patient's more awake and alert today Hemodynamically improved IV antibiotics discontinued by ID service; hypotension deemed secondary to dehydration secondary to high output ileostomy; patient is started on Metamucil to decrease output; surgery service is following 04/26/2018 Patient is more awake alert this morning; denies any complaint of pain; no complaining of diarrhea Vital signs are stable with a temperature of 97.9 and blood pressure of 101/53 Labs are reviewed and hemoglobin remained stable at 8.3 with improved B UN/ creatinine to normal Patient has been off IV antibiotics per ID recommendations and patient remains afebrile with a normal white blood count Patient's buttock wound culture is positive for moderate Proteus and E. coli; await further ID recommendations regarding antibiotic treatment for wound infection; patient could be discharged in next 24-48 hours if no antibiotics were recommended by ID Objective - Vital Signs Vital signs: Vital Signs Temp 96.5 F L 04/26/18 07:51 Pulse 63 04/26/18 07:51 Resp 18 04/26/18 07:51 BP 136/63 04/26/18 07:51 Pulse Ox 97 04/26/18 07:51 Intake & Output 04/25/18 04/26/18 04/26/18 18:59 06:59 18:59 Intake Total 120 120 Output Total 551 901 Balance -431 -901 120 Weight 58.1 kg Intake: Oral 120 120 Output: Urine 1 1 Stool 550 900 Other: Voiding Method Diaper Diaper Diaper Incontinent Incontinent Incontinent # Voids 2 1 - Exam The patient is weak and lethargic , he is awake and follow command appropriately , dehydrated HEENT: Pupils are round and equally reacting to light. EOMI. No scleral icterus. No conjunctival pallor. Normocephalic, atraumatic. No pharyngeal erythema. No thyromegaly. CARDIOVASCULAR: S1 and S2 present. No murmurs, rubs, or gallops. PULMONARY: Chest is clear to auscultation, no wheezing or crackles. -ABDOMEN: Soft, nontender, nondistended, normoactive bowel sounds. No palpable organomegaly. lower abd ileostomy tube MUSCULOSKELETAL: No joint swelling or deformity. EXTREMITIES: No cyanosis, clubbing, or pedal edema. NEUROLOGICAL: Gross neurological examination did not reveal any focal deficits. SKIN: No rashes. - Labs CBC & Chem 7: 04/26/18 05:46 04/26/18 05:46 Labs: Abnormal Lab Results - Last 24 Hours (Table) 04/25/18 04/25/18 04/26/18 Range/Units 10:47 10:47 05:46 RBC 2.99 L 3.14 L (4.30-5.90) m/uL Hgb 8.1 L D 8.3 L (13.0-17.5) gm/dL Hct 26.3 L 26.2 L (39.0-53.0) % MCHC 30.8 L (31.0-37.0) g/dL RDW 19.1 H 18.4 H (11.5-15.5) % Lymphocytes # 0.7 L (1.0-4.8) k/uL Sodium (137-145) mmol/L Chloride 110 H (98-107) mmol/L Carbon Dioxide (22-30) mmol/L BUN 23 H (9-20) mg/dL Creatinine 1.41 H (0.66-1.25) mg/dL Glucose (74-99) mg/dL Calcium 7.9 L (8.4-10.2) mg/dL Phosphorus (2.5-4.5) mg/dL 04/26/18 04/26/18 Range/Units 05:46 05:46 RBC (4.30-5.90) m/uL Hgb (13.0-17.5) gm/dL Hct (39.0-53.0) % MCHC (31.0-37.0) g/dL RDW (11.5-15.5) % Lymphocytes # (1.0-4.8) k/uL Sodium 136 L (137-145) mmol/L Chloride 110 H (98-107) mmol/L Carbon Dioxide 21 L (22-30) mmol/L BUN (9-20) mg/dL Creatinine (0.66-1.25) mg/dL Glucose 72 L (74-99) mg/dL Calcium 8.1 L (8.4-10.2) mg/dL Phosphorus 2.4 L (2.5-4.5) mg/dL Microbiology - Last 24 Hours (Table) 04/23/18 21:57 Gram Stain - Preliminary Buttock Wound Culture - Preliminary Gram Neg Bacilli Gram Neg Bacilli#2 04/23/18 13:48 Blood Culture - Preliminary Blood No Growth after 48 hours Assessment and Plan Assessment: 1. Acute renal failure - IV fluids normal saline at 100 mL an hour; monitor strict TARA's, daily weights , renal function and electrolytes - Avoid nephrotoxins and hypotension 2. Sepsis; possibly multifactorial; cellulitis of the buttocks area versus C. diff - Continue antibiotic treatment until culture results are available - ID consult in place and recommendations are pending 3. Cellulitis of the buttocks region; continue with IV Zosyn and Zyvox - Patient has been pancultured and results are pending 4. Dehydration; IV fluid resuscitation 5. Hypertension; currently hypotensive secondary to sepsis - Patient remains on Coreg 3.125 by mouth twice a day 6. Hyperlipidemia; Lipitor 20 mg daily at bedtime 7. Metabolic acidosis; secondary to sepsis versus renal failure; continue with IV fluid resuscitation and continue to monitor renal function and electrolytes 8. DVT prophylaxis; systemic anticoagulation with Coumadin CODE STATUS; DO NOT RESUSCITATE
[2018-04-27] MEDS: FERROUS SULFATE 325 MG TAB PO SCH (10:46)
[2018-04-27] MEDS: SODIUM BICARBONATE TAB 650 MG TAB PO SCH ×2 (10:46→20:08)
--- NOTE | 2018-04-27 14:33 | PN ---
PROGRESS NOTE DATE OF SERVICE: 04/27/2018 REASON FOR FOLLOWUP: 1. Lactic acidosis. 2. Positive culture. INTERVAL HISTORY: The patient is currently afebrile. The patient is breathing comfortably. Denies having any chest pain or any cough. No abdominal pain or any diarrhea. PHYSICAL EXAMINATION: Blood pressure 124/73 with a pulse of 77, temperature 98.7, he is 99% on room air. General description is a middle-aged male, lying in bed in no distress. RESPIRATORY SYSTEM: Unlabored breathing, clear to auscultation anteriorly. HEART: S1, S2. Regular rate and rhythm. ABDOMEN: Soft, no tenderness. Examination of sacral area, no wound on either of the gluteal area. LABS: Hemoglobin 8.2 with a white count 4.3, BUN of 13, creatinine 0.91. DIAGNOSTIC IMPRESSION AND PLAN: 1. Patient admitted to the hospital with initial consult for sepsis, lactic acidosis more likely because of dehydration. Clinically doubt infectious etiology. Patient did improve with IV fluids and no antibiotics, continue to hold on antibiotics. 2. Patient with a positive culture consistent from buttock, Proteus mirabilis and E coli currently. There is no wound on the buttock with concern for possible, these culture obtained from his mucous fistula and more likely obtaining a GI natalya. No need for any systemic antibiotic therapy for the same. MMODL / IJN: [id number] /
[2018-04-27] MEDS: WARFARIN 3 MG TAB PO SCH (18:03)
[2018-04-27 18:35] LABS: Iron Saturation 17.86 (15.00-50.00)
[2018-04-27] MEDS: ATORVASTATIN 20 MG TAB PO SCH (20:07)
--- NOTE | 2018-04-28 06:00 | PN ---
PROGRESS NOTE DATE OF SERVICE: April 27, 2018. PRESENTING COMPLAINT: Tired. INTERVAL HISTORY: This patient with some mental retardation and recent extensive bowel surgery, admitted with acute renal failure with high output ileostomy. The patient is tolerating his diet, getting his IV fluids. The patient's family at the bedside. REVIEW OF SYSTEMS: Done for constitutional, cardiovascular, GI, pulmonary and relevant findings as above. Patient tolerating a diet. CURRENT MEDICATIONS: Reviewed. PHYSICAL EXAMINATION: VITAL SIGNS: Temperature 98.5, pulse 66, respirations 16, blood pressure 106/64, pulse ox 99% on room air. GENERAL APPEARANCE: Lying in bed, awake. EYES: Pupils equal, conjunctivae normal. NECK: JVD not raised. Mass not palpable. RESPIRATORY: Effort normal. LUNGS: Fair air entry. CARDIOVASCULAR: 1st and 2nd sounds. No edema. ABDOMEN: Soft, nontender, liver and spleen not palpable. PSYCHIATRY: The patient is able to answer simple questions. ABDOMEN: The patient has an ileostomy bag in place. INVESTIGATIONS: White count 4.3, hemoglobin 8.3, potassium 4.5. BUN and creatinine normal yesterday. ASSESSMENT: 1. Acute renal failure prerenal from high output ileostomy. 2. Recent small-bowel obstruction followed by appendiceal, sigmoid fistula, ileocecal perforation, intraabdominal abscess followed by sigmoid colon removal, terminal ileum, cecum, removed. 3. Paroxysmal atrial fibrillation chronically on Coumadin. 4. Chronic congestive heart failure EF not known. 5. Hyperlipidemia. 6. Essential hypertension. 7. Chronic incontinent of stool and urine. 8. Patient's sister Mary is DPOA. PLAN: Continue current medication and treatment plan. The patient is on medications to thicken stool including Imodium and is also on Metamucil, continue with Coumadin. Care was discussed with sister Mary at the bedside. MMODL / IJN: [id number] /
--- NOTE | 2018-04-28 07:40 | P.PN ---
Subjective Progress Note Date: 04/27/18 Patient doing well. No complaints. output has decreased some. Objective - Vital Signs Vital signs: Vital Signs Temp 97.3 F L 04/27/18 23:00 Pulse 67 04/27/18 23:00 Resp 17 04/27/18 23:00 BP 133/68 04/27/18 23:00 Pulse Ox 99 04/27/18 23:00 Intake & Output 04/27/18 04/28/18 04/28/18 18:59 06:59 18:59 Intake Total 600 Output Total 500 300 100 Balance 100 -300 -100 Weight 58.1 kg Intake: Oral 600 Output: Stool 500 300 100 Other: Voiding Method Diaper Diaper Incontinent Incontinent # Voids 4 2 - Constitutional General appearance: Present: cooperative - Respiratory Details: nonlabored - Gastrointestinal Gastrointestinal Comment(s): S/NT/ND Ileostomy pink and patent with liquid stool in bag Mucus fistula patent - Psychiatric Psychiatric: Present: A&O x's 3 - Labs CBC & Chem 7: 04/26/18 05:46 04/26/18 05:46 Labs: Abnormal Lab Results - Last 24 Hours (Table) 04/27/18 Range/Units 09:33 Iron 45 L (65-175) ug/dL Microbiology - Last 24 Hours (Table) 04/23/18 13:48 Blood Culture - Preliminary Blood No Growth after 96 hours Assessment and Plan Assessment: High output ileostomy, LYNDON Plan: Continue with loperamide QID and fiber supplements. Goal output is under 1500cc per day.
[2018-04-28] MEDS: CLOTRIMAZOLE 1% CREAM 15 GM TUBE TOPICAL SCH ×3 (08:21→20:22)
[2018-04-28] MEDS: LOPERAMIDE 2 MG CAP PO SCH ×4 (08:22→20:21)
[2018-04-28] MEDS: SODIUM BICARBONATE TAB 650 MG TAB PO SCH ×2 (08:22→20:21)
[2018-04-28] MEDS: CARVEDILOL 3.125 MG TAB PO SCH ×2 (08:22→17:19)
[2018-04-28] MEDS: PSYLLIUM HUSK 100% 6 GM PACKET PO SCH ×2 (08:22→20:22)
[2018-04-28] MEDS: TAMSULOSIN 0.4 MG CAP.ER.24H PO SCH (08:22)
[2018-04-28] MEDS: ASPIRIN 81 MG PO SCH (08:22)
--- NOTE | 2018-04-28 10:44 | P.PN ---
Subjective Progress Note Date: 04/28/18 Patient doing well. No complaints. Ileostomy output has thickened. He still has poor oral intake Objective - Vital Signs Vital signs: Vital Signs Temp 97.9 F 04/28/18 07:27 Pulse 81 04/28/18 07:27 Resp 16 04/28/18 07:27 BP 145/75 04/28/18 07:27 Pulse Ox 100 04/28/18 07:27 Intake & Output 04/27/18 04/28/18 04/28/18 18:59 06:59 18:59 Intake Total 600 Output Total 500 300 100 Balance 100 -300 -100 Weight 58.1 kg Intake: Oral 600 Output: Stool 500 300 100 Other: Voiding Method Diaper Diaper Incontinent Incontinent # Voids 4 2 - Constitutional General appearance: Present: cooperative, thin - Respiratory Details: nonlabored - Gastrointestinal Gastrointestinal Comment(s): S/NT/ND, ileosomy patent with stool in bag, mucus fistula patent - Psychiatric Psychiatric: Present: A&O x's 3 - Labs CBC & Chem 7: 04/26/18 05:46 04/26/18 05:46 Labs: Abnormal Lab Results - Last 24 Hours (Table) 04/27/18 Range/Units 09:33 Iron 45 L (65-175) ug/dL Microbiology - Last 24 Hours (Table) 04/23/18 13:48 Blood Culture - Preliminary Blood No Growth after 96 hours Assessment and Plan Assessment: High output ileostomy, LYNDON Plan: Continue with loperamide, Patient does have poor oral intake as well. Recommend nutritional supplements.
--- NOTE | 2018-04-28 10:58 | P.PN ---
Subjective Patient is seen in follow-up for acute kidney injury which has resolved. Oral intake is fair. Denies vomiting or diarrhea. Hemodynamically stable. Vital signs are stable. General: The patient appeared well nourished and normally developed. HEENT: Head exam is unremarkable. Neck is without jugular venous distension. LUNGS: Lungs are clear to auscultation and percussion. Breath sounds decreased. HEART: Rate and Rhythm are regular. First and second heart sounds normal. No murmurs, rubs or gallops. ABDOMEN: Abdominal exam reveals normal bowel sounds. Non-tender and non- distended. No evidence of peritonitis. EXTREMITITES: No clubbing, cyanosis, or edema. Objective - Vital Signs Vital signs: Vital Signs Temp 97.9 F 04/28/18 07:27 Pulse 81 04/28/18 07:27 Resp 16 04/28/18 07:27 BP 145/75 04/28/18 07:27 Pulse Ox 100 04/28/18 07:27 Intake & Output 04/27/18 04/28/18 04/28/18 18:59 06:59 18:59 Intake Total 600 Output Total 500 300 100 Balance 100 -300 -100 Weight 58.1 kg Intake: Oral 600 Output: Stool 500 300 100 Other: Voiding Method Diaper Diaper Incontinent Incontinent # Voids 4 2 - Labs CBC & Chem 7: 04/26/18 05:46 04/26/18 05:46 Labs: Abnormal Lab Results - Last 24 Hours (Table) 04/27/18 Range/Units 09:33 Iron 45 L (65-175) ug/dL Microbiology - Last 24 Hours (Table) 04/23/18 13:48 Blood Culture - Preliminary Blood No Growth after 96 hours Assessment and Plan Plan: Assessment: 1. Acute kidney injury mostly prerenal improved with IV hydration. GFR back to baseline. 2. Mild hyperchloremic metabolic acidosis secondary to IV fluids. 3. Small bowel obstruction status post exploratory laparotomy with ileocecectomy and sigmoid resection last month. 4. Anemia. Iron deficiency noted. 5. Systolic CHF with ejection fraction of 40-45%. Compensated. Plan: IV iron x 3 doses. Maintain oral sodium bicarbonate. Repeat electrolytes in the morning. Encouraged oral intake.
[2018-04-28] MEDS: SODIUM FERRIC GLUCONAT-SUCROSE 125 MG in SODIUM CHLORIDE 0.9% 100 ML IVPB SCH (12:09)
[2018-04-28] MEDS: WARFARIN 3 MG TAB PO SCH (17:23)
[2018-04-28] MEDS: ATORVASTATIN 20 MG TAB PO SCH (20:21)
--- NOTE | 2018-04-28 22:26 | PN ---
PROGRESS NOTE DATE OF SERVICE: 04/28/2018 PRESENTING COMPLAINT: Tired. INTERVAL HISTORY: Patient with mental retardation and recent bowel surgery was admitted with acute renal failure with high-output ileostomy. Some thickening of the stool is happening. Oral intake is still low. Family at the bedside. REVIEW OF SYSTEMS: Done for constitutional, cardiovascular, GI, pulmonary; relevant findings as above. CURRENT MEDICATIONS: Reviewed. PHYSICAL EXAMINATION: Temperature 98.5, pulse 75, respiration 16, blood pressure 110/65, pulse ox 100% on room air. GENERAL APPEARANCE: Lying in bed, awake. EYES: Pupils equal. Conjunctivae normal. NECK: JVD not raised. Mass not palpable. RESPIRATORY: Effort normal. Lungs are clear. CARDIOVASCULAR: First and second sounds normal. No edema. ABDOMEN: Soft, non-tender. Liver and spleen not palpable. Ileostomy bag in place. PSYCHIATRY: Able to answer simple questions. INVESTIGATIONS: No blood work from today. ASSESSMENT: 1. Acute renal failure, prerenal, from high-output ileostomy. 2. Recent small bowel obstruction followed by appendiceal, sigmoid fistula, ileocecal perforation, intraabdominal abscess, followed by sigmoid colon removal, terminal ileum, cecum removed. 3. Paroxysmal atrial fibrillation, chronically on Coumadin. 4. Chronic congestive heart failure; ejection fraction not known. 5. Hyperlipidemia. 6. Essential hypertension. 7. Patient's sister Mary hold Durable Power of Moving Consultant. PLAN: Continue current medications and treatment plan. Check labs in the morning, including INR. MMODL / IJN: [id number] /
--- NOTE | 2018-04-28 23:23 | PN ---
PROGRESS NOTE DATE OF SERVICE: 04/28/2018 REASON FOR FOLLOW UP: Lactic acidosis and question of infection. INTERVAL HISTORY: The patient is currently afebrile. The patient is breathing comfortably. Denies having any chest pain or shortness of breath or cough. No abdominal pain. PHYSICAL EXAMINATION: Blood pressure 110/55 with a pulse of 75, temperature 98.5, he is 100% on room air. GENERAL DESCRIPTION: A middle-aged male lying in bed in no distress. RESPIRATORY SYSTEM: Unlabored breathing, clear to auscultation anteriorly. HEART: S1, S2. Regular rate and rhythm. ABDOMEN: Soft, no tenderness. LABS: No new labs obtained today. DIAGNOSTIC IMPRESSION AND PLAN: 1. Patient admitted to the hospital with generalized weakness, significant dehydration. Did have evidence of lactic acidosis, more likely because of dehydration. No evidence of any bacterial infection. Treated with IV fluid ( ) improvement and IV antibiotic therapy. 2. Patient with positive culture of Proteus and Escherichia coli. Cultures were obtained from mucous fistula, which is the gastrointestinal tract and no evidence of any infection. No need for any systemic antibiotic. Monitor the patient closely off antibiotic therapy. Continue supportive care. MMODL / IJN: [id number] /
[2018-04-29] MEDS: SODIUM FERRIC GLUCONAT-SUCROSE 125 MG in SODIUM CHLORIDE 0.9% 100 ML IVPB SCH (08:29)
[2018-04-29] MEDS: TAMSULOSIN 0.4 MG CAP.ER.24H PO SCH (08:30)
[2018-04-29] MEDS: SODIUM BICARBONATE TAB 650 MG TAB PO SCH (08:30)
[2018-04-29] MEDS: ASPIRIN 81 MG PO SCH (08:30)
[2018-04-29] MEDS: PSYLLIUM HUSK 100% 6 GM PACKET PO SCH (08:30)
[2018-04-29] MEDS: LOPERAMIDE 2 MG CAP PO SCH ×3 (08:30→17:36)
[2018-04-29] MEDS: CLOTRIMAZOLE 1% CREAM 15 GM TUBE TOPICAL SCH ×2 (08:30→16:24)
[2018-04-29] MEDS: CARVEDILOL 3.125 MG TAB PO SCH ×2 (08:30→17:36)
[2018-04-29 10:03] LABS: INR 2.3 (<1.2); Prothrombin Time 22.2 sec (9.0-12.0)
[2018-04-29 10:08] LABS: Anion Gap 11 mmol/L; Blood Urea Nitrogen 9 mg/dL (9-20); Calcium 8.8 mg/dL (8.4-10.2); Carbon Dioxide 21 mmol/L (22-30); Chloride 108 mmol/L (98-107); Glucose 89 mg/dL (74-99); Magnesium 1.7 mg/dL (1.6-2.3); Potassium 4.4 mmol/L (3.5-5.1); Sodium 140 mmol/L (137-145)
--- NOTE | 2018-04-29 11:19 | P.PN ---
Subjective Patient is seen in follow-up for acute kidney injury which has resolved. Oral intake is fair. Denies vomiting or diarrhea. Hemodynamically stable. Vital signs are stable. General: The patient appeared well nourished and normally developed. HEENT: Head exam is unremarkable. Neck is without jugular venous distension. LUNGS: Lungs are clear to auscultation and percussion. Breath sounds decreased. HEART: Rate and Rhythm are regular. First and second heart sounds normal. No murmurs, rubs or gallops. ABDOMEN: Abdominal exam reveals normal bowel sounds. Non-tender and non- distended. No evidence of peritonitis. EXTREMITITES: No clubbing, cyanosis, or edema. Objective - Vital Signs Vital signs: Vital Signs Temp 97.6 F 04/29/18 05:54 Pulse 74 04/29/18 05:54 Resp 17 04/29/18 05:54 BP 131/82 04/29/18 05:54 Pulse Ox 100 04/29/18 05:54 Intake & Output 04/28/18 04/29/18 04/29/18 18:59 06:59 18:59 Intake Total 1200 Output Total 350 200 400 Balance 850 -200 -400 Weight 58 kg Intake: Oral 1200 Output: Stool 350 200 400 Other: Voiding Method Diaper Diaper Diaper Incontinent Incontinent Incontinent # Voids 2 3 - Labs CBC & Chem 7: 04/26/18 05:46 04/29/18 09:03 Labs: Abnormal Lab Results - Last 24 Hours (Table) 04/29/18 04/29/18 Range/Units 09:03 09:03 PT 22.2 H (9.0-12.0) sec INR 2.3 H (<1.2) Chloride 108 H (98-107) mmol/L Carbon Dioxide 21 L (22-30) mmol/L Microbiology - Last 24 Hours (Table) 04/23/18 13:48 Blood Culture - Preliminary Blood No Growth after 120 hours Assessment and Plan Plan: Assessment: 1. Acute kidney injury mostly prerenal improved with IV hydration. GFR back to baseline. 2. Mild hyperchloremic metabolic acidosis secondary to IV fluids. Stable. 3. Small bowel obstruction status post exploratory laparotomy with ileocecectomy and sigmoid resection last month. 4. Anemia. Iron deficiency noted. 5. Systolic CHF with ejection fraction of 40-45%. Compensated. Plan: IV iron x 3 doses. Second dose today. Maintain oral sodium bicarbonate. Repeat electrolytes in the morning. Encouraged oral intake.
[2018-04-29] MEDS ORDERED: MAGNESIUM SULFATE-D5W PMX 1 GM in DEXTROSE/WATER 1 100ML.BAG IVPB ONE (12:00)
[2018-04-29 14:55] VITALS: BP 110/68; PULSE 82; RESP 16; TEMP 98.2
--- NOTE | 2018-04-29 15:33 | DS ---
DISCHARGE SUMMARY DATE OF ADMISSION: 04/23/2018 DATE OF DISCHARGE: 04/29/2018 FINAL DIAGNOSES: 1. Acute renal failure, prerenal from high output ileostomy. 2. Decrease in small-bowel obstruction followed by appendiceal, sigmoid fistula, ileocecal perforation, intraabdominal abscess followed by sigmoid colon removal, terminal ileum, cecum removed. 3. Paroxysmal atrial fibrillation, chronically on Coumadin. 4. Chronic congestive heart failure from diastolic dysfunction. Ejection fraction 55%- 60%. 5. Hyperlipidemia. 6. Essential hypertension. 7. Patient's sister Mary holds durable power of ip technology transactions attorney. 8. Chronic mental retardation/cognitive impairment. CONSULTATIONS: 1. Dr. Núñez from Infectious Disease. 2. Dr. Smith from Nephrology. 3. Dr. Shemar Thorne from General Surgery. HOSPITAL COURSE: This patient who had recently undergone extensive abdominal surgery including abscess presented from with high output renal failure, ileostomy. The creatinine up to 7.69. Creatinine did drop down back to normal 0.73 today. Patient is tolerating his diet, ate well this morning. BUN and creatinine is back to normal. I spoke to the patient's sister, also spoke to Dr. Thorne. Patient is doing well. PHYSICAL EXAMINATION: Temperature 98.2, pulse 82, respiration 16, blood pressure 110/68. ABDOMEN: Soft, nontender. Ileostomy bag in place. INVESTIGATIONS: BUN 9, creatinine 0.73. INR 2.3. Discussion and discharge planning more than 35 minutes. DISCHARGE MEDICATIONS: 1. Aspirin 81 mg a day. 2. Lipitor 20 mg q.h.s. 3. Coreg 3.125 p.o. b.i.d. 4. Tylenol 650 mg q.6 p.r.n. 5. Iron 325 p.o. daily. 6. Flomax 0.4 mg p.o. daily. 7. Clotrimazole topical t.i.d. 8. Coumadin 2 mg p.o. on Friday and Friday and 3 mg on Friday, Friday, Friday, , Friday. 9. Imodium 4 mg p.o. q.i.d. 10.Metamucil 6 g p.o. b.i.d. 11.Sodium bicarb 650 mg p.o. b.i.d. 12.Discontinued medication is lisinopril, Augmentin. DISPOSITION: [facility]. DIET: High-fiber diet. FOLLOWUP: Follow up with Dr. Arellano in the [place]. Follow up with Dr. Thorne in 2 weeks. MMODL / IJN: [id number] /
--- NOTE | 2018-04-29 16:54 | PN ---
PROGRESS NOTE DATE OF SERVICE: 04/29/2018 REASON FOR FOLLOWUP: 1. Lactic acidosis with possible dehydration. 2. Positive culture, more likely no acute infection. INTERVAL HISTORY: The patient is afebrile. The patient is currently breathing comfortably. The patient apparently did eat his lunch and kept everything down. No nausea. No vomiting. No abdominal pain. PHYSICAL EXAMINATION: Blood pressure is 110/68 with a pulse of 82, temperature 98.2. He is 96% on room air. General description is a middle-aged male lying in bed in no distress. RESPIRATORY SYSTEM: Unlabored breathing. Clear to auscultation anteriorly. HEART: S1, S2. Regular rate and rhythm. ABDOMEN: Soft. No tenderness. LABS: BUN of 9, creatinine 0.73. Cultures from blood and urine have been negative. The culture from the mucous fistula with proteus and E coli. DIAGNOSTIC IMPRESSION AND PLAN: 1. The patient admitted to hospital with hypotension, lactic acidosis, more likely secondary to severe dehydration. Clinically doubt any evidence of bacterial infection. The patient did well off antibiotic therapy. 2. Positive cultures from the mucous fistula, as the patient has no open wound on his gluteal area. for the systemic antibiotics. Family present at the bedside. Their questions were answered. MMODL / IJN: [id number] /
[2018-04-29] MEDS: WARFARIN 3 MG TAB PO SCH (18:19)
== END 2018-04-29 19:39 | DRG 683 ==
LOC: EC 13:15 → 3SCARD 16:39 → 4MS4W 04-26 18:36
PROVIDERS: ADMIT Hospitalist; ATTEND Hospitalist
DX: N17.0 Acute kidney failure with tubular necrosis (principal); E87.2 Acidosis; L03.317 Cellulitis of buttock; I50.22 Chronic systolic (congestive) heart failure; K94.19 Other complications of enterostomy; Z66 Do not resuscitate; E87.5 Hyperkalemia; I48.0 Paroxysmal atrial fibrillation; E83.39 Other disorders of phosphorus metabolism; E86.0 Dehydration; I11.0 Hypertensive heart disease with heart failure; E88.09 Other disorders of plasma-protein metabolism, not elsewhere classified; I25.10 Atherosclerotic heart disease of native coronary artery without angina pectoris; E78.5 Hyperlipidemia, unspecified; F79 Unspecified intellectual disabilities; D64.9 Anemia, unspecified; E61.1 Iron deficiency; B96.4 Proteus (mirabilis) (morganii) as the cause of diseases classified elsewhere; B96.20 Unspecified Escherichia coli [E. coli] as the cause of diseases classified elsewhere; E86.1 Hypovolemia; I25.2 Old myocardial infarction; I25.5 Ischemic cardiomyopathy; F32.9 Major depressive disorder, single episode, unspecified; R32 Unspecified urinary incontinence; R26.9 Unspecified abnormalities of gait and mobility; Z79.82 Long term (current) use of aspirin; Z79.01 Long term (current) use of anticoagulants; Z79.899 Other long term (current) drug therapy; Z86.79 Personal history of other diseases of the circulatory system; Z99.3 Dependence on wheelchair; Z87.891 Personal history of nicotine dependence; Z86.73 Personal history of transient ischemic attack (TIA), and cerebral infarction without residual deficits; Z82.49 Family history of ischemic heart disease and other diseases of the circulatory system; Z83.79 Family history of other diseases of the digestive system
CPT/HCPCS: 36415; 71046; 80048; 80053; 81001; 82140; 82330; 82550; 82553; 82728; 83540; 83550; 83605; 83735; 83880; 84100; 84132; 84443; 84484; 85025; 85610; 85730; 87040; 87070; 87077; 87086; 87186; 87205; 87324; 93005; 94640; 96361; 96365; 96366; 96375; 96376; 99285